=== PATIENT | female | born 1960 | race Caucasian/White ===

== ENCOUNTER 2017-08-15 12:44 | Inpatient (IN) | payer OTHER ==
[~2017-08-15] VITALS: Ht 160 cm; Wt 64.9 kg
--- NOTE | 2017-08-15 13:08 | ED GENERAL ADULT ---
History of Present Illness General Chief Complaint: General Adult Stated Complaint: PER GRANDDAUGHTER SLURRING WORDS,SHAKY Source: patient, family Exam Limitations: confusion Vital Signs & Intake/Output Vital Signs & Intake/Output Vital Signs Date Time Temp Pulse Resp B/P B/P Pulse O2 O2 Flow FiO2 Mean Ox Delivery Rate 08/15 1526 98.1 112 22 129/77 91 Room Air 08/15 1455 96 Room Air 08/15 1307 98.9 100 18 122/74 99 Room Air Allergies Coded Allergies: No Known Allergies (08/15/17) Reconcile Medications Levothyroxine Sodium (Synthroid) 137 MCG TABLET 1 TAB PO DAILY THYROID ( Reported) Metoprolol Succinate 50 MG TAB.ER.24H 1 TAB PO DAILY HEART/BP (Reported) Simvastatin (Simvastatin*) 80 MG TABLET 1 TAB PO DAILY CHOLESTEROL (Reported) Triage Nurses Notes Reviewed? yes Onset: Gradual Duration: week(s):, getting worse, waxing and waning Timing: recent history Injury Environment: home Severity: moderate HPI: 57yo female with hx of hypothyroidism, HTN, alcoholism presents to ED in care of family who state the patient has been "sick" for 6 weeks however today symptoms have worsened. HPI is limited due to patient's confusion, HPI obtained from family. Family state that for the past 6 weeks the patient has been off, coughing intermittently. Patient has had urinary and bowel incontinence for the past 3 weeks. Patient has also had increasing swelling in bilateral lower extremities, family unsure of when this started. Patient recently acting more confused, family is unsure when confusion started however no that today the patient is not at her baseline. 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 Patient denies drinking alcohol today or yesterday, reports lower appetite. Patient denies pain, vomiting, diarrhea. (Nasra Green) Past History Travel History Traveled to [place] past 21 day No Medical History Any Pertinent Medical History? see below for history Cardiovascular: hypertension Endocrine: hypothyroidism Surgical History Surgical History: non-contributory Family History Hx Contributory? No (Nasra Green) Review of Systems Review of Systems Constitutional: Reports: see HPI. Respiratory: Reports: see HPI. GI: Reports: see HPI. Genitourinary: Reports: see HPI. Neurological/Psychological: Reports: see HPI. Comments ROS is limited d/t patient's confusion. (Bonnie MARTELL,Nasra Diggs) Physical Exam Physical Exam General Appearance: well developed/nourished, confused Head: atraumatic, normal appearance Eyes: Bilateral: normal appearance, PERRL, EOMI. Ears, Nose, Throat: hearing grossly normal Neck: normal inspection, supple, full range of motion Respiratory: normal breath sounds, no respiratory distress, lungs clear Cardiovascular: regular rate/rhythm, normal peripheral pulses Peripheral Pulses: 2+ radial (R), 2+ radial (L) Gastrointestinal: normal bowel sounds, soft, non-tender, hepatomegaly, fine deep red/purple maculopapular rash to central abdomen, nontender Back: normal inspection, normal range of motion Extremities: normal range of motion, 2+ pitting edema bilateral lower extremities, nontender Neurologic/Psych: awake, oriented to person and place, neurologic exam limited, patient will not follow commands, confused Skin: intact, see abdominal rash as described Core Measures ACS in differential dx? Yes CVA/TIA Diagnosis: No Sepsis Present: No Sepsis Focused Exam Completed? No (Bonnie MARTELL,Nasra Diggs) Progress Differential Diagnoses I considered the following diagnoses in my evaluation of the patient: [Hepatic encephalopathy, hypoglycemia, hyperglycemia, alcohol intoxication, drug intoxication, alcohol withdrawal, UTI, encephalitis, ICH, malignancy, sepsis] Plan of Care: Orders Procedure Date/time Status Nothing by Mouth 08/16 B Active Add-on Test (ER Only) 08/15 1724 Active Patient Data 08/15 1632 Active ED Holding Orders 08/15 1628 Active Admit to inpatient 08/15 1628 Active Vital Signs 08/15 1628 Active Code Status 08/15 1628 Active Add-on Test (ER Only) 08/15 1627 Active Add-on Test (ER Only) 08/15 1625 Active LACTIC ACID 08/15 1608 Active Waller, Insertion/Removal/Asses 08/15 1540 Active US-LIMITED ABDOMEN 08/15 1451 Active URINE OSMOLALITY 08/15 1431 Complete URINE LYTES, SPOT 08/15 1431 Complete PARTIAL THROMBOPLASTIN TIME 08/15 1415 Complete PROTHROMBIN TIME 08/15 1415 Complete THYROID STIMULATING HORMONE 08/15 1400 Complete SERUM OSMOLALITY 08/15 1400 Complete FREE T4 08/15 1400 Complete ACETONE 08/15 1400 Complete CULTURE,URINE 08/15 1355 Active Patient Safety Monitor 08/15 1336 Active Saline Lock 08/15 1328 Active FingerStick- Glucose 08/15 1328 Active AMMONIA 08/15 1314 Complete BLOOD CULTURE 08/15 1313 Active URINE DRUG SCREEN FOR ER ONLY 08/15 1308 Complete URINALYSIS 08/15 1308 Complete TROPONIN LEVEL 08/15 1308 Complete LACTIC ACID 08/15 1308 Complete ETHANOL 08/15 1308 Complete COMPREHENSIVE METABOLIC PANEL 08/15 1308 Complete CBC WITHOUT DIFFERENTIAL 08/15 1308 Complete EKG 08/15 1248 Active Laboratory Tests 08/15/17 1431: Urinalysis MOD H, Urine Color KRYSTAL, Urine Clarity CLEAR, Urine pH 6.0, Ur Specific Glynn 1.025, Urine Protein 30 H, Urine Ketones >=80, Urine Nitrite NEG, Urine Bilirubin POS@ICTO H, Urine Urobilinogen 4.0 H, Ur Leukocyte Esterase NEG, Ur Microscopic SEDIMENT EXAMINED, Urine RBC 1-3, Urine WBC 1-3 H, Ur Epithelial Cells FEW, Hyaline Casts > 75 H, Granular Casts RARE H, Urine Hemoglobin TRACE-INTACT, Urine Glucose NEG 08/15/17 1431: Urine Opiates Screen < 100, Methadone Screen < 40, Barbiturate Screen < 60, Ur Phencyclidine Scrn < 6.00, Amphetamines Screen < 100, U Benzodiazepines Scrn < 85, Urine Cocaine Screen < 50, Urine Cannabis Screen < 5.00, Urine Osmolality 368, Ur Random Creatinine 73.2, Ur Random Sodium 43, Ur Random Potassium 26.8, Fraction Sodium Excret 0.6 08/15/17 1415: PT 12.6 H, INR 1.15, APTT 33 08/15/17 1400: Ammonia 76 H 08/15/17 1400: Anion Gap 34 H, Estimated GFR 39 L, BUN/Creatinine Ratio 6.4 L, Glucose 113 H, Serum Osmolality 295, Lactic Acid 1.2, Calcium 8.0 L, Total Bilirubin 4.5 H , AST 238 H, ALT 86 H, Alkaline Phosphatase 327 H, Troponin I < 0.01, Total Protein 7.7, Albumin 3.7, Globulin 4.0, Albumin/Globulin Ratio 0.9 L, TSH 1.870 , Free T4 1.04, CBC w Diff MAN DIFF ORDERED, RBC 2.36 L, MCV 121.6 H, MCH 41.3 H, MCHC 34.0, RDW 15.6 H, MPV 9.5, Gran % 91.4 H, Lymphocytes % 2.9 L, Monocytes % 5.7, Eosinophils % 0, Basophils % 0, Absolute Granulocytes 5.1, Segmented Neutrophils 57, Band Neutrophils 30 H, Absolute Lymphocytes 0.2 L, Lymphocytes 5 L, Monocytes 7, Absolute Monocytes 0.3, Absolute Eosinophils 0, Absolute Basophils 0, Metamyelocytes 1, Nucleated RBCs 3 H, Platelet Estimate DECREASED, Anisocytosis 1+, Macrocytic Cells 2+, Serum Alcohol < 10.0, Acetone Level POSITIVE AT 1:16 DIL 08/15/17 1348: TSH Cancelled, Free T4 Cancelled Microbiology 08/15 1431 URINE ROUT: Urine Culture - RECD 08/15 1415 BLOOD: Blood Culture - RECD 08/15 1400 BLOOD: Blood Culture - RECD Patient's ammonia level is elevated at 76. Chemistry shows elevation in liver enzymes and bilirubin. Patient also with elevated anion gap. Likely Hepatic encephalopathy in setting of acute alcoholic hepatitis. Patient medicated with Lactulose and IV fluids. The patient was discussed with Dr. Villela. Spoke with hospitalist, Dr. Acosta, regarding this patient's admission. GI consult pending. Spoke with Dr. Justin regarding this patient. He recommends further workup regarding the patient's altered mental status, patient's not have a history of hepatic encephalopathy may be related to the patient's symptoms. Diagnostic Imaging: Viewed by Me: Radiology Read, CT Scan. Discussed w/RAD: Radiology Read, CT Scan. Radiology Impression: PATIENT: DINORAH OGLESBY PRESENT AGE: 57 PATIENT ACCOUNT NO: [id number] : 62 LOCATION: [facility] ORDERING PHYSICIAN: Nasra MARTELL SERVICE DATE: 08/15/17 EXAM TYPE: CAT - CT HEAD WO IV CONTRAST EXAMINATION: CT HEAD WITHOUT CONTRAST CLINICAL INFORMATION: Acute mental status change. Rule out intracranial hemorrhage or mass. COMPARISON: None TECHNIQUE: Contiguous axial imaging was performed from the skull base to vertex without intravenous administration of contrast. DLP: 549.29 mGy-cm FINDINGS: Evaluation limited by motion artifact. There is no evidence of acute intracranial hemorrhage or territorial infarction. No abnormal mass effect or midline shift is seen. Gill to white matter differentiation is well preserved. No extra-axial fluid collections are identified. The ventricles are normal in size. There is no abnormal attenuation within the brain parenchyma. The osseous structures and soft tissues are normal. Minimal mucosal disease is seen in the posterior right sphenoid sinus. The mastoid air cells and visualized portions of the paranasal sinuses are otherwise well aerated. IMPRESSION: No acute intracranial pathology. Minimal right sphenoid sinus disease. DICTATED BY: Jihan Lawton MD DATE/TIME DICTATED:03/25 SECURITY EXPERT:LANDERS DATE/TIME TRANSCRIBED:08/15/171503 CONFIDENTIAL, DO NOT COPY WITHOUT APPROPRIATE AUTHORIZATION. <Electronically signed in Other Vendor System> SIGNED BY: Jihan Lawton MD 08/15/17 1510 CXR Impression: PATIENT: DINORAH OGLESBY PRESENT AGE: 57 PATIENT ACCOUNT NO: [id number] : 62 LOCATION: [facility] ORDERING PHYSICIAN: Nasra MARTELL SERVICE DATE: 08/15/17 EXAM TYPE: RAD - XRY- PORTABLE CHEST XRAY EXAMINATION: XR PORTABLE CHEST CLINICAL INFORMATION: Acute mental status changes. Cough. Evaluate for pneumonia. COMPARISON: None TECHNIQUE : Portable AP semierect view of the chest was obtained. FINDINGS: The cardiomediastinal silhouette is within normal limits in size. Low lung volumes are seen with mild bibasilar reticular opacities, most consistent with atelectasis. No focal consolidation, effusion or pneumothorax is seen. Old healed fracture deformities of the posterior lateral right fifth, sixth, and seventh ribs is seen. IMPRESSION: Mild bibasilar opacities, most consistent with subsegmental atelectasis. No dense consolidation seen. DICTATED BY: Jihan Lawton MD DATE/TIME DICTATED:08/15/171506 SECURITY EXPERT:LANDERS DATE/ TIME TRANSCRIBED:08/15/171506 CONFIDENTIAL, DO NOT COPY WITHOUT APPROPRIATE AUTHORIZATION. <Electronically signed in Other Vendor System> SIGNED BY: Jihan Lawton MD 08/15/17 151 Initial ED EKG: sinus rhythm @96bpm, RBBB, nonspecific ST changes (Bonnie MARTELL,Nasra Diggs) Departure Departure Disposition: STILL A PATIENT Condition: Stable Clinical Impression Primary Impression: Hepatic encephalopathy Secondary Impressions: Acute alcoholic hepatitis Altered mental status Qualifiers: Altered mental status type: unspecified Qualified Code: R41.82 - Altered mental status, unspecified Departure Forms: Customer Survey General Discharge Information Admission Note Spoke With: Ministerio Acosta MD Documentation of Exam: Documentation of any treatments & extenuating circumstances including Concerns Regarding Discharge (functional status, medication knowledge or non-compliance, living conditions, etc.) that warrant an admission rather than observation: [ Hepatic encephalopathy and acute alcoholic hepatitis requiring IV fluids, lactulose, gastroenterology consult, repeat labs, altered mental status and confusion requiring patient safety monitor, premature discharge would be medically unsafe.] (Nasra Green) Admission Note Spoke With: Ministerio Acosta MD PA/DIRECTOR OF PURCHASING Co-Sign Statement Statement: ED Attending supervision documentation- [X] I saw and evaluated the patient. I have also reviewed all the pertinent lab results and diagnostic results. I agree with the findings and the plan of care as documented in the PA's/DIRECTOR OF PURCHASING's documentation. [X] I have reviewed the ED Record and agree with the PA's/DIRECTOR OF PURCHASING's documentation. [] Additions or exceptions (if any) to the PAs/DIRECTOR OF PURCHASING's note and plan are summarized below: [Patient to be admitted for hepatic encephalopathy and alcoholic hepatitis. Patient only to GI consultation. Patient will need lactulose. IV fluids.] (Manohar INMAN,Yohannes Rodrigez) Critical Care Note Critical Care Note Critical Care Time: 30-74 min (Nasra Green) (Nasra Green)
[2017-08-15 15:05] LABS: ABSOLUTE BASOPHIL COUNT 0 /CUMM (0.0-0.2); ABSOLUTE EOSINOPHIL COUNT 0 /CUMM (0.0-0.7); ABSOLUTE GRANULOCYTE CT 5.1 /CUMM (1.4-6.5); ABSOLUTE LYMPH COUNT 0.2 /CUMM (1.2-3.4); ABSOLUTE MONOCYTE COUNT 0.3 /CUMM (0.10-0.60); BASOPHIL % 0 % (0.0-2.0); EOSINOPHIL % 0 % (0-5); GRANULOCYTE % 91.4 % (42.2-75.2); HEMATOCRIT 28.7 % (37-47); MEAN CORPUSCULAR HGB 41.3 PG (27.0-31.0); MEAN CORPUSCULAR VOLUME 121.6 FL (81.0-99.0); MEAN PLATELET VOLUME 9.5 FL (7.4-10.4); PLATELET COUNT 126 /CUMM (130-400); RBC DISTRIBUTION WIDTH 15.6 % (11.5-14.5); WHITE BLOOD CELL COUNT 5.6 /CUMM (4.8-10.8)
[2017-08-15 15:07] LABS: RED BLOOD CELL CT 2.36 /CUMM (4.20-5.40)
--- NOTE | 2017-08-15 15:10 | CT SCAN REPORT ---
EXAMINATION: CT HEAD WITHOUT CONTRAST CLINICAL INFORMATION: Acute mental status change. Rule out intracranial hemorrhage or mass. COMPARISON: None TECHNIQUE: Contiguous axial imaging was performed from the skull base to vertex without intravenous administration of contrast. DLP: 549.29 mGy-cm FINDINGS: Evaluation limited by motion artifact. There is no evidence of acute intracranial hemorrhage or territorial infarction. No abnormal mass effect or midline shift is seen. Gill to white matter differentiation is well preserved. No extra-axial fluid collections are identified. The ventricles are normal in size. There is no abnormal attenuation within the brain parenchyma. The osseous structures and soft tissues are normal. Minimal mucosal disease is seen in the posterior right sphenoid sinus. The mastoid air cells and visualized portions of the paranasal sinuses are otherwise well aerated. IMPRESSION: No acute intracranial pathology. Minimal right sphenoid sinus disease.
--- NOTE | 2017-08-15 15:12 | RADIOLOGY REPORT ---
EXAMINATION: XR PORTABLE CHEST CLINICAL INFORMATION: Acute mental status changes. Cough. Evaluate for pneumonia. COMPARISON: None TECHNIQUE: Portable AP semierect view of the chest was obtained. FINDINGS: The cardiomediastinal silhouette is within normal limits in size. Low lung volumes are seen with mild bibasilar reticular opacities, most consistent with atelectasis. No focal consolidation, effusion or pneumothorax is seen. Old healed fracture deformities of the posterior lateral right fifth, sixth, and seventh ribs is seen. IMPRESSION: Mild bibasilar opacities, most consistent with subsegmental atelectasis. No dense consolidation seen.
[2017-08-15] MEDS ORDERED: SIMVASTATIN80 M1 PO (15:25)
[2017-08-15] MEDS ORDERED: SYNTHROID137 MCG PO (15:25)
[2017-08-15] MEDS ORDERED: METOPROLOL SUCC50 M2 PO (15:25)
--- NOTE | 2017-08-15 16:36 | History & Physical ---
General Information and HPI Allergies/Medications Allergies: Coded Allergies: No Known Allergies (08/15/17) Home Med list Levothyroxine Sodium (Synthroid) 137 MCG TABLET 1 TAB PO DAILY THYROID ( Reported) Metoprolol Succinate 50 MG TAB.ER.24H 1 TAB PO DAILY HEART/BP (Reported) Simvastatin (Simvastatin*) 80 MG TABLET 1 TAB PO DAILY CHOLESTEROL (Reported) Past History Travel History Traveled to [place] past 21 day No Medical History Neurological: NONE EENT: NONE Cardiovascular: hypertension Respiratory: NONE Gastrointestinal: NONE Hepatic: NONE Renal: NONE Musculoskeletal: NONE Psychiatric: NONE Endocrine: hypothyroidism Blood Disorders: NONE Cancer(s): NONE Isolation History: Standard Surgical History Surgical History: non-contributory Core Measures/Misc (02/22) Cerebrovascular Accident CVA/TIA Diagnosis: No
[2017-08-15 17:38] LABS: PT 12.6 SEC (9.4-12.5); PTT 33 SEC (25-37)
--- NOTE | 2017-08-15 18:20 | ULTRASOUND REPORT ---
EXAMINATION: US ABDOMEN LIMITED CLINICAL INFORMATION: Elevated ammonia level. Hepatomegaly. Assess liver. COMPARISON: None TECHNIQUE: Real-time imaging of the right upper quadrant abdominal viscera. FINDINGS: PANCREAS: The pancreatic body is visualized with the remainder of the pancreas obscured by overlying bowel gas. LIVER: The liver demonstrates normal size and contour. There is diffusely increased echogenicity with coarsening of the echotexture, suspicious for hepatic steatosis. No focal lesion or intrahepatic biliary duct dilatation. GALLBLADDER: There are several small mobile echogenic shadowing foci within the gallbladder, consistent with gallstones. Small amount of layering sludge is also seen within the gallbladder. The gallbladder is physiologically distended without evidence of polyps, wall thickening or pericholecystic fluid. No sonographic Christian's sign is elicited while scanning over the gallbladder. COMMON BILE DUCT: Not seen. RIGHT KIDNEY: Normal. No hydronephrosis. No renal calculi or focal parenchymal lesions. The kidney measures 11.5 cm in maximum dimension. FREE FLUID: None. IMPRESSION: 1. Limited exam. Common bile duct is not visualized. Pancreatic head and tail are not visualized. Visualized portions of the pancreatic body appear unremarkable. 2. Diffuse hepatic steatosis. 3. Cholelithiasis and sludge within the gallbladder. No evidence of acute cholecystitis. Clinical correlation requested.
--- NOTE | 2017-08-15 19:00 | History & Physical ---
See Addendum General Information and HPI MD Statement: I have seen and personally examined DINORAH VILLAGOMEZ and documented this H&P. The patient is a 57 year old F who presented with a patient stated chief complaint of [AMS]. Source of Information: patient, family Exam Limitations: unable to give history, confusion, poor historian History of Present Illness: This is a 57 yo female with known PMH of htn, hypothyroid, significant etoh use who was brought in by her step daughter for somnolence and altered mental status. Pt is AOX0 so hx is obtained from family (step daughter and her son) at bedside. Step daughter says she went in to see pt today and noted her sitting in a chair, somnolent, unable to respond appropriately with "yellow eyes." Per her, she noted pt was unwell for about 6 wks. She was initially coughing and then noted to be sleeping for excessive amount of time, upwards of 10-13 hours per day. Starting about three weeks ago she seemed to have episodes of incontinence of stool and bowel, which was new for her. Additionally, she seemed to be a little confused but was always appropriate if a little slow in response. Prior to today, step daughter had seen pt last weekend and pt was seen to be walking around, capable of her ADL/IADL and even going to [employer] [employer] for cigarette and a drink. Step daughter is not able to say much more regarding progression of her disease other than family had wanted her to see a healthcare professional but she seemed to refuse. Social hx pertinent for daily habit of etoh of atleast several glasses of wine and scotch. Duration unknown. Family is unaware of any previous hx of complicated withdrawl or DTs. She smokes about 1/2 PPD for atleast 15-20 years. No known hx of IVDA or illicit substances. Cannot obtain accurate ROS given patient's mental status but she denies any pain or discomfort. She sees a Dr. Montserrat Pérez and a Dr. Ana Luisa Conde (names on prescription bottles) ------- Attempted to call [facility] 3x but line did not go through, was always busy. Number is [phone] Step daughter's name is Siena Townsend and her numbers are [phone] Allergies/Medications Allergies: Coded Allergies: No Known Allergies (08/15/17) Home Med list Levothyroxine Sodium (Synthroid) 137 MCG TABLET 1 TAB PO DAILY THYROID ( Reported) Metoprolol Succinate 50 MG TAB.ER.24H 1 TAB PO DAILY HEART/BP (Reported) Simvastatin (Simvastatin*) 80 MG TABLET 1 TAB PO DAILY CHOLESTEROL (Reported) Compliance With Home Meds: UNKNOWN Past History Travel History Traveled to [place] past 21 day No Medical History Neurological: NONE EENT: NONE Cardiovascular: hypertension Respiratory: NONE Gastrointestinal: NONE Hepatic: NONE Renal: NONE Musculoskeletal: NONE Psychiatric: NONE Endocrine: hypothyroidism Blood Disorders: NONE Cancer(s): NONE Isolation History: Standard Surgical History Surgical History: non-contributory Review of Systems Review of Systems Constitutional: Reports: no symptoms. Exam & Diagnostic Data Last 24 Hrs of Vital Signs/I&O Vital Signs Date Time Temp Pulse Resp B/P B/P Pulse O2 O2 Flow FiO2 Mean Ox Delivery Rate 08/15 2009 98.6 101 18 112/74 93 Nasal 2.0L Cannula 08/15 1819 97.4 100 18 110/70 95 Nasal 2.0L Cannula 08/15 1526 98.1 112 22 129/77 91 Room Air 08/15 1455 96 Room Air 08/15 1307 98.9 100 18 122/74 99 Room Air Intake & Output 08/15 1600 08/15 0800 08/15 0000 Intake Total 1000 Output Total 250 Balance 750 Intake, IV 1000 Output, Urine 250 Patient 56.699 kg Weight Weight Reported by Patient Measurement Method Physical Exam General Appearance Mild Distress, Initially A0X0 Skin HAS OLD PET[place]IAE ON ABDOMEN AND IN LE. HAS BRUISE IN R. HIP Skin Temp/Moisture Exam: Warm/Dry Sepsis Skin Exam (color): Jaundiced HEENT Atraumatic, PERRLA, SCLERAL ICTERUS PRESENT, MUCOUS MEMBRANES DRY Neck Supple, NO EVIDENCE OF MENINGEAL SIGNS Cardiovascular 2/6 MURMUR AT RUSB Lungs Clear to Auscultation, Normal Air Movement Abdomen Normal Bowel Sounds, Soft, No Tenderness, NO GUARDING, RIGIDITY OR REBOUND., NEGATIVE MURPHYS Neurological PT MOVING HER EXTREMETIES SPONTANEOUSLY. Can respond to basic commands such as open mouth. Extremities 2+ edema bilat LE Last 24 Hrs of Labs/Will: Laboratory Tests 08/15/172054: pH 7.29 *L, pCO2 21 L, pO2 67 L, HCO3 10 L, ABG O2 Sat (Measured) 91.0 L, P- 50 (Temp Corrected) N, Carboxyhemoglobin 0.3 L, O2 Concentration % R/A, Temperature 98.1, Phlebotomy Draw Site LEFT BRACHIAL 08/15/171954: Lactic Acid 0.7 08/15/171954: Anion Gap 26 H, Estimated GFR > 60, Glucose 99, Calcium 7.1 L, Phosphorus 1.3 L, Magnesium 1.0 L, Total Bilirubin 3.5 H, AST 185 H, ALT 77 H, Albumin 2.8 L, CBC w Diff MAN DIFF ORDERED, RBC 2.08 L, MCV 119.9 H, MCH 41.9 H, MCHC 35.0, RDW 14.9 H, MPV 8.0, Gran % 93.3 H, Lymphocytes % 3.0 L, Monocytes % 3.5, Eosinophils % 0, Basophils % 0.2, Absolute Granulocytes 4.0, Segmented Neutrophils 59, Band Neutrophils 33 H, Absolute Lymphocytes 0.1 L, Lymphocytes 7 L, Monocytes 1 L, Absolute Monocytes 0.2, Absolute Eosinophils 0, Absolute Basophils 0, Nucleated RBCs 2 H, Platelet Estimate DECREASED, Anisocytosis 1+, Macrocytic Cells 2+, Retic Count 2.62 H 08/15/17 1431: Urinalysis MOD H, Urine Color KRYSTAL, Urine Clarity CLEAR, Urine pH 6.0, Ur Specific [place] 1.025, Urine Protein 30 H, Urine Ketones >=80, Urine Nitrite NEG, Urine Bilirubin POS@ICTO H, Urine Urobilinogen 4.0 H, Ur Leukocyte Esterase NEG, Ur Microscopic SEDIMENT EXAMINED, Urine RBC 1-3, Urine WBC 1-3 H, Ur Epithelial Cells FEW, Hyaline Casts > 75 H, Granular Casts RARE H, Urine Hemoglobin TRACE-INTACT, Urine Glucose NEG 08/15/17 1431: Urine Opiates Screen < 100, Methadone Screen < 40, Barbiturate Screen < 60, Ur Phencyclidine Scrn < 6.00, Amphetamines Screen < 100, U Benzodiazepines Scrn < 85, Urine Cocaine Screen < 50, Urine Cannabis Screen < 5.00, Urine Osmolality 368, Ur Random Creatinine 73.2, Ur Random Sodium 43, Ur Random Potassium 26.8, Fraction Sodium Excret 0.6 08/15/17 1415: PT 12.6 H, INR 1.15, APTT 33 08/15/17 1400: Ammonia 76 H 08/15/17 1400: Anion Gap 34 H, Estimated GFR 39 L, BUN/Creatinine Ratio 6.4 L, Glucose 113 H, Serum Osmolality 295, Lactic Acid 1.2, Calcium 8.0 L, Phosphorus 2.9, Magnesium 1.0 L, Iron 133, TIBC 160 L, Ferritin Pending, Total Bilirubin 4.5 H, Direct Bilirubin 3.9 H, AST 238 H, ALT 86 H, Alkaline Phosphatase 327 H, Troponin I < 0.01, Total Protein 7.7, Albumin 3.7, Globulin 4.0, Albumin/ Globulin Ratio 0.9 L, Lipase 320 H, Vitamin B12 > 1000 H, Folate 15.2, TSH 1.870, Free T4 1.04, CBC w Diff MAN DIFF ORDERED, RBC 2.36 L, MCV 121.6 H, MCH 41.3 H, MCHC 34.0, RDW 15.6 H, MPV 9.5, Gran % 91.4 H, Lymphocytes % 2.9 L, Monocytes % 5.7, Eosinophils % 0, Basophils % 0, Absolute Granulocytes 5.1, Segmented Neutrophils 57, Band Neutrophils 30 H, Absolute Lymphocytes 0.2 L, Lymphocytes 5 L, Monocytes 7, Absolute Monocytes 0.3, Absolute Eosinophils 0, Absolute Basophils 0, Metamyelocytes 1, Nucleated RBCs 3 H, Platelet Estimate DECREASED, Anisocytosis 1+, Macrocytic Cells 2+, Hepatitis A IgM Ab Pending, Hep Bs Antigen Pending, Hep B Core IgM Ab Conf Pending, Hepatitis C Antibody Pending , HIV 1&2 Ab Western Blot Pending, Serum Alcohol < 10.0, Acetone Level POSITIVE AT 1:16 DIL 08/15/17 1348: TSH Cancelled, Free T4 Cancelled Microbiology 08/16 2219 LOWER RESP: Respiratory Culture - ORD 08/16 2219 LOWER RESP: Gram Stain - ORD 08/15 2205 UPPER RESP: Surveillance Culture - ORD 03/10 2206 GI: Surveillance Culture - ORD 08/15 1842 URINE ROUT: Urine Culture - COLB 08/15 1431 URINE ROUT: Urine Culture - RECD 08/15 1415 BLOOD: Blood Culture - RECD 08/15 1400 BLOOD: Blood Culture - RECD Assessment/Plan Assessment: This is a 57 yo female with known PMH of hypothyroid, htn and known etoh use who comes in with CC of AMS and somnolence. Given her presentation there is concern for various etiologies of encephalopathy including hepatic encephalopathy, metabolic encephalopathy due to metabolic derangements likely secondary to alcoholic vs. starvation ketosis or encephalopathy due to underlying infection. As such, will admit pt to ICU for further monitoring and work up. Pt got 3L NS and 1 dose of lactulose in ED. After several BM she seemed more alert. PLAN: AMS: Given that her labs and physical exam are pertinent for scleral icterus, elevated conjugated bilirubin, transamanitis in context of significant etoh hx there is concern for hepatic encephalopathy. However, she does have significant metabolic derangements including anion gap 34 and bicarb 7 suggesting significant acidosis and a WBC 5.6 with 30 bands so we cannot also rule out metabolic encephalopathy or sepsis as etiology of AMS. Additionally, acute intoxication or withdrawl need to be considered. CT head negative for acute intracranial pathology. Ammonia lvl 76. Given AMS and elevated white count there was consideration of meningitis but as she improved with lactulose, has no meningeal signs, remains afebrile and had other causes higher on the differential will defer LP at this time. * ABG * Q1 neuro check * Utox * Serum osm * thiamine * b12 * banana bag * Paige culture * 1:1 sitter * Need to call family in AM for further corroboration of history (see HPI for numbers) AGMA: ABG shows pH 7.29, bicarb 10, Pco2 21. AG 34. OG 15. Delta gap is not suggestive of alkalosis or NAGMA. Given positive acetone, blood sugar of 113, her presentation is suggestive of alcoholic vs starvation ketoacidosis. * Thiamine hi dose * D5NS at 150cc/hr * Monitor FS Q2 Hypok/Hypo Mag: K 3.1, Mag 1.0 and phos 1.3. * Repeat labs in 4 hrs * Replete. Transamanitis: AST 238, ALT 86, ALK P 327. She has classic AST>>ALT pattern for alcoholic hepatitis. Abd us shows fatty liver and some sludging + stones in gall bladder. Note that US was of poor quality and could not visualize CBD etc. Given elevated ALKP and gallbladder sludging + stones cannot rule out cholecystitis. Note burns sign negative. * Hepatitis panel * HIV * Con't monitor * Consider abdomen CT in AM * Unasyn 1.5mg q8 for empiric treatment * Hold home simvastatin * Check lipase * tylenol level EARL vs CKD: We have no baseline so it is not possible to determine if this is her baseline or not. Waller placed with no indication of urinary retention. BUN /Cr ratio not classically pre-renal but but pt is very dry and obtunded so likely low access to H2O as well. UA does show casts, and elevated protein raising concern for intrinsic renal pathology such as ATN. FeNa and Estephania not suggestive of hepatorenal pathology. * Con't monitor * Urine lytes * Waller in place * Adequate hydration w/ D5NS Hypothyroidism: TFT here wnl. * Con't home reg. Macrocytic Anemia: Hb 9.7 and HCT 28.7. MCV 121.6. * Iron studies * B12 lvl * Folate lvl Hypertension/CAD: Chronic and stable. * Con't home metoprolol Succinate 50 daily with hold parameters. Unsure if she is having rebound tachycardia as she likely didn't take her medications recently given AMS * Hold Simvastatin Alcohol withdrawl: Pt does have significatn hx of Etoh use. UTOX negative for etoh. She is significantly obtunded at this time so hesitate to administer mood altering substances such as ativan. * CIWA protocol without ativan * If evidence of withdrawl consider adding ativan. FC CHEM DVT PPX NPO As Ranked By This Provider Problem List: 1. Hepatic encephalopathy Core Measures/Misc (02/22) Acute Coronary Syndrome ACS Diagnosis: No Congestive Heart Failure Congestive Heart Failure Diagnosis No Cerebrovascular Accident CVA/TIA Diagnosis: No VTE (View Protocol) VTE Risk Factors Acute Medical Illness No Mechanical VTE Prophylaxis d/t N/A MechProphylax Ordered No VTE Pharm Prophylaxis d/t NA PharmProphylax ordered Sepsis (View protocol) Sepsis Present: No
[2017-08-15 20:09] LABS: ABSOLUTE BASOPHIL COUNT 0 /CUMM (0.0-0.2); ABSOLUTE EOSINOPHIL COUNT 0 /CUMM (0.0-0.7); ABSOLUTE LYMPH COUNT 0.1 /CUMM (1.2-3.4); ABSOLUTE MONOCYTE COUNT 0.2 /CUMM (0.10-0.60); BASOPHIL % 0.2 % (0.0-2.0); EOSINOPHIL % 0 % (0-5); GRANULOCYTE % 93.3 % (42.2-75.2); PLATELET COUNT 100 /CUMM (130-400); RBC DISTRIBUTION WIDTH 14.9 % (11.5-14.5); WHITE BLOOD CELL COUNT 4.3 /CUMM (4.8-10.8)
[2017-08-15 20:30] LABS: HEMATOCRIT 24.9 % (37-47); MEAN CORPUSCULAR HGB 41.9 PG (27.0-31.0); MEAN CORPUSCULAR VOLUME 119.9 FL (81.0-99.0); RED BLOOD CELL CT 2.08 /CUMM (4.20-5.40)
[2017-08-15 21:23] VITALS: BP 98/60
[2017-08-16] VITALS (9 sets, daily range): BP systolic 91–122; BP diastolic 56–80
--- NOTE | 2017-08-16 05:43 | RADIOLOGY REPORT ---
EXAMINATION: XR PORTABLE CHEST CLINICAL INFORMATION: Desaturation COMPARISON: 08/15/2017 TECHNIQUE: Portable frontal view of the chest was obtained. FINDINGS: Lung volumes are symmetric. There are increased regions of symmetric heterogeneous airspace opacity in the mid to lower lungs along with mildly increased interstitial prominence. No pneumothorax is seen. No significant pleural effusion. The cardiomediastinal contour is unremarkable. Healed right rib fractures are again noted. IMPRESSION: Increased, symmetric regions of heterogeneous opacity in the mid to lower lungs with interstitial prominence. Appearance may reflect developing edema in the proper clinical setting.
[2017-08-16 06:09] LABS: ABSOLUTE BASOPHIL COUNT 0 /CUMM (0.0-0.2); ABSOLUTE EOSINOPHIL COUNT 0 /CUMM (0.0-0.7); ABSOLUTE GRANULOCYTE CT 5.3 /CUMM (1.4-6.5); ABSOLUTE LYMPH COUNT 0.1 /CUMM (1.2-3.4); ABSOLUTE MONOCYTE COUNT 0.1 /CUMM (0.10-0.60); BASOPHIL % 0.1 % (0.0-2.0); EOSINOPHIL % 0.1 % (0-5); GRANULOCYTE % 95.1 % (42.2-75.2); MEAN PLATELET VOLUME 8.8 FL (7.4-10.4); PLATELET COUNT 96 /CUMM (130-400); WHITE BLOOD CELL COUNT 5.6 /CUMM (4.8-10.8)
--- NOTE | 2017-08-16 06:48 | Admission Certification ---
Admission Certification Certification Statement - As attending physician, I certify that at the time of - admission, based on clinical presentation, severity of - symptoms, need for further diagnostic testing and - therapeutic interventions, and risk of adverse outcomes - without in-hospital treatment, in my clinical assessment, - this patient requires an acute hospital stay for a minimum - of two nights or longer. I have also considered psychsocial - factors such as support system, advanced age, financial - issues, cognitive issues, and failed out-patient treatments, - past re-admission history, safety of patient, and lack of - compliance as applicable. Specific rationale supporting this admission is: Encephalopathy
[2017-08-16 07:15] LABS: HEMATOCRIT 26.4 % (37-47); MEAN CORPUSCULAR HGB CONC 33.2 G/DL (33.0-37.0); MEAN CORPUSCULAR VOLUME 120.5 FL (81.0-99.0)
[2017-08-16 07:19] LABS: RBC DISTRIBUTION WIDTH 15.3 % (11.5-14.5)
[2017-08-16 07:21] LABS: RED BLOOD CELL CT 2.19 /CUMM (4.20-5.40)
--- NOTE | 2017-08-16 11:22 | PN- Resident CRCU ---
Yasir Miranda 08/16/17 1103: Subjective HPI/CRCU Issues: 57 year old woman with history of HTN, Hypothyroidism, excess alcohol use was brought in to the ED by the family for excessive somnolence and worsening confusion of 5-6 weeks duration, worsened during the past week. at bedside, who reports increased alcohol recently and also increased Tylenol use for "headache". This morning she remains confused and drowsy. She is able to follow commands, but fails to answer appropriately. She endorses to no abdominal pain but grimaces on palpation in right upper quadrant. Vitals overnight. Afebrile. Heart rate-tachycardic 98-112. Respiratory rate 20-34. Borderline hypotensive-103/76. Requiring 2-4 L of oxygen. Pertinent labs: Normal white count, with 57 segs and 30 bands on presentation. Anion gap 34 on presentation. Creatinine-1.4. Low magnesium and phosphorus. Low potassium. T bilirubin 4.5. D bilirubin 3.9. Alkaline phosphatase 327. Ammonia 76. Appropriately elevated cortisol level this morning. Normal thyroid function. 24 Hour Events: Afebrile. Improving liver function. Improving bandemia, on empiric Unasyn. Abdominal ultrasound unable to visualize biliary tree-CBD. No sonographic evidence of Christian's, but grimaces to palpation in right upper quadrant. Positive fluid balance-3243/750. Added on salicylate levels to yesterday's labs. Objective Vital Signs & I&O Last 8 Hrs of Vitals and I&O: Intake & Output 08/16 1600 Intake Total Output Total Balance Patient 145 lb Weight Exam General Appearance: alert, moderate distress, oriented to name. able to follow commands. Head: atraumatic, normal appearance Ears, Nose, Throat: mucous membranes dry, dried blood noted on mouth. Neck: normal inspection, supple Respiratory: normal breath sounds, crackles (basilar) Cardiovascular: regular rate/rhythm Gastrointestinal: tenderness to palpation right upper quadrant. no distention, no rigidity .hypoactive bowel sounds. Extremities: normal inspection, normal capillary refill, swelling Current Medications: Current Medications Sig/Marcus Start time Last Medication Dose Route Stop Time Status Admin Ampicillin Sodium/ 1,500 MG Q6 08/16 0645 AC 08/16 Sulbactam Sodium IV 0719 Sodium Chloride 100 ML Ampicillin Sodium/ 1,500 MG ONCE ONE 08/15 2100 DC 08/15 Sulbactam Sodium IV 08/15 2129 2231 Sodium Chloride 100 ML Cyanocobalamin/ 1 BAG ONCE ONE 08/15 204 DC 08/16 Thiamine/Pyridoxine IV 08/16 0444 0057 Sodium Chloride 1,000 ML Dextrose/Sodium 1,000 ML Q6H 08/15 2145 DC 08/16 Chloride IV 0038 Furosemide 20 MG ONCE ONE 08/16 0745 DC 08/16 IV 08/16 0746 0803 Heparin Sodium 5,000 UNIT Q8 08/15 2328 AC 08/16 (Porcine) SC 0536 Insulin Human Regular 0 AT BEDTIME 08/16 2200 AC SC Insulin Human Regular 0 Q4 08/16 1400 UNVr SC Insulin Human Regular 0 TIDAC 08/16 0800 DC 08/16 SC 0803 Lactulose 20 GM ONCE ONE 08/16 0400 DC 08/16 PO 08/16 0401 0619 Lactulose 0 .STK-MED ONE 08/15 1538 DC PO Lactulose 20 GM ONCE ONE 08/15 1515 DC 08/15 PO 08/15 1516 1611 Levothyroxine Sodium 0.137 MG DAILY AC 08/16 0700 AC 08/16 PO 0536 Magnesium Sulfate 1 GM Q2H 08/16 0645 DC 08/16 Dextrose/Water 100 ML IV 08/16 1044 0828 Magnesium Sulfate 1 GM Q2H 08/15 204 DC 08/15 Dextrose/Water 100 ML IV 08/16 0044 2312 Metoprolol Succinate 50 MG DAILY 08/16 1000 AC PO Ondansetron HCl 4 MG Q6P PRN 08/15 1845 AC IV Phosphate 250 MG ONCE ONE 08/16 0645 DC 08/16 PO 08/16 0646 0827 Potassium Chloride 80 MEQ ONCE ONE 08/16 0400 DC 08/16 PO 08/16 0401 0403 Potassium Chloride 40 MEQ ONCE ONE 08/16 0330 DC 08/16 PO 08/16 0331 0345 Potassium Chloride 20 MEQ ONCE ONE 08/16 0015 DC 08/16 PO 08/16 0016 0013 Potassium Chloride 60 MEQ ONCE ONE 08/15 2245 DC PO 08/15 2246 Potassium Chloride 10 MEQ Q1H 08/15 2044 DC IV 08/15 214 Potassium Chloride 60 MEQ ONCE ONE 08/15 2044 DC 08/15 PO 08/15 204 2312 Potassium Phosphate 15 mMol ONE ONE 08/15 2045 DC 08/15 Dextrose/Water 250 ML IV 08/16 0049 2230 Sodium Chloride 1,000 ML BOLUS ONE 08/15 1500 DC 08/15 IV 08/15 1559 1940 Sodium Chloride 1,000 ML BOLUS ONE 08/15 1500 DC 08/15 IV 08/15 1559 1645 Sodium Chloride 1,000 ML BOLUS ONE 08/15 1500 DC / IV 08/15 1559 1611 Thiamine HCl 500 MG Q6 08/15 2359 CAN IV 08/16 1201 Thiamine HCl 500 MG Q6H 08/15 2300 AC 08/16 Sodium Chloride 250 ML IV 08/16 1605 1036 Thiamine HCl 200 MG DAILY 08/15 204 AC 08/16 PO 08/17 1001 0827 CXR Findings: IMPRESSION: Increased, symmetric regions of heterogeneous opacity in the mid to lower lungs with interstitial prominence. Appearance may reflect developing edema in the proper clinical setting. US Findings: IMPRESSION: 1. Limited exam. Common bile duct is not visualized. Pancreatic head and tail are not visualized. Visualized portions of the pancreatic body appear unremarkable. 2. Diffuse hepatic steatosis. 3. Cholelithiasis and sludge within the gallbladder. No evidence of acute cholecystitis. Clinical correlation requested. Impression/Plan Impression/Problem List Impression: 57-year-old woman with excess alcohol use presented to [facility] ED with confusion and somnolence, jaundiced appearance on presentation, ABGs revealing of acidosis-likely metabolic (normal lactate). The normal lactate is reassuring and essentially makes another competing process like sepsis, tissue hypoperfusion, or thiamine deficiency unlikely. Low hepatic lactate production, despite significant alcohol use and sufficient peripheral tissue oxidation of whatever lactate is produced justifies normal lactate. Given the high anion gap metabolic acidosis, ketonemia, low levels of potassium, magnesium and phosphorus (especially in the setting of normal glucose on presentation), a diagnosis of alcoholic ketoacidosis was entertained and the patient treated accordingly. Osmolar gap at admission : 12. Additionally, given her bilirubinemia and nonvisualized CBD on ultrasound, jaundice, right upper quadrant tenderness on exam today, high alk phos, bandemia , confusion and hypotension- concern for ascending cholangitis?. To be noted, she is empirically on Unasyn at a dose 1.5 g every 8 hours. GGT pending. Lastly, given her hyperpnea, altered mental status, altered creatinine, normal lactate, liver injury and a high anion gap one does wonder if this is secondary to salicylic acid accumulation in addition to her alcohol/starvation ketosis. No obtainable history. At this point, we will continue ICU care. She is high risk for impending DTs. CIWA. Ativan as needed. On high-dose thiamine. Salicylate level checked, was normal. Given normal INR, liver failure unlikely. Hepatitis serologies negative. Continue treatment with lactulose for presumed encephalopathy (toxic metabolic versus hepatic). Continue empiric Unasyn. Will request GI evaluation. Per the family, worsening mentation has been an ongoing issue for last 4 weeks, worsening somnolence is what made them bring her in yesterday. She may need a lumbar puncture, if no symptom improvement. Kidney function normal. History of hypothyroidism, hepatitis unlikely autoimmune but a consideration. Macrocytosis noted, alcohol related. Normal B12 and folate. Worsening second ABG. Changed to high flow oxygen. Retaining CO2 now. Repeat ABG as well as chemistries in 4 hours. Aggressive repletion of electrolytes, especially given chronic alcohol abuse disorder. Usually overlooked but very important is repletion of phosphate. Hypophosphatemia in this case will contribute to worsening of metabolic acidosis in this case. Intracellular deficiency will impair ATP generation from ADP. Decreased ATP will stimulate PFK activity, thereby enhancing glycolysis - increased acidosis. Tachycardia - Persistent. Waithdrawal related or reflex to hypotension/ hemodynamic instability? Refraining from further fluid resuscitation owing to CXR findings of developing pulmonary edema. Infection/ sepsis unlikely. May proceed with a trial of 250 NS bolus for response. Adventist of volume will decrease sympathetic nerve input too. Low threshhold for intubation. If this indeed is due to etoh withdrawal, careful and judicious use of BZD, given altered mentation, worsening confusion. Normal TSH noted - Cont home levothyroxine. Problem List: 1. Altered mental status 2. Acute alcoholic hepatitis Pain Ratin (Stated) Tomorrow's Labs & Rationales: Bandemia Plan DVT/Prophylaxis: pharmacological Adrienne INMAN,[facility] 08/16/17 1309: Attending MD Review Statement Attending Sign Off Attending Cosign Statement: I have: examined this patient, reviewed al EMR data, personally reviewd images, discussd w/resident/PA/[employer], discussed mgmt plan w/phong, discussed mgmt plan w/CM, discussed mgmt plan w/pt, agreed w/resident/PA/[employer], amended to note. Other Findings: Seen and examined independently Agree with above assessment and physical exam SIGNIFICANT DATA Potassium continues to be low at 3.1 Anion gap is now 15 down from 34 Lipase 320 Bilirubin has improved from 4.5-3.1 and the mainly direct bilirubinemia alkaline phosphatase continues to trend down. GGT is elevated at 1377 and a phosphorous is low magnesium is low as well B12 is adequate her hepatitis panel for viruses negative last TSH normal cortisol level was elevated Tylenol level was low alcohol level was low salicylic acid level was 3.5 which was low her ferritin was elevated at 80 HIV negative spot potassium and sodium of the urine noted Urine osmolality and serum osmolality reviewed Tox screen negative White count now 5.6 hemoglobin low at 8.9 platelets are low at 96,000 patient has 95% granulocytes and initially she had significant bandemia, which is slowly improving Chest x-ray showed developing pulmonary edema Ultrasound showed common bile duct was not visualized pancreatic head and tail are not visualized diffuse hepatic steatosis cholelithiasis and sludge within the gallbladder no evidence of cholecystitis IMPRESSION This is a 57-year-old lady with history of hypertension hypothyroidism significant alcohol abuse with worsening alcoholism in the recent past came into the hospital with confusion and somnolence tachycardia and significant jaundice with severe metabolic acidosis, normal lactate, no significant osmolar gap with clinical signs and symptoms suggestive of severe alcoholic ketoacidosis. She also has significant fatty liver with evidence of significant alcoholic hepatitis with so far preserved synthetic function of her liver. No clinical evidence suggestive of cholangitis so far area chief seems to be improving with fluid resuscitation. She also has severe electrolyte abnormality which is also being corrected. Overall she has improved and her mental status seems to be improved as well and no clinical evidence suggestive of hepatic encephalopathy at this present time. She appears to have mild pancreatitis as well. After the aggressive fluid resuscitation she seems to be in fluid overload which is slowly improving on high flow oxygen therapy. RECOMMENDATION/plan Reduce IV fluids to 50 mL maintenance with D5 By mouth thiamine Aggressive replacement of potassium by mouth and intravenously Neutra-Phos replacement by mouth Magnesium intravenously Panculture and hold antibiotics for now Watch for significant alcohol withdrawal syndrome and use low-dose by mouth benzo if she were to start having agitation and delirium Low-dose beta neri Insulin for sugars more than 150 with sliding scale Discontinue antibiotics for now Check her and lipase tomorrow Heparin subcutaneous Discontinue current IV fluid and give her D5 with Ringer's lactate at 50 mL an hour If she does have evidence of pulmonary edema we'll give her 1 more dose of Lasix after potassium is replaced GI to see Repeat her INR tomorrow Continue to follow for blood work Patient is critically ill keep her in ICU total time spent 40 minutes
--- NOTE | 2017-08-16 12:42 | ECHOCARDIOGRAM REPORT ---
DINORAH OGLESBY Age: 57 : 1960 Gender: F Exam Date: 08/16/2017 08:18 Exam Location: [facility] Ht (in): 63 Wt (lb): 145 BSA: 1.72 BP: 104 / 70 Ordering Physician: Kaleigh Chand MD Referring Physician: Kaleigh Chand MD Technologist: Esperanza King MITALI Room Number: 112 Indications: HEART FAILURE Rhythm: Sinus Technical Quality: fair FINDINGS Left Ventricle Normal global left ventricular size, wall thickness, systolic function with no obvious regional wall motion abnormalities. Normal left ventricular ejection fraction estimated at 65-70%. Right Ventricle Normal right ventricular size and function. Right Atrium Normal right atrial size. Left Atrium Normal left atrial size. Mitral Valve Mild mitral annular calcification. Trace to mild mitral regurgitation. Aortic Valve Aortic valve is normal in structure and function. Tricuspid Valve Tricuspid valve is normal in structure and function. Trace to mild tricuspid regurgitation. Right ventricular systolic pressure estimated to be within the normal range at 24 mmHg. Pulmonic Valve Pulmonic valve not well visualized, grossly normal. Pericardium No pericardial effusion. Great Vessels Normal size aortic root. CONCLUSIONS Normal left and right ventricular systolic function. No significant valvular abnormalities. No significant Pulmonary hypertension. Bryan Gongora M.D. (Electronically Signed) Final Date: 16 August 2017 12:41 MEASUREMENTS (Male / Female) Normal Values 2D ECHO LV Diastolic Diameter PLAX 4.0 cm 4.2 - 5.9 / 3.9 - 5.3 cm LV Systolic Diameter PLAX 2.0 cm 2.1 - 4.0 cm LV Fractional Shortening PLAX 50.0 % 25 - 46 % LV Ejection Fraction 2D Teich 81.8 % IVS Diastolic Thickness 1.1 cm LVPW Diastolic Thickness 1.1 cm LV Relative Wall Thickness 0.6 RV Internal Dim ED PLAX 2.5 cm 1.9 - 3.8 cm LVOT Diameter 1.9 cm Aortic Root Diameter 3.0 cm LA Systolic Diameter LX 3.2 cm 3.0 - 4.0 / 2.7 - 3.8 cm LA Volume 36.0 cm 18 - 58 / 22 - 52 cm Ascending Aorta Diameter 3.7 cm DOPPLER AV Peak Velocity 211.0 cm/s AV Peak Gradient 17.8 mmHg AV Mean Velocity 121.0 cm/s AV Mean Gradient 8.0 mmHg AV Velocity Time Integral 34.5 cm LVOT Peak Velocity 161.0 cm/s LVOT Peak Gradient 10.4 mmHg LVOT Mean Velocity 100.0 cm/s LVOT Mean Gradient 5.0 mmHg LVOT Velocity Time Integral 27.5 cm LVOT Stroke Volume 78.0 cm AV Area Cont Eq vti 2.3 cm AV Area Cont Eq pk 2.2 cm MV Peak Velocity 117.0 cm/s MV Peak Gradient 5.5 mmHg MV Mean Velocity 81.2 cm/s MV Mean Gradient 3.0 mmHg Mitral E Point Velocity 85.9 cm/s Mitral A Point Velocity 116.0 cm/s Mitral E to A Ratio 0.7 MV PHT Velocity 109.0 cm/s MV Deceleration Loup 548.0 cm/s MV Pressure Half Time 59.7 ms MV Area PHT 3.7 cm MV Deceleration Time 333.0 ms TR Peak Velocity 220.0 cm/s TR Peak Gradient 19.4 mmHg Right Atrial Pressure 5.0 mmHg Pulmonary Artery Systolic Pressu 24.4 mmHg Right Ventricular Systolic Press 24.4 mmHg PV Peak Velocity 165.0 cm/s PV Peak Gradient 10.9 mmHg PV Mean Velocity 106.0 cm/s PV Mean Gradient 5.0 mmHg PV Velocity Time Integral 34.7 cm LV E' Lateral Velocity 11.8 cm/s Mitral E to LV E' Lateral Ratio 7.3 LV E' Septal Velocity 6.9 cm/s Mitral E to LV E' Septal Ratio 12.4
--- NOTE | 2017-08-16 15:14 | Cons- Gastroenterology ---
General Information and HPI Consulting Request Date of Consult: 08/16/17 Requested By: Micheline Mcintyre MD Reason for Consult: Hyperbilirubinemia Source of Information: old records Exam Limitations: clinical condition History of Present Illness: The patient notes that she is at [facility], but cannot answer other questions reliably. She denies abdominal pain, nausea, itching. According to records, the patient has had a physical and mental decline over the past several weeks, sedentary at home, with weakness, decreased oral intake, and fecal and urinary incontinence. She drinks a large amount of alcohol. In the hospital, following lactulose, the patient has had diarrhea, without evident blood. Allergies/Medications Allergies: Coded Allergies: No Known Allergies (08/15/17) Home Med List: Levothyroxine Sodium (Synthroid) 137 MCG TABLET 1 TAB PO DAILY THYROID ( Reported) Metoprolol Succinate 50 MG TAB.ER.24H 1 TAB PO DAILY HEART/BP (Reported) Simvastatin (Simvastatin*) 80 MG TABLET 1 TAB PO DAILY CHOLESTEROL (Reported) Current Medications: Current Medications Sig/Marcus Start time Last Medication Dose Route Stop Time Status Admin Ampicillin Sodium/ 1,500 MG Q6 08/16 0645 DC 08/16 Sulbactam Sodium IV 1219 Sodium Chloride 100 ML Ampicillin Sodium/ 1,500 MG ONCE ONE 08/15 2100 DC 08/15 Sulbactam Sodium IV 08/15 2129 2231 Sodium Chloride 100 ML Cyanocobalamin/ 1 BAG ONCE ONE 08/15 2045 DC 08/16 Thiamine/Pyridoxine IV 08/16 0444 0057 Sodium Chloride 1,000 ML Dextrose/Lactated 1,000 ML Q20H 08/16 1400 AC 08/16 Ringer's IV 1424 Dextrose/Sodium 1,000 ML Q6H 08/15 2145 DC 08/16 Chloride IV 0038 Furosemide 20 MG ONCE ONE 08/16 0745 DC 08/16 IV 08/16 0746 0803 Heparin Sodium 5,000 UNIT Q8 08/15 2328 AC 08/16 (Porcine) SC 1424 Insulin Human Regular 0 AT BEDTIME 08/16 2200 DC SC Insulin Human Regular 0 Q4 08/16 1400 AC 08/16 SC 1425 Insulin Human Regular 0 TIDAC 08/16 0800 DC 08/16 SC 0803 Lactulose 20 GM ONCE ONE 08/16 0400 DC 08/16 PO 08/16 0401 0619 Lactulose 0 .STK-MED ONE 08/15 1538 DC PO Lactulose 20 GM ONCE ONE 08/15 1515 DC 08/15 PO 08/15 1516 1611 Levothyroxine Sodium 0.137 MG DAILY AC 08/16 0700 AC 08/16 PO 0536 Lorazepam 0 Q1P PRN 08/16 1400 AC 08/16 IV 1403 Magnesium Sulfate 1 GM Q2H 08/16 0645 DC 08/16 Dextrose/Water 100 ML IV 08/16 1044 0828 Magnesium Sulfate 1 GM Q2H 08/15 2045 DC 08/15 Dextrose/Water 100 ML IV 08/16 0044 2312 Metoprolol Succinate 50 MG DAILY 08/16 1000 AC PO Ondansetron HCl 4 MG Q6P PRN 08/15 1845 AC IV Phosphate 250 MG ONE TIME ONE 08/16 1415 DC PO 08/16 1416 Phosphate 250 MG ONCE ONE 08/16 0645 DC 08/16 PO 08/16 0646 0827 Potassium Chloride 80 MEQ ONCE ONE 08/16 0400 DC 08/16 PO 08/16 0401 0403 Potassium Chloride 40 MEQ ONCE ONE 08/16 0330 DC 08/16 PO 08/16 0331 0345 Potassium Chloride 20 MEQ ONCE ONE 08/16 0015 DC 08/16 PO 08/16 0016 0013 Potassium Chloride 60 MEQ ONCE ONE 08/15 2245 DC PO 08/15 2246 Potassium Chloride 10 MEQ Q1H 08/15 204 DC IV 08/15 2146 Potassium Chloride 60 MEQ ONCE ONE 08/15 2045 DC 08/15 PO 08/15 2046 2312 Potassium Phosphate 15 mMol ONE ONE 08/15 2045 DC 08/15 Dextrose/Water 250 ML IV 08/16 0049 2230 Sodium Chloride 1,000 ML BOLUS ONE 08/15 1500 DC 08/15 IV 08/15 1559 1940 Sodium Chloride 1,000 ML BOLUS ONE 08/15 1500 DC 08/15 IV 08/15 1559 1645 Sodium Chloride 1,000 ML BOLUS ONE 08/15 1500 DC 08/15 IV 08/15 1559 1611 Thiamine HCl 500 MG Q6 08/15 2359 CAN IV 08/16 1201 Thiamine HCl 500 MG Q6H 08/15 2300 DC 08/16 Sodium Chloride 250 ML IV 08/16 1605 1036 Thiamine HCl 200 MG DAILY 08/15 2041 AC 08/16 PO 08/17 1001 0827 Past History Travel History Traveled to [place] past 21 day No Medical History Blood Transfusion Hx: No Neurological: NONE EENT: NONE Cardiovascular: hypertension Respiratory: NONE Gastrointestinal: NONE Hepatic: NONE Renal: NONE Musculoskeletal: NONE Psychiatric: NONE Endocrine: hypothyroidism Blood Disorders: NONE Cancer(s): NONE Surgical History Surgical History: non-contributory Psychosocial History Where Do You Live? Home Smoking Status: Current Everyday Smoker Review of Systems Review of Systems: Unobtainable Exam & Diagnostic Data Vital Signs and I&O Vital Signs Date Time Temp Pulse Resp B/P B/P Pulse O2 O2 Flow FiO2 Mean Ox Delivery Rate 08/16 1200 98.3 112 24 122/80 08/16 1200 92 Nasal 60% Cannula 08/16 0829 102 100/74 08/16 0800 98.0 102 27 120/80 08/16 0800 93 Nasal 70% Cannula 08/16 0700 98.0 102 27 120/80 93 Nasal 5.0L Cannula 08/16 0400 98.4 98 27 104/70 08/16 0400 93 Nasal 4.0L Cannula 08/16 0000 98.3 90 25 110/68 08/16 0000 96 Nasal 2.0L Cannula 08/16 0000 98.3 90 26 110/68 92 Nasal 2.0L Cannula 08/153 97 Nasal 2.0L Cannula 08/15 2122 98.1 90 20 98/60 92 Nasal 2.0L Cannula 08/15 2009 98.6 101 18 112/74 93 Nasal 2.0L Cannula 08/15 1819 97.4 100 18 110/70 95 Nasal 2.0L Cannula 08/15 1526 98.1 112 22 129/77 91 Room Air Intake & Output 08/16 1600 08/16 0400 08/15 1600 08/15 0400 08/14 1600 08/14 0400 Intake Total 2093 3270 1000 Output Total 650 940 250 Balance 1443 2330 750 Intake, IV 1733 3150 1000 Intake, Oral 360 120 Number 4 5 Bowel Movements Output, Urine 650 940 250 Patient 145 lb 146 lb 125 lb Weight Weight Bed scale Reported by Patient Measurement Method Physical Exam: Lethargic, eyes closed, does not answer questions appropriately. Sclera anicteric. Neck supple. Heart regular rhythm. Lungs clear. Abdomen obese, without tenderness, organomegaly. No edema. No asterixis. Results Pertinent Lab Results: Laboratory Tests 08/16 08/16 08/16 08/16 1200 0805 0749 0736 Blood Gas pH (7.35 - 7.45 PH) 7.22 *L pCO2 (35 - 45 TORR) 47 H pO2 (80 - 100 TORR) 75 L HCO3 (21 - 28 MEQ/L) 19 L ABG O2 Sat (Measured) (>96.0 %) 92.0 L P-50 (Temp Corrected) YES Carboxyhemoglobin (1.5 - 5.0 %) 0.3 L O2 Concentration % 5L Temperature (97.0 - 100.0 FARH) 98.4 O2 Delivery Method NC Chemistry Sodium (137 - 145 mmol/L) 140 Potassium (3.5 - 5.1 mmol/L) 4.0 Chloride (98 - 107 mmol/L) 110 H Carbon Dioxide (22 - 30 mmol/L) 23 Anion Gap (5 - 16) 7 BUN (7 - 17 mg/dL) 9 Creatinine (0.5 - 1.0 mg/dL) 0.4 L Estimated GFR (>60 ml/min) > 60 Glucose (65 - 99 mg/dL) 162 H Calcium (8.4 - 10.2 mg/dL) 7.3 L Phosphorus (2.5 - 4.5 mg/dL) 1.0 L Magnesium (1.6 - 2.3 mg/dL) 1.9 Total Bilirubin (0.2 - 1.3 mg/dL) 3.2 H AST (14 - 36 U/L) 165 H ALT (9 - 52 U/L) 76 H Albumin (3.5 - 5.0 g/dL) 2.6 L Lipase (23 - 300 U/L) 190 Cortisol AM Sample (4.46 - 22.7 ug/dL) 79.6 H Miscellaneous Phlebotomy Draw Site RIGHT RADIAL Urines Urine Osmolality (300 - 1000 MOSM/KG) 407 08/16 08/16 08/16 0652 0650 0649 Chemistry Serum Osmolality Cancelled Creatine Kinase Cancelled Cortisol AM Sample Cancelled 08/16 08/16 08/15 0581 6965 5912 Chemistry Sodium (137 - 145 mmol/L) 137 137 Potassium (3.5 - 5.1 mmol/L) 3.1 L 2.9 *L Chloride (98 - 107 mmol/L) 103 102 Carbon Dioxide (22 - 30 mmol/L) 19 L 14 L Anion Gap (5 - 16) 15 21 H BUN (7 - 17 mg/dL) 8 8 Creatinine (0.5 - 1.0 mg/dL) 0.5 0.6 Estimated GFR (>60 ml/min) > 60 > 60 Glucose (65 - 99 mg/dL) 195 H 158 H Serum Osmolality (285 - 295 MOSM/KG) 304 H Calcium (8.4 - 10.2 mg/dL) 7.1 L 7.5 L Phosphorus (2.5 - 4.5 mg/dL) 1.2 L 1.3 L Magnesium (1.6 - 2.3 mg/dL) 1.6 2.0 Total Bilirubin (0.2 - 1.3 mg/dL) 3.1 H 3.1 H GGT (12 - 43 U/L) 1377 H AST (14 - 36 U/L) 175 H 173 H ALT (9 - 52 U/L) 78 H 75 H Alkaline Phosphatase (<127 U/L) 260 H Creatine Kinase (30 - 135 U/L) 116 Troponin I (< 0.11 ng/ml) < 0.01 < 0.01 Cancelled Albumin (3.5 - 5.0 g/dL) 2.7 L 2.6 L Vitamin B12 (239 - 931 pg/mL) > 1000 H Hematology CBC w Diff MAN DIFF ORDERED WBC (4.8 - 10.8 /CUMM) 5.6 RBC (4.20 - 5.40 /CUMM) 2.19 L Hgb (12.0 - 16.0 G/DL) 8.9 L Hct (37 - 47 %) 26.4 L MCV (81.0 - 99.0 FL) 120.5 H MCH (27.0 - 31.0 PG) 40.0 H MCHC (33.0 - 37.0 G/DL) 33.2 RDW (11.5 - 14.5 %) 15.3 H Plt Count (130 - 400 /CUMM) 96 L MPV (7.4 - 10.4 FL) 8.8 Gran % (42.2 - 75.2 %) 95.1 H Lymphocytes % (20.5 - 51.1 %) 2.4 L Monocytes % (1.7 - 9.3 %) 2.3 Eosinophils % (0 - 5 %) 0.1 Basophils % (0.0 - 2.0 %) 0.1 Absolute Granulocytes (1.4 - 6.5 /CUMM) 5.3 Segmented Neutrophils (42.2 - 75.2 %) 75 Band Neutrophils (0.0 - 5.0 %) 23 H Absolute Lymphocytes (1.2 - 3.4 /CUMM) 0.1 L Lymphocytes (20.5 - 51.1 %) 1 L Monocytes (1.7 - 9.3 %) 1 L Absolute Monocytes (0.10 - 0.60 /CUMM) 0.1 Absolute Eosinophils (0.0 - 0.7 /CUMM) 0 Absolute Basophils (0.0 - 0.2 /CUMM) 0 Platelet Estimate (ADEQUATE) DECREASED Poikilocytosis 1+ Anisocytosis 2+ Macrocytic Cells 2+ 08/15 Blood Gas pH (7.35 - 7.45 PH) 7.29 *L pCO2 (35 - 45 TORR) 21 L pO2 (80 - 100 TORR) 67 L HCO3 (21 - 28 MEQ/L) 10 L ABG O2 Sat (Measured) (>96.0 %) 91.0 L P-50 (Temp Corrected) N Carboxyhemoglobin (1.5 - 5.0 %) 0.3 L O2 Concentration % R/A Temperature (97.0 - 100.0 FARH) 98.1 Chemistry Lactic Acid (0.7 - 2.1 mmol/L) 0.7 Miscellaneous Phlebotomy Draw Site LEFT BRACHIAL 08/15 1431 Chemistry Sodium (137 - 145 mmol/L) 137 Potassium (3.5 - 5.1 mmol/L) 2.8 *L Chloride (98 - 107 mmol/L) 98 Carbon Dioxide (22 - 30 mmol/L) 13 L Anion Gap (5 - 16) 26 H BUN (7 - 17 mg/dL) 9 Creatinine (0.5 - 1.0 mg/dL) 0.9 Estimated GFR (>60 ml/min) > 60 Glucose (65 - 99 mg/dL) 99 Calcium (8.4 - 10.2 mg/dL) 7.1 L Phosphorus (2.5 - 4.5 mg/dL) 1.3 L Magnesium (1.6 - 2.3 mg/dL) 1.0 L Total Bilirubin (0.2 - 1.3 mg/dL) 3.5 H AST (14 - 36 U/L) 185 H ALT (9 - 52 U/L) 77 H Troponin I (< 0.11 ng/ml) < 0.01 Albumin (3.5 - 5.0 g/dL) 2.8 L Hematology CBC w Diff MAN DIFF ORDERED WBC (4.8 - 10.8 /CUMM) 4.3 L RBC (4.20 - 5.40 /CUMM) 2.08 L Hgb (12.0 - 16.0 G/DL) 8.8 L Hct (37 - 47 %) 24.9 L MCV (81.0 - 99.0 FL) 119.9 H MCH (27.0 - 31.0 PG) 41.9 H MCHC (33.0 - 37.0 G/DL) 35.0 RDW (11.5 - 14.5 %) 14.9 H Plt Count (130 - 400 /CUMM) 100 L MPV (7.4 - 10.4 FL) 8.0 Gran % (42.2 - 75.2 %) 93.3 H Lymphocytes % (20.5 - 51.1 %) 3.0 L Monocytes % (1.7 - 9.3 %) 3.5 Eosinophils % (0 - 5 %) 0 Basophils % (0.0 - 2.0 %) 0.2 Absolute Granulocytes (1.4 - 6.5 /CUMM) 4.0 Segmented Neutrophils (42.2 - 75.2 %) 59 Band Neutrophils (0.0 - 5.0 %) 33 H Absolute Lymphocytes (1.2 - 3.4 /CUMM) 0.1 L Lymphocytes (20.5 - 51.1 %) 7 L Monocytes (1.7 - 9.3 %) 1 L Absolute Monocytes (0.10 - 0.60 /CUMM) 0.2 Absolute Eosinophils (0.0 - 0.7 /CUMM) 0 Absolute Basophils (0.0 - 0.2 /CUMM) 0 Nucleated RBCs (0.0 - 0.0 /100WBC) 2 H Platelet Estimate (ADEQUATE) DECREASED Anisocytosis 1+ Macrocytic Cells 2+ Retic Count (0.5 - 2.0 %) 2.62 H Toxicology Salicylates (0 - 20.0 mg/dL) 3.5 Urines Urinalysis MOD H Urine Color (YEL,AMB,STR) KRYSTAL Urine Clarity (CLEAR) CLEAR Urine pH (5.0 - 8.0) 6.0 Ur Specific Triplett (1.001 - 1.035) 1.025 Urine Protein (NEG,<30 MG/DL) 30 H Urine Ketones (NEG) >=80 Urine Nitrite (NEG) NEG Urine Bilirubin (NEG) POS@ICTO H Urine Urobilinogen (0.1 - 1.0 EU/dl) 4.0 H Ur Leukocyte Esterase (NEG) NEG Ur Microscopic SEDIMENT EXAMINED Urine RBC (0 - 5 /HPF) 1-3 Urine WBC (0 - 2 /HPF) 1-3 H Ur Epithelial Cells (NONE,FEW) FEW Hyaline Casts (0/LPF) > 75 H Granular Casts (NONE /LPF) RARE H Urine Hemoglobin (NEG) TRACE-INTACT Urine Glucose (N MG/DL) NEG 08/15 08/15 08/15 1431 1415 1400 Chemistry Ammonia (9 - 30 umol/L) 76 H Coagulation PT (9.4 - 12.5 SEC) 12.6 H INR (0.90 - 1.19) 1.15 APTT (25 - 37 SEC) 33 Toxicology Urine Opiates Screen (>2000 NG/ML) < 100 Methadone Screen (>300 NG/ML) < 40 Barbiturate Screen (>200 NG/ML) < 60 Ur Phencyclidine Scrn (>25 NG/ML) < 6.00 Amphetamines Screen (>1000 NG/ML) < 100 U Benzodiazepines Scrn (>200 NG/ML) < 85 Urine Cocaine Screen (>300 NG/ML) < 50 Urine Cannabis Screen (>50 NG/ML) < 5.00 Urines Urine Osmolality (300 - 1000 MOSM/KG) 368 Ur Random Creatinine (mg/dL) 73.2 Ur Random Sodium (30 - 90 mmol/L) 43 Ur Random Potassium (mmol/L) 26.8 Fraction Sodium Excret (<1% %) 0.6 08/15 08/15 1400 1348 Chemistry Sodium (137 - 145 mmol/L) 135 L Potassium (3.5 - 5.1 mmol/L) 3.1 L Chloride (98 - 107 mmol/L) 94 L Carbon Dioxide (22 - 30 mmol/L) 7 *L Anion Gap (5 - 16) 34 H BUN (7 - 17 mg/dL) 9 Creatinine (0.5 - 1.0 mg/dL) 1.4 H Estimated GFR (>60 ml/min) 39 L BUN/Creatinine Ratio (7 - 25 %) 6.4 L Glucose (65 - 99 mg/dL) 113 H Serum Osmolality (285 - 295 MOSM/KG) 295 Lactic Acid (0.7 - 2.1 mmol/L) 1.2 Calcium (8.4 - 10.2 mg/dL) 8.0 L Phosphorus (2.5 - 4.5 mg/dL) 2.9 Magnesium (1.6 - 2.3 mg/dL) 1.0 L Iron (37 - 170 ug/dL) 133 TIBC (265 - 497 ug/dL) 160 L Ferritin (11.1 - 264 ng/mL) 880.0 H Total Bilirubin (0.2 - 1.3 mg/dL) 4.5 H Direct Bilirubin (< 0.4 mg/dL) 3.9 H AST (14 - 36 U/L) 238 H ALT (9 - 52 U/L) 86 H Alkaline Phosphatase (<127 U/L) 327 H Troponin I (< 0.11 ng/ml) < 0.01 Total Protein (6.3 - 8.2 g/dL) 7.7 Albumin (3.5 - 5.0 g/dL) 3.7 Globulin (1.9 - 4.2 gm/dL) 4.0 Albumin/Globulin Ratio (1.1 - 2.2 %) 0.9 L Lipase (23 - 300 U/L) 320 H Vitamin B12 (239 - 931 pg/mL) > 1000 H Folate (2.76 - 20.0 ng/mL) 15.2 TSH (0.270 - 4.200 uIU/mL) 1.870 Cancelled Free T4 (0.64 - 1.79 ng/dL) 1.04 Cancelled Hematology CBC w Diff MAN DIFF ORDERED WBC (4.8 - 10.8 /CUMM) 5.6 RBC (4.20 - 5.40 /CUMM) 2.36 L Hgb (12.0 - 16.0 G/DL) 9.7 L Hct (37 - 47 %) 28.7 L MCV (81.0 - 99.0 FL) 121.6 H MCH (27.0 - 31.0 PG) 41.3 H MCHC (33.0 - 37.0 G/DL) 34.0 RDW (11.5 - 14.5 %) 15.6 H Plt Count (130 - 400 /CUMM) 126 L MPV (7.4 - 10.4 FL) 9.5 Gran % (42.2 - 75.2 %) 91.4 H Lymphocytes % (20.5 - 51.1 %) 2.9 L Monocytes % (1.7 - 9.3 %) 5.7 Eosinophils % (0 - 5 %) 0 Basophils % (0.0 - 2.0 %) 0 Absolute Granulocytes (1.4 - 6.5 /CUMM) 5.1 Segmented Neutrophils (42.2 - 75.2 %) 57 Band Neutrophils (0.0 - 5.0 %) 30 H Absolute Lymphocytes (1.2 - 3.4 /CUMM) 0.2 L Lymphocytes (20.5 - 51.1 %) 5 L Monocytes (1.7 - 9.3 %) 7 Absolute Monocytes (0.10 - 0.60 /CUMM) 0.3 Absolute Eosinophils (0.0 - 0.7 /CUMM) 0 Absolute Basophils (0.0 - 0.2 /CUMM) 0 Metamyelocytes (0.0 - 1.0 %) 1 Nucleated RBCs (0.0 - 0.0 /100WBC) 3 H Platelet Estimate (ADEQUATE) DECREASED Anisocytosis 1+ Macrocytic Cells 2+ Serology Hepatitis A IgM Ab (NONREACTIVE) NONREACTIVE Hep Bs Antigen (NONREACTIVE) NONREACTIVE Hep B Core IgM Ab Conf (NONREACTIVE) NONREACTIVE Hepatitis C Antibody (NONREACTIVE) NONREACTIVE HIV 1&2 Ab Western Blot (NONREACTIVE) NONREACTIVE Toxicology Acetaminophen (10.0 - 30.0 ug/mL) < 10.0 L Serum Alcohol (<10 MG/DL) < 10.0 Acetone Level (NEGATIVE) POSITIVE AT 1:16 DIL Imaging/Other Studies: Ultrasound: IMPRESSION: 1. Limited exam. Common bile duct is not visualized. Pancreatic head and tail are not visualized. Visualized portions of the pancreatic body appear unremarkable. 2. Diffuse hepatic steatosis. 3. Cholelithiasis and sludge within the gallbladder. No evidence of acute cholecystitis. Assessment/Plan Assessment/Recommendations: Alcoholic patient presents with hyperbilirubinemia and elevated liver associated enzymes, as well as thrombocytopenia, but no ascites or coagulopathy. This is likely alcoholic hepatitis, but without liver failure/synthetic dysfunction. There may have been other hepatic insults such as medication (reported use of acetaminophen). The cognitive impairment may be due to hepatic encephalopathy, but there is no evident asterixis and, once again, no evidence of liver failure or other manifestations of decompensated cirrhosis. The hyperammonemia does not diagnose HE. Differential diagnosis includes toxic/metabolic, alcohol induced delirium/dementia, etc. Severe metabolic acidemia is being corrected. Despite gallstones, there is no reason to suspect cholangitis without fever/leukocytosis /abdominal pain. Recommendations * Agree with trial of lactulose * If without improvement in mental status, consider neurology consult * Follow LFTs, INR, ammonia * Parenteral (not oral) thiamine * No corticosteroids at this time * At some point would consider social services manager input; the patient apparently had a slow decline over 1 month without significant family intervention. Consult Acknowledgment - Thank you for your consult request.
--- NOTE | 2017-08-16 20:41 | RADIOLOGY REPORT ---
EXAMINATION: XR PORTABLE CHEST CLINICAL INFORMATION: Desaturation, fluid overload COMPARISON: 08/16/2017 chest x-ray at 5:08 AM TECHNIQUE: Portable frontal view of the chest was obtained. FINDINGS: Stable cardiomediastinal silhouette with mild enlargement of the cardiac size. Moderate right-sided pleural effusion with adjacent pulmonary opacity cause obscuration of the right diaphragmatic and right cardiac borders. Pulmonary opacity and associated small left-sided pleural effusion are fairly similar to the comparison exam. Mild pulmonary venous congestion noted. Multiple healed right-sided rib fractures noted. No pneumothorax. IMPRESSION: Interval worsening of the right lower lobe pulmonary opacity and right-sided pleural effusion. The left-sided small effusion and pulmonary opacity are unchanged.
[2017-08-17] VITALS (15 sets, daily range): BP systolic 86–112; BP diastolic 50–79
[2017-08-17 04:43] LABS: ABSOLUTE BASOPHIL COUNT 0.1 /CUMM (0.0-0.2); ABSOLUTE EOSINOPHIL COUNT 0 /CUMM (0.0-0.7); ABSOLUTE GRANULOCYTE CT 8.1 /CUMM (1.4-6.5); ABSOLUTE LYMPH COUNT 0.4 /CUMM (1.2-3.4); ABSOLUTE MONOCYTE COUNT 0.1 /CUMM (0.10-0.60); BASOPHIL % 0.7 % (0.0-2.0); EOSINOPHIL % 0.1 % (0-5); GRANULOCYTE % 93.9 % (42.2-75.2); MEAN PLATELET VOLUME 10.1 FL (7.4-10.4); PLATELET COUNT 101 /CUMM (130-400); RBC DISTRIBUTION WIDTH 15.8 % (11.5-14.5)
[2017-08-17 04:46] LABS: WHITE BLOOD CELL COUNT 8.6 /CUMM (4.8-10.8)
[2017-08-17 04:49] LABS: PT 11.3 SEC (9.4-12.5)
[2017-08-17 05:44] LABS: HEMATOCRIT 28.7 % (37-47); MEAN CORPUSCULAR HGB 40.9 PG (27.0-31.0); MEAN CORPUSCULAR HGB CONC 34.2 G/DL (33.0-37.0); MEAN CORPUSCULAR VOLUME 119.7 FL (81.0-99.0)
--- NOTE | 2017-08-17 07:42 | PN- Resident CRCU ---
Subjective HPI/CRCU Issues: Intubated Encephalopathy 24 Hour Events: Saw pt at bedside this AM. Her SaO2 was down to low 50s. It seemed that her highflow oxygen tubing was kinked but even after manuvering and placing a face mask her sats only increased to low 60s. Accessory muscle utilization noted. She was then ventilated with bag mask and when her sats failed to improve decision was made to intubate. BP went down to 68 systolic during intubation and 100mcg of neosynephrine was pushed afterwards. BP returned to normal. Otherwise she tolerated procedure well. Overnight she had Tmax of 101.6 sustained for over an hour. No tylenol or NSAIDs given concern for hepatic and renal function. Tmax 101.6, HR 97-137, RR 19-27, BP (95/59)- (137/82), HFNC w/ FiO2 55-70% satting 95-55% in AM. Pertinent labs: WBC 8.6,with 8 bands; Hb 9.7, HCT 28.7, MCV 119.7, PLT 101 Na 147, K 3.5, Cl 112, HCO2 28, BUN 8, Cr .5, Phos 1.6, Tbili 3.8, AST 168, ALT 88 TOTAL IN: 83099, TOTAL OUT: 54420 PREVIOUS DAY IN: 3243 OUT:750 Note that she had >9 BM of over 5L previous day ABG pending Objective Vital Signs & I&O Last 8 Hrs of Vitals and I&O: Intake & Output 08/17 1600 Intake Total Output Total Balance Patient 66.1 kg Weight Exam General Appearance: intubated, mild distress Head: atraumatic Neck: normal inspection, supple Respiratory: decreased breath sounds, accessory muscle use, crackles Cardiovascular: tachycardia Gastrointestinal: PT SEEMS MORE TENDER TO ABDOMINAL, PARTICULARLY RUQ, PALPATION TODAY. SHE HAD SOME GUARDING TO DEEP PALPATION OF RUQ. Extremities: 2+ EDEMA TO BILAT LE Current Medications: Current Medications Sig/Marcus Start time Last Medication Dose Route Stop Time Status Admin Acetaminophen 650 MG ONCE ONE 08/17 0030 CAN PO 08/17 0031 Albuterol Sulfate 3 ML Q4P PRN 08/17 1430 AC INH Ampicillin Sodium/ 1,500 MG Q6 08/17 0030 DC 08/17 Sulbactam Sodium IV 1103 Sodium Chloride 100 ML Ceftazidime 1,000 MG IQ8 08/17 1600 AC IV Dextrose/Lactated 1,000 ML Q20H 08/16 1400 AC 08/17 Ringer's IV 1408 Heparin Sodium 5,000 UNIT Q8 08/15 2328 AC 08/17 (Porcine) SC 1409 Insulin Human Regular 1 UNITS .STK-MED ONE 08/17 0602 DC IV 08/17 0603 Insulin Human Regular 1 UNITS .STK-MED ONE 08/17 0158 DC IV 08/17 0159 Insulin Human Regular 0 AT BEDTIME 08/16 2200 DC SC Insulin Human Regular 0 Q4 08/16 1400 AC 08/17 SC 0201 Levothyroxine Sodium 68 MCG DAILY 08/17 1000 AC 08/17 IV 1103 Levothyroxine Sodium 0.137 MG DAILY AC 08/16 0700 DC 08/16 PO 0536 Lorazepam 2 MG Q2 08/17 1000 DC 08/17 IV 0815 Lorazepam 2 MG Q2 08/17 1000 AC 08/17 IV 08/17 1601 1409 Lorazepam 2 MG Q2 PRN 08/17 0845 CAN IV Lorazepam 0 Q1P PRN 08/16 1400 AC 08/16 IV 1403 Magnesium Sulfate 1 GM ONCE ONE 08/16 1745 DC 08/16 Dextrose/Water 100 ML IV 08/16 2144 1743 Metoprolol Succinate 50 MG DAILY 08/16 1000 AC PO Ondansetron HCl 4 MG Q6P PRN 08/15 1845 AC IV Pantoprazole Sodium 40 MG DAILY 08/17 1400 AC 08/17 IV 1408 Phosphate 250 MG PC AND AT BEDTIME 08/17 0900 AC 08/17 PO 08/17 2101 1408 Potassium Chloride 40 MEQ ONCE ONE 08/17 0900 DC 08/17 PO 08/17 0901 1103 Potassium Phosphate 15 mMol ONE ONE 08/16 1745 DC 08/16 Dextrose/Water 250 ML IV 08/16 214 1953 Sodium Chloride 250 ML BOLUS ONE 08/16 1900 DC 08/16 IV 08/16 195 1855 Thiamine HCl 250 MG ONE ONE 08/16 1900 DC 08/16 Sodium Chloride 100 ML IV 08/16 1958 195 Thiamine HCl 250 MG ONCE ONE 08/16 1645 CAN Sodium Chloride 50 ML IV 08/16 1900 Thiamine HCl 200 MG DAILY 08/15 2041 DC 08/16 PO 08/17 1001 0827 Impression/Plan Impression/Problem List Impression: This is a 57 yo female with known PMH of hypothyroid, htn and known etoh use who comes in with CC of AMS and somnolence. Given her presentation there is concern for various etiologies of encephalopathy including hepatic encephalopathy, metabolic encephalopathy secondary to alcoholic vs. starvation ketosiS encephalopathy due to underlying infection, or even Wernicke's encephalopathy. She was admitted to ICU for further monitoring and work up. Unfortunately, her mental status never improved. She remained significantly obtunded and started desaturiating. On 08/17/2017 AM she had sats in the 60s and was intubated. BCX are now positive for GNR. PLAN: Respiratory Acute Hypoxic respiratory failure: Pt intubated on 08/17/2017 with sats in low 60s. CT chest shows considerable effusion and possible consolidation. * Continue mechanical ventilation ID: Sepsis secondary to unknown source: Pt has BCX X2 for GNR. Sputum shows gramstain +GNR. However, she has tender RUQ cannot rule out cholecystitis/ cholangitis given jaundice/fever/ hypotension/AMS/abdominal pain. She got one dose of lactulose and has had about 5L diarrhea. * Appreciate ID recs * BCX Aug 10 negative * BCX Aug 11 + GNR X2 * Follow up stool studies * Follow legionella antigen * Follow Strep antigen * Follow influenza swab * She was started on Unasyn 1.5 q8 initially on admission and has got 3 doses total * Switched to Ceftriaxone on 08/17/2017 Cardiovascular: Hypotension: She has MAP 60 started on peripheral levo. likely secondary to sepsis. Placing a picc line on 08/17/2017. * Levophed for MAP >65 * Lactid acid Hx of Hypertension/CAD: Currently hypotensive. * Holding home metoprolol Succinate 50 for hypotension. Restart as necessary * Hold Simvastatin Heme/Onc: Macrocytic Anemia: Hb 9.7 and HCT 28.7. MCV 121.6. * Iron studies * B12 lvl * Folate lvl Metabolic Hypothyroid: Nml TFT this admission * Con't home synthroid Alimentary: Transamanitis: AST 238, ALT 86, ALK P 327 on admission.Today at 168 and 88 respectively. She has classic AST>>ALT pattern for alcoholic hepatitis. ALKP was 323 today. Abd us shows fatty liver and some sludging + stones in gall bladder. Given elevated ALKP and gallbladder sludging + stones cannot rule out cholecystitis. Hepatitis panel neg. HIV negative. Tylenol lvl negative. * Pt started on ceftriaxone so bili might worsen due to med sfx. Con't monitor. * Hold home simvastatin NPO: There is questions if she has cholangitis so keeping NPO for possible cholecystostomy. However, if suspicion decreases will place nutrition consult for starting TF. * Nutrition recs appreciated * OGT in place GI PPX * IV PPI Neuro: AMS: She came in with scleral icterus, elevated conjugated bilirubin, and transamanitis w/significant etoh hx there is concern for hepatic or Wernicke's encephalopathy. Though her metabolic derangements have been largely corrected her altered mental status and obtundation never resolved. Acute intoxication was considered but tylenol and salicylate negative. OG not significant. CT head x2 one with and one with out contrast negative for acute intracranial pathology. Ammonia lvl 76 on admission but not diagnositic of HE. Given AMS and elevated white count there was consideration of meningitis but as she improved with lactulose, had no meningeal signs,and was afebrile a LP was deferred. At this time given +BCX x2 GNR will need to treat for sepsis and monitor if her mental status improves. ABG this AM, after intubation looks normal. * ABG * Q1 neuro check * Continue high dose thiamine * Continue b12 * Follow up Paige culture Alcohol withdrawl: Pt does have significatn hx of Etoh use. UTOX negative for etoh. Using push of ativan for sedation while intubated. * [facility] protocol Nephro: AGMA: Resolved. Hypok/Hypo Mag: K 3.1, Mag 1.0 and phos 1.3. * Repeat labs in 4 hrs * Replete. EARL vs CKD: We have no baseline so it is not possible to determine if this is her baseline or not. Waller placed with no indication of urinary retention. BUN /Cr ratio not classically pre-renal but but pt is very dry and obtunded so likely low access to H2O as well. UA does show casts, and elevated protein raising concern for intrinsic renal pathology such as ATN. FeNa and Estephania not suggestive of hepatorenal pathology. * Con't monitor * Urine lytes * Waller in place * Adequate hydration w/ D5NS FC CHEM DVT PPX NPO Problem List: 1. Hepatic encephalopathy 2. Acute alcoholic hepatitis 3. Altered mental status Pain Ratin Tomorrow's Labs & Rationales: icu cbc Plan DVT/Prophylaxis: pharmacological
--- NOTE | 2017-08-17 08:45 | RADIOLOGY REPORT ---
EXAMINATION: XR PORTABLE CHEST CLINICAL INFORMATION: Endotracheal tube placement COMPARISON: 08/16/2017 TECHNIQUE: Portable frontal view of the chest was obtained. FINDINGS: The endotracheal tube terminates approximately 3 cm above the adonay. The enteric tube extends into the stomach. Cardiac leads overlie the chest. The lungs are fairly well expanded. There is a right perihilar airspace opacity. Small left pleural effusion with airspace opacity. No pneumothorax. The cardiomediastinal silhouette is unchanged. Multiple chronic healed right lateral rib fractures noted. IMPRESSION: Endotracheal tube terminating 3 cm above the adonay. Right perihilar airspace opacity is nonspecific. This may represent pneumonia. Follow-up to resolution. Small left pleural effusion remains with associated airspace opacity.
--- NOTE | 2017-08-17 09:53 | PN- CRCU ---
Subjective HPI/Critical Care Issues: Events and data reviewed Patient unfortunately continued to be lethargic and agitated overnight. This morning as she was hypoxemic and was having some evidence of apnea and the to protect her airway and hypoxemic respiratory insufficiency she was intubated prophylactically. Thick secretions were noted. She continues to have profuse diarrhea. Patient had received one dose of lactulose upon admission. Overnight she did spike a temperature for the first time 2101.5 and panculture was done. Patient had had Unasyn before and it had been held prior to that. This morning she is afebrile. Intubated was sedated patient was agitated at times and tachycardic. No other history could be obtained. She was on assist control 450, initial peak pressure was 25 however subsequently went up to 40-45 as she was biting on the 2. Thin scanty secretions were suctioned by me. She was not responding to verbal stimuli and was agitated. Was moving all 4 limbs. She was tachycardic with adequate blood pressure and she has been making about 20-30 mL of urine, with profuse more than 5 L of diarrhea noted since yesterday. SIGNIFICANT DATA Chest x-ray reviewed which showed ET tube in position, right-sided perihilar airspace opacity with left lower lobe atelectasis versus pneumonia with small pleural effusion. Previous CT of the head and ultrasound noted as noted in the chart. CT head did show mild sinusitis, diffuse hepatic steatosis, cholelithiasis with sludge with no evidence of cholecystitis by ultrasound. Other significant data as noted Potassium up to 3.5, sodium 147 and a chloride was high. Patient had received significant amount of normal saline prior to this. Lactic acid was normal anion gap is now 7 which has closed. Her bilirubin continues to be elevated at 3.8 most of it is direct bilirubinemia alkaline phosphatase is pending AST ALT are elevated ammonia level now down to 12. Other blood work reviewed in the computer tox screen was unremarkable White count now 8.6 with 93% granulocytes. Bandemia has reduced from 30% to 8%, her MCV continues to be significantly elevated at 119 which has come down. Her B12 and folic acid level has been unremarkable. Her INR is preserved to 1.04 this morning and her albumin which was low yesterday continues to be 2.9. Patient however had significant hemodilution. Objective Current Medications: Current Medications Sig/Marcus Start time Last Medication Dose Route Stop Time Status Admin Acetaminophen 650 MG ONCE ONE 08/17 0030 CAN PO 08/17 0031 Ampicillin Sodium/ 1,500 MG Q6 08/17 0030 AC 08/17 Sulbactam Sodium IV 0605 Sodium Chloride 100 ML Ampicillin Sodium/ 1,500 MG Q6 08/16 0645 DC 08/16 Sulbactam Sodium IV 1219 Sodium Chloride 100 ML Dextrose/Lactated 1,000 ML Q20H 08/16 1400 AC 08/16 Ringer's IV 1424 Heparin Sodium 5,000 UNIT Q8 08/15 2328 AC 08/17 (Porcine) SC 0604 Insulin Human Regular 0 AT BEDTIME 08/16 2200 DC SC Insulin Human Regular 0 Q4 08/16 1400 AC 08/17 SC 0201 Insulin Human Regular 0 TIDAC 08/16 0800 DC 08/16 SC 0803 Levothyroxine Sodium 68 MCG DAILY 08/17 1000 AC IV Levothyroxine Sodium 0.137 MG DAILY AC 08/16 0700 DC 08/16 PO 0536 Lorazepam 2 MG Q2 08/17 1000 DC 08/17 IV 0815 Lorazepam 2 MG Q2 08/17 1000 AC 08/17 IV 08/17 1601 0918 Lorazepam 2 MG Q2 PRN 08/17 0845 CAN IV Lorazepam 0 Q1P PRN 08/16 1400 AC 08/16 IV 1403 Magnesium Sulfate 1 GM ONCE ONE 08/16 1745 DC 08/16 Dextrose/Water 100 ML IV 08/16 2144 1743 Magnesium Sulfate 1 GM Q2H 08/16 0645 DC 08/16 Dextrose/Water 100 ML IV 08/16 1044 0828 Metoprolol Succinate 50 MG DAILY 08/16 1000 AC PO Ondansetron HCl 4 MG Q6P PRN 08/15 1845 AC IV Phosphate 250 MG PC AND AT BEDTIME 08/17 0900 AC PO 08/17 2101 Phosphate 250 MG ONE TIME ONE 08/16 1415 DC PO 08/16 1416 Potassium Chloride 40 MEQ ONCE ONE 08/17 0900 DC PO 08/17 0901 Potassium Phosphate 15 mMol ONE ONE 08/16 1745 DC 08/16 Dextrose/Water 250 ML IV 08/16 2149 1953 Sodium Chloride 250 ML BOLUS ONE 08/16 1900 DC 08/16 IV 08/16 1959 1855 Thiamine HCl 250 MG ONE ONE 08/16 1900 DC 08/16 Sodium Chloride 100 ML IV 08/16 Thiamine HCl 250 MG ONCE ONE 08/16 1645 CAN Sodium Chloride 50 ML IV 08/16 1900 Thiamine HCl 500 MG Q6H 08/15 2300 DC 08/16 Sodium Chloride 250 ML IV 08/16 1605 1036 Thiamine HCl 200 MG DAILY 08/15 2040 DC 08/16 PO 08/17 1001 0827 Vital Signs & I&O Last 24 Hrs of Vitals and I&O: Vital Signs Date Time Temp Pulse Resp B/P B/P Pulse O2 O2 Flow FiO2 Mean Ox Delivery Rate 08/17 0905 100 08/17 0600 99.6 116 22 103/75 08/17 0547 94 Nasal 55% Cannula 08/17 0400 100.2 112 24 97/75 08/17 0400 92 Nasal 55% Cannula 08/17 0200 99.6 124 24 96/71 08/17 0038 94 Nasal 55% Cannula 08/17 0006 101.6 137 24 98/62 08/17 0006 94 Nasal 55% Cannula 08/16 2200 101.4 130 24 91/62 08/16 2200 101.4 130 24 /62 97 Nasal 55% Cannula 08/16 2154 97 Nasal 60% Cannula 08/17 1999 97.9 128 20 92/59 08/17 1999 94 Nasal 60% Cannula 08/16 1939 93 Nasal 65% Cannula 08/16 1620 94 Nasal 60% Cannula 08/16 1600 98.9 122 32 102/56 08/16 1600 94 Nasal 60% Cannula 08/16 1600 98.9 122 32 102/56 94 Nasal 60% Cannula 08/16 1400 98.4 118 26 101/70 08/16 1200 98.3 112 24 122/80 08/16 1200 92 Nasal 60% Cannula Intake & Output 08/17 1600 08/17 0800 08/17 0000 Intake Total 600 800 Output Total 6093 260 Balance -5493 540 Intake, IV 600 800 Number 2 5 Bowel Movements Output, 5713 Gastric Drainage Output, Urine 380 260 Laboratory Tests 08/17 08/16 0430 1640 Blood Gas pH (7.35 - 7.45 PH) 7.36 pCO2 (35 - 45 TORR) 41 pO2 (80 - 100 TORR) 77 L HCO3 (21 - 28 MEQ/L) 23 ABG O2 Sat (Measured) (>96.0 %) 94.0 L P-50 (Temp Corrected) N Carboxyhemoglobin (1.5 - 5.0 %) 0.3 L O2 Concentration % 60% Temperature (97.0 - 100.0 FARH) 98.9 O2 Delivery Method HFNC AT 45LPM Chemistry Sodium (137 - 145 mmol/L) 147 H Potassium (3.5 - 5.1 mmol/L) 3.5 Chloride (98 - 107 mmol/L) 112 H Carbon Dioxide (22 - 30 mmol/L) 28 Anion Gap (5 - 16) 7 BUN (7 - 17 mg/dL) 8 Creatinine (0.5 - 1.0 mg/dL) 0.5 Estimated GFR (>60 ml/min) > 60 Glucose (65 - 99 mg/dL) 123 H Calcium (8.4 - 10.2 mg/dL) 8.1 L Phosphorus (2.5 - 4.5 mg/dL) 1.6 L Magnesium (1.6 - 2.3 mg/dL) 2.2 Total Bilirubin (0.2 - 1.3 mg/dL) 3.8 H GGT (12 - 43 U/L) Pending AST (14 - 36 U/L) 168 H ALT (9 - 52 U/L) 88 H Alkaline Phosphatase (<127 U/L) Pending Ammonia (9 - 30 umol/L) 12 Albumin (3.5 - 5.0 g/dL) 2.9 L Lipase (23 - 300 U/L) 232 Coagulation PT (9.4 - 12.5 SEC) 11.3 INR (0.90 - 1.19) 1.04 Hematology CBC w Diff MAN DIFF ORDERED WBC (4.8 - 10.8 /CUMM) 8.6 RBC (4.20 - 5.40 /CUMM) 2.40 L Hgb (12.0 - 16.0 G/DL) 9.7 L Hct (37 - 47 %) 28.7 L MCV (81.0 - 99.0 FL) 119.7 H MCH (27.0 - 31.0 PG) 40.9 H MCHC (33.0 - 37.0 G/DL) 34.2 RDW (11.5 - 14.5 %) 15.8 H Plt Count (130 - 400 /CUMM) 101 L MPV (7.4 - 10.4 FL) 10.1 Gran % (42.2 - 75.2 %) 93.9 H Lymphocytes % (20.5 - 51.1 %) 4.1 L Monocytes % (1.7 - 9.3 %) 1.2 L Eosinophils % (0 - 5 %) 0.1 Basophils % (0.0 - 2.0 %) 0.7 Absolute Granulocytes (1.4 - 6.5 /CUMM) 8.1 H Segmented Neutrophils (42.2 - 75.2 %) 89 H Band Neutrophils (0.0 - 5.0 %) 8 H Absolute Lymphocytes (1.2 - 3.4 /CUMM) 0.4 L Lymphocytes (20.5 - 51.1 %) 1 L Monocytes (1.7 - 9.3 %) 2 Absolute Monocytes (0.10 - 0.60 /CUMM) 0.1 Absolute Eosinophils (0.0 - 0.7 /CUMM) 0 Absolute Basophils (0.0 - 0.2 /CUMM) 0.1 Nucleated RBCs (0.0 - 0.0 /100WBC) 1 H Platelet Estimate (ADEQUATE) ADEQUATE Polychromasia 1+ Poikilocytosis 2+ Basophilic Stippling 1+ Anisocytosis 2+ Macrocytic Cells 2+ Ovalocytes 1+ Stomatocytes 1+ Miscellaneous Phlebotomy Draw Site RIGHT BRACHIAL Other Body Source Fld Total RBCs Counted (%) 100 08/16 08/16 08/16 08/16 1200 0805 0702 0736 Blood Gas pH (7.35 - 7.45 PH) 7.22 *L pCO2 (35 - 45 TORR) 47 H pO2 (80 - 100 TORR) 75 L HCO3 (21 - 28 MEQ/L) 19 L ABG O2 Sat (Measured) (>96.0 %) 92.0 L P-50 (Temp Corrected) YES Carboxyhemoglobin (1.5 - 5.0 %) 0.3 L O2 Concentration % 5L Temperature (97.0 - 100.0 FARH) 98.4 O2 Delivery Method NC Chemistry Sodium (137 - 145 mmol/L) 140 Potassium (3.5 - 5.1 mmol/L) 4.0 Chloride (98 - 107 mmol/L) 110 H Carbon Dioxide (22 - 30 mmol/L) 23 Anion Gap (5 - 16) 7 BUN (7 - 17 mg/dL) 9 Creatinine (0.5 - 1.0 mg/dL) 0.4 L Estimated GFR (>60 ml/min) > 60 Glucose (65 - 99 mg/dL) 162 H Calcium (8.4 - 10.2 mg/dL) 7.3 L Phosphorus (2.5 - 4.5 mg/dL) 1.0 L Magnesium (1.6 - 2.3 mg/dL) 1.9 Total Bilirubin (0.2 - 1.3 mg/dL) 3.2 H AST (14 - 36 U/L) 165 H ALT (9 - 52 U/L) 76 H Albumin (3.5 - 5.0 g/dL) 2.6 L Lipase (23 - 300 U/L) 190 Cortisol AM Sample (4.46 - 22.7 ug/dL) 79.6 H Miscellaneous Phlebotomy Draw Site RIGHT RADIAL Urines Urine Osmolality (300 - 1000 MOSM/KG) 407 08/16 08/16 08/16 0652 0650 0649 Chemistry Serum Osmolality Cancelled Creatine Kinase Cancelled Cortisol AM Sample Cancelled 08/16 08/16 08/15 0530 0055 2255 Chemistry Sodium (137 - 145 mmol/L) 137 137 Potassium (3.5 - 5.1 mmol/L) 3.1 L 2.9 *L Chloride (98 - 107 mmol/L) 103 102 Carbon Dioxide (22 - 30 mmol/L) 19 L 14 L Anion Gap (5 - 16) 15 21 H BUN (7 - 17 mg/dL) 8 8 Creatinine (0.5 - 1.0 mg/dL) 0.5 0.6 Estimated GFR (>60 ml/min) > 60 > 60 Glucose (65 - 99 mg/dL) 195 H 158 H Serum Osmolality (285 - 295 MOSM/KG) 304 H Calcium (8.4 - 10.2 mg/dL) 7.1 L 7.5 L Phosphorus (2.5 - 4.5 mg/dL) 1.2 L 1.3 L Magnesium (1.6 - 2.3 mg/dL) 1.6 2.0 Total Bilirubin (0.2 - 1.3 mg/dL) 3.1 H 3.1 H GGT (12 - 43 U/L) 1377 H AST (14 - 36 U/L) 175 H 173 H ALT (9 - 52 U/L) 78 H 75 H Alkaline Phosphatase (<127 U/L) 260 H Creatine Kinase (30 - 135 U/L) 116 Troponin I (< 0.11 ng/ml) < 0.01 < 0.01 Cancelled Albumin (3.5 - 5.0 g/dL) 2.7 L 2.6 L Vitamin B12 (239 - 931 pg/mL) > 1000 H Hematology CBC w Diff MAN DIFF ORDERED WBC (4.8 - 10.8 /CUMM) 5.6 RBC (4.20 - 5.40 /CUMM) 2.19 L Hgb (12.0 - 16.0 G/DL) 8.9 L Hct (37 - 47 %) 26.4 L MCV (81.0 - 99.0 FL) 120.5 H MCH (27.0 - 31.0 PG) 40.0 H MCHC (33.0 - 37.0 G/DL) 33.2 RDW (11.5 - 14.5 %) 15.3 H Plt Count (130 - 400 /CUMM) 96 L MPV (7.4 - 10.4 FL) 8.8 Gran % (42.2 - 75.2 %) 95.1 H Lymphocytes % (20.5 - 51.1 %) 2.4 L Monocytes % (1.7 - 9.3 %) 2.3 Eosinophils % (0 - 5 %) 0.1 Basophils % (0.0 - 2.0 %) 0.1 Absolute Granulocytes (1.4 - 6.5 /CUMM) 5.3 Segmented Neutrophils (42.2 - 75.2 %) 75 Band Neutrophils (0.0 - 5.0 %) 23 H Absolute Lymphocytes (1.2 - 3.4 /CUMM) 0.1 L Lymphocytes (20.5 - 51.1 %) 1 L Monocytes (1.7 - 9.3 %) 1 L Absolute Monocytes (0.10 - 0.60 /CUMM) 0.1 Absolute Eosinophils (0.0 - 0.7 /CUMM) 0 Absolute Basophils (0.0 - 0.2 /CUMM) 0 Platelet Estimate (ADEQUATE) DECREASED Poikilocytosis 1+ Anisocytosis 2+ Macrocytic Cells 2+ 03/10 08/15 Blood Gas pH (7.35 - 7.45 PH) 7.29 *L pCO2 (35 - 45 TORR) 21 L pO2 (80 - 100 TORR) 67 L HCO3 (21 - 28 MEQ/L) 10 L ABG O2 Sat (Measured) (>96.0 %) 91.0 L P-50 (Temp Corrected) N Carboxyhemoglobin (1.5 - 5.0 %) 0.3 L O2 Concentration % R/A Temperature (97.0 - 100.0 FARH) 98.1 Chemistry Lactic Acid (0.7 - 2.1 mmol/L) 0.7 Miscellaneous Phlebotomy Draw Site LEFT BRACHIAL 08/15 1431 Chemistry Sodium (137 - 145 mmol/L) 137 Potassium (3.5 - 5.1 mmol/L) 2.8 *L Chloride (98 - 107 mmol/L) 98 Carbon Dioxide (22 - 30 mmol/L) 13 L Anion Gap (5 - 16) 26 H BUN (7 - 17 mg/dL) 9 Creatinine (0.5 - 1.0 mg/dL) 0.9 Estimated GFR (>60 ml/min) > 60 Glucose (65 - 99 mg/dL) 99 Calcium (8.4 - 10.2 mg/dL) 7.1 L Phosphorus (2.5 - 4.5 mg/dL) 1.3 L Magnesium (1.6 - 2.3 mg/dL) 1.0 L Total Bilirubin (0.2 - 1.3 mg/dL) 3.5 H AST (14 - 36 U/L) 185 H ALT (9 - 52 U/L) 77 H Troponin I (< 0.11 ng/ml) < 0.01 Albumin (3.5 - 5.0 g/dL) 2.8 L Hematology CBC w Diff MAN DIFF ORDERED WBC (4.8 - 10.8 /CUMM) 4.3 L RBC (4.20 - 5.40 /CUMM) 2.08 L Hgb (12.0 - 16.0 G/DL) 8.8 L Hct (37 - 47 %) 24.9 L MCV (81.0 - 99.0 FL) 119.9 H MCH (27.0 - 31.0 PG) 41.9 H MCHC (33.0 - 37.0 G/DL) 35.0 RDW (11.5 - 14.5 %) 14.9 H Plt Count (130 - 400 /CUMM) 100 L MPV (7.4 - 10.4 FL) 8.0 Gran % (42.2 - 75.2 %) 93.3 H Lymphocytes % (20.5 - 51.1 %) 3.0 L Monocytes % (1.7 - 9.3 %) 3.5 Eosinophils % (0 - 5 %) 0 Basophils % (0.0 - 2.0 %) 0.2 Absolute Granulocytes (1.4 - 6.5 /CUMM) 4.0 Segmented Neutrophils (42.2 - 75.2 %) 59 Band Neutrophils (0.0 - 5.0 %) 33 H Absolute Lymphocytes (1.2 - 3.4 /CUMM) 0.1 L Lymphocytes (20.5 - 51.1 %) 7 L Monocytes (1.7 - 9.3 %) 1 L Absolute Monocytes (0.10 - 0.60 /CUMM) 0.2 Absolute Eosinophils (0.0 - 0.7 /CUMM) 0 Absolute Basophils (0.0 - 0.2 /CUMM) 0 Nucleated RBCs (0.0 - 0.0 /100WBC) 2 H Platelet Estimate (ADEQUATE) DECREASED Anisocytosis 1+ Macrocytic Cells 2+ Retic Count (0.5 - 2.0 %) 2.62 H Toxicology Salicylates (0 - 20.0 mg/dL) 3.5 Urines Urinalysis MOD H Urine Color (YEL,AMB,STR) KRYSTAL Urine Clarity (CLEAR) CLEAR Urine pH (5.0 - 8.0) 6.0 Ur Specific Protection (1.001 - 1.035) 1.025 Urine Protein (NEG,<30 MG/DL) 30 H Urine Ketones (NEG) >=80 Urine Nitrite (NEG) NEG Urine Bilirubin (NEG) POS@ICTO H Urine Urobilinogen (0.1 - 1.0 EU/dl) 4.0 H Ur Leukocyte Esterase (NEG) NEG Ur Microscopic SEDIMENT EXAMINED Urine RBC (0 - 5 /HPF) 1-3 Urine WBC (0 - 2 /HPF) 1-3 H Ur Epithelial Cells (NONE,FEW) FEW Hyaline Casts (0/LPF) > 75 H Granular Casts (NONE /LPF) RARE H Urine Hemoglobin (NEG) TRACE-INTACT Urine Glucose (N MG/DL) NEG 08/15 08/15 08/15 1431 1415 1400 Chemistry Ammonia (9 - 30 umol/L) 76 H Coagulation PT (9.4 - 12.5 SEC) 12.6 H INR (0.90 - 1.19) 1.15 APTT (25 - 37 SEC) 33 Toxicology Urine Opiates Screen (>2000 NG/ML) < 100 Methadone Screen (>300 NG/ML) < 40 Barbiturate Screen (>200 NG/ML) < 60 Ur Phencyclidine Scrn (>25 NG/ML) < 6.00 Amphetamines Screen (>1000 NG/ML) < 100 U Benzodiazepines Scrn (>200 NG/ML) < 85 Urine Cocaine Screen (>300 NG/ML) < 50 Urine Cannabis Screen (>50 NG/ML) < 5.00 Urines Urine Osmolality (300 - 1000 MOSM/KG) 368 Ur Random Creatinine (mg/dL) 73.2 Ur Random Sodium (30 - 90 mmol/L) 43 Ur Random Potassium (mmol/L) 26.8 Fraction Sodium Excret (<1% %) 0.6 08/15 08/15 1400 1348 Chemistry Sodium (137 - 145 mmol/L) 135 L Potassium (3.5 - 5.1 mmol/L) 3.1 L Chloride (98 - 107 mmol/L) 94 L Carbon Dioxide (22 - 30 mmol/L) 7 *L Anion Gap (5 - 16) 34 H BUN (7 - 17 mg/dL) 9 Creatinine (0.5 - 1.0 mg/dL) 1.4 H Estimated GFR (>60 ml/min) 39 L BUN/Creatinine Ratio (7 - 25 %) 6.4 L Glucose (65 - 99 mg/dL) 113 H Serum Osmolality (285 - 295 MOSM/KG) 295 Lactic Acid (0.7 - 2.1 mmol/L) 1.2 Calcium (8.4 - 10.2 mg/dL) 8.0 L Phosphorus (2.5 - 4.5 mg/dL) 2.9 Magnesium (1.6 - 2.3 mg/dL) 1.0 L Iron (37 - 170 ug/dL) 133 TIBC (265 - 497 ug/dL) 160 L Ferritin (11.1 - 264 ng/mL) 880.0 H Total Bilirubin (0.2 - 1.3 mg/dL) 4.5 H Direct Bilirubin (< 0.4 mg/dL) 3.9 H AST (14 - 36 U/L) 238 H ALT (9 - 52 U/L) 86 H Alkaline Phosphatase (<127 U/L) 327 H Troponin I (< 0.11 ng/ml) < 0.01 Total Protein (6.3 - 8.2 g/dL) 7.7 Albumin (3.5 - 5.0 g/dL) 3.7 Globulin (1.9 - 4.2 gm/dL) 4.0 Albumin/Globulin Ratio (1.1 - 2.2 %) 0.9 L Lipase (23 - 300 U/L) 320 H Vitamin B12 (239 - 931 pg/mL) > 1000 H Folate (2.76 - 20.0 ng/mL) 15.2 TSH (0.270 - 4.200 uIU/mL) 1.870 Cancelled Free T4 (0.64 - 1.79 ng/dL) 1.04 Cancelled Hematology CBC w Diff MAN DIFF ORDERED WBC (4.8 - 10.8 /CUMM) 5.6 RBC (4.20 - 5.40 /CUMM) 2.36 L Hgb (12.0 - 16.0 G/DL) 9.7 L Hct (37 - 47 %) 28.7 L MCV (81.0 - 99.0 FL) 121.6 H MCH (27.0 - 31.0 PG) 41.3 H MCHC (33.0 - 37.0 G/DL) 34.0 RDW (11.5 - 14.5 %) 15.6 H Plt Count (130 - 400 /CUMM) 126 L MPV (7.4 - 10.4 FL) 9.5 Gran % (42.2 - 75.2 %) 91.4 H Lymphocytes % (20.5 - 51.1 %) 2.9 L Monocytes % (1.7 - 9.3 %) 5.7 Eosinophils % (0 - 5 %) 0 Basophils % (0.0 - 2.0 %) 0 Absolute Granulocytes (1.4 - 6.5 /CUMM) 5.1 Segmented Neutrophils (42.2 - 75.2 %) 57 Band Neutrophils (0.0 - 5.0 %) 30 H Absolute Lymphocytes (1.2 - 3.4 /CUMM) 0.2 L Lymphocytes (20.5 - 51.1 %) 5 L Monocytes (1.7 - 9.3 %) 7 Absolute Monocytes (0.10 - 0.60 /CUMM) 0.3 Absolute Eosinophils (0.0 - 0.7 /CUMM) 0 Absolute Basophils (0.0 - 0.2 /CUMM) 0 Metamyelocytes (0.0 - 1.0 %) 1 Nucleated RBCs (0.0 - 0.0 /100WBC) 3 H Platelet Estimate (ADEQUATE) DECREASED Anisocytosis 1+ Macrocytic Cells 2+ Serology Hepatitis A IgM Ab (NONREACTIVE) NONREACTIVE Hep Bs Antigen (NONREACTIVE) NONREACTIVE Hep B Core IgM Ab Conf (NONREACTIVE) NONREACTIVE Hepatitis C Antibody (NONREACTIVE) NONREACTIVE HIV 1&2 Ab Western Blot (NONREACTIVE) NONREACTIVE Toxicology Acetaminophen (10.0 - 30.0 ug/mL) < 10.0 L Serum Alcohol (<10 MG/DL) < 10.0 Acetone Level (NEGATIVE) POSITIVE AT 1:16 DIL Microbiology Date/Time Procedure - Status Source Growth 08/17 0925 Cryptosporidium Antigen - ORD STOOL 08/17 0925 Giardia Antigen (PRICILLA) - ORD STOOL 08/17 0924 Clostridium difficile Toxin A & B - ORD STOOL 08/17 0909 Legionella Antigen - ORD URINE ROUT 08/17 0909 Streptococcus pneumoniae Antigen (M - ORD URINE ROUT 08/17 0840 Respiratory Culture - RECD LOWER RESP 08/17 0840 Gram Stain - RECD LOWER RESP 08/16 2230 Blood Culture - RECD BLOOD 08/16 2230 Blood Culture - RECD BLOOD 08/16 0310 Urine Culture - RES URINE ROUT 08/15 2220 Respiratory Culture - CAN LOWER RESP Cancelled: NO SAMPLE COLLECTED 08/15 2220 Gram Stain - CAN LOWER RESP Cancelled: NO SAMPLE COLLECTED 08/158 Surveillance Culture - COMP UPPER RESP 08/15 2208 Surveillance Culture - COMP GI 08/15 1431 Urine Culture - RES URINE ROUT 08/15 1415 Blood Culture - RES BLOOD 08/15 1400 Blood Culture - RES BLOOD Impression/Plan Impression/Plan Impression/Plan: General Appearance: Intubated did receive ativan, and obtunded Head: atraumatic, normal appearance Ears, Nose, Throat: mucous membranes dry, dried blood noted on mouth. Neck: normal inspection, supple Respiratory: normal breath sounds, crackles (basilar) Cardiovascular: regular rate/rhythm Gastrointestinal: tenderness to palpation right upper quadrant. no distention, no rigidity .hypoactive bowel sounds. Extremities: normal inspection, normal capillary refill, swelling IMPRESSION This is a 57-year-old lady with history of hypertension hypothyroidism significant alcohol abuse with worsening alcoholism in the recent past came into the hospital with confusion and somnolence tachycardia and significant jaundice with severe metabolic acidosis, normal lactate, no significant osmolar gap with clinical signs and symptoms suggestive of severe alcoholic ketoacidosis. She also has significant fatty liver with evidence of significant alcoholic hepatitis with so far preserved synthetic function of her liver. No clinical evidence suggestive of cholangitis she did get adequate resusitation and her acidosis and leukocytosis with bandemia was resolving Issues Progressive worsening mental status still with evidence of sig liver disease with relatively preserved synthetic function of the liver, diff dx is broad, including hepatic encephalopathy (less likely), toxic metabolic encephalopathy ( tox screen negative, admitted to alcohol use in the past, normal head CT in the beginning, no evidence suggestive of bacterial meningitis upon admission with no neck stiffness, high fever etc.) Respiratory failure which seems to be both hypoxemic and hypercarbic related to her mental status, pulmonary edema post fluid resuscitation, rule out aspiration pneumonia as she has a left lower lobe infiltrate Severe resolved metabolic acidosis (anion gap acidosis), with severe ketosis in a nondiabetic patient related to severe alcoholic ketoacidosis which seems to have resolved with fluid resuscitation. Patient did receive thiamine prior to any glucose treatment. Initially there was no clinical evidence suggestive of bacterial sepsis. New onset high fever since admission, now with with physical exam suggestive of right upper quadrant tenderness and patient also seemed to have a left lower lobe infiltrate. A calculus cholecystitis an active pneumonitis need to be ruled out. Patient did have mild sinusitis noted in the CT of the head. Severe electrolyte abnormality upon admission which seems to have been corrected. Patient now has mild hypernatremia related to an normal saline use before. Mild pancreatitis, severe diarrhea (patient did receive lactulose one dose upon admission). RECOMMENDATION/PLAN * Continue mechanical ventilator, reduce FiO2, had a bite block. * Sputum culture, stool culture and other studies from the stool * Check CT of the abdomen and pelvis with IV contrast, repeat CT head and couldn 't do a CT of the chest as well as same time * Flu swab * Use as needed lorazepam for sedation as she may be also withdrawing * Continued D5 Ringer's lactate * If there is significant evidence of cholecystitis she might need to be drained * GI consult appreciated from yesterday we will follow today please see the recommendation * ID consult * Picc line as she is probably would need long duration of supportive care, Multilumen (do not use one port in anticipation of TPN) * Continue low-dose metoprolol if she can tolerate with her blood pressure * Avoid fentanyl for today * Sputum culture * If the gallbladder appears stable and there is no evidence suggestive of cholecystitis patient could be started on 20 mL subcutaneous feeding with only elemental tube feeding * Continue other medications * Proton pump inhibitor * Replace potassium and phosphorus and magnesium * Check her alkaline phosphatase * Check her fingerstick glucose [id number] and use insulin only if her glucose is now more than 150 Patient is critically ill total time spent 45 minutes
--- NOTE | 2017-08-17 10:40 | CT SCAN REPORT ---
EXAMINATION: CT HEAD WITHOUT AND WITH CONTRAST CLINICAL INFORMATION: Change in mental status. COMPARISON: None TECHNIQUE: Contiguous axial imaging was performed from the skull base to vertex before and after the administration of 95 mL of Optiray 320 intravenous contrast. DLP: 1850 mGy-cm FINDINGS: There is no evidence of acute intracranial hemorrhage or territorial infarction. No abnormal mass effect or midline shift is seen. Gill to white matter differentiation is well preserved. No extra-axial fluid collections are identified. There is no abnormal enhancement. The ventricles are normal in size. Mild periventricular and deep white matter hypoattenuation is most consistent with small vessel ischemic change. The osseous structures and soft tissues are normal. The mastoid air cells are well aerated. Moderate opacification of the right sphenoid sinus and left ethmoid air cells. IMPRESSION: No acute intracranial pathology. No abnormal enhancement.
--- NOTE | 2017-08-17 10:49 | CT SCAN REPORT ---
EXAMINATION: CT CHEST WITH IV CONTRAST CT ABDOMEN AND PELVIS WITH IV CONTRAST CLINICAL INFORMATION: 57-year-old female with acute desaturation requiring intubation. Possible pneumonia. Guarding of the abdomen. Evaluate for cholangitis or cholecystitis. COMPARISON: Abdomen ultrasound of 08/15/2017. TECHNIQUE: Multidetector CT imaging examination of the chest, abdomen and pelvis was performed with intravenous administration of 95 mL Optiray 320. Axial images are displayed at 0.625 mm and 5 mm slice thickness. Coronal and sagittal reformatted images were generated at the technologist's workstation and submitted for review. DLP: 688 mGy-cm FINDINGS: CHEST - TUBES/LINES: Endotracheal tube is 3 cm above the adonay. Enteric tube extends to the level of the gastric body. No pneumothorax or pneumomediastinum. LUNGS and PLEURA: Mild centrilobular and paraseptal emphysema. Patchy groundglass and reticular opacities in both upper lobes. Subtle patchy groundglass opacity within right middle lobe. Small pleural effusions with opacification from compressive atelectasis and/or consolidation within lower lobes. No pneumothorax. MEDIASTINUM: Moderate three-vessel coronary artery atherosclerotic calcification. Cardiac chambers, pulmonary arteries and atherosclerotic aorta are normal in caliber. No aortic aneurysm or dissection. The esophagus has normal wall thickness. Thyroid gland is atrophied. Small, 0.7 cm noncalcified nodule within the right thyroid lobe. LYMPHATICS: No pathologic sized axillary, hilar or mediastinal lymph nodes. CHEST WALL/BONES: Several old, healed bilateral rib fractures. 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 ABDOMEN AND PELVIS - HEPATOBILIARY: Hepatomegaly. Liver parenchyma is diffusely hypodense from steatosis (or steatohepatitis). No evidence of hepatic mass or intrahepatic bile duct dilatation. Gallbladder is moderately distended and has normal wall thickness. Small calcified gallstones are seen. No evidence of choledocholithiasis. PANCREAS: The pancreas is normal in size and enhances normally. No pancreatic ductal dilatation. The fluid within the lesser sac is likely secondary to the anasarca. SPLEEN: Unremarkable. ADRENAL GLANDS: Unremarkable. KIDNEYS, URETERS, BLADDER: Kidneys are normal in size and enhance symmetrically. 0.6 cm calyceal stone of the upper pole of the left kidney. No evidence of ureterolithiasis or hydroureteronephrosis. Urinary bladder is decompressed by a Waller catheter. GI TRACT AND PERITONEUM: The tip of the enteric tube is within the gastric body. Bowel loops are normal in size. There is diffuse wall edema of small bowel and colon. Although bowel wall edema could be secondary to anasarca, unable to exclude enteritis or colitis. Small amount of ascitic fluid is present within the abdomen. No focal rim-enhancing fluid collection or pneumoperitoneum. ABDOMINAL WALL: There is mild edema within subcutaneous tissues of the flanks and thighs. VASCULAR: Atherosclerotic calcification of the abdominal aorta without aneurysm. LYMPH NODES: No pathologic sized lymph nodes within the abdomen or pelvis. PELVIC VISCERA: Status post hysterectomy. OSSEOUS STRUCTURES: No suspicious osseous lesions. IMPRESSION: 1. Endotracheal tube and enteric tube are in satisfactory position. 2. Mild pulmonary emphysema. 3. Patchy groundglass and reticular opacities in both lungs are nonspecific, but likely represent pneumonia. Also, there is consolidation and/or pneumonia of lower lobes with small bilateral pleural effusions. 4. Hepatomegaly and diffuse hepatic steatosis (or steatohepatitis). 5. Anasarca. Small amount of ascitic fluid is present within the abdomen and pelvis. The wall thickening of small and large bowel could be secondary to anasarca; however, unable to exclude enteritis or colitis. 6. Cholelithiasis without overt evidence of acute cholecystitis. 7. Nonobstructing 0.6 cm calculus within the upper pole of the left kidney.
--- NOTE | 2017-08-17 15:24 | Cons- Infect Disease ---
General Information and HPI Consulting Request Date of Consult: 08/17/17 Requested By: Micheline Mcintyre MD Reason for Consult: Fever/rule out cholangitis Exam Limitations: clinical condition History of Present Illness: This is a 57-year-old woman with a history of significant alcohol abuse, hypertension and hypothyroidism, who has apparently been unwell for the past 6 weeks, with increased lethargy, confusion and episodes of fecal incontinence, admitted on August 15 with a 3 to 4 day history of increasing somnolence, decreasing responsiveness and scleral icterus. On admission she was afebrile. Laboratory data revealed a white blood cell count of 6000, with 57 segs and 30 bands, H&H 10 and 29, with an MCV of 122, platelets 126,000, BUN creatinine 9 and 1.4, potassium 3.1, lactic acid 1.2, lipase 320, bilirubin 4.5, alkaline phosphatase 327, AST/ALT 238 and 86, ammonia 76, alcohol level less than 10, coags normal, ABG 7.29/21/67 on room air. Urinalysis 1-3 RBCs/1-3 WBCs. Chest x-ray revealed mild bibasilar opacities. CT of the head was negative for any acute process. Right upper quadrant ultrasound revealed cholelithiasis and sludge within the gallbladder, with no evidence of acute cholecystitis, and diffuse hepatic steatosis. She was given 3 L of fluid in the emergency room, begun on Unasyn and admitted to the ICU. She initially remained afebrile but she spiked to 101.6 late on August 16. This morning blood cultures 2 were reported positive for gram-negative rods. Her respiratory status deteriorated this morning and she has been intubated and sedated; therefore she is unable to provide any history. Allergies/Medications Allergies: Coded Allergies: No Known Allergies (08/15/17) Home Med List: Levothyroxine Sodium (Synthroid) 137 MCG TABLET 1 TAB PO DAILY THYROID ( Reported) Metoprolol Succinate 50 MG TAB.ER.24H 1 TAB PO DAILY HEART/BP (Reported) Simvastatin (Simvastatin*) 80 MG TABLET 1 TAB PO DAILY CHOLESTEROL (Reported) Past History Travel History Traveled to [place] past 21 day No Medical History Blood Transfusion Hx: No Neurological: NONE EENT: NONE Cardiovascular: hypertension Respiratory: NONE Gastrointestinal: NONE Hepatic: NONE Renal: NONE Musculoskeletal: NONE Psychiatric: NONE Endocrine: hypothyroidism Blood Disorders: NONE Cancer(s): NONE History of MRSA: No History of VRE: No History of CDIFF: No Isolation History: Standard Surgical History Surgical History: non-contributory Psychosocial History Where Do You Live? Home Smoking Status: Current Everyday Smoker ETOH Use: heavy use Review of Systems Comments Unobtainable Exam & Diagnostic Data Last 24 Hrs of Vital Signs/I&O Vital Signs Date Time Temp Pulse Resp B/P B/P Pulse O2 O2 Flow FiO2 Mean Ox Delivery Rate 08/17 1430 50 08/17 1418 Ventilator 100% 08/17 1200 99.7 118 20 102/68 08/17 1115 70 08/17 1104 122 91/62 08/17 1100 99.0 118 20 90/60 08/17 0915 99.0 132 32 101/79 08/17 0905 100 08/17 0815 98.8 118 22 91/63 08/17 0800 98.9 112 19 100/70 08/17 0800 98.8 112 19 100/70 100 Ventilator 100% 08/17 0600 99.6 116 22 103/75 08/17 0547 94 Nasal 55% Cannula 08/17 0400 100.2 112 24 97/75 08/17 0400 92 Nasal 55% Cannula 08/17 0200 99.6 124 24 96/71 08/17 0038 94 Nasal 55% Cannula 08/17 0006 101.6 137 24 98/62 08/17 0006 94 Nasal 55% Cannula 08/16 2200 101.4 130 24 91/62 08/16 2200 101.4 130 24 /62 97 Nasal 55% Cannula 08/16 2154 97 Nasal 60% Cannula 08/17 1999 97.9 128 20 92/59 08/16 2000 94 Nasal 60% Cannula 08/16 1939 93 Nasal 65% Cannula 08/16 1620 94 Nasal 60% Cannula 08/16 1600 98.9 122 32 102/56 08/16 1600 94 Nasal 60% Cannula 08/16 1600 98.9 122 32 102/56 94 Nasal 60% Cannula Intake & Output 08/17 1600 08/17 0800 08/17 0000 Intake Total 600 800 Output Total 6093 260 Balance -5493 540 Intake, IV 600 800 Number 2 5 Bowel Movements Output, 5713 Gastric Drainage Output, Urine 380 260 Patient 146 lb Weight Physical Exam Other Physical Findings: MAXIMUM TEMPERATURE 101.6. She is sedated and unresponsive on the ventilator. Skin jaundiced. HEENT scleral icterus. Neck is supple with no adenopathy. Lungs are clear. Heart regular rhythm with no murmur. Abdomen is distended, nontender with positive bowel sounds. Back no CVA tenderness. Extremities no cyanosis, clubbing or edema. Neuro is without focality. Waller catheter is in place. Last 24 Hours of Lab Results: Laboratory Tests 08/17 08/17 08/17 1130 0940 0430 Blood Gas pH (7.35 - 7.45 PH) 7.35 pCO2 (35 - 45 TORR) 47 H pO2 (80 - 100 TORR) 99 HCO3 (21 - 28 MEQ/L) 25 ABG O2 Sat (Measured) (>96.0 %) 96.0 P-50 (Temp Corrected) N Carboxyhemoglobin (1.5 - 5.0 %) 0.3 L O2 Concentration % 100% Temperature (97.0 - 100.0 FARH) 98.8 Respiration Rate (BPM) 20 O2 Delivery Method VENT Vent Mode VC-AC Expiratory Pressure (CMH2O/P) 5 Tidal Volume (CC) 450 Chemistry Sodium (137 - 145 mmol/L) 147 H Potassium (3.5 - 5.1 mmol/L) 3.5 Chloride (98 - 107 mmol/L) 112 H Carbon Dioxide (22 - 30 mmol/L) 28 Anion Gap (5 - 16) 7 BUN (7 - 17 mg/dL) 8 Creatinine (0.5 - 1.0 mg/dL) 0.5 Estimated GFR (>60 ml/min) > 60 Glucose (65 - 99 mg/dL) 123 H Calcium (8.4 - 10.2 mg/dL) 8.1 L Phosphorus (2.5 - 4.5 mg/dL) 1.6 L Magnesium (1.6 - 2.3 mg/dL) 2.2 Total Bilirubin (0.2 - 1.3 mg/dL) 3.8 H GGT (12 - 43 U/L) 2089 H AST (14 - 36 U/L) 168 H ALT (9 - 52 U/L) 88 H Alkaline Phosphatase (<127 U/L) 323 H Ammonia (9 - 30 umol/L) 12 Albumin (3.5 - 5.0 g/dL) 2.9 L Amylase (30 - 110 U/L) < 30 L Lipase (23 - 300 U/L) 232 Coagulation PT (9.4 - 12.5 SEC) 11.3 INR (0.90 - 1.19) 1.04 Hematology CBC w Diff MAN DIFF ORDERED WBC (4.8 - 10.8 /CUMM) 8.6 RBC (4.20 - 5.40 /CUMM) 2.40 L Hgb (12.0 - 16.0 G/DL) 9.7 L Hct (37 - 47 %) 28.7 L MCV (81.0 - 99.0 FL) 119.7 H MCH (27.0 - 31.0 PG) 40.9 H MCHC (33.0 - 37.0 G/DL) 34.2 RDW (11.5 - 14.5 %) 15.8 H Plt Count (130 - 400 /CUMM) 101 L MPV (7.4 - 10.4 FL) 10.1 Gran % (42.2 - 75.2 %) 93.9 H Lymphocytes % (20.5 - 51.1 %) 4.1 L Monocytes % (1.7 - 9.3 %) 1.2 L Eosinophils % (0 - 5 %) 0.1 Basophils % (0.0 - 2.0 %) 0.7 Absolute Granulocytes (1.4 - 6.5 /CUMM) 8.1 H Segmented Neutrophils (42.2 - 75.2 %) 89 H Band Neutrophils (0.0 - 5.0 %) 8 H Absolute Lymphocytes (1.2 - 3.4 /CUMM) 0.4 L Lymphocytes (20.5 - 51.1 %) 1 L Monocytes (1.7 - 9.3 %) 2 Absolute Monocytes (0.10 - 0.60 /CUMM) 0.1 Absolute Eosinophils (0.0 - 0.7 /CUMM) 0 Absolute Basophils (0.0 - 0.2 /CUMM) 0.1 Nucleated RBCs (0.0 - 0.0 /100WBC) 1 H Platelet Estimate (ADEQUATE) ADEQUATE Polychromasia 1+ Poikilocytosis 2+ Basophilic Stippling 1+ Anisocytosis 2+ Macrocytic Cells 2+ Ovalocytes 1+ Stomatocytes 1+ Miscellaneous Phlebotomy Draw Site RIGHT RADIAL Other Body Source Fld Total RBCs Counted (%) 100 Urines Ur Random Creatinine (mg/dL) 29.1 Ur Random Sodium (30 - 90 mmol/L) 43 Ur Random Potassium (mmol/L) 27.8 Fraction Sodium Excret (<1% %) 0.5 08/16 1640 Blood Gas pH (7.35 - 7.45 PH) 7.36 pCO2 (35 - 45 TORR) 41 pO2 (80 - 100 TORR) 77 L HCO3 (21 - 28 MEQ/L) 23 ABG O2 Sat (Measured) (>96.0 %) 94.0 L P-50 (Temp Corrected) N Carboxyhemoglobin (1.5 - 5.0 %) 0.3 L O2 Concentration % 60% Temperature (97.0 - 100.0 FARH) 98.9 O2 Delivery Method HFNC AT 45LPM Miscellaneous Phlebotomy Draw Site RIGHT BRACHIAL Last 24 Hours of Will Results: Blood cultures 2 August 15 negative Blood cultures August 16 positive for gram-negative rods Urine culture August 15 negative Urine culture August 16 negative Sputum culture August 17 pending, with gram stain revealing moderate white blood cells and many gram-negative rods Urine strep pneumo antigen and Legionella antigen August 17 negative Diagnostic Data Recent Imaging Findings: CT of the head August 17 no acute process Chest x-ray August 17 reveals a right perihilar airspace opacity CT of the chest, abdomen and pelvis August 17 reveals patchy ground glass and reticular opacities in both upper lobes, with subtle patchy ground glass opacity within the right middle lobe and with small bilateral pleural effusions with compressive atelectasis; several old, healed bilateral rib fractures; hepatomegaly with diffusely hypodense liver parenchyma secondary to steatosis; mildly distended gallbladder with normal wall thickening, small calcified stones , with no evidence of biliary dilatation or choledocholithiasis; a small amount of ascitic fluid is present; a nonobstructing 0.6 cm calculus within the upper pole of the left kidney Right upper quadrant ultrasound August 15 reveals diffuse hepatic steatosis; cholelithiasis and sludge within the gallbladder with no evidence of acute cholecystitis Assessment/Plan Assessment/Plan Impression: This is a 57-year-old woman with a history of significant alcohol abuse, hypertension and hypothyroidism, with increased lethargy, confusion and episodes of fecal incontinence over the past 6 weeks, admitted on August 15 with a 3 to 4 day history of increasing somnolence, decreasing responsiveness and scleral icterus, found to be afebrile with bandemia, thrombocytopenia, renal insufficiency and elevated liver enzymes, now with worsening respiratory status, requiring intubation, with CT of the chest revealing bilateral patchy ground glass reticular opacities, and with blood cultures 2 positive for gram-negative rods. Her clinical presentation is now suggestive of sepsis, with borderline hypotension and tachycardia. She has several possible sources, including the lungs, with new densities noted on chest x-ray and with gram-negative rods on the gram stain of the sputum, and the abdomen, for example biliary, with gallstones and sludge within the gallbladder, though she has no evidence for acute cholecystitis, or pancreatic, though there is no necrosis reported. Spontaneous bacterial peritonitis seems less likely with no history or stigmata of cirrhosis. Meningitis is possible but seems less likely. Suggestion: 1. Follow-up final sputum and blood cultures 2. Discontinue Unasyn 3. Begin Ceftriaxone 1 g IV every 24 hours pending above Consult Acknowledgment - Thank you for your consult request.
--- NOTE | 2017-08-17 16:19 | RADIOLOGY REPORT ---
EXAMINATION: XR PORTABLE CHEST CLINICAL INFORMATION: Peripherally inserted line placed. COMPARISON: CXR from 08/17/2017 at 8:05 AM. TECHNIQUE: Portable frontal view of the chest was obtained. FINDINGS: Endotracheal tube is located 3.5 cm above the adonay. The tip of the right arm peripherally inserted catheter is located at the level of junction of the superior vena cava and right atrium. The enteric tube extends below the diaphragm and into the stomach. No pneumothorax or pneumomediastinum. There are persistent hazy pulmonary opacities as well as bibasilar consolidation. The small pleural effusions are suboptimally visualized on this single view. Old rib fractures are noted. IMPRESSION: 1. The right arm peripherally inserted catheter is in satisfactory position. 2. Findings suggestive of multilobar pneumonia. Pulmonary opacities remain similar in appearance compared the prior chest radiograph from 08/17/2017 at 8:05 AM.
[2017-08-17 17:40] LABS: ABSOLUTE BASOPHIL COUNT 0 /CUMM (0.0-0.2); ABSOLUTE EOSINOPHIL COUNT 0 /CUMM (0.0-0.7); ABSOLUTE GRANULOCYTE CT 7.4 /CUMM (1.4-6.5); ABSOLUTE LYMPH COUNT 0.3 /CUMM (1.2-3.4); ABSOLUTE MONOCYTE COUNT 0.1 /CUMM (0.10-0.60); BASOPHIL % 0.2 % (0.0-2.0); EOSINOPHIL % 0.3 % (0-5); MEAN CORPUSCULAR HGB 41.3 PG (27.0-31.0); MEAN CORPUSCULAR HGB CONC 34.3 G/DL (33.0-37.0); MEAN CORPUSCULAR VOLUME 120.4 FL (81.0-99.0); MEAN PLATELET VOLUME 10.3 FL (7.4-10.4); RBC DISTRIBUTION WIDTH 16.6 % (11.5-14.5); RED BLOOD CELL CT 1.87 /CUMM (4.20-5.40); WHITE BLOOD CELL COUNT 7.8 /CUMM (4.8-10.8)
[2017-08-17 17:42] LABS: GRANULOCYTE % 94.2 % (42.2-75.2); HEMATOCRIT 22.5 % (37-47); PLATELET COUNT 78 /CUMM (130-400)
--- NOTE | 2017-08-17 18:22 | ULTRASOUND REPORT ---
EXAMINATION: US TRIPLEX OF LOWER EXTREMITIES, BILATERAL CLINICAL INFORMATION: Desaturation. COMPARISON: None TECHNIQUE: Color-flow triplex imaging with spectral analysis and compression Doppler were performed on the lower extremities. FINDINGS: Respiratory variation, normal compression and augmented flow are noted throughout the lower extremities. The visualized common femoral vein, superficial femoral vein, popliteal vein and midcalf peroneal and posterior tibial venous segments show no evidence of deep venous thrombosis. There is no Mac's cyst. IMPRESSION: No evidence of deep venous thrombosis involving the lower extremities.
--- NOTE | 2017-08-17 19:18 | PN- Gastroenterology ---
Assessment/Plan GI Assessment/Recommendations: Assessment/Recommendations: Probable alcoholic hepatitis complicated by sepsis, of unclear source, possibly pulmonary. There are gallstones on imaging, but no ductal dilatation, and cholangitis seems unlikely. Appreciate infectious disease consultation recommendations. Her bilirubinemia is stable, and INR remains normal. There is scant ascites on CT scan. Ammonia has normalized, making it unlikely that there is persistent hepatic encephalopathy. At this time, given sedation, it is not possible to assess cognitive status. Recommendations * Hold lactulose given diarrhea * Stool for C. difficile toxin * Consider neurology consult * Follow LFTs, INR, ammonia * Parenteral (not oral) thiamine * Certainly, no corticosteroids at this time * Consider repeat ultrasound to assess for interval biliary ductal dilatation Subjective Subjective: The patient is intubated and sedated. She is on pressors. She apparently has profuse diarrhea. Abdominal pain was reported earlier. Review of Systems: Unobtainable Objective Vital Signs and I&Os Vital Signs Date Time Temp Pulse Resp B/P B/P Pulse O2 O2 Flow FiO2 Mean Ox Delivery Rate 08/17 1630 50 / 1600 100.1 120 25 99/66 / 1600 95 Ventilator 50% / 1544 101.1 112 20 98/50 96 Ventilator 50% / 1508 117 80/50 /12 1430 50 / 1418 Ventilator 100% / 1400 101.1 118 23 86/57 /12 1200 99.7 118 20 102/68 / 1200 98 Ventilator 70% / 1115 70 /12 1104 122 91/62 /12 1100 99.0 118 20 90/60 /12 0915 99.0 132 32 101/79 /12 0905 100 03/12 0815 98.8 118 22 91/63 /12 0800 98.9 112 19 100/70 03/12 0800 98.8 112 19 100/70 100 Ventilator 100% / 0800 99 Ventilator 100% / 0600 99.6 116 22 103/75 03/12 0547 94 Nasal 55% Cannula / 0400 100.2 112 24 97/75 / 0400 92 Nasal 55% Cannula / 0200 99.6 124 24 96/71 / 0038 94 Nasal 55% Cannula / 0006 101.6 137 24 98/62 03/12 0006 94 Nasal 55% Cannula 08/16 2199 101.4 130 24 91/62 08/16 2199 101.4 130 24 97 Nasal 55% Cannula 08/16 2153 97 Nasal 60% Cannula 08/17 1999 97.9 128 20 92/59 08/16 Nasal 60% Cannula 08/16 1938 93 Nasal 65% Cannula Intake & Output 08/17 04008/16 040 Intake Total 178 179 1575 3270 1000 Output Total 6093 260 1750 940 250 Balance -5493 540 1413 2330 750 Intake, IV 026 927 6152 3150 1000 Intake, Oral 480 120 Number 2 5 11 5 Bowel Movements Output, 5713 Gastric Drainage Output, Urine 469 860 6010 940 250 Patient 146 lb 145 lb 146 lb 125 lb Weight Weight Bed scale Reported by Patient Measurement Method Physical Exam: Intubated, sedated. Sclera are icteric. No edema. Cannot assess for asterixis. Cannot assess for abdominal tenderness, although the abdomen is soft , with bowel sounds present. Results Pertinent Lab Results: Laboratory Tests 08/17 08/17 08/17 1555 1130 0940 Blood Gas pH (7.35 - 7.45 PH) 7.35 pCO2 (35 - 45 TORR) 47 H pO2 (80 - 100 TORR) 99 HCO3 (21 - 28 MEQ/L) 25 ABG O2 Sat (Measured) (>96.0 %) 96.0 P-50 (Temp Corrected) N Carboxyhemoglobin (1.5 - 5.0 %) 0.3 L O2 Concentration % 100% Temperature (97.0 - 100.0 FARH) 98.8 Respiration Rate (BPM) 20 O2 Delivery Method VENT Vent Mode VC-AC Expiratory Pressure (CMH2O/P) 5 Tidal Volume (CC) 450 Chemistry Sodium (137 - 145 mmol/L) 147 H Potassium (3.5 - 5.1 mmol/L) 3.6 Chloride (98 - 107 mmol/L) 114 H Carbon Dioxide (22 - 30 mmol/L) 29 Anion Gap (5 - 16) 3 L BUN (7 - 17 mg/dL) 5 L Creatinine (0.5 - 1.0 mg/dL) 0.4 L Estimated GFR (>60 ml/min) > 60 Glucose (65 - 99 mg/dL) 110 H Lactic Acid (0.7 - 2.1 mmol/L) 1.0 Calcium (8.4 - 10.2 mg/dL) 7.6 L Phosphorus (2.5 - 4.5 mg/dL) 1.1 L Magnesium (1.6 - 2.3 mg/dL) 1.9 Total Bilirubin (0.2 - 1.3 mg/dL) 3.5 H AST (14 - 36 U/L) 152 H ALT (9 - 52 U/L) 81 H Ammonia (9 - 30 umol/L) 52 H Albumin (3.5 - 5.0 g/dL) 2.2 L Hematology CBC w Diff NO MAN DIFF REQ WBC (4.8 - 10.8 /CUMM) 7.8 RBC (4.20 - 5.40 /CUMM) 1.87 L Hgb (12.0 - 16.0 G/DL) 7.7 L Hct (37 - 47 %) 22.5 L MCV (81.0 - 99.0 FL) 120.4 H MCH (27.0 - 31.0 PG) 41.3 H MCHC (33.0 - 37.0 G/DL) 34.3 RDW (11.5 - 14.5 %) 16.6 H Plt Count (130 - 400 /CUMM) 78 L MPV (7.4 - 10.4 FL) 10.3 Gran % (42.2 - 75.2 %) 94.2 H Lymphocytes % (20.5 - 51.1 %) 3.8 L Monocytes % (1.7 - 9.3 %) 1.5 L Eosinophils % (0 - 5 %) 0.3 Basophils % (0.0 - 2.0 %) 0.2 Absolute Granulocytes (1.4 - 6.5 /CUMM) 7.4 H Absolute Lymphocytes (1.2 - 3.4 /CUMM) 0.3 L Absolute Monocytes (0.10 - 0.60 /CUMM) 0.1 Absolute Eosinophils (0.0 - 0.7 /CUMM) 0 Absolute Basophils (0.0 - 0.2 /CUMM) 0 Miscellaneous Phlebotomy Draw Site RIGHT RADIAL Urines Ur Random Creatinine (mg/dL) 29.1 Ur Random Sodium (30 - 90 mmol/L) 43 Ur Random Potassium (mmol/L) 27.8 Fraction Sodium Excret (<1% %) 0.5 08/17 08/16 0430 1640 Blood Gas pH (7.35 - 7.45 PH) 7.36 pCO2 (35 - 45 TORR) 41 pO2 (80 - 100 TORR) 77 L HCO3 (21 - 28 MEQ/L) 23 ABG O2 Sat (Measured) (>96.0 %) 94.0 L P-50 (Temp Corrected) N Carboxyhemoglobin (1.5 - 5.0 %) 0.3 L O2 Concentration % 60% Temperature (97.0 - 100.0 FARH) 98.9 O2 Delivery Method HFNC AT 45LPM Chemistry Sodium (137 - 145 mmol/L) 147 H Potassium (3.5 - 5.1 mmol/L) 3.5 Chloride (98 - 107 mmol/L) 112 H Carbon Dioxide (22 - 30 mmol/L) 28 Anion Gap (5 - 16) 7 BUN (7 - 17 mg/dL) 8 Creatinine (0.5 - 1.0 mg/dL) 0.5 Estimated GFR (>60 ml/min) > 60 Glucose (65 - 99 mg/dL) 123 H Calcium (8.4 - 10.2 mg/dL) 8.1 L Phosphorus (2.5 - 4.5 mg/dL) 1.6 L Magnesium (1.6 - 2.3 mg/dL) 2.2 Total Bilirubin (0.2 - 1.3 mg/dL) 3.8 H GGT (12 - 43 U/L) 2089 H AST (14 - 36 U/L) 168 H ALT (9 - 52 U/L) 88 H Alkaline Phosphatase (<127 U/L) 323 H Ammonia (9 - 30 umol/L) 12 Albumin (3.5 - 5.0 g/dL) 2.9 L Amylase (30 - 110 U/L) < 30 L Lipase (23 - 300 U/L) 232 Coagulation PT (9.4 - 12.5 SEC) 11.3 INR (0.90 - 1.19) 1.04 Hematology CBC w Diff MAN DIFF ORDERED WBC (4.8 - 10.8 /CUMM) 8.6 RBC (4.20 - 5.40 /CUMM) 2.40 L Hgb (12.0 - 16.0 G/DL) 9.7 L Hct (37 - 47 %) 28.7 L MCV (81.0 - 99.0 FL) 119.7 H MCH (27.0 - 31.0 PG) 40.9 H MCHC (33.0 - 37.0 G/DL) 34.2 RDW (11.5 - 14.5 %) 15.8 H Plt Count (130 - 400 /CUMM) 101 L MPV (7.4 - 10.4 FL) 10.1 Gran % (42.2 - 75.2 %) 93.9 H Lymphocytes % (20.5 - 51.1 %) 4.1 L Monocytes % (1.7 - 9.3 %) 1.2 L Eosinophils % (0 - 5 %) 0.1 Basophils % (0.0 - 2.0 %) 0.7 Absolute Granulocytes (1.4 - 6.5 /CUMM) 8.1 H Segmented Neutrophils (42.2 - 75.2 %) 89 H Band Neutrophils (0.0 - 5.0 %) 8 H Absolute Lymphocytes (1.2 - 3.4 /CUMM) 0.4 L Lymphocytes (20.5 - 51.1 %) 1 L Monocytes (1.7 - 9.3 %) 2 Absolute Monocytes (0.10 - 0.60 /CUMM) 0.1 Absolute Eosinophils (0.0 - 0.7 /CUMM) 0 Absolute Basophils (0.0 - 0.2 /CUMM) 0.1 Nucleated RBCs (0.0 - 0.0 /100WBC) 1 H Platelet Estimate (ADEQUATE) ADEQUATE Polychromasia 1+ Poikilocytosis 2+ Basophilic Stippling 1+ Anisocytosis 2+ Macrocytic Cells 2+ Ovalocytes 1+ Stomatocytes 1+ Miscellaneous Phlebotomy Draw Site RIGHT BRACHIAL Other Body Source Fld Total RBCs Counted (%) 100 08/16 08/16 08/16 08/16 1200 0805 0174 7163 Blood Gas pH (7.35 - 7.45 PH) 7.22 *L pCO2 (35 - 45 TORR) 47 H pO2 (80 - 100 TORR) 75 L HCO3 (21 - 28 MEQ/L) 19 L ABG O2 Sat (Measured) (>96.0 %) 92.0 L P-50 (Temp Corrected) YES Carboxyhemoglobin (1.5 - 5.0 %) 0.3 L O2 Concentration % 5L Temperature (97.0 - 100.0 FARH) 98.4 O2 Delivery Method NC Chemistry Sodium (137 - 145 mmol/L) 140 Potassium (3.5 - 5.1 mmol/L) 4.0 Chloride (98 - 107 mmol/L) 110 H Carbon Dioxide (22 - 30 mmol/L) 23 Anion Gap (5 - 16) 7 BUN (7 - 17 mg/dL) 9 Creatinine (0.5 - 1.0 mg/dL) 0.4 L Estimated GFR (>60 ml/min) > 60 Glucose (65 - 99 mg/dL) 162 H Calcium (8.4 - 10.2 mg/dL) 7.3 L Phosphorus (2.5 - 4.5 mg/dL) 1.0 L Magnesium (1.6 - 2.3 mg/dL) 1.9 Total Bilirubin (0.2 - 1.3 mg/dL) 3.2 H AST (14 - 36 U/L) 165 H ALT (9 - 52 U/L) 76 H Albumin (3.5 - 5.0 g/dL) 2.6 L Lipase (23 - 300 U/L) 190 Cortisol AM Sample (4.46 - 22.7 ug/dL) 79.6 H Miscellaneous Phlebotomy Draw Site RIGHT RADIAL Urines Urine Osmolality (300 - 1000 MOSM/KG) 407 08/16 08/16 08/16 0652 0650 0649 Chemistry Serum Osmolality Cancelled Creatine Kinase Cancelled Cortisol AM Sample Cancelled 08/16 08/16 08/15 0530 0055 2255 Chemistry Sodium (137 - 145 mmol/L) 137 137 Potassium (3.5 - 5.1 mmol/L) 3.1 L 2.9 *L Chloride (98 - 107 mmol/L) 103 102 Carbon Dioxide (22 - 30 mmol/L) 19 L 14 L Anion Gap (5 - 16) 15 21 H BUN (7 - 17 mg/dL) 8 8 Creatinine (0.5 - 1.0 mg/dL) 0.5 0.6 Estimated GFR (>60 ml/min) > 60 > 60 Glucose (65 - 99 mg/dL) 195 H 158 H Serum Osmolality (285 - 295 MOSM/KG) 304 H Calcium (8.4 - 10.2 mg/dL) 7.1 L 7.5 L Phosphorus (2.5 - 4.5 mg/dL) 1.2 L 1.3 L Magnesium (1.6 - 2.3 mg/dL) 1.6 2.0 Total Bilirubin (0.2 - 1.3 mg/dL) 3.1 H 3.1 H GGT (12 - 43 U/L) 1377 H AST (14 - 36 U/L) 175 H 173 H ALT (9 - 52 U/L) 78 H 75 H Alkaline Phosphatase (<127 U/L) 260 H Creatine Kinase (30 - 135 U/L) 116 Troponin I (< 0.11 ng/ml) < 0.01 < 0.01 Cancelled Albumin (3.5 - 5.0 g/dL) 2.7 L 2.6 L Vitamin B12 (239 - 931 pg/mL) > 1000 H Hematology CBC w Diff MAN DIFF ORDERED WBC (4.8 - 10.8 /CUMM) 5.6 RBC (4.20 - 5.40 /CUMM) 2.19 L Hgb (12.0 - 16.0 G/DL) 8.9 L Hct (37 - 47 %) 26.4 L MCV (81.0 - 99.0 FL) 120.5 H MCH (27.0 - 31.0 PG) 40.0 H MCHC (33.0 - 37.0 G/DL) 33.2 RDW (11.5 - 14.5 %) 15.3 H Plt Count (130 - 400 /CUMM) 96 L MPV (7.4 - 10.4 FL) 8.8 Gran % (42.2 - 75.2 %) 95.1 H Lymphocytes % (20.5 - 51.1 %) 2.4 L Monocytes % (1.7 - 9.3 %) 2.3 Eosinophils % (0 - 5 %) 0.1 Basophils % (0.0 - 2.0 %) 0.1 Absolute Granulocytes (1.4 - 6.5 /CUMM) 5.3 Segmented Neutrophils (42.2 - 75.2 %) 75 Band Neutrophils (0.0 - 5.0 %) 23 H Absolute Lymphocytes (1.2 - 3.4 /CUMM) 0.1 L Lymphocytes (20.5 - 51.1 %) 1 L Monocytes (1.7 - 9.3 %) 1 L Absolute Monocytes (0.10 - 0.60 /CUMM) 0.1 Absolute Eosinophils (0.0 - 0.7 /CUMM) 0 Absolute Basophils (0.0 - 0.2 /CUMM) 0 Platelet Estimate (ADEQUATE) DECREASED Poikilocytosis 1+ Anisocytosis 2+ Macrocytic Cells 2+ 08/15 Blood Gas pH (7.35 - 7.45 PH) 7.29 *L pCO2 (35 - 45 TORR) 21 L pO2 (80 - 100 TORR) 67 L HCO3 (21 - 28 MEQ/L) 10 L ABG O2 Sat (Measured) (>96.0 %) 91.0 L P-50 (Temp Corrected) N Carboxyhemoglobin (1.5 - 5.0 %) 0.3 L O2 Concentration % R/A Temperature (97.0 - 100.0 FARH) 98.1 Chemistry Lactic Acid (0.7 - 2.1 mmol/L) 0.7 Miscellaneous Phlebotomy Draw Site LEFT BRACHIAL 08/15 1431 Chemistry Sodium (137 - 145 mmol/L) 137 Potassium (3.5 - 5.1 mmol/L) 2.8 *L Chloride (98 - 107 mmol/L) 98 Carbon Dioxide (22 - 30 mmol/L) 13 L Anion Gap (5 - 16) 26 H BUN (7 - 17 mg/dL) 9 Creatinine (0.5 - 1.0 mg/dL) 0.9 Estimated GFR (>60 ml/min) > 60 Glucose (65 - 99 mg/dL) 99 Calcium (8.4 - 10.2 mg/dL) 7.1 L Phosphorus (2.5 - 4.5 mg/dL) 1.3 L Magnesium (1.6 - 2.3 mg/dL) 1.0 L Total Bilirubin (0.2 - 1.3 mg/dL) 3.5 H AST (14 - 36 U/L) 185 H ALT (9 - 52 U/L) 77 H Troponin I (< 0.11 ng/ml) < 0.01 Albumin (3.5 - 5.0 g/dL) 2.8 L Hematology CBC w Diff MAN DIFF ORDERED WBC (4.8 - 10.8 /CUMM) 4.3 L RBC (4.20 - 5.40 /CUMM) 2.08 L Hgb (12.0 - 16.0 G/DL) 8.8 L Hct (37 - 47 %) 24.9 L MCV (81.0 - 99.0 FL) 119.9 H MCH (27.0 - 31.0 PG) 41.9 H MCHC (33.0 - 37.0 G/DL) 35.0 RDW (11.5 - 14.5 %) 14.9 H Plt Count (130 - 400 /CUMM) 100 L MPV (7.4 - 10.4 FL) 8.0 Gran % (42.2 - 75.2 %) 93.3 H Lymphocytes % (20.5 - 51.1 %) 3.0 L Monocytes % (1.7 - 9.3 %) 3.5 Eosinophils % (0 - 5 %) 0 Basophils % (0.0 - 2.0 %) 0.2 Absolute Granulocytes (1.4 - 6.5 /CUMM) 4.0 Segmented Neutrophils (42.2 - 75.2 %) 59 Band Neutrophils (0.0 - 5.0 %) 33 H Absolute Lymphocytes (1.2 - 3.4 /CUMM) 0.1 L Lymphocytes (20.5 - 51.1 %) 7 L Monocytes (1.7 - 9.3 %) 1 L Absolute Monocytes (0.10 - 0.60 /CUMM) 0.2 Absolute Eosinophils (0.0 - 0.7 /CUMM) 0 Absolute Basophils (0.0 - 0.2 /CUMM) 0 Nucleated RBCs (0.0 - 0.0 /100WBC) 2 H Platelet Estimate (ADEQUATE) DECREASED Anisocytosis 1+ Macrocytic Cells 2+ Retic Count (0.5 - 2.0 %) 2.62 H Toxicology Salicylates (0 - 20.0 mg/dL) 3.5 Urines Urinalysis MOD H Urine Color (YEL,AMB,STR) KRYSTAL Urine Clarity (CLEAR) CLEAR Urine pH (5.0 - 8.0) 6.0 Ur Specific [place] (1.001 - 1.035) 1.025 Urine Protein (NEG,<30 MG/DL) 30 H Urine Ketones (NEG) >=80 Urine Nitrite (NEG) NEG Urine Bilirubin (NEG) POS@ICTO H Urine Urobilinogen (0.1 - 1.0 EU/dl) 4.0 H Ur Leukocyte Esterase (NEG) NEG Ur Microscopic SEDIMENT EXAMINED Urine RBC (0 - 5 /HPF) 1-3 Urine WBC (0 - 2 /HPF) 1-3 H Ur Epithelial Cells (NONE,FEW) FEW Hyaline Casts (0/LPF) > 75 H Granular Casts (NONE /LPF) RARE H Urine Hemoglobin (NEG) TRACE-INTACT Urine Glucose (N MG/DL) NEG 08/15 08/15 08/15 1431 1415 1400 Chemistry Ammonia (9 - 30 umol/L) 76 H Coagulation PT (9.4 - 12.5 SEC) 12.6 H INR (0.90 - 1.19) 1.15 APTT (25 - 37 SEC) 33 Toxicology Urine Opiates Screen (>2000 NG/ML) < 100 Methadone Screen (>300 NG/ML) < 40 Barbiturate Screen (>200 NG/ML) < 60 Ur Phencyclidine Scrn (>25 NG/ML) < 6.00 Amphetamines Screen (>1000 NG/ML) < 100 U Benzodiazepines Scrn (>200 NG/ML) < 85 Urine Cocaine Screen (>300 NG/ML) < 50 Urine Cannabis Screen (>50 NG/ML) < 5.00 Urines Urine Osmolality (300 - 1000 MOSM/KG) 368 Ur Random Creatinine (mg/dL) 73.2 Ur Random Sodium (30 - 90 mmol/L) 43 Ur Random Potassium (mmol/L) 26.8 Fraction Sodium Excret (<1% %) 0.6 08/15 08/15 1400 1348 Chemistry Sodium (137 - 145 mmol/L) 135 L Potassium (3.5 - 5.1 mmol/L) 3.1 L Chloride (98 - 107 mmol/L) 94 L Carbon Dioxide (22 - 30 mmol/L) 7 *L Anion Gap (5 - 16) 34 H BUN (7 - 17 mg/dL) 9 Creatinine (0.5 - 1.0 mg/dL) 1.4 H Estimated GFR (>60 ml/min) 39 L BUN/Creatinine Ratio (7 - 25 %) 6.4 L Glucose (65 - 99 mg/dL) 113 H Serum Osmolality (285 - 295 MOSM/KG) 295 Lactic Acid (0.7 - 2.1 mmol/L) 1.2 Calcium (8.4 - 10.2 mg/dL) 8.0 L Phosphorus (2.5 - 4.5 mg/dL) 2.9 Magnesium (1.6 - 2.3 mg/dL) 1.0 L Iron (37 - 170 ug/dL) 133 TIBC (265 - 497 ug/dL) 160 L Ferritin (11.1 - 264 ng/mL) 880.0 H Total Bilirubin (0.2 - 1.3 mg/dL) 4.5 H Direct Bilirubin (< 0.4 mg/dL) 3.9 H AST (14 - 36 U/L) 238 H ALT (9 - 52 U/L) 86 H Alkaline Phosphatase (<127 U/L) 327 H Troponin I (< 0.11 ng/ml) < 0.01 Total Protein (6.3 - 8.2 g/dL) 7.7 Albumin (3.5 - 5.0 g/dL) 3.7 Globulin (1.9 - 4.2 gm/dL) 4.0 Albumin/Globulin Ratio (1.1 - 2.2 %) 0.9 L Lipase (23 - 300 U/L) 320 H Vitamin B12 (239 - 931 pg/mL) > 1000 H Folate (2.76 - 20.0 ng/mL) 15.2 TSH (0.270 - 4.200 uIU/mL) 1.870 Cancelled Free T4 (0.64 - 1.79 ng/dL) 1.04 Cancelled Hematology CBC w Diff MAN DIFF ORDERED WBC (4.8 - 10.8 /CUMM) 5.6 RBC (4.20 - 5.40 /CUMM) 2.36 L Hgb (12.0 - 16.0 G/DL) 9.7 L Hct (37 - 47 %) 28.7 L MCV (81.0 - 99.0 FL) 121.6 H MCH (27.0 - 31.0 PG) 41.3 H MCHC (33.0 - 37.0 G/DL) 34.0 RDW (11.5 - 14.5 %) 15.6 H Plt Count (130 - 400 /CUMM) 126 L MPV (7.4 - 10.4 FL) 9.5 Gran % (42.2 - 75.2 %) 91.4 H Lymphocytes % (20.5 - 51.1 %) 2.9 L Monocytes % (1.7 - 9.3 %) 5.7 Eosinophils % (0 - 5 %) 0 Basophils % (0.0 - 2.0 %) 0 Absolute Granulocytes (1.4 - 6.5 /CUMM) 5.1 Segmented Neutrophils (42.2 - 75.2 %) 57 Band Neutrophils (0.0 - 5.0 %) 30 H Absolute Lymphocytes (1.2 - 3.4 /CUMM) 0.2 L Lymphocytes (20.5 - 51.1 %) 5 L Monocytes (1.7 - 9.3 %) 7 Absolute Monocytes (0.10 - 0.60 /CUMM) 0.3 Absolute Eosinophils (0.0 - 0.7 /CUMM) 0 Absolute Basophils (0.0 - 0.2 /CUMM) 0 Metamyelocytes (0.0 - 1.0 %) 1 Nucleated RBCs (0.0 - 0.0 /100WBC) 3 H Platelet Estimate (ADEQUATE) DECREASED Anisocytosis 1+ Macrocytic Cells 2+ Serology Hepatitis A IgM Ab (NONREACTIVE) NONREACTIVE Hep Bs Antigen (NONREACTIVE) NONREACTIVE Hep B Core IgM Ab Conf (NONREACTIVE) NONREACTIVE Hepatitis C Antibody (NONREACTIVE) NONREACTIVE HIV 1&2 Ab Western Blot (NONREACTIVE) NONREACTIVE Toxicology Acetaminophen (10.0 - 30.0 ug/mL) < 10.0 L Serum Alcohol (<10 MG/DL) < 10.0 Acetone Level (NEGATIVE) POSITIVE AT 1:16 DIL Imaging/Other Studies: CT scan of the abdomen and pelvis, with IV contrast IMPRESSION: 1. Endotracheal tube and enteric tube are in satisfactory position. 2. Mild pulmonary emphysema. 3. Patchy groundglass and reticular opacities in both lungs are nonspecific, but likely represent pneumonia. Also, there is consolidation and/or pneumonia of lower lobes with small bilateral pleural effusions. 4. Hepatomegaly and diffuse hepatic steatosis (or steatohepatitis). 5. Anasarca. Small amount of ascitic fluid is present within the abdomen and pelvis. The wall thickening of small and large bowel could be secondary to anasarca; however, unable to exclude enteritis or colitis. 6. Cholelithiasis without overt evidence of acute cholecystitis or choledocholithiasis. No ductal dilatation. 7. Nonobstructing 0.6 cm calculus within the upper pole of the left kidney. CT scan of the head Unremarkable
[2017-08-18] VITALS (8 sets, daily range): BP systolic 98–111; BP diastolic 60–78
[2017-08-18 02:59] LABS: ABSOLUTE BASOPHIL COUNT 0.2 /CUMM (0.0-0.2); ABSOLUTE EOSINOPHIL COUNT 0 /CUMM (0.0-0.7); ABSOLUTE GRANULOCYTE CT 7.2 /CUMM (1.4-6.5); ABSOLUTE LYMPH COUNT 0.6 /CUMM (1.2-3.4); ABSOLUTE MONOCYTE COUNT 0.1 /CUMM (0.10-0.60); BASOPHIL % 2.1 % (0.0-2.0); EOSINOPHIL % 0.1 % (0-5); GRANULOCYTE % 89.5 % (42.2-75.2); HEMATOCRIT 21.5 % (37-47); MEAN CORPUSCULAR HGB 43.1 PG (27.0-31.0); MEAN CORPUSCULAR VOLUME 120.9 FL (81.0-99.0); MEAN PLATELET VOLUME 9.9 FL (7.4-10.4); PLATELET COUNT 71 /CUMM (130-400); RBC DISTRIBUTION WIDTH 16.6 % (11.5-14.5); RED BLOOD CELL CT 1.78 /CUMM (4.20-5.40); WHITE BLOOD CELL COUNT 8.1 /CUMM (4.8-10.8)
[2017-08-18 03:18] LABS: MEAN CORPUSCULAR HGB CONC 35.7 G/DL (33.0-37.0)
[2017-08-18 05:56] LABS: PT 13.1 SEC (9.4-12.5); PTT 42 SEC (25-37)
[2017-08-18 06:42] LABS: ABSOLUTE BASOPHIL COUNT 0.1 /CUMM (0.0-0.2); ABSOLUTE EOSINOPHIL COUNT 0 /CUMM (0.0-0.7); ABSOLUTE LYMPH COUNT 0.6 /CUMM (1.2-3.4)
[2017-08-18 06:52] LABS: ABSOLUTE GRANULOCYTE CT 8.6 /CUMM (1.4-6.5); ABSOLUTE MONOCYTE COUNT 0.1 /CUMM (0.10-0.60); BASOPHIL % 0.6 % (0.0-2.0); EOSINOPHIL % 0.3 % (0-5); GRANULOCYTE % 91.6 % (42.2-75.2); MEAN CORPUSCULAR HGB 41.3 PG (27.0-31.0); MEAN CORPUSCULAR VOLUME 120.5 FL (81.0-99.0); PLATELET COUNT 70 /CUMM (130-400); RBC DISTRIBUTION WIDTH 16.9 % (11.5-14.5); WHITE BLOOD CELL COUNT 9.4 /CUMM (4.8-10.8)
[2017-08-18 07:02] LABS: MEAN CORPUSCULAR HGB CONC 34.3 G/DL (33.0-37.0)
--- NOTE | 2017-08-18 07:49 | PN- Resident CRCU ---
Subjective HPI/CRCU Issues: Vitals: Tmax 101.1, HR 97-132, rr 19-32, BP manual 82/48-110/70, Intubated: AC20, Vt 450, FI02 240, peep 5, o2 SAT 93-98% Total In 7650, Total out 1950. In last 8 hrs she has put out 700cc output with 2 BM, 100cc output from OGT and 600cc of urine. Running IV ativan at 2mcg/min, 6mcg/min of levophed and D5LR at 50cc/hr. With guaiac-negative stool. White count 9.4 with 9 bands, hemoglobin 6.2, hematocrit 18.0, MCV 120.5. Platelets 70 (TREND: 71, 78, 101) Microbiology: Sputum positive for E. coli. Sensitivity pending Blood culture 2 from August 16 positive for E. coli. Sensitivities pending Blood and urine culture from August 15 showS no growth to date Negative influenza Negative Cryptosporidium Negative Giardia C. difficile pending receipt 24 Hour Events: Yesterday afternoon pt was started on Levophed for hypotension. Overnight she had no acute events. She remained afebrile after start of ceftriaxone. H/H dropped from 7.7 yesterday evening to 6.2 this AM. No overt bleeding noted. Objective Vital Signs & I&O Last 8 Hrs of Vitals and I&O: Intake & Output 08/26 1600 Intake Total 620 Output Total 250 Balance 370 Intake, IV 500 Intake, Oral 120 Number 2 Bowel Movements Output, Urine 250 Exam General Appearance: no apparent distress Current Medications: Current Medications Sig/Marcus Start time Last Medication Dose Route Stop Time Status Admin Albuterol Sulfate 3 ML BID PRN 08/26 1349 AC INH Albuterol Sulfate 3 ML BID 08/20 2200 DC 08/26 INH 1028 Chlorhexidine 10 ML TID 08/25 1000 AC 08/26 Gluconate PO 1106 Dextrose/Sodium 1,000 ML Q13H 08/24 1530 AC 08/26 Chloride IV 0610 Fentanyl Citrate 12 MCG ONCE ONE 08/27 1015 AC TOP 03/22 1016 Furosemide 20 MG ONCE ONE 08/26 0915 DC 08/26 IV 08/26 0916 1103 Heparin Sodium 5,000 UNIT Q8 08/22 1400 AC 08/26 (Porcine) SC 1326 Levothyroxine Sodium 68 MCG DAILY 08/17 1000 AC 08/26 IV 1104 Magnesium Sulfate 1 GM Q2H 08/26 0815 DC 08/26 Dextrose/Water 100 ML IV 08/26 1214 1222 Moxifloxacin HCl 400 MG Q24H 08/19 1200 AC 08/26 N/A 1 UNIT IV 1327 Ondansetron HCl 4 MG Q6P PRN 08/15 1845 AC IV Pantoprazole Sodium 40 MG DAILY 08/17 1400 AC 08/26 IV 1059 Potassium Chloride 20 MEQ ONCE ONE 08/26 0800 DC 08/26 PO 08/26 0801 0850 Vancomycin HCl 125 MG Q6H 08/21 1400 AC 08/26 PO 1326 Vitamin A/Vitamin D 1 ANGEL BID 08/22 1005 AC 08/26 TOP 0850 Zinc Oxide 1 ANGEL BID PRN 08/21 0615 AC 08/24 TOP 1127 Impression/Plan Impression/Problem List Impression: This is a 57 yo female with known PMH of hypothyroid, htn and known etoh use who comes in with CC of AMS and somnolence. Given her presentation there is concern for various etiologies of encephalopathy including hepatic encephalopathy, metabolic encephalopathy secondary to alcoholic vs. starvation ketosiS encephalopathy due to underlying infection, or even Wernicke's encephalopathy. She was admitted to ICU for further monitoring and work up. Unfortunately, her mental status never improved. She remained significantly obtunded and started desaturiating. On 08/17/2017 AM she had sats in the 60s and was intubated. BCX are now positive for GNR. PLAN: Respiratory Acute Hypoxic respiratory failure: Pt intubated on 08/17/2017 with sats in low 60s. CT chest shows considerable effusion and possible consolidation. She is currently mechanically ventilated with AC 20/450/40/5 * Continue mechanical ventilation * XRY in AM tomorrow ID: Sepsis secondary to unknown source: Pt has BCX X2 for GNR. Sputum shows gramstain +GNR. However, she has tender RUQ cannot rule out cholecystitis/ cholangitis given jaundice/fever/ hypotension/AMS/abdominal pain. She got one dose of lactulose and has had about 5L diarrhea. Now has decreased. She was started on Unasyn 1.5 q8 initially on admission and has got 3 doses total. * Appreciate ID recs * BCX Aug 10 negative * BCX Aug 11 + ecoli X2 * Follow up stool studies * Switched to Ceftriaxone on 08/17/2017 Cardiovascular: Hypotension: She has MAP 60 started on peripheral levo. likely secondary to sepsis. Placed a picc line on 08/17/2017. * Levophed for MAP >65 * Lactid acid Hx of Hypertension/CAD: Currently hypotensive. * Holding home metoprolol Succinate 50 for hypotension. Restart as necessary * Hold Simvastatin Heme/Onc: Macrocytic Anemia: Hb 9.7 and HCT 28.7. MCV 121.6. * Iron studies * B12 lvl * Folate lvl Metabolic Hypothyroid: Nml TFT this admission * Con't home synthroid Alimentary: Alcoholic hepatitis: AST 238, ALT 86, ALK P 327 on admission. LFT improving. She has classic AST>>ALT pattern for alcoholic hepatitis. . Abd us shows fatty liver and some sludging + stones in gall bladder. Hepatitis panel neg. HIV negative. Tylenol lvl negative. * Pt started on ceftriaxone so bili might worsen due to med sfx. Con't monitor. * Hold home simvastatin NPO: started on trophic feed of Jevity 1.2 at 10cc/hr. Will need to increase feeds as pt tolerates * Nutrition recs appreciated * OGT in place * Con't elemental feed GI PPX * IV PPI Neuro: AMS: She came in with scleral icterus, elevated conjugated bilirubin, and transamanitis w/significant etoh hx there is concern for hepatic or Wernicke's encephalopathy. Though her metabolic derangements have been largely corrected her altered mental status and obtundation never resolved. Acute intoxication was considered but tylenol and salicylate negative. Osm.Gap not significant. CT head x2 one with and one with out contrast negative for acute intracranial pathology. Ammonia lvl 76 on admission but not diagnositic of HE. Given AMS and elevated white count there was consideration of meningitis but as she improved with lactulose, had no meningeal signs,and was afebrile a LP was deferred. At this time given +BCX x2 GNR will need to treat for sepsis and monitor if her mental status improves. * Q1 neuro check * Continue high dose thiamine * Continue b12 * Follow up Paige culture Alcohol withdrawl: Pt does have significatn hx of Etoh use. UTOX negative for etoh. Using push of ativan for sedation while intubated. * [facility] protocol * Iinitally got ativan drip for sedation on vent. Have now D/C drip and keeping pt on ativan PRN push and Fentanyl prn push for agitation. Nephro: AGMA: Resolved. Hypok/Hypo Mag: K 3.1, Mag 1.0 and phos 1.3. * Repeat labs in 4 hrs * Replete. EARL vs CKD: We have no baseline so it is not possible to determine if this is her baseline or not. Waller placed with no indication of urinary retention. BUN /Cr ratio not classically pre-renal but but pt is very dry and obtunded so likely low access to H2O as well. UA does show casts, and elevated protein raising concern for intrinsic renal pathology such as ATN. FeNa and Estephania not suggestive of hepatorenal pathology. * Con't monitor * Urine lytes * Waller in place * Adequate hydration w/ D5NS FC CHEM DVT PPX NPO Problem List: 1. Altered mental status 2. Acute alcoholic hepatitis 3. Hepatic encephalopathy Pain Ratin Tomorrow's Labs & Rationales: icu cbc Plan DVT/Prophylaxis: pharmacological
--- NOTE | 2017-08-18 09:59 | PN- Infect Dx ---
Subjective Subjective: MAXIMUM TEMPERATURE 101.1. She is requiring Levophed for hypotension. Objective Last 24 Hrs of Vital Signs/I&O Vital Signs Date Time Temp Pulse Resp B/P B/P Pulse O2 O2 Flow FiO2 Mean Ox Delivery Rate 08/18 0808 40 08/18 0600 82 18 99/68 08/18 0553 40 08/18 0400 98.0 112 24 110/70 08/18 0400 98 Ventilator 40% 08/18 0325 40 08/18 0200 110 22 104/73 08/18 0100 40 08/18 0030 103 20 102/65 08/18 0000 99.7 94 20 110/70 08/18 0000 93 Ventilator 40% 08/17 2300 99.7 94 20 110/70 93 Ventilator 40% 08/17 2245 40 08/17 2200 104 21 112/68 08/17 2000 98.5 97 24 102/64 08/17 2000 95 Ventilator 40% 08/17 1915 50 / 1630 50 / 1600 100.1 120 25 99/66 08/17 1600 95 Ventilator 50% 08/17 1544 101.1 112 20 98/50 96 Ventilator 50% 08/17 1508 117 80/50 / 1430 50 /12 1418 Ventilator 100% 08/17 1400 101.1 118 23 86/57 08/17 1200 99.7 118 20 102/68 08/17 1200 98 Ventilator 70% 08/17 1115 70 08/17 1104 122 91/62 08/17 1100 99.0 118 20 90/60 Intake & Output 08/18 1600 08/18 0800 08/18 0000 Intake Total 677 593 Output Total 700 500 Balance -23 93 Intake, IV 677 593 Number 2 4 Bowel Movements Output, 100 Gastric Drainage Output, Urine 600 500 Physical Exam Other Physical Findings: She is unresponsive, sedated, on the ventilator Lungs scattered rhonchi bilaterally Heart regular rhythm with no murmur Abdomen is soft, with no obvious tenderness, positive bowel sounds Extremities PICC in place in the right upper extremity Waller catheter is in place Results Last 24 Hours of Lab Results: Laboratory Tests 08/18 08/18 0505 0452 Blood Gas pH (7.35 - 7.45 PH) 7.51 H pCO2 (35 - 45 TORR) 36 pO2 (80 - 100 TORR) 60 L HCO3 (21 - 28 MEQ/L) 28 ABG O2 Sat (Measured) (>96.0 %) 92.0 L P-50 (Temp Corrected) Y Carboxyhemoglobin (1.5 - 5.0 %) 0.3 L O2 Concentration % 40% Temperature (97.0 - 100.0 FARH) 98.0 Respiration Rate (BPM) 20 O2 Delivery Method ESPRIT Vent Mode AC Expiratory Pressure (CMH2O/P) 5 Tidal Volume (CC) 450 Chemistry Sodium (137 - 145 mmol/L) 149 H Potassium (3.5 - 5.1 mmol/L) 2.7 *L Chloride (98 - 107 mmol/L) 113 H Carbon Dioxide (22 - 30 mmol/L) 30 Anion Gap (5 - 16) 6 BUN (7 - 17 mg/dL) 3 L Creatinine (0.5 - 1.0 mg/dL) 0.3 L Estimated GFR (>60 ml/min) > 60 Glucose (65 - 99 mg/dL) 106 H Calcium (8.4 - 10.2 mg/dL) 7.4 L Phosphorus (2.5 - 4.5 mg/dL) 1.4 L Magnesium (1.6 - 2.3 mg/dL) 1.6 Total Bilirubin (0.2 - 1.3 mg/dL) 2.7 H AST (14 - 36 U/L) 134 H ALT (9 - 52 U/L) 67 H Albumin (3.5 - 5.0 g/dL) 2.1 L Coagulation PT (9.4 - 12.5 SEC) 13.1 H INR (0.90 - 1.19) 1.20 H APTT (25 - 37 SEC) 42 H Hematology CBC w Diff MAN DIFF ORDERED WBC (4.8 - 10.8 /CUMM) 9.4 RBC (4.20 - 5.40 /CUMM) 1.50 L Hgb (12.0 - 16.0 G/DL) 6.2 *L Hct (37 - 47 %) 18.0 *L MCV (81.0 - 99.0 FL) 120.5 H MCH (27.0 - 31.0 PG) 41.3 H MCHC (33.0 - 37.0 G/DL) 34.3 RDW (11.5 - 14.5 %) 16.9 H Plt Count (130 - 400 /CUMM) 70 L MPV (7.4 - 10.4 FL) 11.0 H Gran % (42.2 - 75.2 %) 91.6 H Lymphocytes % (20.5 - 51.1 %) 6.5 L Monocytes % (1.7 - 9.3 %) 1.0 L Eosinophils % (0 - 5 %) 0.3 Basophils % (0.0 - 2.0 %) 0.6 Absolute Granulocytes (1.4 - 6.5 /CUMM) 8.6 H Segmented Neutrophils (42.2 - 75.2 %) 83 H Band Neutrophils (0.0 - 5.0 %) 9 H Absolute Lymphocytes (1.2 - 3.4 /CUMM) 0.6 L Lymphocytes (20.5 - 51.1 %) 7 L Monocytes (1.7 - 9.3 %) 1 L Absolute Monocytes (0.10 - 0.60 /CUMM) 0.1 Absolute Eosinophils (0.0 - 0.7 /CUMM) 0 Absolute Basophils (0.0 - 0.2 /CUMM) 0.1 Nucleated RBCs (0.0 - 0.0 /100WBC) 1 H Platelet Estimate (ADEQUATE) DECREASED Macrocytic Cells 2+ Target Cells 1+ Stomatocytes 1+ Miscellaneous Phlebotomy Draw Site LEFT RADIAL 08/18 08/17 0037 1555 Chemistry Sodium (137 - 145 mmol/L) 147 H Potassium (3.5 - 5.1 mmol/L) 3.6 Chloride (98 - 107 mmol/L) 114 H Carbon Dioxide (22 - 30 mmol/L) 29 Anion Gap (5 - 16) 3 L BUN (7 - 17 mg/dL) 5 L Creatinine (0.5 - 1.0 mg/dL) 0.4 L Estimated GFR (>60 ml/min) > 60 Glucose (65 - 99 mg/dL) 110 H Lactic Acid (0.7 - 2.1 mmol/L) 1.0 Calcium (8.4 - 10.2 mg/dL) 7.6 L Phosphorus (2.5 - 4.5 mg/dL) 1.1 L Magnesium (1.6 - 2.3 mg/dL) 1.9 Total Bilirubin (0.2 - 1.3 mg/dL) 3.5 H AST (14 - 36 U/L) 152 H ALT (9 - 52 U/L) 81 H Ammonia (9 - 30 umol/L) 52 H Albumin (3.5 - 5.0 g/dL) 2.2 L Hematology CBC w Diff MAN DIFF ORDERED NO MAN DIFF REQ WBC (4.8 - 10.8 /CUMM) 8.1 7.8 RBC (4.20 - 5.40 /CUMM) 1.78 L 1.87 L Hgb (12.0 - 16.0 G/DL) 7.7 L 7.7 L Hct (37 - 47 %) 21.5 L 22.5 L MCV (81.0 - 99.0 FL) 120.9 H 120.4 H MCH (27.0 - 31.0 PG) 43.1 H 41.3 H MCHC (33.0 - 37.0 G/DL) 35.7 34.3 RDW (11.5 - 14.5 %) 16.6 H 16.6 H Plt Count (130 - 400 /CUMM) 71 L 78 L MPV (7.4 - 10.4 FL) 9.9 10.3 Gran % (42.2 - 75.2 %) 89.5 H 94.2 H Lymphocytes % (20.5 - 51.1 %) 7.0 L 3.8 L Monocytes % (1.7 - 9.3 %) 1.3 L 1.5 L Eosinophils % (0 - 5 %) 0.1 0.3 Basophils % (0.0 - 2.0 %) 2.1 H 0.2 Absolute Granulocytes (1.4 - 6.5 /CUMM) 7.2 H 7.4 H Segmented Neutrophils (42.2 - 75.2 %) 71 Band Neutrophils (0.0 - 5.0 %) 15 H Absolute Lymphocytes (1.2 - 3.4 /CUMM) 0.6 L 0.3 L Lymphocytes (20.5 - 51.1 %) 9 L Monocytes (1.7 - 9.3 %) 5 Absolute Monocytes (0.10 - 0.60 /CUMM) 0.1 0.1 Absolute Eosinophils (0.0 - 0.7 /CUMM) 0 0 Absolute Basophils (0.0 - 0.2 /CUMM) 0.2 0 Platelet Estimate (ADEQUATE) DECREASED Macrocytic Cells 2+ Target Cells 1+ Stomatocytes FEW 08/17 1130 Urines Ur Random Creatinine (mg/dL) 29.1 Ur Random Sodium (30 - 90 mmol/L) 43 Ur Random Potassium (mmol/L) 27.8 Fraction Sodium Excret (<1% %) 0.5 Last 24 Hours of Will Results: Blood cultures 2 August 16 positive for Escherichia coli, sensitivities pending Sputum culture August 17 positive for Escherichia coli, sensitivities pending Urine culture August 16 negative Stool O&P August 17 negative Rapid flu swab August 17 negative Assessment/Plan ID Impression: Critically ill, now on pressors, requiring increasing oxygen on the ventilator, and with a marked decrease in her H&H, likely secondary to a GI bleed, with multiple loose, guaiac positive stools reported. She is now on Ceftriaxone Day 3 of treatment for Escherichia coli sepsis, most likely secondary to pneumonia, with bilateral patchy opacities on the recent x-ray and CT of the chest. Suggestion: 1. GI follow-up regarding her anemia and guaiac positive stools 2. Follow-up final sputum and blood cultures 3. Continue Ceftriaxone pending above
--- NOTE | 2017-08-18 10:18 | RADIOLOGY REPORT ---
EXAMINATION: XR PORTABLE CHEST CLINICAL INFORMATION: Intubated. Tube placement. COMPARISON: CXR from 08/17/2017 TECHNIQUE: Portable frontal view of the chest was obtained. FINDINGS: Endotracheal tube is in satisfactory position at 3.8 cm above the adonay. The tip of the right arm peripherally inserted catheter is at the cavoatrial junction. The enteric tube extends below the diaphragm and into the stomach. No pneumothorax or pneumomediastinum. Again noted are bilateral patchy and hazy pulmonary opacities. Although there is likely a persistent small right pleural effusion, it is not radiographically detected. There is a persistent small left pleural effusion. There are are a several old right rib fractures. IMPRESSION: 1. Tubes and lines remain in satisfactory position. Endotracheal tube is located 3.8 cm above the adonay. 2. Pulmonary disease remains similar in appearance compared to 08/17/2017.
--- NOTE | 2017-08-18 11:07 | PN- CRCU ---
Subjective HPI/Critical Care Issues: Overall sig deterioration noted with ongoing shock, hypoxia and delirium now requiring sig doses of ativan Still obtunded and agitated with delirium Diarrhea persists Still has sig secretions in the lung PAP is 28 and plateau is about 20 SIGNIFICANT DATA Creatinine is 0.3 BUN is 3 potassium is significantly low at 2.7 uneasy and was low at 1.6 phosphorus is low Bilirubin has come down to 2.7 AST ALT trending down alkaline phosphatase continues to be elevated GGT is elevated hemoglobin has dropped significantly to 6.2 which may need to be repeated again Platelets have dropped to 70 INR is 1.2 today. ABG reviewed patient continues to be hypoxemic Influenza swab negative stool exam so far unremarkable C. difficile pending blood cultures are growing Escherichia coli, sensitivities are pending Chest x-ray done shows stable pulmonary function Objective Current Medications: Current Medications Sig/Marcus Start time Last Medication Dose Route Stop Time Status Admin Albuterol Sulfate 3 ML Q4P PRN 08/17 1430 AC 08/18 INH 0817 Ampicillin Sodium/ 1,500 MG Q6 08/17 0030 DC 08/17 Sulbactam Sodium IV 1103 Sodium Chloride 100 ML Ceftazidime 1,000 MG IQ8 08/17 1600 CAN IV Ceftriaxone Sodium 1,000 MG DAILY 08/17 1600 AC 08/18 IV 0834 Dextrose/Lactated 1,000 ML Q20H 08/16 1400 AC 08/18 Ringer's IV 0835 Heparin Sodium 5,000 UNIT Q8 08/15 2328 AC 08/18 (Porcine) SC 0641 Insulin Aspart 1 UNITS .STK-MED ONE 08/17 2245 DC SC 08/17 2246 Insulin Human Regular 1 UNITS .STK-MED ONE 08/17 2248 DC IV 08/17 2249 Insulin Human Regular 0 Q4 08/16 1400 AC 08/17 SC 2249 Levothyroxine Sodium 68 MCG DAILY 08/17 1000 AC 08/18 IV 0833 Lorazepam 50 MG ONCE ONE 08/17 1930 DC 08/17 Sodium Chloride 500 ML IV 08/17 1932014 Lorazepam 50 MG ONCE ONE 08/17 1900 DC Dextrose/Water 500 ML IV 08/17 1901 Lorazepam 2 MG ONE ONE 08/17 1530 DC / IV 08/17 1531 1524 Lorazepam 2 MG ONE ONE 08/17 1500 DC 08/17 IV 08/17 1501 1508 Lorazepam 2 MG Q2 08/17 1000 DC 08/17 IV 08/17 1601 1659 Lorazepam 0 Q1P PRN 08/16 1400 DC 08/16 IV 1403 Metoprolol Succinate 50 MG DAILY 08/16 1000 DC PO Norepinephrine 4 MG Q13H 08/17 2330 AC 08/18 Dextrose/Water 250 ML IV 0030 Norepinephrine 4 MG Q24H 08/17 1500 DC 08/17 Dextrose/Water 250 ML IV 08/17 2329 1508 Norepinephrine 4 MG .STK-MED ONE 08/17 1455 DC IV 08/17 1456 Ondansetron HCl 4 MG Q6P PRN 08/15 1845 AC IV Pantoprazole Sodium 40 MG DAILY 08/17 1400 AC 08/18 IV 0834 Phosphate 250 MG ONCE ONE 08/18 1999 DC 08/17 PO 08/17 2000 2019 Phosphate 250 MG PC AND AT BEDTIME 08/17 0900 DC 08/17 PO 08/17 2101 2252 Potassium Chloride 10 MEQ Q1H 08/18 0900 CAN IV 08/18 1001 Potassium Chloride 60 MEQ 0900 08/18 0900 DC PO 08/18 0901 Potassium Chloride 20 MEQ Q1H 08/18 0600 DC 08/18 IV 08/18 0701 0833 Potassium Phosphate 15 mMol ONE ONE 08/18 0700 AC 08/18 Sodium Chloride 250 ML IV 08/18 1104 0835 Vital Signs & I&O Last 24 Hrs of Vitals and I&O: Vital Signs Date Time Temp Pulse Resp B/P B/P Pulse O2 O2 Flow FiO2 Mean Ox Delivery Rate 08/18 0808 40 08/18 0600 82 18 99/68 08/18 0553 40 08/18 0400 98.0 112 24 110/70 08/18 0400 98 Ventilator 40% 08/18 0325 40 08/18 0200 110 22 104/73 08/18 0100 40 08/18 0030 103 20 102/65 08/18 0000 99.7 94 20 110/70 08/18 0000 93 Ventilator 40% 08/17 2300 99.7 94 20 110/70 93 Ventilator 40% 08/17 2245 40 08/17 2200 104 21 112/68 08/17 2000 98.5 97 24 102/64 08/18 1999 95 Ventilator 40% 08/17 1915 50 08/17 1630 50 08/17 1600 100.1 120 25 99/66 08/17 1600 95 Ventilator 50% 08/17 1544 101.1 112 20 98/50 96 Ventilator 50% 08/17 1508 117 80/50 08/17 1430 50 08/17 1418 Ventilator 100% 08/17 1400 101.1 118 23 86/57 08/17 1200 99.7 118 20 102/68 08/17 1200 98 Ventilator 70% 08/17 1115 70 08/17 1104 122 91/62 08/17 1100 99.0 118 20 90/60 Intake & Output 08/18 1600 08/18 0800 08/18 0000 Intake Total 677 593 Output Total 700 500 Balance -23 93 Intake, IV 677 593 Number 2 4 Bowel Movements Output, 100 Gastric Drainage Output, Urine 600 500 Impression/Plan Impression/Plan Impression/Plan: General Appearance: Intubated did receive ativan, and obtunded Head: atraumatic, normal appearance Ears, Nose, Throat: mucous membranes dry, dried blood noted on mouth. Neck: normal inspection, supple Respiratory: normal breath sounds, crackles (basilar) Cardiovascular: regular rate/rhythm Gastrointestinal: tenderness to palpation right upper quadrant. no distention, no rigidity .hypoactive bowel sounds. Extremities: normal inspection, normal capillary refill, swelling IMPRESSION This is a 57-year-old lady with history of hypertension hypothyroidism significant alcohol abuse with worsening alcoholism in the recent past came into the hospital with confusion and somnolence tachycardia and significant jaundice with severe metabolic acidosis, normal lactate, no significant osmolar gap with clinical signs and symptoms suggestive of severe alcoholic ketoacidosis. She also has significant fatty liver with evidence of significant alcoholic hepatitis with so far preserved synthetic function of her liver. Issues * Septic shock due to pneumonia and ecoli septicemia * Progressive worsening mental status still with evidence of sig liver disease with relatively preserved synthetic function of the liver, diff dx is broad, including hepatic encephalopathy (less likely), toxic metabolic encephalopathy ( tox screen negative, admitted to alcohol use in the past, normal head CT in the beginning, no evidence suggestive of bacterial meningitis upon admission) * Respiratory failure which seems to be both hypoxemic and hypercarbic related to severe bilateral ecoli pna, acute lung injury with, pulmonary edema due to appropriate post fluid resuscitation * Resolved metabolic acidosis (anion gap acidosis), with severe ketosis in a nondiabetic patient Patient did receive thiamine prior to any glucose treatment. * Diffuse fatt liver with sig alchoholic hepatitis * Sig etoh use with DT on lorazepam * Severe electrolyte abnormalities due to enterocolitis with profuse diarrhea * Mild pancreatitis * Severe anemia due to hemodilution and prob slow gi ooze RECOMMENDATION/PLAN * Continue mechanical ventilator, reduce FiO2, with a bite block * REduce lorazepam drip and use prn boluses, can add low dose fentanyl prn * Agg Potassium replacement down NG and IV 40 meq x 4 doses * Continued D5 Ringer's lactate and reduce the dose * Start low dose elemental tube feeding * Transfuse prbc one unit if the next cbc is low today * Proton pump inhibitor * IV mag 2 grams * May try one dose of lasix 20 mg today after potassium is replaced * Cont abx * Vit k down ng 10 mg today * Keep MAP at 65 * Check her fingerstick glucose [id number] and use insulin only if her glucose is now more than 150 Patient is critically ill total time spent 45 minutes
--- NOTE | 2017-08-18 13:47 | PN- Gastroenterology ---
Assessment/Plan GI Assessment/Recommendations: Probable alcoholic hepatitis complicated by Escherichia coli sepsis, of probable pulmonary etiology. There are gallstones on imaging, but no ductal dilatation, and cholangitis seems unlikely. Her bilirubinemia is improving, and INR remains stable. There is scant ascites on CT scan. Ammonia has normalized, making it unlikely that there is persistent hepatic encephalopathy. At this time, given sedation, it is not possible to assess cognitive status. Marked anemia, but with Hemoccult negative stool, making a GI source of blood loss quite unlikely. Improvement in diarrhea (likely related to antibiotics, alcoholic enteropathy, refeeding, etc.), with negative C. difficile toxin. Recommendations * Continue to hold lactulose given diarrhea * Follow LFTs, INR * Continue thiamine Subjective Subjective: Remains intubated and sedated. His been having diarrhea although according to nurse this is slowing down. It was Hemoccult negative today. Remains hypotensive, on pressors. Review of Systems: Unobtainable Objective Vital Signs and I&Os Vital Signs Date Time Temp Pulse Resp B/P B/P Pulse O2 O2 Flow FiO2 Mean Ox Delivery Rate 08/18 1200 98 Ventilator 60% 08/18 1108 60 / 0910 60 08/18 0808 40 08/18 0800 92 Ventilator 40% 08/18 0800 97.4 98 20 100/60 92 Ventilator 40% 08/18 0600 82 18 99/68 / 0553 40 08/18 0400 98.0 112 24 110/70 / 0400 98 Ventilator 40% / 0325 40 08/18 0200 110 22 104/73 08/18 0100 40 08/18 0030 103 20 102/65 08/18 0000 99.7 94 20 110/70 03/13 0000 93 Ventilator 40% 03/12 2300 99.7 94 20 110/70 93 Ventilator 40% 03/12 2245 40 /12 2200 104 21 112/68 /1999 98.5 97 24 102/64 /12 1999 95 Ventilator 40% 03/12 1915 50 03/12 1630 50 03/12 1600 100.1 120 25 99/66 03/12 1600 95 Ventilator 50% 03/12 1544 101.1 112 20 98/50 96 Ventilator 50% 03/12 1508 117 80/50 03/12 1430 50 03/12 1418 Ventilator 100% 03/12 1400 101.1 118 23 86/57 Intake & Output 08/18 1600 08/18 0400 08/17 1600 08/17 0400 08/16 1600 08/16 0400 Intake Total 182 665 9654 800 3163 3270 Output Total 544 720 6608 260 1750 940 Balance -23 93 -5316 540 1413 2330 Intake, IV 324 779 9588 800 2683 3150 Intake, Oral 480 120 Intake, Other 100 Number 2 4 4 5 11 5 Bowel Movements Output, 100 5713 Gastric Drainage Output, Urine 600 500 028 718 7132 940 Patient 146 lb 145 lb 146 lb Weight Weight Bed scale Measurement Method Physical Exam: Intubated and sedated. Sclera icteric. Abdomen soft, nondistended. No edema. Current Medications: Current Medications Sig/Marcus Start time Last Medication Dose Route Stop Time Status Admin Albuterol Sulfate 3 ML Q4P PRN 08/17 1430 AC 08/18 INH 0817 Ampicillin Sodium/ 1,500 MG Q6 08/17 0030 DC 08/17 Sulbactam Sodium IV 1103 Sodium Chloride 100 ML Ceftazidime 1,000 MG IQ8 08/17 1600 CAN IV Ceftriaxone Sodium 1,000 MG DAILY 08/17 1600 AC 08/18 IV 0834 Dextrose/Lactated 1,000 ML Q20H 08/16 1400 AC 08/18 Ringer's IV 0835 Heparin Sodium 5,000 UNIT Q8 08/15 2328 AC 08/18 (Porcine) SC 0641 Insulin Aspart 1 UNITS .STK-MED ONE 08/17 2245 DC SC 08/17 2246 Insulin Human Regular 1 UNITS .STK-MED ONE 08/17 2248 DC IV 08/17 2249 Insulin Human Regular 0 Q4 08/16 1400 AC 08/17 SC 2249 Levothyroxine Sodium 68 MCG DAILY 08/17 1000 AC 08/18 IV 0833 Lorazepam 50 MG ONCE ONE 08/17 1930 DC 08/17 Sodium Chloride 500 ML IV 08/17 1932014 Lorazepam 50 MG ONCE ONE 08/17 1900 DC Dextrose/Water 500 ML IV 08/17 1901 Lorazepam 2 MG ONE ONE 08/17 1530 DC / IV 08/17 1531 1524 Lorazepam 2 MG ONE ONE 08/17 1500 DC 08/17 IV 08/17 1501 1508 Lorazepam 2 MG Q2 08/17 1000 DC 08/17 IV 08/17 1601 1659 Lorazepam 0 Q1P PRN 08/16 1400 DC 08/16 IV 1403 Metoprolol Succinate 50 MG DAILY 08/16 1000 DC PO Norepinephrine 4 MG Q13H 08/17 2330 AC 08/18 Dextrose/Water 250 ML IV 0030 Norepinephrine 4 MG Q24H 08/17 1500 DC 08/17 Dextrose/Water 250 ML IV 08/17 2329 1508 Norepinephrine 4 MG .STK-MED ONE 08/17 1455 DC IV 08/17 1456 Ondansetron HCl 4 MG Q6P PRN 08/15 1845 AC IV Pantoprazole Sodium 40 MG DAILY 08/17 1400 AC 08/18 IV 0834 Phosphate 250 MG ONCE ONE 08/18 1999 DC 08/17 PO 08/17 2000 2019 Phosphate 250 MG PC AND AT BEDTIME 08/17 0900 DC 08/17 PO 08/17 2101 2252 Potassium Chloride 10 MEQ Q1H 08/18 0900 CAN IV 08/18 1001 Potassium Chloride 60 MEQ 0900 08/18 0900 DC 08/18 PO 08/18 0901 0900 Potassium Chloride 20 MEQ Q1H 08/18 0600 DC 08/18 IV 08/18 0701 0833 Potassium Phosphate 15 mMol ONE ONE 08/18 0700 DC 08/18 Sodium Chloride 250 ML IV 08/18 1104 0835 Results Pertinent Lab Results: Laboratory Tests 08/18 08/18 1111 0505 Blood Gas pH (7.35 - 7.45 PH) 7.51 H pCO2 (35 - 45 TORR) 36 pO2 (80 - 100 TORR) 60 L HCO3 (21 - 28 MEQ/L) 28 ABG O2 Sat (Measured) (>96.0 %) 92.0 L P-50 (Temp Corrected) Y Carboxyhemoglobin (1.5 - 5.0 %) 0.3 L O2 Concentration % 40% Temperature (97.0 - 100.0 FARH) 98.0 Respiration Rate (BPM) 20 O2 Delivery Method ESPRIT Vent Mode AC Expiratory Pressure (CMH2O/P) 5 Tidal Volume (CC) 450 Hematology CBC w Diff Cancelled WBC Cancelled RBC Cancelled Hgb Cancelled Hct Cancelled MCV Cancelled MCH Cancelled MCHC Cancelled RDW Cancelled Plt Count Cancelled MPV Cancelled Miscellaneous Phlebotomy Draw Site LEFT RADIAL 08/18 08/18 0452 0037 Chemistry Sodium (137 - 145 mmol/L) 149 H Potassium (3.5 - 5.1 mmol/L) 2.7 *L Chloride (98 - 107 mmol/L) 113 H Carbon Dioxide (22 - 30 mmol/L) 30 Anion Gap (5 - 16) 6 BUN (7 - 17 mg/dL) 3 L Creatinine (0.5 - 1.0 mg/dL) 0.3 L Estimated GFR (>60 ml/min) > 60 Glucose (65 - 99 mg/dL) 106 H Calcium (8.4 - 10.2 mg/dL) 7.4 L Phosphorus (2.5 - 4.5 mg/dL) 1.4 L Magnesium (1.6 - 2.3 mg/dL) 1.6 Total Bilirubin (0.2 - 1.3 mg/dL) 2.7 H AST (14 - 36 U/L) 134 H ALT (9 - 52 U/L) 67 H Albumin (3.5 - 5.0 g/dL) 2.1 L Coagulation PT (9.4 - 12.5 SEC) 13.1 H INR (0.90 - 1.19) 1.20 H APTT (25 - 37 SEC) 42 H Fibrinogen Activity (200 - 393 MG/DL) 278 Hematology CBC w Diff MAN DIFF ORDERED MAN DIFF ORDERED WBC (4.8 - 10.8 /CUMM) 9.4 8.1 RBC (4.20 - 5.40 /CUMM) 1.50 L 1.78 L Hgb (12.0 - 16.0 G/DL) 6.2 *L 7.7 L Hct (37 - 47 %) 18.0 *L 21.5 L MCV (81.0 - 99.0 FL) 120.5 H 120.9 H MCH (27.0 - 31.0 PG) 41.3 H 43.1 H MCHC (33.0 - 37.0 G/DL) 34.3 35.7 RDW (11.5 - 14.5 %) 16.9 H 16.6 H Plt Count (130 - 400 /CUMM) 70 L 71 L MPV (7.4 - 10.4 FL) 11.0 H 9.9 Gran % (42.2 - 75.2 %) 91.6 H 89.5 H Lymphocytes % (20.5 - 51.1 %) 6.5 L 7.0 L Monocytes % (1.7 - 9.3 %) 1.0 L 1.3 L Eosinophils % (0 - 5 %) 0.3 0.1 Basophils % (0.0 - 2.0 %) 0.6 2.1 H Absolute Granulocytes (1.4 - 6.5 /CUMM) 8.6 H 7.2 H Segmented Neutrophils (42.2 - 75.2 %) 83 H 71 Band Neutrophils (0.0 - 5.0 %) 9 H 15 H Absolute Lymphocytes (1.2 - 3.4 /CUMM) 0.6 L 0.6 L Lymphocytes (20.5 - 51.1 %) 7 L 9 L Monocytes (1.7 - 9.3 %) 1 L 5 Absolute Monocytes (0.10 - 0.60 /CUMM) 0.1 0.1 Absolute Eosinophils (0.0 - 0.7 /CUMM) 0 0 Absolute Basophils (0.0 - 0.2 /CUMM) 0.1 0.2 Nucleated RBCs (0.0 - 0.0 /100WBC) 1 H Platelet Estimate (ADEQUATE) DECREASED DECREASED Macrocytic Cells 2+ 2+ Target Cells 1+ 1+ Stomatocytes 1+ FEW 08/17 08/17 08/17 1555 1130 0940 Blood Gas pH (7.35 - 7.45 PH) 7.35 pCO2 (35 - 45 TORR) 47 H pO2 (80 - 100 TORR) 99 HCO3 (21 - 28 MEQ/L) 25 ABG O2 Sat (Measured) (>96.0 %) 96.0 P-50 (Temp Corrected) N Carboxyhemoglobin (1.5 - 5.0 %) 0.3 L O2 Concentration % 100% Temperature (97.0 - 100.0 FARH) 98.8 Respiration Rate (BPM) 20 O2 Delivery Method VENT Vent Mode VC-AC Expiratory Pressure (CMH2O/P) 5 Tidal Volume (CC) 450 Chemistry Sodium (137 - 145 mmol/L) 147 H Potassium (3.5 - 5.1 mmol/L) 3.6 Chloride (98 - 107 mmol/L) 114 H Carbon Dioxide (22 - 30 mmol/L) 29 Anion Gap (5 - 16) 3 L BUN (7 - 17 mg/dL) 5 L Creatinine (0.5 - 1.0 mg/dL) 0.4 L Estimated GFR (>60 ml/min) > 60 Glucose (65 - 99 mg/dL) 110 H Lactic Acid (0.7 - 2.1 mmol/L) 1.0 Calcium (8.4 - 10.2 mg/dL) 7.6 L Phosphorus (2.5 - 4.5 mg/dL) 1.1 L Magnesium (1.6 - 2.3 mg/dL) 1.9 Total Bilirubin (0.2 - 1.3 mg/dL) 3.5 H AST (14 - 36 U/L) 152 H ALT (9 - 52 U/L) 81 H Ammonia (9 - 30 umol/L) 52 H Albumin (3.5 - 5.0 g/dL) 2.2 L Hematology CBC w Diff NO MAN DIFF REQ WBC (4.8 - 10.8 /CUMM) 7.8 RBC (4.20 - 5.40 /CUMM) 1.87 L Hgb (12.0 - 16.0 G/DL) 7.7 L Hct (37 - 47 %) 22.5 L MCV (81.0 - 99.0 FL) 120.4 H MCH (27.0 - 31.0 PG) 41.3 H MCHC (33.0 - 37.0 G/DL) 34.3 RDW (11.5 - 14.5 %) 16.6 H Plt Count (130 - 400 /CUMM) 78 L MPV (7.4 - 10.4 FL) 10.3 Gran % (42.2 - 75.2 %) 94.2 H Lymphocytes % (20.5 - 51.1 %) 3.8 L Monocytes % (1.7 - 9.3 %) 1.5 L Eosinophils % (0 - 5 %) 0.3 Basophils % (0.0 - 2.0 %) 0.2 Absolute Granulocytes (1.4 - 6.5 /CUMM) 7.4 H Absolute Lymphocytes (1.2 - 3.4 /CUMM) 0.3 L Absolute Monocytes (0.10 - 0.60 /CUMM) 0.1 Absolute Eosinophils (0.0 - 0.7 /CUMM) 0 Absolute Basophils (0.0 - 0.2 /CUMM) 0 Miscellaneous Phlebotomy Draw Site RIGHT RADIAL Urines Ur Random Creatinine (mg/dL) 29.1 Ur Random Sodium (30 - 90 mmol/L) 43 Ur Random Potassium (mmol/L) 27.8 Fraction Sodium Excret (<1% %) 0.5 08/17 08/16 0430 1640 Blood Gas pH (7.35 - 7.45 PH) 7.36 pCO2 (35 - 45 TORR) 41 pO2 (80 - 100 TORR) 77 L HCO3 (21 - 28 MEQ/L) 23 ABG O2 Sat (Measured) (>96.0 %) 94.0 L P-50 (Temp Corrected) N Carboxyhemoglobin (1.5 - 5.0 %) 0.3 L O2 Concentration % 60% Temperature (97.0 - 100.0 FARH) 98.9 O2 Delivery Method HFNC AT 45LPM Chemistry Sodium (137 - 145 mmol/L) 147 H Potassium (3.5 - 5.1 mmol/L) 3.5 Chloride (98 - 107 mmol/L) 112 H Carbon Dioxide (22 - 30 mmol/L) 28 Anion Gap (5 - 16) 7 BUN (7 - 17 mg/dL) 8 Creatinine (0.5 - 1.0 mg/dL) 0.5 Estimated GFR (>60 ml/min) > 60 Glucose (65 - 99 mg/dL) 123 H Calcium (8.4 - 10.2 mg/dL) 8.1 L Phosphorus (2.5 - 4.5 mg/dL) 1.6 L Magnesium (1.6 - 2.3 mg/dL) 2.2 Total Bilirubin (0.2 - 1.3 mg/dL) 3.8 H GGT (12 - 43 U/L) 2089 H AST (14 - 36 U/L) 168 H ALT (9 - 52 U/L) 88 H Alkaline Phosphatase (<127 U/L) 323 H Ammonia (9 - 30 umol/L) 12 Albumin (3.5 - 5.0 g/dL) 2.9 L Amylase (30 - 110 U/L) < 30 L Lipase (23 - 300 U/L) 232 Coagulation PT (9.4 - 12.5 SEC) 11.3 INR (0.90 - 1.19) 1.04 Hematology CBC w Diff MAN DIFF ORDERED WBC (4.8 - 10.8 /CUMM) 8.6 RBC (4.20 - 5.40 /CUMM) 2.40 L Hgb (12.0 - 16.0 G/DL) 9.7 L Hct (37 - 47 %) 28.7 L MCV (81.0 - 99.0 FL) 119.7 H MCH (27.0 - 31.0 PG) 40.9 H MCHC (33.0 - 37.0 G/DL) 34.2 RDW (11.5 - 14.5 %) 15.8 H Plt Count (130 - 400 /CUMM) 101 L MPV (7.4 - 10.4 FL) 10.1 Gran % (42.2 - 75.2 %) 93.9 H Lymphocytes % (20.5 - 51.1 %) 4.1 L Monocytes % (1.7 - 9.3 %) 1.2 L Eosinophils % (0 - 5 %) 0.1 Basophils % (0.0 - 2.0 %) 0.7 Absolute Granulocytes (1.4 - 6.5 /CUMM) 8.1 H Segmented Neutrophils (42.2 - 75.2 %) 89 H Band Neutrophils (0.0 - 5.0 %) 8 H Absolute Lymphocytes (1.2 - 3.4 /CUMM) 0.4 L Lymphocytes (20.5 - 51.1 %) 1 L Monocytes (1.7 - 9.3 %) 2 Absolute Monocytes (0.10 - 0.60 /CUMM) 0.1 Absolute Eosinophils (0.0 - 0.7 /CUMM) 0 Absolute Basophils (0.0 - 0.2 /CUMM) 0.1 Nucleated RBCs (0.0 - 0.0 /100WBC) 1 H Platelet Estimate (ADEQUATE) ADEQUATE Polychromasia 1+ Poikilocytosis 2+ Basophilic Stippling 1+ Anisocytosis 2+ Macrocytic Cells 2+ Ovalocytes 1+ Stomatocytes 1+ Miscellaneous Phlebotomy Draw Site RIGHT BRACHIAL Other Body Source Fld Total RBCs Counted (%) 100 08/16 08/16 08/16 08/16 1200 0805 0770 5668 Blood Gas pH (7.35 - 7.45 PH) 7.22 *L pCO2 (35 - 45 TORR) 47 H pO2 (80 - 100 TORR) 75 L HCO3 (21 - 28 MEQ/L) 19 L ABG O2 Sat (Measured) (>96.0 %) 92.0 L P-50 (Temp Corrected) YES Carboxyhemoglobin (1.5 - 5.0 %) 0.3 L O2 Concentration % 5L Temperature (97.0 - 100.0 FARH) 98.4 O2 Delivery Method NC Chemistry Sodium (137 - 145 mmol/L) 140 Potassium (3.5 - 5.1 mmol/L) 4.0 Chloride (98 - 107 mmol/L) 110 H Carbon Dioxide (22 - 30 mmol/L) 23 Anion Gap (5 - 16) 7 BUN (7 - 17 mg/dL) 9 Creatinine (0.5 - 1.0 mg/dL) 0.4 L Estimated GFR (>60 ml/min) > 60 Glucose (65 - 99 mg/dL) 162 H Calcium (8.4 - 10.2 mg/dL) 7.3 L Phosphorus (2.5 - 4.5 mg/dL) 1.0 L Magnesium (1.6 - 2.3 mg/dL) 1.9 Total Bilirubin (0.2 - 1.3 mg/dL) 3.2 H AST (14 - 36 U/L) 165 H ALT (9 - 52 U/L) 76 H Albumin (3.5 - 5.0 g/dL) 2.6 L Lipase (23 - 300 U/L) 190 Cortisol AM Sample (4.46 - 22.7 ug/dL) 79.6 H Miscellaneous Phlebotomy Draw Site RIGHT RADIAL Urines Urine Osmolality (300 - 1000 MOSM/KG) 407 08/16 08/16 08/16 0652 0650 0649 Chemistry Serum Osmolality Cancelled Creatine Kinase Cancelled Cortisol AM Sample Cancelled 08/16 08/16 08/15 0530 0055 2250 Chemistry Sodium (137 - 145 mmol/L) 137 137 Potassium (3.5 - 5.1 mmol/L) 3.1 L 2.9 *L Chloride (98 - 107 mmol/L) 103 102 Carbon Dioxide (22 - 30 mmol/L) 19 L 14 L Anion Gap (5 - 16) 15 21 H BUN (7 - 17 mg/dL) 8 8 Creatinine (0.5 - 1.0 mg/dL) 0.5 0.6 Estimated GFR (>60 ml/min) > 60 > 60 Glucose (65 - 99 mg/dL) 195 H 158 H Serum Osmolality (285 - 295 MOSM/KG) 304 H Calcium (8.4 - 10.2 mg/dL) 7.1 L 7.5 L Phosphorus (2.5 - 4.5 mg/dL) 1.2 L 1.3 L Magnesium (1.6 - 2.3 mg/dL) 1.6 2.0 Total Bilirubin (0.2 - 1.3 mg/dL) 3.1 H 3.1 H GGT (12 - 43 U/L) 1377 H AST (14 - 36 U/L) 175 H 173 H ALT (9 - 52 U/L) 78 H 75 H Alkaline Phosphatase (<127 U/L) 260 H Creatine Kinase (30 - 135 U/L) 116 Troponin I (< 0.11 ng/ml) < 0.01 < 0.01 Cancelled Albumin (3.5 - 5.0 g/dL) 2.7 L 2.6 L Vitamin B12 (239 - 931 pg/mL) > 1000 H Hematology CBC w Diff MAN DIFF ORDERED WBC (4.8 - 10.8 /CUMM) 5.6 RBC (4.20 - 5.40 /CUMM) 2.19 L Hgb (12.0 - 16.0 G/DL) 8.9 L Hct (37 - 47 %) 26.4 L MCV (81.0 - 99.0 FL) 120.5 H MCH (27.0 - 31.0 PG) 40.0 H MCHC (33.0 - 37.0 G/DL) 33.2 RDW (11.5 - 14.5 %) 15.3 H Plt Count (130 - 400 /CUMM) 96 L MPV (7.4 - 10.4 FL) 8.8 Gran % (42.2 - 75.2 %) 95.1 H Lymphocytes % (20.5 - 51.1 %) 2.4 L Monocytes % (1.7 - 9.3 %) 2.3 Eosinophils % (0 - 5 %) 0.1 Basophils % (0.0 - 2.0 %) 0.1 Absolute Granulocytes (1.4 - 6.5 /CUMM) 5.3 Segmented Neutrophils (42.2 - 75.2 %) 75 Band Neutrophils (0.0 - 5.0 %) 23 H Absolute Lymphocytes (1.2 - 3.4 /CUMM) 0.1 L Lymphocytes (20.5 - 51.1 %) 1 L Monocytes (1.7 - 9.3 %) 1 L Absolute Monocytes (0.10 - 0.60 /CUMM) 0.1 Absolute Eosinophils (0.0 - 0.7 /CUMM) 0 Absolute Basophils (0.0 - 0.2 /CUMM) 0 Platelet Estimate (ADEQUATE) DECREASED Poikilocytosis 1+ Anisocytosis 2+ Macrocytic Cells 2+ 08/15 Blood Gas pH (7.35 - 7.45 PH) 7.29 *L pCO2 (35 - 45 TORR) 21 L pO2 (80 - 100 TORR) 67 L HCO3 (21 - 28 MEQ/L) 10 L ABG O2 Sat (Measured) (>96.0 %) 91.0 L P-50 (Temp Corrected) N Carboxyhemoglobin (1.5 - 5.0 %) 0.3 L O2 Concentration % R/A Temperature (97.0 - 100.0 FARH) 98.1 Chemistry Lactic Acid (0.7 - 2.1 mmol/L) 0.7 Miscellaneous Phlebotomy Draw Site LEFT BRACHIAL 08/15 1431 Chemistry Sodium (137 - 145 mmol/L) 137 Potassium (3.5 - 5.1 mmol/L) 2.8 *L Chloride (98 - 107 mmol/L) 98 Carbon Dioxide (22 - 30 mmol/L) 13 L Anion Gap (5 - 16) 26 H BUN (7 - 17 mg/dL) 9 Creatinine (0.5 - 1.0 mg/dL) 0.9 Estimated GFR (>60 ml/min) > 60 Glucose (65 - 99 mg/dL) 99 Calcium (8.4 - 10.2 mg/dL) 7.1 L Phosphorus (2.5 - 4.5 mg/dL) 1.3 L Magnesium (1.6 - 2.3 mg/dL) 1.0 L Total Bilirubin (0.2 - 1.3 mg/dL) 3.5 H AST (14 - 36 U/L) 185 H ALT (9 - 52 U/L) 77 H Troponin I (< 0.11 ng/ml) < 0.01 Albumin (3.5 - 5.0 g/dL) 2.8 L Hematology CBC w Diff MAN DIFF ORDERED WBC (4.8 - 10.8 /CUMM) 4.3 L RBC (4.20 - 5.40 /CUMM) 2.08 L Hgb (12.0 - 16.0 G/DL) 8.8 L Hct (37 - 47 %) 24.9 L MCV (81.0 - 99.0 FL) 119.9 H MCH (27.0 - 31.0 PG) 41.9 H MCHC (33.0 - 37.0 G/DL) 35.0 RDW (11.5 - 14.5 %) 14.9 H Plt Count (130 - 400 /CUMM) 100 L MPV (7.4 - 10.4 FL) 8.0 Gran % (42.2 - 75.2 %) 93.3 H Lymphocytes % (20.5 - 51.1 %) 3.0 L Monocytes % (1.7 - 9.3 %) 3.5 Eosinophils % (0 - 5 %) 0 Basophils % (0.0 - 2.0 %) 0.2 Absolute Granulocytes (1.4 - 6.5 /CUMM) 4.0 Segmented Neutrophils (42.2 - 75.2 %) 59 Band Neutrophils (0.0 - 5.0 %) 33 H Absolute Lymphocytes (1.2 - 3.4 /CUMM) 0.1 L Lymphocytes (20.5 - 51.1 %) 7 L Monocytes (1.7 - 9.3 %) 1 L Absolute Monocytes (0.10 - 0.60 /CUMM) 0.2 Absolute Eosinophils (0.0 - 0.7 /CUMM) 0 Absolute Basophils (0.0 - 0.2 /CUMM) 0 Nucleated RBCs (0.0 - 0.0 /100WBC) 2 H Platelet Estimate (ADEQUATE) DECREASED Anisocytosis 1+ Macrocytic Cells 2+ Retic Count (0.5 - 2.0 %) 2.62 H Toxicology Salicylates (0 - 20.0 mg/dL) 3.5 Urines Urinalysis MOD H Urine Color (YEL,AMB,STR) KRYSTAL Urine Clarity (CLEAR) CLEAR Urine pH (5.0 - 8.0) 6.0 Ur Specific Embudo (1.001 - 1.035) 1.025 Urine Protein (NEG,<30 MG/DL) 30 H Urine Ketones (NEG) >=80 Urine Nitrite (NEG) NEG Urine Bilirubin (NEG) POS@ICTO H Urine Urobilinogen (0.1 - 1.0 EU/dl) 4.0 H Ur Leukocyte Esterase (NEG) NEG Ur Microscopic SEDIMENT EXAMINED Urine RBC (0 - 5 /HPF) 1-3 Urine WBC (0 - 2 /HPF) 1-3 H Ur Epithelial Cells (NONE,FEW) FEW Hyaline Casts (0/LPF) > 75 H Granular Casts (NONE /LPF) RARE H Urine Hemoglobin (NEG) TRACE-INTACT Urine Glucose (N MG/DL) NEG 08/15 08/15 08/15 1431 1415 1400 Chemistry Ammonia (9 - 30 umol/L) 76 H Coagulation PT (9.4 - 12.5 SEC) 12.6 H INR (0.90 - 1.19) 1.15 APTT (25 - 37 SEC) 33 Toxicology Urine Opiates Screen (>2000 NG/ML) < 100 Methadone Screen (>300 NG/ML) < 40 Barbiturate Screen (>200 NG/ML) < 60 Ur Phencyclidine Scrn (>25 NG/ML) < 6.00 Amphetamines Screen (>1000 NG/ML) < 100 U Benzodiazepines Scrn (>200 NG/ML) < 85 Urine Cocaine Screen (>300 NG/ML) < 50 Urine Cannabis Screen (>50 NG/ML) < 5.00 Urines Urine Osmolality (300 - 1000 MOSM/KG) 368 Ur Random Creatinine (mg/dL) 73.2 Ur Random Sodium (30 - 90 mmol/L) 43 Ur Random Potassium (mmol/L) 26.8 Fraction Sodium Excret (<1% %) 0.6 08/15 08/15 1400 1348 Chemistry Sodium (137 - 145 mmol/L) 135 L Potassium (3.5 - 5.1 mmol/L) 3.1 L Chloride (98 - 107 mmol/L) 94 L Carbon Dioxide (22 - 30 mmol/L) 7 *L Anion Gap (5 - 16) 34 H BUN (7 - 17 mg/dL) 9 Creatinine (0.5 - 1.0 mg/dL) 1.4 H Estimated GFR (>60 ml/min) 39 L BUN/Creatinine Ratio (7 - 25 %) 6.4 L Glucose (65 - 99 mg/dL) 113 H Serum Osmolality (285 - 295 MOSM/KG) 295 Lactic Acid (0.7 - 2.1 mmol/L) 1.2 Calcium (8.4 - 10.2 mg/dL) 8.0 L Phosphorus (2.5 - 4.5 mg/dL) 2.9 Magnesium (1.6 - 2.3 mg/dL) 1.0 L Iron (37 - 170 ug/dL) 133 TIBC (265 - 497 ug/dL) 160 L Ferritin (11.1 - 264 ng/mL) 880.0 H Total Bilirubin (0.2 - 1.3 mg/dL) 4.5 H Direct Bilirubin (< 0.4 mg/dL) 3.9 H AST (14 - 36 U/L) 238 H ALT (9 - 52 U/L) 86 H Alkaline Phosphatase (<127 U/L) 327 H Troponin I (< 0.11 ng/ml) < 0.01 Total Protein (6.3 - 8.2 g/dL) 7.7 Albumin (3.5 - 5.0 g/dL) 3.7 Globulin (1.9 - 4.2 gm/dL) 4.0 Albumin/Globulin Ratio (1.1 - 2.2 %) 0.9 L Lipase (23 - 300 U/L) 320 H Vitamin B12 (239 - 931 pg/mL) > 1000 H Folate (2.76 - 20.0 ng/mL) 15.2 TSH (0.270 - 4.200 uIU/mL) 1.870 Cancelled Free T4 (0.64 - 1.79 ng/dL) 1.04 Cancelled Hematology CBC w Diff MAN DIFF ORDERED WBC (4.8 - 10.8 /CUMM) 5.6 RBC (4.20 - 5.40 /CUMM) 2.36 L Hgb (12.0 - 16.0 G/DL) 9.7 L Hct (37 - 47 %) 28.7 L MCV (81.0 - 99.0 FL) 121.6 H MCH (27.0 - 31.0 PG) 41.3 H MCHC (33.0 - 37.0 G/DL) 34.0 RDW (11.5 - 14.5 %) 15.6 H Plt Count (130 - 400 /CUMM) 126 L MPV (7.4 - 10.4 FL) 9.5 Gran % (42.2 - 75.2 %) 91.4 H Lymphocytes % (20.5 - 51.1 %) 2.9 L Monocytes % (1.7 - 9.3 %) 5.7 Eosinophils % (0 - 5 %) 0 Basophils % (0.0 - 2.0 %) 0 Absolute Granulocytes (1.4 - 6.5 /CUMM) 5.1 Segmented Neutrophils (42.2 - 75.2 %) 57 Band Neutrophils (0.0 - 5.0 %) 30 H Absolute Lymphocytes (1.2 - 3.4 /CUMM) 0.2 L Lymphocytes (20.5 - 51.1 %) 5 L Monocytes (1.7 - 9.3 %) 7 Absolute Monocytes (0.10 - 0.60 /CUMM) 0.3 Absolute Eosinophils (0.0 - 0.7 /CUMM) 0 Absolute Basophils (0.0 - 0.2 /CUMM) 0 Metamyelocytes (0.0 - 1.0 %) 1 Nucleated RBCs (0.0 - 0.0 /100WBC) 3 H Platelet Estimate (ADEQUATE) DECREASED Anisocytosis 1+ Macrocytic Cells 2+ Serology Hepatitis A IgM Ab (NONREACTIVE) NONREACTIVE Hep Bs Antigen (NONREACTIVE) NONREACTIVE Hep B Core IgM Ab Conf (NONREACTIVE) NONREACTIVE Hepatitis C Antibody (NONREACTIVE) NONREACTIVE HIV 1&2 Ab Western Blot (NONREACTIVE) NONREACTIVE Toxicology Acetaminophen (10.0 - 30.0 ug/mL) < 10.0 L Serum Alcohol (<10 MG/DL) < 10.0 Acetone Level (NEGATIVE) POSITIVE AT 1:16 DIL
[2017-08-18 14:30] LABS: ABSOLUTE BASOPHIL COUNT 0 /CUMM (0.0-0.2); ABSOLUTE EOSINOPHIL COUNT 0 /CUMM (0.0-0.7); ABSOLUTE GRANULOCYTE CT 7.9 /CUMM (1.4-6.5); ABSOLUTE LYMPH COUNT 0.6 /CUMM (1.2-3.4); ABSOLUTE MONOCYTE COUNT 0.2 /CUMM (0.10-0.60); BASOPHIL % 0.3 % (0.0-2.0); EOSINOPHIL % 0.3 % (0-5); GRANULOCYTE % 89.9 % (42.2-75.2); MEAN PLATELET VOLUME 10.4 FL (7.4-10.4)
[2017-08-18 14:32] LABS: PT 14.5 SEC (9.4-12.5)
[2017-08-18 14:55] LABS: MEAN CORPUSCULAR HGB 38.5 PG (27.0-31.0); MEAN CORPUSCULAR HGB CONC 35.2 G/DL (33.0-37.0); RBC DISTRIBUTION WIDTH 24.4 % (11.5-14.5); RED BLOOD CELL CT 2.39 /CUMM (4.20-5.40)
[2017-08-18 14:56] LABS: HEMATOCRIT 26.2 % (37-47); PLATELET COUNT 62 /CUMM (130-400)
[2017-08-18 14:57] LABS: WHITE BLOOD CELL COUNT 9.2 /CUMM (4.8-10.8)
[2017-08-18 14:58] LABS: MEAN CORPUSCULAR VOLUME 109.3 FL (81.0-99.0)
[2017-08-19] VITALS (9 sets, daily range): BP systolic 81–115; BP diastolic 50–83
[2017-08-19 05:30] LABS: ABSOLUTE BASOPHIL COUNT 0 /CUMM (0.0-0.2); ABSOLUTE EOSINOPHIL COUNT 0 /CUMM (0.0-0.7); ABSOLUTE GRANULOCYTE CT 4.7 /CUMM (1.4-6.5); ABSOLUTE LYMPH COUNT 0.7 /CUMM (1.2-3.4); ABSOLUTE MONOCYTE COUNT 0.2 /CUMM (0.10-0.60); BASOPHIL % 0.2 % (0.0-2.0); EOSINOPHIL % 0.8 % (0-5); GRANULOCYTE % 82.7 % (42.2-75.2); MEAN PLATELET VOLUME 11.2 FL (7.4-10.4); PLATELET COUNT 45 /CUMM (130-400); RBC DISTRIBUTION WIDTH 26.3 % (11.5-14.5); WHITE BLOOD CELL COUNT 5.7 /CUMM (4.8-10.8)
[2017-08-19 05:35] LABS: PT 14.5 SEC (9.4-12.5)
[2017-08-19 06:19] LABS: HEMATOCRIT 29.3 % (37-47); MEAN CORPUSCULAR VOLUME 111.9 FL (81.0-99.0); RED BLOOD CELL CT 2.62 /CUMM (4.20-5.40)
--- NOTE | 2017-08-19 07:37 | PN- Resident CRCU ---
Subjective HPI/CRCU Issues: Patient seen and examined. She is seen lying flat in bed intubated/sedated on a ventilator. She appears to be in no acute distress. Subjective complaints and review of systems are unobtainable. Objective Vital Signs & I&O Last 8 Hrs of Vitals and I&O: HR 110-122 SBP 80-115 DBP 52-83 O2 88-95% on 45% FiO2 RR 20's Exam General Appearance: comfortable, sedated, intubated Other Physical Findings: GEN: ill appearing middle aged woman HEENT: NCAT, MMM, anicteric sclera, PERRLA, ET/OG tube NECK: Supple, no JVD, trachea midline, no accessory respiratory muscle use CARD: normal s1/s2 w/o m/g/r; tachycardic PULM: Scattered rhonchi with diminished bibasilar airflow ABD: Soft, NT, ND, BS+ NEURO: Sedated, spontaneous movement all four extremities EXT: TLC in RUE, normal pulses Current Medications: Current Medications Sig/Marcus Start time Last Medication Dose Route Stop Time Status Admin Albuterol Sulfate 3 ML Q4P PRN 08/17 1430 AC 08/18 INH 0817 Ceftriaxone Sodium 1,000 MG DAILY 08/17 1600 DC 08/18 IV 0834 Ciprofloxacin 400 MG Q12 08/19 1057 DC Dextrose/Water 200 ML IV Dextrose/Lactated 1,000 ML Q20H 08/16 1400 DC 08/18 Ringer's IV 2045 Dextrose/Sodium 1,000 ML Q20H 08/18 1545 CAN Chloride IV Fentanyl Citrate 100 MCG Q4 HRS NEEDED PRN 08/18 1430 AC 08/19 IV 0032 Furosemide 20 MG ONCE ONE 08/18 2315 DC 08/18 IV 08/18 2316 2332 Heparin Sodium 5,000 UNIT Q8 08/15 2328 DC 08/19 (Porcine) SC 0609 Insulin Human Regular 0 Q4 08/16 1400 AC 08/17 SC 2249 Levothyroxine Sodium 68 MCG DAILY 08/17 1000 AC 08/19 IV 1000 Lorazepam 2 MG Q2 PRN 08/18 1430 DC IV Magnesium Sulfate 1 GM Q2H 08/19 1215 UNVr Dextrose/Water 100 ML IV 08/19 1614 Moxifloxacin HCl 400 MG Q24H 08/19 1200 AC N/A 1 UNIT IV Moxifloxacin HCl 400 MG DAILY 08/19 1115 DC IV Norepinephrine 4 MG Q13H 08/17 2330 AC 08/19 Dextrose/Water 250 ML IV 0445 Ondansetron HCl 4 MG Q6P PRN 08/15 1845 AC IV Pantoprazole Sodium 40 MG DAILY 08/17 1400 AC 08/19 IV 1000 Phosphate 500 MG ONCE ONE 08/19 1215 UNVr PO 08/19 1216 Phytonadione 10 MG ONCE ONE 08/19 1215 UNVr PO 08/19 1216 Phytonadione 5 MG ONE TIME ONE 08/18 1430 DC 08/18 PO 08/18 1431 1430 Potassium Chloride 20 MEQ Q20H 08/19 1200 UNVr Dextrose/Water 1,000 ML IV Potassium Chloride 20 MEQ Q1H 08/19 0645 DC 08/19 IV 08/19 0746 1113 Potassium Phosphate 15 mMol ONE ONE 08/19 0645 DC 08/19 Sodium Chloride 250 ML IV 08/19 1049 0800 Impression/Plan Impression/Problem List Impression: 57 year old woman with multiple medical problems significant for etoh abuse seen for evaluation of progressively worsening altered mental status over several weeks found to have gram negative septicemia/pneumonia. Patient remains stable on low dose levophed for gram negative septicemia secondary to probable pneumonia. E. coli is demonstrating some resistance for which ceftriaxone was converted to avelox, final sensitivites pending. Patient has had multiple guaic positive bowel movments with thrombocytopenia for which vitamin K was given. Magnesium / Phosphorous / Potassium are repleted. Problem List -Altered mental status, probable toxic metabolic encephalopathy -Septic shock, improving -E. coli bacteremia -Acute Hypoxic/Hypercarbic Respiratory failure -Thrombocytopenia -Anion Gap Metabolic Acidosis, Resolved -Electrolyte abnormalities -History of EtOH -Hypertension -Hypothyroidism Plan -Continue ICU monitoring -Intubated, Vent: VT 450, RR 20, PEEP 5, FiO2 45% -CIWA -Guaic all stools -Accuchecks Q4H with Charles SSI -OGT / Waller / RUE TLC / Rectal Tube -D5W + KCl @ 50mL/hr -Ceftriaxone discontinued -Avelox 400 mg IV daily started -Levophed for hypotension, titrate to MAP > 65 -Fentanyl / Ativan PRN for sedation -Protonix 40 mg IV Daily -Consults with ID and GI -Follow up cultures & sensitivites -Daily CBC, CMP, Mg, PO, ABG, CXR, INR -Type & Cross -Monitor H&H, transfuse Hgb/Plt PRN -Monitor for signs of EtOH withdrawal -Diurese as tolerated by BP -Pain control PRN -Tube Feeds: Vital AF @ 20mL/hr today, 30mL/hr tomorrow -DVT PPx with ALPS, SC Heparin dc for guaic + stool/hypotension -FULL CODE Problem List: 1. Altered mental status Pain Ratin Tomorrow's Labs & Rationales: CBC,CMP,Mg,PO,INR Plan DVT/Prophylaxis: pharmacological
--- NOTE | 2017-08-19 07:59 | RADIOLOGY REPORT ---
EXAMINATION: XR PORTABLE CHEST CLINICAL INFORMATION: Intubated. Monitor edema. COMPARISON: 08/18/2017 TECHNIQUE: Portable frontal view of the chest was obtained. FINDINGS: The endotracheal tube terminates 4 cm above the adonay. Enteric tube extends into the stomach. Multiple cardiac leads overlie the chest. Right-sided PICC line terminates near the cavoatrial junction. Lung volumes are low. Mild interstitial prominence is noted, decreased from prior. Fullness of the right hilum is unchanged. There is no pleural effusion. The left pleural effusion has improved. No dense consolidation. No pneumothorax. The cardiomediastinal silhouette is unchanged, with a calcified aorta. Chronic healed right lateral rib fractures again noted. IMPRESSION: 1. Endotracheal tube terminating 4 cm above the adonay. 2. Improvement of prior left pleural effusion. Decreasing interstitial prominence.
--- NOTE | 2017-08-19 09:40 | PN- CRCU ---
Subjective HPI/Critical Care Issues: Doing slightly better Continues to be intubated off the Ativan drip and has been getting low-dose fentanyl. Afebrile. Adequate urine output noted. Did get Lasix. Patient continues to be positive. Continues to be on low-dose levo fed and 50 mL of Ringer's lactate Tube feeding has been started Diarrhea persists which appears to be mucousy. Continues to be on assist control 4 5040% now up to 50% this morning with saturation of 94%. Thick yellow-green mucus-type sputum is being aspirated at times. Continues to be tachycardic. Significant data reviewed electrolyte imbalance noted continues to be on ceftriaxone, heparin subcutaneous as well. Objective Current Medications: Current Medications Sig/Marcus Start time Last Medication Dose Route Stop Time Status Admin Albuterol Sulfate 3 ML Q4P PRN 08/17 1430 AC 08/18 INH 0817 Ceftriaxone Sodium 1,000 MG DAILY 08/17 1600 AC 08/18 IV 0834 Dextrose/Lactated 1,000 ML Q20H 08/16 1400 AC 08/18 Ringer's IV 2045 Dextrose/Sodium 1,000 ML Q20H 08/18 1545 CAN Chloride IV Fentanyl Citrate 100 MCG Q4 HRS NEEDED PRN 08/18 1430 AC 08/19 IV 0032 Furosemide 20 MG ONCE ONE 08/18 2315 DC 08/18 IV 08/18 2316 2332 Heparin Sodium 5,000 UNIT Q8 08/15 2328 AC 08/19 (Porcine) SC 0609 Insulin Human Regular 0 Q4 08/16 1400 AC 08/17 SC 2249 Levothyroxine Sodium 68 MCG DAILY 08/17 1000 AC 08/18 IV 0833 Lorazepam 2 MG Q2 PRN 08/18 1430 DC IV Norepinephrine 4 MG Q13H 08/17 2330 AC 08/19 Dextrose/Water 250 ML IV 0445 Ondansetron HCl 4 MG Q6P PRN 08/15 1845 AC IV Pantoprazole Sodium 40 MG DAILY 08/17 1400 AC 08/18 IV 0834 Phytonadione 5 MG ONE TIME ONE 08/18 1430 DC 08/18 PO 08/18 1431 1430 Potassium Chloride 20 MEQ Q1H 08/19 0645 DC 08/19 IV 08/19 0746 0644 Potassium Phosphate 15 mMol ONE ONE 08/19 0645 AC Sodium Chloride 250 ML IV 08/19 1049 Potassium Phosphate 15 mMol ONE ONE 08/18 0700 DC 08/18 Sodium Chloride 250 ML IV 08/18 1104 0835 Vital Signs & I&O Last 24 Hrs of Vitals and I&O: Vital Signs Date Time Temp Pulse Resp B/P B/P Pulse O2 O2 Flow FiO2 Mean Ox Delivery Rate 08/19 0805 50 08/19 0600 45 08/19 0600 115 20 81/59 08/19 0504 45 08/19 0400 98.6 102 22 96/70 08/19 0400 92 Ventilator 40% 08/19 0338 40 08/19 0200 108 20 115/83 08/19 0054 40 08/19 0000 99.0 117 24 100/72 08/19 0000 89 Ventilator 40% 08/19 0000 99.0 117 24 110/70 89 Ventilator 40% 08/18 2208 40 08/18 2200 98.0 90 22 111/78 08/19 1999 98.7 91 19 101/75 08/19 1999 98.7 91 19 101/75 94 Ventilator 08/18 2000 94 Ventilator 40% 08/18 1937 40 08/18 1629 40 08/18 1600 95 Ventilator 50% 08/18 1600 99.3 89 20 98/72 95 Ventilator 50% 08/18 1423 50 08/18 1200 98 Ventilator 60% 08/18 1108 60 Intake & Output 08/19 1600 08/19 0800 08/19 0000 Intake Total 587 666 Output Total 1520 235 Balance -933 431 Intake, IV 447 506 Intake, Tube 80 70 Feeding Intake, Tube 60 90 Irrigant Output, Urine 1520 235 Patient 136 lb Weight Weight Bed scale Measurement Method Impression/Plan Impression/Plan Impression/Plan: Chest x-ray showed improvement General Appearance: Intubated and lethargic on prn ativan and fentanyl Picc line in place Head: atraumatic, normal appearance Ears, Nose, Throat: mucous membranes dry, dried blood noted on mouth. Neck: normal inspection, supple Respiratory: normal breath sounds, crackles (basilar) Cardiovascular: regular rate/rhythm Gastrointestinal: tenderness to palpation right upper quadrant. no distention, no rigidity .hypoactive bowel sounds. Extremities: normal inspection, normal capillary refill, swelling IMPRESSION This is a 57-year-old lady with history of hypertension hypothyroidism significant alcohol abuse with worsening alcoholism in the recent past came into the hospital with confusion and somnolence tachycardia and significant jaundice with severe metabolic acidosis, normal lactate, no significant osmolar gap with clinical signs and symptoms suggestive of severe alcoholic ketoacidosis. She also has significant fatty liver with evidence of significant alcoholic hepatitis with so far preserved synthetic function of her liver. Issues * Improving Septic shock due to pneumonia and ecoli septicemia * Metabolic encephalopathy due to sig liver disease, Sepisis and DT * Respiratory failure which seems to be both hypoxemic and hypercarbic related to severe bilateral ecoli pna, acute lung injury with, pulmonary edema due to appropriate post fluid resuscitation * Sig thromobocytopenia due to sepsis and liver disease * Resolved metabolic acidosis (anion gap acidosis), with severe ketosis in a nondiabetic patient Patient did receive thiamine prior to any glucose treatment. * Diffuse fatt liver with sig alchoholic hepatitis * Sig etoh use with DT on prn llorazepam * Severe electrolyte abnormalities due to enterocolitis with profuse diarrhea and sepsis * Mild pancreatitis * Severe anemia due to hemodilution and prob slow gi ooze RECOMMENDATION/PLAN * Continue mechanical ventilator, reduce FiO2, * PRn lorazepam and fentanyl * Potassium 40 meq down ng x 4 doses and iv replacement * Change ivf to D5 w with kcl at 50 cc * Increase tube feeding to 20 and then 30 cc * Neutraphos down ng 2 packets today * IV mag 2 grams * May try one dose of lasix 20 mg today after potassium is replaced later and keep pt even and repeat lasix * VIt k down ng 10 mg today * Check platelets and if low will consider changing abx as betalactam could cause thrombocytopenia aswell * Hold heparin sub cut and use venodyne boots today * Check cbc later today and pt may need platelet transfusion if active bleeding is noted or if less than 20 k * Keep MAP at 65 * Check her fingerstick glucose [id number] and use insulin only if her glucose is now more than 150 Patient is critically ill total time spent 40 minutes
--- NOTE | 2017-08-19 11:01 | PN- Infect Dx ---
Subjective Subjective: Afebrile. Her blood pressure has improved, with decreasing pressor requirement. She had 4 loose, guaiac negative stools reported yesterday. Objective Last 24 Hrs of Vital Signs/I&O Vital Signs Date Time Temp Pulse Resp B/P B/P Pulse O2 O2 Flow FiO2 Mean Ox Delivery Rate 08/19 0805 50 08/19 0800 92 Ventilator 50% 08/19 0800 99.7 115 20 100/50 92 Ventilator 50% 08/19 0600 45 08/19 0600 115 20 81/59 08/19 0504 45 08/19 0400 98.6 102 22 96/70 08/19 0400 92 Ventilator 40% 08/19 0338 40 08/19 0200 108 20 115/83 08/19 0054 40 08/19 0000 99.0 117 24 100/72 08/19 0000 89 Ventilator 40% 08/19 0000 99.0 117 24 110/70 89 Ventilator 40% 08/18 2208 40 08/18 2200 98.0 90 22 111/78 08/19 1999 98.7 91 19 101/75 08/19 1999 98.7 91 19 101/75 94 Ventilator 08/18 2000 94 Ventilator 40% 08/18 1937 40 08/18 1629 40 08/18 1600 95 Ventilator 50% 08/18 1600 99.3 89 20 98/72 95 Ventilator 50% 08/18 1423 50 08/18 1200 98 Ventilator 60% 08/18 1108 60 Intake & Output 08/19 1600 08/19 0800 08/19 0000 Intake Total 587 666 Output Total 1520 235 Balance -933 431 Intake, IV 447 506 Intake, Tube 80 70 Feeding Intake, Tube 60 90 Irrigant Output, Urine 1520 235 Patient 136 lb Weight Weight Bed scale Measurement Method Physical Exam Other Physical Findings: She remains sedated, minimally responsive, on the ventilator Lungs are clear Heart regular rhythm with no murmur Abdomen is soft, with no obvious tenderness, positive bowel sounds Extremities PICC in the right upper extremity with no inflammation at the site Waller catheter remains in place Results Last 24 Hours of Lab Results: Laboratory Tests 08/19 08/18 0445 1600 Chemistry Sodium (137 - 145 mmol/L) 150 H Potassium (3.5 - 5.1 mmol/L) 3.1 L Chloride (98 - 107 mmol/L) 112 H Carbon Dioxide (22 - 30 mmol/L) 33 H Anion Gap (5 - 16) 5 BUN (7 - 17 mg/dL) 3 L Creatinine (0.5 - 1.0 mg/dL) 0.4 L Estimated GFR (>60 ml/min) > 60 Glucose (65 - 99 mg/dL) 112 H Calcium (8.4 - 10.2 mg/dL) 7.2 L Phosphorus (2.5 - 4.5 mg/dL) 1.1 L Magnesium (1.6 - 2.3 mg/dL) 1.4 L Total Bilirubin (0.2 - 1.3 mg/dL) 3.2 H AST (14 - 36 U/L) 93 H ALT (9 - 52 U/L) 71 H Troponin I Cancelled Albumin (3.5 - 5.0 g/dL) 2.0 L Coagulation PT (9.4 - 12.5 SEC) 14.5 H INR (0.90 - 1.19) 1.33 H Hematology CBC w Diff MAN DIFF ORDERED WBC (4.8 - 10.8 /CUMM) 5.7 RBC (4.20 - 5.40 /CUMM) 2.62 L Hgb (12.0 - 16.0 G/DL) 9.5 L Hct (37 - 47 %) 29.3 L MCV (81.0 - 99.0 FL) 111.9 H MCH (27.0 - 31.0 PG) 38.0 H MCHC (33.0 - 37.0 G/DL) 34.0 RDW (11.5 - 14.5 %) 26.3 H Plt Count (130 - 400 /CUMM) 45 L MPV (7.4 - 10.4 FL) 11.2 H Gran % (42.2 - 75.2 %) 82.7 H Lymphocytes % (20.5 - 51.1 %) 12.1 L Monocytes % (1.7 - 9.3 %) 4.2 Eosinophils % (0 - 5 %) 0.8 Basophils % (0.0 - 2.0 %) 0.2 Absolute Granulocytes (1.4 - 6.5 /CUMM) 4.7 Segmented Neutrophils (42.2 - 75.2 %) 78 H Band Neutrophils (0.0 - 5.0 %) 1 Absolute Lymphocytes (1.2 - 3.4 /CUMM) 0.7 L Lymphocytes (20.5 - 51.1 %) 18 L Monocytes (1.7 - 9.3 %) 3 Absolute Monocytes (0.10 - 0.60 /CUMM) 0.2 Absolute Eosinophils (0.0 - 0.7 /CUMM) 0 Absolute Basophils (0.0 - 0.2 /CUMM) 0 Nucleated RBCs (0.0 - 0.0 /100WBC) 4 H Platelet Estimate (ADEQUATE) DECREASED Polychromasia 1+ Poikilocytosis 1+ Anisocytosis 2+ Macrocytic Cells 2+ Ovalocytes 1+ Other Body Source Fld Total RBCs Counted (%) 100 08/18 08/18 1347 1111 Chemistry Sodium (137 - 145 mmol/L) 151 H Potassium (3.5 - 5.1 mmol/L) 4.0 Chloride (98 - 107 mmol/L) 114 H Carbon Dioxide (22 - 30 mmol/L) 29 Anion Gap (5 - 16) 7 BUN (7 - 17 mg/dL) 2 L Creatinine (0.5 - 1.0 mg/dL) 0.4 L Estimated GFR (>60 ml/min) > 60 Glucose (65 - 99 mg/dL) 106 H Calcium (8.4 - 10.2 mg/dL) 7.2 L Phosphorus (2.5 - 4.5 mg/dL) 2.3 L Magnesium (1.6 - 2.3 mg/dL) 1.5 L Total Bilirubin (0.2 - 1.3 mg/dL) 3.4 H AST (14 - 36 U/L) 126 H ALT (9 - 52 U/L) 75 H Albumin (3.5 - 5.0 g/dL) 2.1 L Coagulation PT (9.4 - 12.5 SEC) 14.5 H INR (0.90 - 1.19) 1.33 H Hematology CBC w Diff NO MAN DIFF REQ Cancelled WBC (4.8 - 10.8 /CUMM) 9.2 Cancelled RBC (4.20 - 5.40 /CUMM) 2.39 L Cancelled Hgb (12.0 - 16.0 G/DL) 9.2 L Cancelled Hct (37 - 47 %) 26.2 L Cancelled MCV (81.0 - 99.0 FL) 109.3 H Cancelled MCH (27.0 - 31.0 PG) 38.5 H Cancelled MCHC (33.0 - 37.0 G/DL) 35.2 Cancelled RDW (11.5 - 14.5 %) 24.4 H Cancelled Plt Count (130 - 400 /CUMM) 62 L Cancelled MPV (7.4 - 10.4 FL) 10.4 Cancelled Gran % (42.2 - 75.2 %) 89.9 H Lymphocytes % (20.5 - 51.1 %) 6.8 L Monocytes % (1.7 - 9.3 %) 2.7 Eosinophils % (0 - 5 %) 0.3 Basophils % (0.0 - 2.0 %) 0.3 Absolute Granulocytes (1.4 - 6.5 /CUMM) 7.9 H Absolute Lymphocytes (1.2 - 3.4 /CUMM) 0.6 L Absolute Monocytes (0.10 - 0.60 /CUMM) 0.2 Absolute Eosinophils (0.0 - 0.7 /CUMM) 0 Absolute Basophils (0.0 - 0.2 /CUMM) 0 Last 24 Hours of Will Results: Blood cultures 2 August 16 positive for Escherichia coli intermediate to Ceftriaxone, sensitive to Ciprofloxacin, Gentamicin and Meropenem Sputum culture August 17 positive for Escherichia coli with sensitivities as noted above Stool C. difficile August 17 negative Recent Imaging Studies: Chest x-ray August 19 improvement in the left pleural effusion with decreased interstitial prominence Assessment/Plan ID Impression: Somewhat improved, with decreasing pressors, though she remains significantly ventilator dependent. She is now afebrile with a normal white blood cell count, with no further bandemia, on Ceftriaxone, Day 4 of treatment for Escherichia coli sepsis, most likely secondary to pneumonia, but, with the sensitivities noted, her antibiotics will need to be adjusted. Her H&H increased significantly after just 1 unit of blood, suggesting that the hematocrit of 18 may have been spurious; nevertheless she did have guaiac positive stools reported, suggesting a possible GI source. Her liver enzymes remain elevated, likely secondary to alcoholic hepatitis. Her thrombocytopenia may be multifactorial, with sepsis likely contributing. Suggestion: 1. Discontinue Ceftriaxone 2. Begin Moxifloxacin 400 mg IV every 24 hours
[2017-08-19 21:41] LABS: ABSOLUTE BASOPHIL COUNT 0 /CUMM (0.0-0.2); ABSOLUTE EOSINOPHIL COUNT 0 /CUMM (0.0-0.7); ABSOLUTE GRANULOCYTE CT 4.3 /CUMM (1.4-6.5); ABSOLUTE LYMPH COUNT 0.9 /CUMM (1.2-3.4); ABSOLUTE MONOCYTE COUNT 0.5 /CUMM (0.10-0.60); BASOPHIL % 0.4 % (0.0-2.0); EOSINOPHIL % 0.9 % (0-5); GRANULOCYTE % 74.3 % (42.2-75.2); MEAN PLATELET VOLUME 11.5 FL (7.4-10.4); RBC DISTRIBUTION WIDTH 26.3 % (11.5-14.5); WHITE BLOOD CELL COUNT 5.8 /CUMM (4.8-10.8)
[2017-08-19 22:04] LABS: HEMATOCRIT 25.2 % (37-47); MEAN CORPUSCULAR HGB 38.1 PG (27.0-31.0); MEAN CORPUSCULAR HGB CONC 34.3 G/DL (33.0-37.0); MEAN CORPUSCULAR VOLUME 111.3 FL (81.0-99.0); RED BLOOD CELL CT 2.26 /CUMM (4.20-5.40)
[2017-08-19 22:09] LABS: PLATELET COUNT 47 /CUMM (130-400)
[2017-08-20] VITALS (11 sets, daily range): BP systolic 94–140; BP diastolic 50–100
[2017-08-20 04:25] LABS: ABSOLUTE BASOPHIL COUNT 0 /CUMM (0.0-0.2); ABSOLUTE EOSINOPHIL COUNT 0 /CUMM (0.0-0.7); ABSOLUTE GRANULOCYTE CT 4.5 /CUMM (1.4-6.5); ABSOLUTE LYMPH COUNT 0.8 /CUMM (1.2-3.4); ABSOLUTE MONOCYTE COUNT 0.4 /CUMM (0.10-0.60); BASOPHIL % 0.5 % (0.0-2.0); EOSINOPHIL % 0.7 % (0-5); GRANULOCYTE % 77.9 % (42.2-75.2); MEAN PLATELET VOLUME 11.9 FL (7.4-10.4); PLATELET COUNT 47 /CUMM (130-400); RBC DISTRIBUTION WIDTH 25.8 % (11.5-14.5)
[2017-08-20 04:31] LABS: PT 14.9 SEC (9.4-12.5)
[2017-08-20 05:53] LABS: MEAN CORPUSCULAR HGB 38.6 PG (27.0-31.0); MEAN CORPUSCULAR VOLUME 111.7 FL (81.0-99.0)
[2017-08-20 05:54] LABS: MEAN CORPUSCULAR HGB CONC 34.5 G/DL (33.0-37.0); RED BLOOD CELL CT 2.23 /CUMM (4.20-5.40)
[2017-08-20 06:42] LABS: WHITE BLOOD CELL COUNT 5.4 /CUMM (4.8-10.8)
--- NOTE | 2017-08-20 07:29 | PN- Resident CRCU ---
Subjective HPI/CRCU Issues: Patient seen and examined. She is seen lying flat in bed intubated / sedated on a ventilator with multiple lines in place. She appears comfortably and in no acute distress. Subjective complaints and review of systems are unobtainable. Objective Vital Signs & I&O Last 8 Hrs of Vitals and I&O: HR 100s-110s Tele Sinus Tach Exam General Appearance: comfortable, sedated, intubated Other Physical Findings: GEN: ill appearing middle aged woman HEENT: NCAT, MMM, anicteric sclera, PERRLA, ET/OG tube NECK: Supple, no JVD, trachea midline, no accessory respiratory muscle use CARD: normal s1/s2 w/o m/g/r; tachycardic PULM: Scattered rhonchi with diminished bibasilar airflow GI: Soft, NT, ND, BS+, rectal tube in place : Waller catheter draining dark yellow urine NEURO: Sedated, spontaneous movement all four extremities EXT: TLC in RUE, normal pulses Current Medications: Current Medications Sig/Marcus Start time Last Medication Dose Route Stop Time Status Admin Albuterol Sulfate 3 ML Q4P PRN 08/17 1430 AC 08/18 INH 0817 Ceftriaxone Sodium 1,000 MG DAILY 08/17 1600 DC 08/18 IV 0834 Ciprofloxacin 400 MG Q12 08/19 1057 DC Dextrose/Water 200 ML IV Dextrose/Lactated 1,000 ML Q20H 08/16 1400 DC 08/18 Ringer's IV 2045 Fentanyl Citrate 100 MCG Q4 HRS NEEDED PRN 08/18 1430 AC 08/19 IV 2127 Heparin Sodium 5,000 UNIT Q8 08/15 2328 DC 08/19 (Porcine) SC 0609 Insulin Human Regular 0 Q4 08/16 1400 AC 08/17 SC 2249 Levothyroxine Sodium 68 MCG DAILY 08/17 1000 AC 08/19 IV 1000 Magnesium Sulfate 2 GM .STK-MED ONE 08/19 1240 DC IM 08/19 1241 Magnesium Sulfate 1 GM Q2H 08/19 1215 DC 08/19 Dextrose/Water 100 ML IV 08/19 1614 1245 Moxifloxacin HCl 400 MG Q24H 08/19 1200 AC 08/19 N/A 1 UNIT IV 1233 Moxifloxacin HCl 400 MG DAILY 08/19 1115 DC IV Norepinephrine 4 MG Q13H 03/12 2330 AC 08/20 Dextrose/Water 250 ML IV 0450 Ondansetron HCl 4 MG Q6P PRN 08/15 1845 AC IV Pantoprazole Sodium 40 MG DAILY 08/17 1400 AC 08/19 IV 1000 Phosphate 500 MG ONCE ONE 08/19 1215 DC 08/19 PO 08/19 1216 1427 Phytonadione 10 MG ONCE ONE 08/19 1215 DC 08/19 PO 08/19 1216 1427 Potassium Chloride 20 MEQ Q1H 08/20 0515 DC 08/20 IV 08/20 0616 0559 Potassium Chloride 20 MEQ Q20H 08/19 1200 AC 08/19 Dextrose/Water 1,000 ML IV 1428 Potassium Phosphate 15 mMol ONE ONE 08/19 0645 DC 08/19 Sodium Chloride 250 ML IV 08/19 1049 0800 Impression/Plan Impression/Problem List Impression: 57 year old woman with multiple medical problems significant for etoh abuse seen for evaluation of progressively worsening altered mental status over several weeks found to have gram negative septicemia/pneumonia. Patient continues to remain hemodynamically stable on low dose levophed for gram negative septicemia secondary to E. coli pneumonia. Stool is guaic negative, rectal tube is now in place. She became febrile this morning to 100.7 less than 24 hours after initiation of Avelox. She is to be continued on avelox and should be recultured should she become febrile. The E. Coli is sensative to avelox. She continues to have large watery guaic negative bowel movements, further GI recommendations are pending. Repeat C. diff toxin is sent. Phosphorous, Magnesium, Potassium are repleted. Problem List -Altered mental status, probable toxic metabolic encephalopathy -Septic shock, improving -E. coli bacteremia -Acute Hypoxic/Hypercarbic Respiratory failure, intubated on vent -Thrombocytopenia, stable -Anion Gap Metabolic Acidosis, Resolved -Electrolyte abnormalities -History of EtOH -Hypertension -Hypothyroidism Plan -Continue ICU monitoring -Intubated, Vent: VT 450, RR 20, PEEP 5, FiO2 50% -CIWA -Guaic all stools -Accuchecks Q4H with Novolin SSI -OGT / Waller / RUE TLC / Rectal Tube -D5W + KCl @ 50mL/hr -Avelox 400 mg IV daily, day 2 -Levophed for hypotension, titrate to MAP > 65 -Fentanyl / Ativan PRN for sedation -Protonix 40 mg IV Daily -Consults with ID and GI -Follow up cultures & sensitivites -Daily CBC, CMP, Mg, PO, ABG, CXR -Repeat C. Diff -Type & Cross -Monitor H&H, transfuse Hgb/Plt PRN -Monitor for signs of EtOH withdrawal -Diurese as tolerated by BP -Pain control PRN -Tube Feeds: Vital AF @ 20mL/hr today -DVT PPx with ALPS/Lovenox, monitor for bleeding/thrombocytopenia -FULL CODE Problem List: 1. Altered mental status Pain Ratin Tomorrow's Labs & Rationales: See assessment Plan DVT/Prophylaxis: pharmacological
--- NOTE | 2017-08-20 08:45 | RADIOLOGY REPORT ---
EXAMINATION: XR PORTABLE CHEST CLINICAL INFORMATION: Gram-negative hu septicemia with pneumonia. Intubated on vent. Interval assessment. Presumptive diagnosis of AMS, probable toxic metabolic encephalopathy. COMPARISON: Several prior chest x-rays, most recent of which is dated 08/19/2017. TECHNIQUE: Portable AP semierect view of the chest was obtained. FINDINGS: Endotracheal tube is in place with tip approximately 4.7 cm above the adonay. Enteric tube courses into the abdomen with tip not adequately visualized. Right subclavian PICC line is in place with tip at the cavoatrial junction, unchanged. EKG leads overlie the chest. The cardiomediastinal silhouette is within normal limits in size. Low lung volumes are seen with mild increased reticular opacities in the lung bases, right greater than left. There is minimal central vascular congestion noted. No significant effusion or pneumothorax is seen. Old healed fracture deformities of the posterolateral right fifth, sixth and seventh ribs again noted. IMPRESSION: 1. Endotracheal tube tip approximately 4.7 cm above the adonay. 2. Enteric tube courses into the abdomen with tip not visualized. 3. Right subclavian PICC line tip at the cavoatrial junction. 4. Low lung volumes with bibasilar opacities, likely representing residual pneumonia or atelectasis. 5. By portable chest x-ray, no significant pleural effusion is appreciated.
--- NOTE | 2017-08-20 10:51 | PN- CRCU ---
Subjective HPI/Critical Care Issues: Doing about the same Febrile Fatigue Objective Current Medications: Current Medications Sig/Marcus Start time Last Medication Dose Route Stop Time Status Admin Acetaminophen 1,000 MG ONCE ONE 08/20 0930 DC 08/20 N/A 1 UNIT IV 08/20 0944 1000 Albuterol Sulfate 3 ML Q4P PRN 08/17 1430 AC 08/18 INH 0817 Ceftriaxone Sodium 1,000 MG DAILY 08/17 1600 DC 08/18 IV 0834 Ciprofloxacin 400 MG Q12 08/19 1057 DC Dextrose/Water 200 ML IV Dextrose/Lactated 1,000 ML Q20H 08/16 1400 DC 08/18 Ringer's IV 2045 Enoxaparin Sodium 40 MG DAILY 08/20 1045 UNVr SC Fentanyl Citrate 100 MCG Q4 HRS NEEDED PRN 08/18 1430 AC 08/20 IV 0816 Heparin Sodium 5,000 UNIT Q8 08/15 2328 DC 08/19 (Porcine) SC 0609 Insulin Human Regular 0 Q4 08/16 1400 AC 08/17 SC 2249 Levothyroxine Sodium 68 MCG DAILY 08/17 1000 AC 08/20 IV 0942 Lorazepam 2 MG Q4P PRN 08/20 1030 UNVr IV Magnesium Sulfate 1 GM ONCE ONE 08/20 0815 AC 08/20 Dextrose/Water 100 ML IV 08/20 1214 0847 Magnesium Sulfate 2 GM .STK-MED ONE 08/19 1240 DC IM 08/19 1241 Magnesium Sulfate 1 GM Q2H 08/19 1215 DC 08/19 Dextrose/Water 100 ML IV 08/19 1614 1245 Moxifloxacin HCl 400 MG Q24H 08/19 1200 AC 08/19 N/A 1 UNIT IV 1233 Moxifloxacin HCl 400 MG DAILY 08/19 1115 DC IV Norepinephrine 4 MG Q13H 08/20 0930 AC 08/20 Dextrose/Water 250 ML IV 0922 Norepinephrine 4 MG Q13H 08/17 2330 DC 08/20 Dextrose/Water 250 ML IV 0450 Ondansetron HCl 4 MG Q6P PRN 08/15 1845 IV Pantoprazole Sodium 40 MG DAILY 08/17 1400 AC 08/20 IV 0942 Phosphate 250 MG ONCE ONE 08/20 1045 UNVr PO 08/20 1046 Phosphate 500 MG ONCE ONE 08/20 0815 DC 08/20 PO 08/20 0816 0942 Phosphate 500 MG ONCE ONE 08/19 1215 DC 08/19 PO 08/19 1216 1427 Phytonadione 10 MG ONCE ONE 08/19 1215 DC 08/19 PO 08/19 1216 1427 Potassium Chloride 40 MEQ TID 08/20 1030 UNVr PO 08/20 2201 Potassium Chloride 20 MEQ Q1H 08/20 0515 DC 08/20 IV 08/20 0616 0847 Potassium Chloride 20 MEQ Q20H 08/19 1200 AC 08/20 Dextrose/Water 1,000 ML IV 0847 Potassium Phosphate 15 mMol ONE ONE 08/19 0645 DC 08/19 Sodium Chloride 250 ML IV 08/19 1049 0800 Laboratory Tests 08/20 08/20 0435 0350 Blood Gas pH (7.35 - 7.45 PH) 7.53 H pCO2 (35 - 45 TORR) 29 L pO2 (80 - 100 TORR) 102 H HCO3 (21 - 28 MEQ/L) 24 ABG O2 Sat (Measured) (>96.0 %) 97.0 P-50 (Temp Corrected) Y Carboxyhemoglobin (1.5 - 5.0 %) 0.2 L O2 Concentration % 50% Temperature (97.0 - 100.0 FARH) 99.2 Respiration Rate (BPM) 20 O2 Delivery Method ESPRIT Vent Mode AC Expiratory Pressure (CMH2O/P) 5 Tidal Volume (CC) 450 Chemistry Sodium (137 - 145 mmol/L) 146 H Potassium (3.5 - 5.1 mmol/L) 2.9 *L Chloride (98 - 107 mmol/L) 110 H Carbon Dioxide (22 - 30 mmol/L) 32 H Anion Gap (5 - 16) 5 BUN (7 - 17 mg/dL) 5 L Creatinine (0.5 - 1.0 mg/dL) 0.5 Estimated GFR (>60 ml/min) > 60 Glucose (65 - 99 mg/dL) 123 H Calcium (8.4 - 10.2 mg/dL) 6.9 L Phosphorus (2.5 - 4.5 mg/dL) 1.6 L Magnesium (1.6 - 2.3 mg/dL) 1.6 Total Bilirubin (0.2 - 1.3 mg/dL) 3.5 H AST (14 - 36 U/L) 95 H ALT (9 - 52 U/L) 62 H Albumin (3.5 - 5.0 g/dL) 1.9 L Coagulation PT (9.4 - 12.5 SEC) 14.9 H INR (0.90 - 1.19) 1.36 H Fibrinogen Activity (200 - 393 MG/DL) 355 D-Dimer High Sensitivty (0 - 243 ng/ml) 1381 H Hematology CBC w Diff MAN DIFF ORDERED WBC (4.8 - 10.8 /CUMM) 5.4 RBC (4.20 - 5.40 /CUMM) 2.23 L Hgb (12.0 - 16.0 G/DL) 8.6 L Hct (37 - 47 %) 25.0 L MCV (81.0 - 99.0 FL) 111.7 H MCH (27.0 - 31.0 PG) 38.6 H MCHC (33.0 - 37.0 G/DL) 34.5 RDW (11.5 - 14.5 %) 25.8 H Plt Count (130 - 400 /CUMM) 47 L MPV (7.4 - 10.4 FL) 11.9 H Gran % (42.2 - 75.2 %) 77.9 H Lymphocytes % (20.5 - 51.1 %) 13.7 L Monocytes % (1.7 - 9.3 %) 7.2 Eosinophils % (0 - 5 %) 0.7 Basophils % (0.0 - 2.0 %) 0.5 Absolute Granulocytes (1.4 - 6.5 /CUMM) 4.5 Segmented Neutrophils (42.2 - 75.2 %) 61 Band Neutrophils (0.0 - 5.0 %) 10 H Absolute Lymphocytes (1.2 - 3.4 /CUMM) 0.8 L Lymphocytes (20.5 - 51.1 %) 20 L Monocytes (1.7 - 9.3 %) 8 Absolute Monocytes (0.10 - 0.60 /CUMM) 0.4 Eosinophils (0 - 5.0 %) 1 Absolute Eosinophils (0.0 - 0.7 /CUMM) 0 Absolute Basophils (0.0 - 0.2 /CUMM) 0 Nucleated RBCs (0.0 - 0.0 /100WBC) 6 H Platelet Estimate (ADEQUATE) VERIFIED BY SMEAR Polychromasia 1+ Anisocytosis 1+ Macrocytic Cells 1+ Target Cells 2+ Stomatocytes FEW Miscellaneous Phlebotomy Draw Site LEFT RADIAL 08/19 08/19 2100 0445 Chemistry Sodium (137 - 145 mmol/L) 150 H Potassium (3.5 - 5.1 mmol/L) 3.1 L Chloride (98 - 107 mmol/L) 112 H Carbon Dioxide (22 - 30 mmol/L) 33 H Anion Gap (5 - 16) 5 BUN (7 - 17 mg/dL) 3 L Creatinine (0.5 - 1.0 mg/dL) 0.4 L Estimated GFR (>60 ml/min) > 60 Glucose (65 - 99 mg/dL) 112 H Calcium (8.4 - 10.2 mg/dL) 7.2 L Phosphorus (2.5 - 4.5 mg/dL) 1.1 L Magnesium (1.6 - 2.3 mg/dL) 1.4 L Total Bilirubin (0.2 - 1.3 mg/dL) 3.2 H AST (14 - 36 U/L) 93 H ALT (9 - 52 U/L) 71 H Albumin (3.5 - 5.0 g/dL) 2.0 L Coagulation PT (9.4 - 12.5 SEC) 14.5 H INR (0.90 - 1.19) 1.33 H Hematology CBC w Diff MAN DIFF ORDERED MAN DIFF ORDERED WBC (4.8 - 10.8 /CUMM) 5.8 5.7 RBC (4.20 - 5.40 /CUMM) 2.26 L 2.62 L Hgb (12.0 - 16.0 G/DL) 8.6 L 9.5 L Hct (37 - 47 %) 25.2 L 29.3 L MCV (81.0 - 99.0 FL) 111.3 H 111.9 H MCH (27.0 - 31.0 PG) 38.1 H 38.0 H MCHC (33.0 - 37.0 G/DL) 34.3 34.0 RDW (11.5 - 14.5 %) 26.3 H 26.3 H Plt Count (130 - 400 /CUMM) 47 L 45 L MPV (7.4 - 10.4 FL) 11.5 H 11.2 H Gran % (42.2 - 75.2 %) 74.3 82.7 H Lymphocytes % (20.5 - 51.1 %) 15.9 L 12.1 L Monocytes % (1.7 - 9.3 %) 8.5 4.2 Eosinophils % (0 - 5 %) 0.9 0.8 Basophils % (0.0 - 2.0 %) 0.4 0.2 Absolute Granulocytes (1.4 - 6.5 /CUMM) 4.3 4.7 Segmented Neutrophils (42.2 - 75.2 %) 73 78 H Band Neutrophils (0.0 - 5.0 %) 6 H 1 Absolute Lymphocytes (1.2 - 3.4 /CUMM) 0.9 L 0.7 L Lymphocytes (20.5 - 51.1 %) 15 L 18 L Monocytes (1.7 - 9.3 %) 4 3 Absolute Monocytes (0.10 - 0.60 /CUMM) 0.5 0.2 Eosinophils (0 - 5.0 %) 1 Absolute Eosinophils (0.0 - 0.7 /CUMM) 0 0 Absolute Basophils (0.0 - 0.2 /CUMM) 0 0 Metamyelocytes (0.0 - 1.0 %) 1 Nucleated RBCs (0.0 - 0.0 /100WBC) 3 H 4 H Platelet Estimate (ADEQUATE) DECREASED DECREASED Polychromasia 1+ 1+ Poikilocytosis 1+ Anisocytosis 1+ 2+ Macrocytic Cells 2+ 2+ Ovalocytes 1+ Other Body Source Fld Total RBCs Counted (%) 100 08/18 08/18 08/18 1600 1347 1111 Chemistry Sodium (137 - 145 mmol/L) 151 H Potassium (3.5 - 5.1 mmol/L) 4.0 Chloride (98 - 107 mmol/L) 114 H Carbon Dioxide (22 - 30 mmol/L) 29 Anion Gap (5 - 16) 7 BUN (7 - 17 mg/dL) 2 L Creatinine (0.5 - 1.0 mg/dL) 0.4 L Estimated GFR (>60 ml/min) > 60 Glucose (65 - 99 mg/dL) 106 H Calcium (8.4 - 10.2 mg/dL) 7.2 L Phosphorus (2.5 - 4.5 mg/dL) 2.3 L Magnesium (1.6 - 2.3 mg/dL) 1.5 L Total Bilirubin (0.2 - 1.3 mg/dL) 3.4 H AST (14 - 36 U/L) 126 H ALT (9 - 52 U/L) 75 H Troponin I Cancelled Albumin (3.5 - 5.0 g/dL) 2.1 L Coagulation PT (9.4 - 12.5 SEC) 14.5 H INR (0.90 - 1.19) 1.33 H Hematology CBC w Diff NO MAN DIFF REQ Cancelled WBC (4.8 - 10.8 /CUMM) 9.2 Cancelled RBC (4.20 - 5.40 /CUMM) 2.39 L Cancelled Hgb (12.0 - 16.0 G/DL) 9.2 L Cancelled Hct (37 - 47 %) 26.2 L Cancelled MCV (81.0 - 99.0 FL) 109.3 H Cancelled MCH (27.0 - 31.0 PG) 38.5 H Cancelled MCHC (33.0 - 37.0 G/DL) 35.2 Cancelled RDW (11.5 - 14.5 %) 24.4 H Cancelled Plt Count (130 - 400 /CUMM) 62 L Cancelled MPV (7.4 - 10.4 FL) 10.4 Cancelled Gran % (42.2 - 75.2 %) 89.9 H Lymphocytes % (20.5 - 51.1 %) 6.8 L Monocytes % (1.7 - 9.3 %) 2.7 Eosinophils % (0 - 5 %) 0.3 Basophils % (0.0 - 2.0 %) 0.3 Absolute Granulocytes (1.4 - 6.5 /CUMM) 7.9 H Absolute Lymphocytes (1.2 - 3.4 /CUMM) 0.6 L Absolute Monocytes (0.10 - 0.60 /CUMM) 0.2 Absolute Eosinophils (0.0 - 0.7 /CUMM) 0 Absolute Basophils (0.0 - 0.2 /CUMM) 0 Microbiology Date/Time Procedure - Status Source Growth 08/20 0954 Clostridium difficile Toxin A & B - COLB STOOL 08/17 1830 Influenza Virus A & B Rapid Smear - COMP NASOPHARYN 08/17 1400 Cryptosporidium Antigen - COMP STOOL 08/17 1400 Giardia Antigen (PRICILLA) - COMP STOOL 08/17 1130 Legionella Antigen - COMP URINE ROUT 08/17 1130 Streptococcus pneumoniae Antigen (M - COMP URINE ROUT Vital Signs & I&O Last 24 Hrs of Vitals and I&O: Vital Signs Date Time Temp Pulse Resp B/P B/P Pulse O2 O2 Flow FiO2 Mean Ox Delivery Rate 08/20 1000 100.7 / 0922 110 94/69 03/15 0755 50 03/15 0608 50 03/15 0600 101 20 97/65 03/15 0450 109 20 100/64 03/15 0400 99.4 109 20 100/60 03/15 0400 93 Ventilator 50% /15 0353 50 /15 0200 114 20 101/68 /15 0124 50 03/15 0000 98.6 97 20 96/50 03/15 0000 93 Ventilator 50% 03/15 0000 98.6 97 20 96/50 93 Ventilator 50% 03/14 2220 50 03/14 2200 99.0 90 20 113/76 /1999 99.3 94 19 100/80 /14 1999 99.3 94 19 100/80 94 Ventilator /14 1926 99.3 94 20 104/73 /14 1926 93 Ventilator /14 1900 50 /14 1600 50 /14 1600 94 Ventilator 50% /14 1600 99.0 103 22 84/60 94 Ventilator 50% 03/14 1406 50 /14 1200 93 Ventilator 50% /14 1120 50 Intake & Output / 1600 /15 0800 08/20 0000 Intake Total 744 730.4 Output Total 215 350 Balance 529 380.4 Intake, IV 544 550.4 Intake, Tube 140 120 Feeding Intake, Tube 60 60 Irrigant Output, Stool 100 Output, Urine 215 250 Impression/Plan Impression/Plan Impression/Plan: General Appearance: Intubated and lethargic on prn ativan and fentanyl Picc line in place Head: atraumatic, normal appearance Ears, Nose, Throat: mucous membranes dry, dried blood noted on mouth. Neck: normal inspection, supple Respiratory: normal breath sounds, crackles (basilar) Cardiovascular: regular rate/rhythm Gastrointestinal: tenderness to palpation right upper quadrant. no distention, no rigidity .hypoactive bowel sounds. Extremities: normal inspection, normal capillary refill, swelling IMPRESSION This is a 57-year-old lady with history of hypertension hypothyroidism significant alcohol abuse with worsening alcoholism in the recent past came into the hospital with confusion and somnolence tachycardia and significant jaundice with severe metabolic acidosis, normal lactate, no significant osmolar gap with clinical signs and symptoms suggestive of severe alcoholic ketoacidosis. She also has significant fatty liver with evidence of significant alcoholic hepatitis with so far preserved synthetic function of her liver. Issues * Improving Septic shock due to pneumonia and ecoli septicemia with resistance to PCN * Metabolic encephalopathy due to sig liver disease, Sepisis and DTs * Respiratory failure which seems to be both hypoxemic and hypercarbic related to severe bilateral ecoli pna, acute lung injury with, pulmonary edema due to appropriate post fluid resuscitation * Sig thromobocytopenia due to sepsis and liver disease * Resolved metabolic acidosis (anion gap acidosis), with severe ketosis in a nondiabetic patient Patient did receive thiamine prior to any glucose treatment. * Diffuse fatt liver with sig alchoholic hepatitis * Sig etoh use with DT on prn llorazepam * Severe electrolyte abnormalities due to enterocolitis with profuse diarrhea and sepsis * Mild pancreatitis * Severe anemia due to hemodilution and prob slow gi ooze RECOMMENDATION/PLAN * Continue mechanical ventilator, reduce FiO2, * PRn lorazepam and fentanyl * Potassium 40 meq down ng x 3 doses and iv replacement * Change ivf to D5 w with kcl at 50 cc * Increase tube feeding to 20 and then 30 cc once phos is 2 * Neutraphos down ng 3 packets today * IV mag 2 grams * Lovenox 40 * Keep MAP at 65 * Check her fingerstick glucose [id number] and use insulin only if her glucose is now more than 150 Patient is critically ill total time spent 40 minutes
--- NOTE | 2017-08-20 11:06 | PN- Infect Dx ---
Subjective Subjective: MAXIMUM TEMPERATURE 100.7. She continues to have watery stools, guaiac negative. Her blood pressure has overall improved, now on low-dose Levophed. Objective Last 24 Hrs of Vital Signs/I&O Vital Signs Date Time Temp Pulse Resp B/P B/P Pulse O2 O2 Flow FiO2 Mean Ox Delivery Rate 08/20 1000 100.7 08/20 1000 100.0 107 25 109/78 03/15 0922 110 94/69 03/15 0800 100.7 110 24 110/60 /15 0800 100.7 110 24 110/60 94 Ventilator 50% /15 0800 84 Ventilator 50% /15 0755 50 /15 0608 50 /15 0600 101 20 97/65 /15 0450 109 20 100/64 /15 0400 99.4 109 20 100/60 /15 0400 93 Ventilator 50% /15 0353 50 /15 0200 114 20 101/68 /15 0124 50 03/15 0000 98.6 97 20 96/50 03/15 0000 93 Ventilator 50% 03/15 0000 98.6 97 20 96/50 93 Ventilator 50% 03/14 2220 50 03/14 2200 99.0 90 20 113/76 03/14 1999 99.3 94 19 100/80 03/14 1999 99.3 94 19 100/80 94 Ventilator 03/14 1926 99.3 94 20 104/73 03/14 1926 93 Ventilator 03/14 1900 50 03/14 1600 50 03/14 1600 94 Ventilator 50% 03/14 1600 99.0 103 22 84/60 94 Ventilator 50% 03/14 1406 50 03/14 1200 93 Ventilator 50% /14 1120 50 Intake & Output /15 1600 03/15 0800 03/15 0000 Intake Total 744 730.4 Output Total 215 350 Balance 529 380.4 Intake, IV 544 550.4 Intake, Tube 140 120 Feeding Intake, Tube 60 60 Irrigant Output, Stool 100 Output, Urine 215 250 Patient 145 lb Weight Weight Bed scale Measurement Method Physical Exam Other Physical Findings: She is minimally responsive on the ventilator Lungs bilateral rhonchi Heart regular rhythm with no murmur Abdomen is soft, questionable tenderness over the right upper quadrant, with positive bowel sounds Extremities PICC in the right upper extremity with no inflammation at the site Waller catheter remains in place Results Last 24 Hours of Lab Results: Laboratory Tests 08/20 08/20 9120 0350 Blood Gas pH (7.35 - 7.45 PH) 7.53 H pCO2 (35 - 45 TORR) 29 L pO2 (80 - 100 TORR) 102 H HCO3 (21 - 28 MEQ/L) 24 ABG O2 Sat (Measured) (>96.0 %) 97.0 P-50 (Temp Corrected) Y Carboxyhemoglobin (1.5 - 5.0 %) 0.2 L O2 Concentration % 50% Temperature (97.0 - 100.0 FARH) 99.2 Respiration Rate (BPM) 20 O2 Delivery Method ESPRIT Vent Mode AC Expiratory Pressure (CMH2O/P) 5 Tidal Volume (CC) 450 Chemistry Sodium (137 - 145 mmol/L) 146 H Potassium (3.5 - 5.1 mmol/L) 2.9 *L Chloride (98 - 107 mmol/L) 110 H Carbon Dioxide (22 - 30 mmol/L) 32 H Anion Gap (5 - 16) 5 BUN (7 - 17 mg/dL) 5 L Creatinine (0.5 - 1.0 mg/dL) 0.5 Estimated GFR (>60 ml/min) > 60 Glucose (65 - 99 mg/dL) 123 H Calcium (8.4 - 10.2 mg/dL) 6.9 L Phosphorus (2.5 - 4.5 mg/dL) 1.6 L Magnesium (1.6 - 2.3 mg/dL) 1.6 Total Bilirubin (0.2 - 1.3 mg/dL) 3.5 H AST (14 - 36 U/L) 95 H ALT (9 - 52 U/L) 62 H Albumin (3.5 - 5.0 g/dL) 1.9 L Coagulation PT (9.4 - 12.5 SEC) 14.9 H INR (0.90 - 1.19) 1.36 H Fibrinogen Activity (200 - 393 MG/DL) 355 D-Dimer High Sensitivty (0 - 243 ng/ml) 1381 H Hematology CBC w Diff MAN DIFF ORDERED WBC (4.8 - 10.8 /CUMM) 5.4 RBC (4.20 - 5.40 /CUMM) 2.23 L Hgb (12.0 - 16.0 G/DL) 8.6 L Hct (37 - 47 %) 25.0 L MCV (81.0 - 99.0 FL) 111.7 H MCH (27.0 - 31.0 PG) 38.6 H MCHC (33.0 - 37.0 G/DL) 34.5 RDW (11.5 - 14.5 %) 25.8 H Plt Count (130 - 400 /CUMM) 47 L MPV (7.4 - 10.4 FL) 11.9 H Gran % (42.2 - 75.2 %) 77.9 H Lymphocytes % (20.5 - 51.1 %) 13.7 L Monocytes % (1.7 - 9.3 %) 7.2 Eosinophils % (0 - 5 %) 0.7 Basophils % (0.0 - 2.0 %) 0.5 Absolute Granulocytes (1.4 - 6.5 /CUMM) 4.5 Segmented Neutrophils (42.2 - 75.2 %) 61 Band Neutrophils (0.0 - 5.0 %) 10 H Absolute Lymphocytes (1.2 - 3.4 /CUMM) 0.8 L Lymphocytes (20.5 - 51.1 %) 20 L Monocytes (1.7 - 9.3 %) 8 Absolute Monocytes (0.10 - 0.60 /CUMM) 0.4 Eosinophils (0 - 5.0 %) 1 Absolute Eosinophils (0.0 - 0.7 /CUMM) 0 Absolute Basophils (0.0 - 0.2 /CUMM) 0 Nucleated RBCs (0.0 - 0.0 /100WBC) 6 H Platelet Estimate (ADEQUATE) VERIFIED BY SMEAR Polychromasia 1+ Anisocytosis 1+ Macrocytic Cells 1+ Target Cells 2+ Stomatocytes FEW Miscellaneous Phlebotomy Draw Site LEFT RADIAL 08/19 2100 Hematology CBC w Diff MAN DIFF ORDERED WBC (4.8 - 10.8 /CUMM) 5.8 RBC (4.20 - 5.40 /CUMM) 2.26 L Hgb (12.0 - 16.0 G/DL) 8.6 L Hct (37 - 47 %) 25.2 L MCV (81.0 - 99.0 FL) 111.3 H MCH (27.0 - 31.0 PG) 38.1 H MCHC (33.0 - 37.0 G/DL) 34.3 RDW (11.5 - 14.5 %) 26.3 H Plt Count (130 - 400 /CUMM) 47 L MPV (7.4 - 10.4 FL) 11.5 H Gran % (42.2 - 75.2 %) 74.3 Lymphocytes % (20.5 - 51.1 %) 15.9 L Monocytes % (1.7 - 9.3 %) 8.5 Eosinophils % (0 - 5 %) 0.9 Basophils % (0.0 - 2.0 %) 0.4 Absolute Granulocytes (1.4 - 6.5 /CUMM) 4.3 Segmented Neutrophils (42.2 - 75.2 %) 73 Band Neutrophils (0.0 - 5.0 %) 6 H Absolute Lymphocytes (1.2 - 3.4 /CUMM) 0.9 L Lymphocytes (20.5 - 51.1 %) 15 L Monocytes (1.7 - 9.3 %) 4 Absolute Monocytes (0.10 - 0.60 /CUMM) 0.5 Eosinophils (0 - 5.0 %) 1 Absolute Eosinophils (0.0 - 0.7 /CUMM) 0 Absolute Basophils (0.0 - 0.2 /CUMM) 0 Metamyelocytes (0.0 - 1.0 %) 1 Nucleated RBCs (0.0 - 0.0 /100WBC) 3 H Platelet Estimate (ADEQUATE) DECREASED Polychromasia 1+ Anisocytosis 1+ Macrocytic Cells 2+ Last 24 Hours of Will Results: No new cultures Recent Imaging Studies: Chest x-ray August 20 mildly increased reticular opacities at both lung bases with minimal central vascular congestion Assessment/Plan ID Impression: Low-grade fever of some concern, with increased bands on today's CBC, though her white blood cell count remains normal, now on Moxifloxacin Day 1 of treatment for Escherichia coli sepsis, most likely secondary to pneumonia, with the CT scan revealing bilateral patchy opacities, though her most recent chest x-ray shows minimal congestion. An intra-abdominal source is possible, though her CT of the abdomen and pelvis did not identify any focus of infection. Her liver enzymes remain elevated, presumably secondary to alcohol hepatitis. Her diarrhea persists, with the recent C. difficile negative. Suggestion: 1. Repeat stool for C. difficile 2. Repeat cultures if temperature over 101 3. Continue Moxifloxacin
--- NOTE | 2017-08-20 19:23 | Event Note ---
Event Note Event Note: Family meeting was held with three of the patients 1st degree family members, patients and next of kin was not present. They were given an update in regards to patients overall clinical progress and informed she is being treated for a presumed resistant E. coli pneumonia with antibiotics and blood pressure support medications. They agreed with the plan and would like to be given any updates should they arise. They were told that their family member is still critically ill and despite having some improvement she still requires ICU level care.
--- NOTE | 2017-08-20 22:09 | PN- Gastroenterology ---
Assessment/Plan GI Assessment/Recommendations: Probable alcoholic hepatitis complicated by Escherichia coli sepsis, of probable pulmonary etiology. There are gallstones on imaging, but no ductal dilatation, and cholangitis seems unlikely. Her bilirubinemia and INR remain stable. There was scant ascites on CT scan. Ammonia has normalized, making it unlikely that there is persistent hepatic encephalopathy. Stable anemia status post transfusion of one unit of packed red blood cells, with Hemoccult positive stool. Continuing diarrhea (likely related to antibiotics, alcoholic enteropathy, refeeding, etc.), with negative C. difficile toxin. Recommendations * I don't disagree with trial of octreotide for diarrhea but need to give 50-100 * Follow CBC, LFTs, INR * Continue thiamine * Agree with tube feeds, with careful monitoring of phosphorus. Subjective Subjective: Remains intubated. Less sedation. Arousable, and denies abdominal pain. Still having diarrhea although decreased. Reported as guaiac-positive, but not overtly bloody Objective Vital Signs and I&Os Vital Signs Date Time Temp Pulse Resp B/P B/P Pulse O2 O2 Flow FiO2 Mean Ox Delivery Rate 08/20 2009 114 98/70 /15 2000 99.2 80 20 140/100 / 2000 97 Ventilator 50% 03/15 1930 50 03/15 1605 60 03/15 1600 99.4 94 20 128/84 03/15 1600 99.4 94 20 128/84 94 Ventilator 60% 03/15 1600 94 Ventilator 50% 03/15 1420 60 03/15 1200 98.9 03/15 1200 98.9 98 20 112/80 03/15 1200 96 Ventilator 60% 03/15 1145 60 03/15 1000 100.7 03/15 1000 100.0 107 25 109/78 03/15 0922 110 94/69 03/15 0800 100.7 110 24 110/60 03/15 0800 100.7 110 24 110/60 94 Ventilator 50% 03/15 0800 84 Ventilator 50% 03/15 0755 50 03/15 0608 50 03/15 0600 101 20 97/65 03/15 0450 109 20 100/64 03/15 0400 99.4 109 20 100/60 03/15 0400 93 Ventilator 50% 03/15 0353 50 03/15 0200 114 20 101/68 03/15 0124 50 03/15 0000 98.6 97 20 96/50 03/15 0000 93 Ventilator 50% 08/20 0000 98.6 97 20 96/50 93 Ventilator 50% 08/19 2220 50 Intake & Output 08/20 1600 08/20 0400 08/19 1600 08/19 0400 08/18 1600 08/18 0400 Intake Total 2274 730.4 9507 879 4182 593 Output Total 817 460 5038 235 1000 500 Balance 1834 380.4 -859 154 9139 93 Intake, Blood 390 Product Intake, IV 1624 550.4 3690 051 1287 593 Intake, Oral 0 0 Intake, Other 60 Intake, Tube 380 120 160 70 Feeding Intake, Tube 270 60 120 90 Irrigant Number 3 1 4 4 Bowel Movements Output, 100 Gastric Drainage Output, Stool 100 Output, Urine 361 157 3046 235 900 500 Patient 145 lb 136 lb Weight Weight Bed scale Bed scale Measurement Method Physical Exam: Intubated and sedated. Sclera anicteric. No adenopathy. No edema. Abdomen is soft and nondistended, and nontender. Current Medications: Current Medications Sig/Marcus Start time Last Medication Dose Route Stop Time Status Admin Acetaminophen 1,000 MG ONCE ONE 08/20 0930 DC 08/20 N/A 1 UNIT IV 08/20 0944 1000 Albuterol Sulfate 3 ML BID 08/20 2200 AC 08/20 INH 2047 Albuterol Sulfate 3 ML Q4P PRN 08/17 1430 DC 08/18 INH 0817 Enoxaparin Sodium 40 MG DAILY 08/20 1045 DC 08/20 SC 08/20 1046 1139 Fentanyl Citrate 100 MCG Q4 HRS NEEDED PRN 08/18 1430 AC 08/20 IV 2009 Insulin Human Regular 0 Q4 08/16 1400 AC 08/17 SC 2249 Levothyroxine Sodium 68 MCG DAILY 08/17 1000 AC 08/20 IV 0942 Lorazepam 2 MG ONE ONE 08/20 1815 DC 08/20 IV 08/20 1816 1804 Lorazepam 2 MG Q2P PRN 08/20 1802 AC 08/20 IV 2131 Lorazepam 2 MG Q4P PRN 08/20 1030 DC 08/20 IV 1552 Magnesium Sulfate 1 GM ONCE ONE 08/20 1545 DC 08/20 Dextrose/Water 100 ML IV 08/20 1944 1555 Magnesium Sulfate 1 GM ONCE ONE 08/20 0815 DC 08/20 Dextrose/Water 100 ML IV 08/20 1214 0847 Moxifloxacin HCl 400 MG Q24H 08/19 1200 AC 08/20 N/A 1 UNIT IV 1139 Norepinephrine 4 MG Q13H 08/20 0930 AC 08/20 Dextrose/Water 250 ML IV 2009 Norepinephrine 4 MG Q13H 08/17 2330 DC 08/20 Dextrose/Water 250 ML IV 0450 Octreotide Acetate 25 MCG ONCE ONE 08/20 1745 DC 08/20 IV 08/20 1742007 Ondansetron HCl 4 MG Q6P PRN 08/15 1845 AC IV Pantoprazole Sodium 40 MG DAILY 08/17 1400 AC 08/20 IV 0942 Phosphate 250 MG ONCE ONE 08/20 1045 DC 08/20 PO 08/20 1046 1138 Phosphate 500 MG ONCE ONE 08/20 0815 DC 08/20 PO 08/20 0816 0942 Potassium Chloride 40 MEQ TID 08/20 1030 DC 08/20 PO 08/20 2201 2131 Potassium Chloride 20 MEQ Q1H 08/20 0515 DC 08/20 IV 08/20 0616 0847 Potassium Chloride 20 MEQ Q20H 08/19 1200 AC 08/20 Dextrose/Water 1,000 ML IV 0847 Results Pertinent Lab Results: Laboratory Tests 08/20 08/20 1600 0435 Blood Gas pH (7.35 - 7.45 PH) 7.53 H pCO2 (35 - 45 TORR) 29 L pO2 (80 - 100 TORR) 102 H HCO3 (21 - 28 MEQ/L) 24 ABG O2 Sat (Measured) (>96.0 %) 97.0 P-50 (Temp Corrected) Y Carboxyhemoglobin (1.5 - 5.0 %) 0.2 L O2 Concentration % 50% Temperature (97.0 - 100.0 FARH) 99.2 Respiration Rate (BPM) 20 O2 Delivery Method ESPRIT Vent Mode AC Expiratory Pressure (CMH2O/P) 5 Tidal Volume (CC) 450 Chemistry Sodium (137 - 145 mmol/L) 142 Potassium (3.5 - 5.1 mmol/L) 3.6 Chloride (98 - 107 mmol/L) 107 Carbon Dioxide (22 - 30 mmol/L) 29 Anion Gap (5 - 16) 6 BUN (7 - 17 mg/dL) 6 L Creatinine (0.5 - 1.0 mg/dL) 0.4 L Estimated GFR (>60 ml/min) > 60 Glucose (65 - 99 mg/dL) 145 H Calcium (8.4 - 10.2 mg/dL) 6.6 L Phosphorus (2.5 - 4.5 mg/dL) 2.1 L Magnesium (1.6 - 2.3 mg/dL) 1.7 Total Bilirubin (0.2 - 1.3 mg/dL) 3.8 H AST (14 - 36 U/L) 109 H ALT (9 - 52 U/L) 63 H Albumin (3.5 - 5.0 g/dL) 1.9 L Miscellaneous Phlebotomy Draw Site LEFT RADIAL 08/20 08/19 0350 2100 Chemistry Sodium (137 - 145 mmol/L) 146 H Potassium (3.5 - 5.1 mmol/L) 2.9 *L Chloride (98 - 107 mmol/L) 110 H Carbon Dioxide (22 - 30 mmol/L) 32 H Anion Gap (5 - 16) 5 BUN (7 - 17 mg/dL) 5 L Creatinine (0.5 - 1.0 mg/dL) 0.5 Estimated GFR (>60 ml/min) > 60 Glucose (65 - 99 mg/dL) 123 H Calcium (8.4 - 10.2 mg/dL) 6.9 L Phosphorus (2.5 - 4.5 mg/dL) 1.6 L Magnesium (1.6 - 2.3 mg/dL) 1.6 Total Bilirubin (0.2 - 1.3 mg/dL) 3.5 H AST (14 - 36 U/L) 95 H ALT (9 - 52 U/L) 62 H Albumin (3.5 - 5.0 g/dL) 1.9 L Coagulation PT (9.4 - 12.5 SEC) 14.9 H INR (0.90 - 1.19) 1.36 H Fibrinogen Activity (200 - 393 MG/DL) 355 D-Dimer High Sensitivty (0 - 243 ng/ml) 1381 H Hematology CBC w Diff MAN DIFF ORDERED MAN DIFF ORDERED WBC (4.8 - 10.8 /CUMM) 5.4 5.8 RBC (4.20 - 5.40 /CUMM) 2.23 L 2.26 L Hgb (12.0 - 16.0 G/DL) 8.6 L 8.6 L Hct (37 - 47 %) 25.0 L 25.2 L MCV (81.0 - 99.0 FL) 111.7 H 111.3 H MCH (27.0 - 31.0 PG) 38.6 H 38.1 H MCHC (33.0 - 37.0 G/DL) 34.5 34.3 RDW (11.5 - 14.5 %) 25.8 H 26.3 H Plt Count (130 - 400 /CUMM) 47 L 47 L MPV (7.4 - 10.4 FL) 11.9 H 11.5 H Gran % (42.2 - 75.2 %) 77.9 H 74.3 Lymphocytes % (20.5 - 51.1 %) 13.7 L 15.9 L Monocytes % (1.7 - 9.3 %) 7.2 8.5 Eosinophils % (0 - 5 %) 0.7 0.9 Basophils % (0.0 - 2.0 %) 0.5 0.4 Absolute Granulocytes (1.4 - 6.5 /CUMM) 4.5 4.3 Segmented Neutrophils (42.2 - 75.2 %) 61 73 Band Neutrophils (0.0 - 5.0 %) 10 H 6 H Absolute Lymphocytes (1.2 - 3.4 /CUMM) 0.8 L 0.9 L Lymphocytes (20.5 - 51.1 %) 20 L 15 L Monocytes (1.7 - 9.3 %) 8 4 Absolute Monocytes (0.10 - 0.60 /CUMM) 0.4 0.5 Eosinophils (0 - 5.0 %) 1 1 Absolute Eosinophils (0.0 - 0.7 /CUMM) 0 0 Absolute Basophils (0.0 - 0.2 /CUMM) 0 0 Metamyelocytes (0.0 - 1.0 %) 1 Nucleated RBCs (0.0 - 0.0 /100WBC) 6 H 3 H Platelet Estimate (ADEQUATE) VERIFIED BY SMEAR DECREASED Polychromasia 1+ 1+ Anisocytosis 1+ 1+ Macrocytic Cells 1+ 2+ Target Cells 2+ Stomatocytes FEW 08/19 08/18 0445 1600 Chemistry Sodium (137 - 145 mmol/L) 150 H Potassium (3.5 - 5.1 mmol/L) 3.1 L Chloride (98 - 107 mmol/L) 112 H Carbon Dioxide (22 - 30 mmol/L) 33 H Anion Gap (5 - 16) 5 BUN (7 - 17 mg/dL) 3 L Creatinine (0.5 - 1.0 mg/dL) 0.4 L Estimated GFR (>60 ml/min) > 60 Glucose (65 - 99 mg/dL) 112 H Calcium (8.4 - 10.2 mg/dL) 7.2 L Phosphorus (2.5 - 4.5 mg/dL) 1.1 L Magnesium (1.6 - 2.3 mg/dL) 1.4 L Total Bilirubin (0.2 - 1.3 mg/dL) 3.2 H AST (14 - 36 U/L) 93 H ALT (9 - 52 U/L) 71 H Troponin I Cancelled Albumin (3.5 - 5.0 g/dL) 2.0 L Coagulation PT (9.4 - 12.5 SEC) 14.5 H INR (0.90 - 1.19) 1.33 H Hematology CBC w Diff MAN DIFF ORDERED WBC (4.8 - 10.8 /CUMM) 5.7 RBC (4.20 - 5.40 /CUMM) 2.62 L Hgb (12.0 - 16.0 G/DL) 9.5 L Hct (37 - 47 %) 29.3 L MCV (81.0 - 99.0 FL) 111.9 H MCH (27.0 - 31.0 PG) 38.0 H MCHC (33.0 - 37.0 G/DL) 34.0 RDW (11.5 - 14.5 %) 26.3 H Plt Count (130 - 400 /CUMM) 45 L MPV (7.4 - 10.4 FL) 11.2 H Gran % (42.2 - 75.2 %) 82.7 H Lymphocytes % (20.5 - 51.1 %) 12.1 L Monocytes % (1.7 - 9.3 %) 4.2 Eosinophils % (0 - 5 %) 0.8 Basophils % (0.0 - 2.0 %) 0.2 Absolute Granulocytes (1.4 - 6.5 /CUMM) 4.7 Segmented Neutrophils (42.2 - 75.2 %) 78 H Band Neutrophils (0.0 - 5.0 %) 1 Absolute Lymphocytes (1.2 - 3.4 /CUMM) 0.7 L Lymphocytes (20.5 - 51.1 %) 18 L Monocytes (1.7 - 9.3 %) 3 Absolute Monocytes (0.10 - 0.60 /CUMM) 0.2 Absolute Eosinophils (0.0 - 0.7 /CUMM) 0 Absolute Basophils (0.0 - 0.2 /CUMM) 0 Nucleated RBCs (0.0 - 0.0 /100WBC) 4 H Platelet Estimate (ADEQUATE) DECREASED Polychromasia 1+ Poikilocytosis 1+ Anisocytosis 2+ Macrocytic Cells 2+ Ovalocytes 1+ Other Body Source Fld Total RBCs Counted (%) 100 08/18 08/18 1347 1111 Chemistry Sodium (137 - 145 mmol/L) 151 H Potassium (3.5 - 5.1 mmol/L) 4.0 Chloride (98 - 107 mmol/L) 114 H Carbon Dioxide (22 - 30 mmol/L) 29 Anion Gap (5 - 16) 7 BUN (7 - 17 mg/dL) 2 L Creatinine (0.5 - 1.0 mg/dL) 0.4 L Estimated GFR (>60 ml/min) > 60 Glucose (65 - 99 mg/dL) 106 H Calcium (8.4 - 10.2 mg/dL) 7.2 L Phosphorus (2.5 - 4.5 mg/dL) 2.3 L Magnesium (1.6 - 2.3 mg/dL) 1.5 L Total Bilirubin (0.2 - 1.3 mg/dL) 3.4 H AST (14 - 36 U/L) 126 H ALT (9 - 52 U/L) 75 H Albumin (3.5 - 5.0 g/dL) 2.1 L Coagulation PT (9.4 - 12.5 SEC) 14.5 H INR (0.90 - 1.19) 1.33 H Hematology CBC w Diff NO MAN DIFF REQ Cancelled WBC (4.8 - 10.8 /CUMM) 9.2 Cancelled RBC (4.20 - 5.40 /CUMM) 2.39 L Cancelled Hgb (12.0 - 16.0 G/DL) 9.2 L Cancelled Hct (37 - 47 %) 26.2 L Cancelled MCV (81.0 - 99.0 FL) 109.3 H Cancelled MCH (27.0 - 31.0 PG) 38.5 H Cancelled MCHC (33.0 - 37.0 G/DL) 35.2 Cancelled RDW (11.5 - 14.5 %) 24.4 H Cancelled Plt Count (130 - 400 /CUMM) 62 L Cancelled MPV (7.4 - 10.4 FL) 10.4 Cancelled Gran % (42.2 - 75.2 %) 89.9 H Lymphocytes % (20.5 - 51.1 %) 6.8 L Monocytes % (1.7 - 9.3 %) 2.7 Eosinophils % (0 - 5 %) 0.3 Basophils % (0.0 - 2.0 %) 0.3 Absolute Granulocytes (1.4 - 6.5 /CUMM) 7.9 H Absolute Lymphocytes (1.2 - 3.4 /CUMM) 0.6 L Absolute Monocytes (0.10 - 0.60 /CUMM) 0.2 Absolute Eosinophils (0.0 - 0.7 /CUMM) 0 Absolute Basophils (0.0 - 0.2 /CUMM) 0 08/18 08/18 9163 4143 Blood Gas pH (7.35 - 7.45 PH) 7.51 H pCO2 (35 - 45 TORR) 36 pO2 (80 - 100 TORR) 60 L HCO3 (21 - 28 MEQ/L) 28 ABG O2 Sat (Measured) (>96.0 %) 92.0 L P-50 (Temp Corrected) Y Carboxyhemoglobin (1.5 - 5.0 %) 0.3 L O2 Concentration % 40% Temperature (97.0 - 100.0 FARH) 98.0 Respiration Rate (BPM) 20 O2 Delivery Method ESPRIT Vent Mode AC Expiratory Pressure (CMH2O/P) 5 Tidal Volume (CC) 450 Chemistry Sodium (137 - 145 mmol/L) 149 H Potassium (3.5 - 5.1 mmol/L) 2.7 *L Chloride (98 - 107 mmol/L) 113 H Carbon Dioxide (22 - 30 mmol/L) 30 Anion Gap (5 - 16) 6 BUN (7 - 17 mg/dL) 3 L Creatinine (0.5 - 1.0 mg/dL) 0.3 L Estimated GFR (>60 ml/min) > 60 Glucose (65 - 99 mg/dL) 106 H Calcium (8.4 - 10.2 mg/dL) 7.4 L Phosphorus (2.5 - 4.5 mg/dL) 1.4 L Magnesium (1.6 - 2.3 mg/dL) 1.6 Total Bilirubin (0.2 - 1.3 mg/dL) 2.7 H AST (14 - 36 U/L) 134 H ALT (9 - 52 U/L) 67 H Albumin (3.5 - 5.0 g/dL) 2.1 L Coagulation PT (9.4 - 12.5 SEC) 13.1 H INR (0.90 - 1.19) 1.20 H APTT (25 - 37 SEC) 42 H Fibrinogen Activity (200 - 393 MG/DL) 278 Hematology CBC w Diff MAN DIFF ORDERED WBC (4.8 - 10.8 /CUMM) 9.4 RBC (4.20 - 5.40 /CUMM) 1.50 L Hgb (12.0 - 16.0 G/DL) 6.2 *L Hct (37 - 47 %) 18.0 *L MCV (81.0 - 99.0 FL) 120.5 H MCH (27.0 - 31.0 PG) 41.3 H MCHC (33.0 - 37.0 G/DL) 34.3 RDW (11.5 - 14.5 %) 16.9 H Plt Count (130 - 400 /CUMM) 70 L MPV (7.4 - 10.4 FL) 11.0 H Gran % (42.2 - 75.2 %) 91.6 H Lymphocytes % (20.5 - 51.1 %) 6.5 L Monocytes % (1.7 - 9.3 %) 1.0 L Eosinophils % (0 - 5 %) 0.3 Basophils % (0.0 - 2.0 %) 0.6 Absolute Granulocytes (1.4 - 6.5 /CUMM) 8.6 H Segmented Neutrophils (42.2 - 75.2 %) 83 H Band Neutrophils (0.0 - 5.0 %) 9 H Absolute Lymphocytes (1.2 - 3.4 /CUMM) 0.6 L Lymphocytes (20.5 - 51.1 %) 7 L Monocytes (1.7 - 9.3 %) 1 L Absolute Monocytes (0.10 - 0.60 /CUMM) 0.1 Absolute Eosinophils (0.0 - 0.7 /CUMM) 0 Absolute Basophils (0.0 - 0.2 /CUMM) 0.1 Nucleated RBCs (0.0 - 0.0 /100WBC) 1 H Platelet Estimate (ADEQUATE) DECREASED Macrocytic Cells 2+ Target Cells 1+ Stomatocytes 1+ Miscellaneous Phlebotomy Draw Site LEFT RADIAL 08/18 0037 Hematology CBC w Diff MAN DIFF ORDERED WBC (4.8 - 10.8 /CUMM) 8.1 RBC (4.20 - 5.40 /CUMM) 1.78 L Hgb (12.0 - 16.0 G/DL) 7.7 L Hct (37 - 47 %) 21.5 L MCV (81.0 - 99.0 FL) 120.9 H MCH (27.0 - 31.0 PG) 43.1 H MCHC (33.0 - 37.0 G/DL) 35.7 RDW (11.5 - 14.5 %) 16.6 H Plt Count (130 - 400 /CUMM) 71 L MPV (7.4 - 10.4 FL) 9.9 Gran % (42.2 - 75.2 %) 89.5 H Lymphocytes % (20.5 - 51.1 %) 7.0 L Monocytes % (1.7 - 9.3 %) 1.3 L Eosinophils % (0 - 5 %) 0.1 Basophils % (0.0 - 2.0 %) 2.1 H Absolute Granulocytes (1.4 - 6.5 /CUMM) 7.2 H Segmented Neutrophils (42.2 - 75.2 %) 71 Band Neutrophils (0.0 - 5.0 %) 15 H Absolute Lymphocytes (1.2 - 3.4 /CUMM) 0.6 L Lymphocytes (20.5 - 51.1 %) 9 L Monocytes (1.7 - 9.3 %) 5 Absolute Monocytes (0.10 - 0.60 /CUMM) 0.1 Absolute Eosinophils (0.0 - 0.7 /CUMM) 0 Absolute Basophils (0.0 - 0.2 /CUMM) 0.2 Platelet Estimate (ADEQUATE) DECREASED Macrocytic Cells 2+ Target Cells 1+ Stomatocytes FEW
[2017-08-21] VITALS (9 sets, daily range): BP systolic 87–118; BP diastolic 60–84
[2017-08-21 04:29] LABS: ABSOLUTE BASOPHIL COUNT 0.7 /CUMM (0.0-0.2); ABSOLUTE EOSINOPHIL COUNT 0 /CUMM (0.0-0.7); ABSOLUTE GRANULOCYTE CT 0.1 /CUMM (1.4-6.5); ABSOLUTE LYMPH COUNT 0.7 /CUMM (1.2-3.4); ABSOLUTE MONOCYTE COUNT 6.5 /CUMM (0.10-0.60); BASOPHIL % 8.4 % (0.0-2.0); EOSINOPHIL % 0 % (0-5); MEAN PLATELET VOLUME 13.5 FL (7.4-10.4); PLATELET COUNT 58 /CUMM (130-400); RBC DISTRIBUTION WIDTH 25.2 % (11.5-14.5)
[2017-08-21 04:31] LABS: GRANULOCYTE % 1.6 % (42.2-75.2)
[2017-08-21 05:04] LABS: HEMATOCRIT 25.1 % (37-47); MEAN CORPUSCULAR HGB 37.6 PG (27.0-31.0); MEAN CORPUSCULAR HGB CONC 33.5 G/DL (33.0-37.0); MEAN CORPUSCULAR VOLUME 112.3 FL (81.0-99.0); RED BLOOD CELL CT 2.23 /CUMM (4.20-5.40); WHITE BLOOD CELL COUNT 7.5 /CUMM (4.8-10.8)
--- NOTE | 2017-08-21 07:08 | RADIOLOGY REPORT ---
EXAMINATION: XR PORTABLE CHEST CLINICAL INFORMATION: Diminutive. COMPARISON: Chest x-ray 08/20/2017 TECHNIQUE: Portable frontal view of the chest was obtained. FINDINGS: Stable cardiac silhouette. Endotracheal tube terminates approximately 4 cm above the level of the adonay. Enteric tube terminates well below the level of the diaphragm. Right-sided PICC line is unchanged in orientation. Unchanged low lung volumes. No lobar consolidation. Similar increased reticular basilar opacities. No gross pleural effusion. Old right-sided rib fracture. IMPRESSION: 1. Stable support apparatuses. 2. Stable cardiopulmonary examination.
--- NOTE | 2017-08-21 07:39 | PN- Resident CRCU ---
Henri INMAN,Mckinley 08/21/17 0738: Subjective HPI/CRCU Issues: Patient seen and examined. She is seen lying flat in bed resting comfortably, sedated, intubated, with multiple lines in place. She appears restless, but in no acute distress. Subjective complaints and review of systems are unobtainable. Objective Vital Signs & I&O Last 8 Hrs of Vitals and I&O: TMAX 100.7 SBP 85-115 Tele NSR, HR 80s-110s Exam General Appearance: sedated, intubated Other Physical Findings: GEN: ill appearing middle aged woman HEENT: NCAT, MMM, anicteric sclera, PERRLA, ET/OG tube NECK: Supple, no JVD, trachea midline, no accessory respiratory muscle use CARD: normal s1/s2 w/o m/g/r; tachycardic PULM: Scattered rhonchi with diminished bibasilar airflow GI: Soft, NT, ND, BS+, rectal tube in place : Waller catheter draining dark yellow urine NEURO: Sedated, spontaneous movement all four extremities EXT: TLC in RUE, normal pulses Current Medications: Current Medications Sig/Marcus Start time Last Medication Dose Route Stop Time Status Admin Albuterol Sulfate 3 ML BID 08/20 2200 AC 08/21 INH 0857 Fentanyl Citrate 100 MCG Q4 HRS NEEDED PRN 08/21 1030 AC 08/21 IV 1030 Fentanyl Citrate 1,000 MCG Q24H 08/21 1000 AC 08/21 Dextrose/Water 250 ML IV 1107 Fentanyl Citrate 100 MCG Q4 HRS NEEDED PRN 08/18 1430 DC 08/21 IV 0845 Heparin Sodium 5,000 UNIT Q8H 08/21 0953 AC 08/21 (Porcine) SC 1126 Insulin Human Regular 1 UNITS .STK-MED ONE 08/21 0129 DC IV 08/21 0130 Insulin Human Regular 0 Q4 08/16 1400 AC 08/21 SC 0130 Levothyroxine Sodium 68 MCG DAILY 08/17 1000 AC 08/21 IV 1115 Lorazepam 2 MG ONE ONE 08/20 1815 DC 08/20 IV 08/20 1816 1804 Lorazepam 2 MG Q2P PRN 08/20 1802 DC 08/21 IV 0822 Lorazepam 2 MG Q4P PRN 08/20 1030 DC 08/20 IV 1552 Magnesium Sulfate 1 GM Q2H 08/21 0745 DC 08/21 Dextrose/Water 100 ML IV 08/21 0944 0820 Magnesium Sulfate 1 GM ONCE ONE 08/21 0600 DC 08/21 Dextrose/Water 100 ML IV 08/21 0959 0555 Magnesium Sulfate 1 GM ONCE ONE 08/20 1545 DC 08/20 Dextrose/Water 100 ML IV 08/20 1944 1555 Moxifloxacin HCl 400 MG Q24H 08/19 1200 AC 08/21 N/A 1 UNIT IV 1117 Norepinephrine 4 MG Q10H 08/21 1400 AC Dextrose/Water 250 ML IV Norepinephrine 4 MG Q13H 08/20 0930 DC 08/21 Dextrose/Water 250 ML IV 08/21 1359 0512 Octreotide Acetate 50 MCG TID 08/21 1000 DC 08/21 SC 0822 Octreotide Acetate 25 MCG ONCE ONE 08/20 1745 DC 08/20 IV 08/20 174 2008 Ondansetron HCl 4 MG Q6P PRN 08/15 1845 AC IV Pantoprazole Sodium 40 MG DAILY 08/17 1400 AC 08/21 IV 0821 Phosphate 750 MG ONCE ONE 08/21 0745 DC 08/21 PO 08/21 0746 0821 Phosphate 250 MG ONCE ONE 08/21 0600 CAN PO 08/21 0601 Potassium Chloride 40 MEQ TID 08/20 1030 DC 08/20 PO 08/20 2201 2131 Potassium Chloride 20 MEQ Q20H 08/19 1200 DC 08/21 Dextrose/Water 1,000 ML IV 0405 Potassium Phosphate 15 mMol ONE ONE 08/21 1000 DC 08/21 Dextrose/Water 250 ML IV 08/21 1404 1115 Vancomycin HCl 125 MG Q6H 08/21 1400 AC 08/21 PO 1422 Zinc Oxide 1 ANGEL BID PRN 08/21 0615 AC 08/21 TOP 0820 Impression/Plan Impression/Problem List Impression: 57 year old woman with multiple medical problems significant for etoh abuse seen for evaluation of progressively worsening altered mental status over several weeks found to have gram negative septicemia/pneumonia. Patient remains stable on low dose levophed. Avelox is continued for her E. coli pneumonia. CTA with PE protocol ruled out any acute pulmonary embolism. She remains afebrile overnight. She continues to have large volume diarrhea with various electrolyte derrangements which are aggressively repleted. C. diff toxin returned positive for with oral vancomycin is started for a 10 day total course. Ativan PRN pushes are discontinued in lieu of Fentanyl drip as patient has increased agitation. CT Abdomen/pelvis demonstrated findings suggestive of pancolitis, possible due to severe C. difficle infection; ischemic collitis is unlikely according to the report. Problem List -Altered mental status, probable toxic metabolic encephalopathy -Septic shock, improving -E. coli bacteremia -C. Diff colitis -Acute Hypoxic/Hypercarbic Respiratory failure, intubated on vent -Thrombocytopenia, stable -Anion Gap Metabolic Acidosis, Resolved -Electrolyte abnormalities -History of EtOH -Hypertension -Hypothyroidism Plan -Continue ICU monitoring -Intubated, Vent: VT 450, RR 20, PEEP 5, FiO2 50% -CIWA -Guaic all stools -Accuchecks Q4H with Novolin SSI -OGT / Waller / RUE TLC / Rectal Tube -Avelox 400 mg IV daily -Levophed for hypotension, titrate to MAP > 65 -Fentanyl drip sedation -Protonix 40 mg IV Daily -Consults with ID and GI -Follow up cultures & sensitivites -Daily CBC, CMP, ABG, CXR -Type & Cross -Monitor H&H, transfuse Hgb/Plt PRN -Monitor for signs of EtOH withdrawal -Diurese as tolerated by BP -Pain control PRN -Tube Feeds: Vital AF @ 30mL/hr today -DVT PPx with ALPS/Lovenox, monitor for bleeding/thrombocytopenia -FULL CODE Problem List: 1. Altered mental status Pain Ratin Tomorrow's Labs & Rationales: See assessment Plan DVT/Prophylaxis: pharmacological Damion Cortez MD 08/21/17 1428: Attending MD Review Statement Attending Sign Off Attending Cosign Statement: I have: examined this patient, reviewed avalbl EMR data, personally reviewd images, discussd w/resident/PA/CHINESE HERBALIST, discussed mgmt plan w/phong, discussed mgmt plan w/CM, discussed mgmt plan w/pt, agreed w/resident/PA/CHINESE HERBALIST, amended to note. Other Findings: IDamion M.D. have examined this patient, reviewed available EMR data, personally reviewed images, discussed with resident/PA/CHINESE HERBALIST, discussed management plan with housestaff and nursing staff, discussed managment plan all of healthcare providers, discussed management plan with patient and/or family, agreed with resident/PA/CHINESE HERBALIST. The past history and parts of the chart have been autopopulated. Impression 57 year old woman * C.diff colitis * metabolic encephaloathy * e.coli sepstic shock * acute hypoxemic respiratory failure * electrolyte derangements * hx of etoh dependence Plan Respiratory -cont mechanical ventilation -no PE -multifocal airspace disease ID -cont Avelox -ID appreciated -C.diff colitis - PO vancomycin CVS -monitor hemodynamics Heme -monitor cbc/coags Metabolic -ins/outs -creatinine monitoring -aggressive repletion of phosphate, goal 4, mag goal 2, k goal 4 Alimentary -tube feeds Neuro -monitor DVT prohylaxis at all times GI appreciated TTS 40 min
--- NOTE | 2017-08-21 10:33 | PN- Infect Dx ---
Subjective Subjective: Afebrile. Her blood pressure has improved on decreasing pressors. Objective Last 24 Hrs of Vital Signs/I&O Vital Signs Date Time Temp Pulse Resp B/P B/P Pulse O2 O2 Flow FiO2 Mean Ox Delivery Rate 08/21 0800 99.2 90 22 118/84 08/21 0800 97 Ventilator 45% 08/21 0800 99.2 90 20 118/84 97 Ventilator 45% 08/21 0756 45 08/21 0600 126 20 108/81 08/21 0535 650 08/21 0512 90 106/82 08/21 0505 40 08/21 0400 40 08/21 0400 98.9 110 20 100/60 08/21 0400 96 Ventilator 40% 08/21 0109 40 08/21 0106 50 03/ 0000 99.7 98 20 112/80 / 0000 98 Ventilator 50% / 0000 99.7 98 20 112/80 98 Ventilator 50% / 2300 99.7 98 20 112/80 99 Ventilator 50% / 2212 50 /15 2200 106 20 94/64 08/20 2009 114 98/70 /1999 99.2 80 20 140/100 /1999 97 Ventilator 50% /15 1930 50 /15 1605 60 /15 1600 99.4 94 20 128/84 /15 1600 99.4 94 20 128/84 94 Ventilator 60% /15 1600 94 Ventilator 50% /15 1420 60 / 1200 98.9 / 1200 98.9 98 20 112/80 03/ 1200 96 Ventilator 60% / 1145 60 Intake & Output 08/21 1600 /16 0800 08/21 0000 Intake Total 964 1020 Output Total 210 215 Balance 754 805 Intake, IV 620 733 Intake, Oral 0 0 Intake, Tube 254 167 Feeding Intake, Tube 90 120 Irrigant Number 4 0 Bowel Movements Output, Urine 210 215 Physical Exam Other Physical Findings: She remains sedated on the ventilator, but is responsive to pain Lungs are clear anteriorly Heart regular rhythm with no murmur Abdomen is soft, mild tenderness on palpation diffusely, with positive bowel sounds Extremities no cyanosis, clubbing or edema; PICC in the right upper extremity with no inflammation at the site Waller catheter remains in place Results Last 24 Hours of Lab Results: Laboratory Tests 08/21 08/21 8732 [id number] Blood Gas pH (7.35 - 7.45 PH) 7.44 pCO2 (35 - 45 TORR) 27 L pO2 (80 - 100 TORR) 56 L HCO3 (21 - 28 MEQ/L) 18 L ABG O2 Sat (Measured) (>96.0 %) 87.0 L P-50 (Temp Corrected) Y Carboxyhemoglobin (1.5 - 5.0 %) 0.1 L O2 Concentration % 40% Temperature (97.0 - 100.0 FARH) 98.9 Respiration Rate (BPM) 20 O2 Delivery Method ESPRIT Vent Mode AC Expiratory Pressure (CMH2O/P) 5 Tidal Volume (CC) 450 Chemistry Sodium (137 - 145 mmol/L) 140 Potassium (3.5 - 5.1 mmol/L) 4.3 Chloride (98 - 107 mmol/L) 109 H Carbon Dioxide (22 - 30 mmol/L) 27 Anion Gap (5 - 16) 4 L BUN (7 - 17 mg/dL) 5 L Creatinine (0.5 - 1.0 mg/dL) 0.4 L Estimated GFR (>60 ml/min) > 60 Glucose (65 - 99 mg/dL) 130 H Calcium (8.4 - 10.2 mg/dL) 6.7 L Phosphorus (2.5 - 4.5 mg/dL) 1.6 L Magnesium (1.6 - 2.3 mg/dL) 1.8 Total Bilirubin (0.2 - 1.3 mg/dL) 3.2 H AST (14 - 36 U/L) 77 H ALT (9 - 52 U/L) 65 H Albumin (3.5 - 5.0 g/dL) 2.0 L Hematology CBC w Diff MAN DIFF ORDERED WBC (4.8 - 10.8 /CUMM) 7.5 RBC (4.20 - 5.40 /CUMM) 2.23 L Hgb (12.0 - 16.0 G/DL) 8.4 L Hct (37 - 47 %) 25.1 L MCV (81.0 - 99.0 FL) 112.3 H MCH (27.0 - 31.0 PG) 37.6 H MCHC (33.0 - 37.0 G/DL) 33.5 RDW (11.5 - 14.5 %) 25.2 H Plt Count (130 - 400 /CUMM) 58 L MPV (7.4 - 10.4 FL) 13.5 H Gran % (42.2 - 75.2 %) 1.6 L Lymphocytes % (20.5 - 51.1 %) 8.8 L Monocytes % (1.7 - 9.3 %) 81.2 H Eosinophils % (0 - 5 %) 0 Basophils % (0.0 - 2.0 %) 8.4 H Absolute Granulocytes (1.4 - 6.5 /CUMM) 0.1 L Segmented Neutrophils (42.2 - 75.2 %) 80 H Band Neutrophils (0.0 - 5.0 %) 1 Absolute Lymphocytes (1.2 - 3.4 /CUMM) 0.7 L Lymphocytes (20.5 - 51.1 %) 10 L Monocytes (1.7 - 9.3 %) 9 Absolute Monocytes (0.10 - 0.60 /CUMM) 6.5 H Absolute Eosinophils (0.0 - 0.7 /CUMM) 0 Absolute Basophils (0.0 - 0.2 /CUMM) 0.7 Nucleated RBCs (0.0 - 0.0 /100WBC) 6 H Platelet Estimate (ADEQUATE) DECREASED Polychromasia 1+ Poikilocytosis 2+ Basophilic Stippling SLIGHT Anisocytosis 2+ Macrocytic Cells 2+ Ovalocytes 1+ Stomatocytes 1+ Miscellaneous Phlebotomy Draw Site LEFT BRACHIAL Other Body Source Fld Total RBCs Counted (%) 100 03/15 1600 Chemistry Sodium (137 - 145 mmol/L) 142 Potassium (3.5 - 5.1 mmol/L) 3.6 Chloride (98 - 107 mmol/L) 107 Carbon Dioxide (22 - 30 mmol/L) 29 Anion Gap (5 - 16) 6 BUN (7 - 17 mg/dL) 6 L Creatinine (0.5 - 1.0 mg/dL) 0.4 L Estimated GFR (>60 ml/min) > 60 Glucose (65 - 99 mg/dL) 145 H Calcium (8.4 - 10.2 mg/dL) 6.6 L Phosphorus (2.5 - 4.5 mg/dL) 2.1 L Magnesium (1.6 - 2.3 mg/dL) 1.7 Total Bilirubin (0.2 - 1.3 mg/dL) 3.8 H AST (14 - 36 U/L) 109 H ALT (9 - 52 U/L) 63 H Albumin (3.5 - 5.0 g/dL) 1.9 L Last 24 Hours of Will Results: Stool C. difficile August 20 pending Recent Imaging Studies: Chest x-ray August 21 reveals no change in the reticular basilar opacities Assessment/Plan ID Impression: Remains critically ill, but with overall improvement, with decreasing oxygen requirements, no further fevers, white blood cell count remaining normal, with decreased bands, and with increasing platelets on Moxifloxacin Day 2 of treatment for Escherichia coli sepsis, most likely secondary to pneumonia, with the initial CT scan revealing bilateral patchy opacities, and with no evidence of any intra-abdominal source on her CT of the abdomen and pelvis. Her diarrhea persists, likely multifactorial, with the initial C. difficile negative. Her elevated d-dimer is noted, of unclear significance, and further evaluation is being considered. Suggestion: 1. Further evaluation regarding the elevated d-dimer per ICU team 2. Follow-up stool for C. difficile 3. Continue Moxifloxacin
--- NOTE | 2017-08-21 11:09 | CT SCAN REPORT ---
EXAMINATION: CT PULMONARY EMBOLISM STUDY CLINICAL INFORMATION: Tachycardia, hypoxia, elevated d-dimer. COMPARISON: Same day chest radiograph. TECHNIQUE: Contiguous helical images of the chest were obtained following the administration of IV contrast. Multiplanar reconstructions were performed. MIPS were obtained and reviewed. DLP: 1158 mGy-cm. CONTRAST: 95 mL of Optiray 350 were administered without incident. FINDINGS: An endotracheal tube is in place. The tip is approximately 3 cm above the adonay. An enteric tube is in place. The tip terminates within the stomach. The heart is of normal size. There is no pericardial effusion. The great vessels are unremarkable. Specifically, there is no pulmonary arterial filling defect. There is no CT evidence for pulmonary embolism. There are no chest wall masses. Review of lung windows demonstrates that there are small bilateral pleural effusions with bilateral posterior basal segment lower lobe airspace disease. There is patchy groundglass opacification noted within both lobes, predominantly the right upper lobe. There are mild manifestations of emphysema identified. Limited evaluation of the upper abdomen demonstrates that the liver is of normal size and diffuse decreased attenuation without focal lesions. Normal adrenal glands are identified. There is a small amount of free fluid within the left upper quadrant. There are healed/healing lateral right rib fractures. IMPRESSION: No CT evidence for pulmonary embolism. Small bilateral pleural effusions with associated bilateral lower lobe airspace disease. Multifocal airspace disease, nonspecific, but possibly indicative of pneumonia. Endotracheal tube and enteric tube in place. Hepatic steatosis. Small amount of free fluid within the left upper quadrant.
--- NOTE | 2017-08-21 14:33 | CT SCAN REPORT ---
EXAMINATION: CT ABDOMEN AND PELVIS WITH CONTRAST CLINICAL INFORMATION: Gram-negative hu bacteremia. Poor urine output. Alcoholic hepatitis. History of alcohol abuse. COMPARISON: CT scan of the abdomen and pelvis dated 08/17/2017. TECHNIQUE: Multidetector CT volumetric acquisition of the abdomen and pelvis was performed after the administration of 95 and mL of intravenous Optiray 350. The data set was reformatted in the sagittal and coronal planes and reviewed on an independent workstation. DLP: 1158.26 mGy-cm. FINDINGS: Evaluation is limited by beam hardening streak artifact from the patient's arms. LOWER CHEST: Small bilateral pleural effusions and associated bilateral lower lobe dependent atelectasis are seen. There are patchy areas of reticular and groundglass opacities in the lower lobes, lingula and right middle lobe, perhaps related to diffuse viral or atypical pneumonitis. LIVER, GALLBLADDER, BILIARY TREE: Liver borderline enlarged, measuring 18.7 cm longitudinally. Diffuse low-attenuation and heterogeneous enhancement is seen throughout the liver, unchanged from the previous study, most consistent with hepatic steatosis. Small areas of fatty sparing is seen adjacent to the gallbladder fossa. No focal cystic or solid mass or intra-or extrahepatic ductal dilatation. Hepatic and portal veins patent. Small volume ascites in the abdomen is again seen, unchanged and also extends minimally around the gallbladder. Gallbladder well distended. Small gallstones are seen in the dependent portion of the gallbladder, similar to the previous exam. Mild gallbladder wall enhancement and thickening is seen, a nonspecific finding, new compared to prior exam. PANCREAS: Normal. No ductal dilatation, mass, or surrounding stranding. SPLEEN: Normal size and appearance. Splenic vein patent. ADRENAL GLANDS AND KIDNEYS: Adrenal glands normal. Kidneys bilaterally symmetric in size and function. There is a nonobstructing 6 x 4 mm calcification in the upper pole of the left kidney and a 0.5 cm calcification in the lower pole of the left kidney, both unchanged compared to the prior study. Pixel attenuation values in the larger calcification extends up to 553 Hounsfield units, consistent with a calcified/non-uric acid stone. No focal mass, hydronephrosis, or perinephric stranding. URETERS AND BLADDER: Ureters decompressed and within normal limits. Bladder decompressed by a Waller catheter and not adequately assessed. Smaller loculations also seen in the bladder lumen, consistent with exogenous introduction. PELVIC ORGANS: The patient is status post hysterectomy. Ovaries bilaterally are atrophic but unremarkable. No suspicious adnexal mass. GASTROINTESTINAL TRACT: As noted previously, there is diffuse wall thickening and mucosal hyperenhancement seen involving the entire colon with mild surrounding edema in the mesentery. No evidence of pneumatosis or bowel perforation or focal interloop abscess formation is seen. Appendix is not seen. Small bowel loops diffusely mildly distended and fluid-filled. Free fluid is seen surrounding the small bowel loops in the right lower quadrant. Compared to the prior exam, the fluid distention of the small bowel loops is slightly more pronounced. Enteric tube courses into the stomach with tip in the gastric body. Abdominal wall: Mild anasarca in the soft tissues is again seen. Small injection granulomas are seen in the subcutaneous tissues of the right lower quadrant. LYMPHOVASCULAR STRUCTURES: Abdominal aorta normal in caliber. No periaortic collections. Moderate atherosclerotic calcifications of the aorta including at the origins of the celiac axis, SMA and RAMAN noted. The visceral vessels all enhance normally. No abdominal or pelvic adenopathy or free fluid collection. BONES: Multilevel mild vertebral spondylosis in the lumbar spine. No suspicious bone findings. IMPRESSION: 1. Persistent diffuse wall thickening and mucosal hyperenhancement of the colon is seen with surrounding edema and mild mesenteric infiltration. There is also mild diffuse fluid distention and minimal marrow enhancement of the small bowel loops in the abdomen and pelvis. Small volume free fluid in the abdomen is seen. Findings are slightly more pronounced than on the previous study and are suspicious for a pancolitis (infectious, inflammatory) and enteritis, possibly reactive. Ischemic etiology to the pancreatitis is felt to be unlikely given normal enhancement of all the mesenteric vessels. However, close clinical correlation is requested to exclude hypoperfusion due to septic shock as a possible etiology for ischemic colitis. 2. Small bilateral pleural effusions with bilateral lower lobe dependent atelectasis. Diffuse parenchymal groundglass and reticular opacities are also seen in the included mid and lower lungs, similar to prior studies, consistent with a diffuse viral or atypical pneumonitis. 3. Borderline enlarged liver with hepatic steatosis and focal area of fatty sparing near the gallbladder fossa. 4. Two nonobstructing left renal calculi are seen, unchanged.
[2017-08-22] VITALS (8 sets, daily range): BP systolic 84–120; BP diastolic 60–76
[2017-08-22 04:20] LABS: ABSOLUTE BASOPHIL COUNT 0 /CUMM (0.0-0.2); ABSOLUTE EOSINOPHIL COUNT 0 /CUMM (0.0-0.7); ABSOLUTE LYMPH COUNT 0.8 /CUMM (1.2-3.4); ABSOLUTE MONOCYTE COUNT 0.3 /CUMM (0.10-0.60); EOSINOPHIL % 0.4 % (0-5); WHITE BLOOD CELL COUNT 7.9 /CUMM (4.8-10.8)
[2017-08-22 04:47] LABS: ABSOLUTE GRANULOCYTE CT 6.8 /CUMM (1.4-6.5); BASOPHIL % 0.2 % (0.0-2.0); MEAN CORPUSCULAR HGB 38.1 PG (27.0-31.0); MEAN CORPUSCULAR HGB CONC 33.6 G/DL (33.0-37.0); MEAN CORPUSCULAR VOLUME 113.5 FL (81.0-99.0); MEAN PLATELET VOLUME 12.4 FL (7.4-10.4); RBC DISTRIBUTION WIDTH 25.2 % (11.5-14.5); RED BLOOD CELL CT 2.07 /CUMM (4.20-5.40)
[2017-08-22 04:49] LABS: GRANULOCYTE % 86.1 % (42.2-75.2); HEMATOCRIT 23.4 % (37-47)
[2017-08-22 04:59] LABS: PLATELET COUNT 61 /CUMM (130-400)
--- NOTE | 2017-08-22 08:05 | PN- Resident CRCU ---
Subjective HPI/CRCU Issues: Patient is still in the ICU requiring mechanical ventilation. Patient followed up and examined by me today. She is resting comfortably in bed , mechanically ventilated via ET intubation, doesn't seem to be in distress, no fever or chills reported overnight no other active issues reported either. Objective Vital Signs & I&O Last 8 Hrs of Vitals and I&O: Intake & Output 08/22 1600 Intake Total 1430 Output Total 200 Balance 1230 Intake, IV 1190 Intake, Tube 240 Feeding Number 1 Bowel Movements Output, Urine 200 Exam General Appearance: sedated, intubated, overweight Other Physical Findings: HEENT: NCAT, MMM, anicteric sclera, PERRLA, ET/OG tube NECK: Supple, no JVD, trachea midline, no accessory respiratory muscle use CARD: normal s1/s2 w/o m/g/r; tachycardic PULM: Scattered rhonchi with diminished bibasilar airflow GI: Soft, NT, ND, BS+, rectal tube in place : Waller catheter draining dark yellow urine NEURO: Sedated, spontaneous movement all four extremities EXT: TLC in RUE, normal pulses Current Medications: Current Medications Sig/Marcus Start time Last Medication Dose Route Stop Time Status Admin Albuterol Sulfate 3 ML BID 08/20 2200 AC 08/22 INH 1027 Fentanyl Citrate 1,000 MCG Q5H 08/22 0900 AC 08/22 Dextrose/Water 250 ML IV 0900 Fentanyl Citrate 100 MCG Q4 HRS NEEDED PRN 08/21 1030 AC 08/21 IV 1030 Fentanyl Citrate 1,000 MCG Q24H 08/21 1000 DC 08/21 Dextrose/Water 250 ML IV 08/22 0859 2200 Heparin Sodium 5,000 UNIT Q8 08/22 1400 AC 08/22 (Porcine) SC 1435 Heparin Sodium 5,000 UNIT Q8H 08/21 0953 DC 08/22 (Porcine) SC 0255 Insulin Human Regular 0 Q4 08/16 1400 AC 08/21 SC 0130 Levothyroxine Sodium 68 MCG DAILY 08/17 1000 AC 08/22 IV 1000 Magnesium Sulfate 1 GM Q2H 08/22 1415 DC 08/22 Dextrose/Water 100 ML IV 08/22 1614 1438 Moxifloxacin HCl 400 MG Q24H 08/19 1200 AC 08/22 N/A 1 UNIT IV 1136 Norepinephrine 4 MG Q10H 08/21 1400 DC 08/21 Dextrose/Water 250 ML IV 1821 Ondansetron HCl 4 MG Q6P PRN 08/15 1845 AC IV Pantoprazole Sodium 40 MG DAILY 08/17 1400 AC 08/22 IV 1000 Potassium Phosphate 15 mMol ONE ONE 08/22 1415 AC 08/22 Dextrose/Water 250 ML IV 08/22 1819 1652 Sodium Chloride 500 ML BOLUS ONE 08/22 1415 DC 08/22 IV 08/22 1514 1436 Vancomycin HCl 125 MG Q6H 08/21 1400 AC 08/22 PO 1435 Vitamin A/Vitamin D 1 ANGEL BID 08/22 1005 AC 08/22 TOP 1438 Zinc Oxide 1 ANGEL BID PRN 08/21 0615 AC 08/21 TOP 0820 Impression/Plan Impression/Problem List Impression: 57 year old woman with multiple medical problems significant for etoh abuse seen for evaluation of progressively worsening altered mental status over several weeks found to have E coli septicemia/pneumonia. Patient remains stable on low dose levophed. Avelox is continued for her E. coli pneumonia. She remains afebrile overnight. Her diarrhea is better today and so is her various electrolyte derrangements which are aggressively repleted. C. diff toxin returned positive for with oral vancomycin was started yesterday for a 10 day total course. Ativan PRN pushes were discontinued yesterday in lieu of Fentanyl drip as patient had increased agitation which is better today. CT Abdomen/pelvis demonstrated findings suggestive of pancolitis, possible due to severe C. difficle infection; ischemic collitis is unlikely according to the report. Problem List -Altered mental status, probable toxic metabolic encephalopathy -Septic shock, improving -E. coli bacteremia -C. Diff colitis, on PO Vancomycin -Acute Hypoxic/Hypercarbic Respiratory failure, intubated on vent -Thrombocytopenia, stable -Anion Gap Metabolic Acidosis, Resolved -Electrolyte abnormalities, repleting daily -History of EtOH -h/o Hypertension -Hypothyroidism Plan -Continue ICU monitoring -Intubated, Vent: VT 450, RR 20, PEEP 5, FiO2 40% -CIWA protocol -Guaic all stools -Accuchecks Q4H with Novolin SSI -OGT / Waller / RUE TLC / Rectal Tube -Avelox 400 mg IV daily -Fentanyl drip sedation -Protonix 40 mg IV Daily -Consults with ID and GI -Follow up cultures & sensitivites -Daily CBC, CMP, ABG, CXR -Type & Cross -Monitor H&H, transfuse Hgb/Plt PRN -Monitor for signs of EtOH withdrawal -Diurese as tolerated by BP -Pain control PRN -Tube Feeds: Vital AF @ 30mL/hr today -DVT PPx with ALPS/Lovenox, monitor for bleeding/thrombocytopenia -FULL CODE Problem List: 1. Altered mental status Pain Ratin Tomorrow's Labs & Rationales: CBC, ICU Bundle, ABG, CXR Plan DVT/Prophylaxis: pharmacological
--- NOTE | 2017-08-22 08:35 | RADIOLOGY REPORT ---
EXAMINATION: XR PORTABLE CHEST CLINICAL INFORMATION: Respiratory failure; question pneumonia. COMPARISON: Prior chest radiographs, most recently 08/21/2017; CT thorax dated 08/21/2017. TECHNIQUE: Portable frontal view of the chest was obtained. FINDINGS: The heart, great vessels, pulmonary vasculature and mediastinum are stable. Endotracheal tube tip is situated approximately 3 cm superior to the adonay. A nasogastric tube is seen with tip inferior to the left hemidiaphragm and cutoff of the submitted examination. PICC catheter position unchanged. Correlating with the CT examination, there is very mild right upper lung field airspace disease. The right lung field appears relatively clear. Known small pleural effusions are not appreciated on the present examination. There is no pneumothorax. No acute osseous abnormality seen. IMPRESSION: There is very mild right upper lobe airspace disease. Recommend continued follow-up to clearance.
--- NOTE | 2017-08-22 09:26 | PN- Infect Dx ---
Subjective Subjective: Afebrile. She is now off pressors. Her diarrhea is improving. Objective Last 24 Hrs of Vital Signs/I&O Vital Signs Date Time Temp Pulse Resp B/P B/P Pulse O2 O2 Flow FiO2 Mean Ox Delivery Rate 08/22 0815 40 08/22 0615 40 08/22 0600 99.1 94 20 90/66 08/22 0400 99.1 92 20 104/72 08/22 0400 97 Ventilator 40% 08/22 0344 40 08/22 0256 107 87/68 08/22 0200 98.3 86 20 85/69 08/22 0106 40 08/22 0000 98.3 102 20 84/62 08/22 0000 98.3 102 20 90/60 92 Ventilator 40% 08/22 0000 94 Ventilator 40% 08/21 2215 40 08/21 2200 98.9 96 20 87/60 08/21 2000 98.9 102 21 104/70 08/21 2000 95 Ventilator 40% 08/21 1925 40 08/21 1821 97 110/79 08/21 1630 45 08/21 1600 99.0 86 20 100/70 08/21 1600 99.0 86 20 100/70 98 Ventilator 45% 08/21 1600 98 Ventilator 45% 08/21 1436 45 08/21 1400 99.3 82 20 98/72 16 1200 99.3 82 20 112/84 08/21 1200 96 Ventilator 45% 08/21 1110 45 Intake & Output 08/22 1600 08/22 0800 08/22 0000 Intake Total 664 636 Output Total 150 170 Balance 514 466 Intake, IV 315 306 Intake, Oral 0 0 Intake, Other 60 Intake, Tube 259 250 Feeding Intake, Tube 30 80 Irrigant Number 2 2 Bowel Movements Output, Urine 150 170 Physical Exam Other Physical Findings: She is responsive but remains lethargic on the ventilator Lungs bilateral rhonchi Heart regular rhythm with no murmur Abdomen is soft, nontender with positive bowel sounds Extremities no cyanosis, clubbing or edema; PICC in the right upper extremity with no inflammation at the site Waller catheter remains in place Results Last 24 Hours of Lab Results: Laboratory Tests 08/22 08/22 0610 0340 Blood Gas pH (7.35 - 7.45 PH) 7.44 pCO2 (35 - 45 TORR) 38 pO2 (80 - 100 TORR) 97 HCO3 (21 - 28 MEQ/L) 25 ABG O2 Sat (Measured) (>96.0 %) 97.0 P-50 (Temp Corrected) N Carboxyhemoglobin (1.5 - 5.0 %) 0.1 L O2 Concentration % .40 Respiration Rate (BPM) 20 O2 Delivery Method VENT Vent Mode A/C Expiratory Pressure (CMH2O/P) 5 Tidal Volume (CC) 450 Chemistry Sodium (137 - 145 mmol/L) 137 Potassium (3.5 - 5.1 mmol/L) 4.1 Chloride (98 - 107 mmol/L) 106 Carbon Dioxide (22 - 30 mmol/L) 26 Anion Gap (5 - 16) 4 L BUN (7 - 17 mg/dL) 5 L Creatinine (0.5 - 1.0 mg/dL) 0.4 L Estimated GFR (>60 ml/min) > 60 Glucose (65 - 99 mg/dL) 88 Calcium (8.4 - 10.2 mg/dL) 6.4 L Phosphorus (2.5 - 4.5 mg/dL) 3.2 Magnesium (1.6 - 2.3 mg/dL) 1.9 Total Bilirubin (0.2 - 1.3 mg/dL) 3.5 H AST (14 - 36 U/L) 53 H ALT (9 - 52 U/L) 52 Albumin (3.5 - 5.0 g/dL) 1.8 L Hematology CBC w Diff MAN DIFF ORDERED WBC (4.8 - 10.8 /CUMM) 7.9 RBC (4.20 - 5.40 /CUMM) 2.07 L Hgb (12.0 - 16.0 G/DL) 7.9 L Hct (37 - 47 %) 23.4 L MCV (81.0 - 99.0 FL) 113.5 H MCH (27.0 - 31.0 PG) 38.1 H MCHC (33.0 - 37.0 G/DL) 33.6 RDW (11.5 - 14.5 %) 25.2 H Plt Count (130 - 400 /CUMM) 61 L MPV (7.4 - 10.4 FL) 12.4 H Gran % (42.2 - 75.2 %) 86.1 H Lymphocytes % (20.5 - 51.1 %) 9.7 L Monocytes % (1.7 - 9.3 %) 3.6 Eosinophils % (0 - 5 %) 0.4 Basophils % (0.0 - 2.0 %) 0.2 Absolute Granulocytes (1.4 - 6.5 /CUMM) 6.8 H Segmented Neutrophils (42.2 - 75.2 %) 79 H Band Neutrophils (0.0 - 5.0 %) 5 Absolute Lymphocytes (1.2 - 3.4 /CUMM) 0.8 L Lymphocytes (20.5 - 51.1 %) 10 L Monocytes (1.7 - 9.3 %) 6 Absolute Monocytes (0.10 - 0.60 /CUMM) 0.3 Absolute Eosinophils (0.0 - 0.7 /CUMM) 0 Absolute Basophils (0.0 - 0.2 /CUMM) 0 Platelet Estimate (ADEQUATE) DECREASED Polychromasia 1+ Hypochromic-Microcytic 2+ Poikilocytosis 1+ Miscellaneous Phlebotomy Draw Site LEFT BRACHIAL Last 24 Hours of Will Results: Stool C. difficile August 20 positive Recent Imaging Studies: CTA of the chest August 21 no evidence of pulmonary emboli; small bilateral pleural effusions with associated bilateral lower lobe airspace disease; patchy ground glass opacifications within both lungs, predominantly the right upper lobe CT of the abdomen and pelvis August 21 reveals persistent diffuse wall thickening and mucosal hyperenhancement of the colon; small volume free fluid in the abdomen Chest x-ray August 22 reveals very mild right upper lobe airspace disease Assessment/Plan ID Impression: Overall improvement, now off pressors, with decreasing oxygen requirements, and with temperatures and white blood cell count normal on Moxifloxacin Day 3 of treatment for Escherichia coli sepsis, most likely secondary to pneumonia, and po Vancomycin, Day 1 of treatment for C. difficile, with the CT of the abdomen and pelvis revealing pancolitis. Suggestion: 1. Continue Moxifloxacin and po Vancomycin
--- NOTE | 2017-08-22 10:03 | PN- CRCU ---
Subjective HPI/Critical Care Issues: Patient remains intubated in hepatic failure sedated on fentanyl pressors have been tapered off Objective Current Medications: Current Medications Sig/Marcus Start time Last Medication Dose Route Stop Time Status Admin Albuterol Sulfate 3 ML BID 08/20 2200 AC 08/21 INH 2035 Fentanyl Citrate 1,000 MCG Q5H 08/22 0900 AC Dextrose/Water 250 ML IV Fentanyl Citrate 100 MCG Q4 HRS NEEDED PRN 08/21 1030 AC 08/21 IV 1030 Fentanyl Citrate 1,000 MCG Q24H 08/21 1000 DC 08/21 Dextrose/Water 250 ML IV 08/22 0859 2200 Heparin Sodium 5,000 UNIT Q8H 08/21 0953 AC 08/22 (Porcine) SC 0255 Insulin Human Regular 0 Q4 08/16 1400 AC 08/21 SC 0130 Levothyroxine Sodium 68 MCG DAILY 08/17 1000 AC 08/21 IV 1115 Moxifloxacin HCl 400 MG Q24H 08/19 1200 AC 08/21 N/A 1 UNIT IV 1117 Norepinephrine 4 MG Q10H 08/21 1400 AC 08/21 Dextrose/Water 250 ML IV 1821 Norepinephrine 4 MG Q13H 08/20 0930 DC 08/21 Dextrose/Water 250 ML IV 08/21 1359 0512 Octreotide Acetate 50 MCG TID 08/21 1000 DC 08/21 SC 0822 Ondansetron HCl 4 MG Q6P PRN 08/15 1845 IV Pantoprazole Sodium 40 MG DAILY 08/17 1400 AC 08/21 IV 0821 Potassium Phosphate 15 mMol ONE ONE 08/21 1000 DC 08/21 Dextrose/Water 250 ML IV 08/21 1404 1115 Vancomycin HCl 125 MG Q6H 08/21 1400 AC 08/22 PO 0822 Zinc Oxide 1 ANGEL BID PRN 08/21 0615 AC 08/21 TOP 0820 Vital Signs & I&O Last 24 Hrs of Vitals and I&O: Vital Signs Date Time Temp Pulse Resp B/P B/P Pulse O2 O2 Flow FiO2 Mean Ox Delivery Rate 08/22 0815 40 08/22 0615 40 08/22 0600 99.1 94 20 90/66 08/22 0400 99.1 92 20 104/72 08/22 0400 97 Ventilator 40% 08/22 0344 40 08/22 0256 107 87/68 08/22 0200 98.3 86 20 85/69 08/22 0106 40 08/22 0000 98.3 102 20 84/62 08/22 0000 98.3 102 20 90/60 92 Ventilator 40% 08/22 0000 94 Ventilator 40% / 2215 40 08/21 2200 98.9 96 20 87/60 08/21 2000 98.9 102 21 104/70 08/22 1999 95 Ventilator 40% 08/21 1925 40 08/21 1821 97 110/79 08/21 1630 45 08/21 1600 99.0 86 20 100/70 08/21 1600 99.0 86 20 100/70 98 Ventilator 45% 08/21 1600 98 Ventilator 45% 08/21 1436 45 08/21 1400 99.3 82 20 98/72 08/21 1200 99.3 82 20 112/84 08/21 1200 96 Ventilator 45% 08/21 1110 45 Intake & Output 08/22 1600 08/22 0800 08/22 0000 Intake Total 664 636 Output Total 150 170 Balance 514 466 Intake, IV 315 306 Intake, Oral 0 0 Intake, Other 60 Intake, Tube 259 250 Feeding Intake, Tube 30 80 Irrigant Number 2 2 Bowel Movements Output, Urine 150 170 Oxygen saturation 97% FiO2 0.4 exam for chest is decreased breath sounds occasional rhonchi cardiac exam shows a regular S1 and S2 without murmurs abdomen is firm atrial blood gases reviewed on current ventilator settings with no changes recommended other then FiO2 can be tapered Impression/Plan Impression/Plan Impression/Plan: 57-year-old woman remains intubated with hepatic failure being treated for sepsis and C. difficile Recommendations: Taper FiO2. Attempt to Taper fentanyl. Complete course of antibiotics. Once sedation decreased can begin trials of CPAP pressure support weaning
--- NOTE | 2017-08-22 19:47 | PN- Gastroenterology ---
Assessment/Plan GI Assessment/Recommendations: ASSESSMENT: 1. C. Diff Colitis 2. E. Coli Pneumonia and Sepsis 3. Abnormal CT Scan of the Abdomen and Pelvis 4. Encephalopathy -- likely multifactorial. Given underlyig alcoholic liver disease, encephalopathy would be worsened by intercurrent infection. 5. RECOMMENDATIONS: 1. Continue Vancomycin 2. Continue to follow electrolytes closely including PO4, Ca, K, and replete fully 3. Encephalopathy multifactorial. Unable to fully assess given intubation and mechanical ventilation. Will evaluate more fully when extubated expect improvement as infection resolves 4. Antibiotics for pneumonia per ID GI will sign off for now as patient appears to be improving with treatment of C. Diff. Please do not hesitate to contact us if new issues arise. Subjective Subjective: Patient has been intubated. She has an E. Coli pneumonia with septicemia and has been diagnosed with C. Diff as well (positive by EIA). She has been started on Vancomycin 125 mg orally QID and her diarrheal episodes have decreased markedly. She had a CT Scan of the abdomen, the results are as follows: IMPRESSION: 1. Persistent diffuse wall thickening and mucosal hyperenhancement of the colon is seen with surrounding edema and mild mesenteric infiltration. There is also mild diffuse fluid distention and minimal marrow enhancement of the small bowel loops in the abdomen and pelvis. Small volume free fluid in the abdomen is seen. Findings are slightly more pronounced than on the previous study and are suspicious for a pancolitis (infectious, inflammatory) and enteritis, possibly reactive. Ischemic etiology to the pancreatitis is felt to be unlikely given normal enhancement of all the mesenteric vessels. However, close clinical correlation is requested to exclude hypoperfusion due to septic shock as a possible etiology for ischemic colitis. 2. Small bilateral pleural effusions with bilateral lower lobe dependent atelectasis. Diffuse parenchymal groundglass and reticular opacities are also seen in the included mid and lower lungs, similar to prior studies, consistent with a diffuse viral or atypical pneumonitis. 3. Borderline enlarged liver with hepatic steatosis and focal area of fatty sparing near the gallbladder fossa. 4. Two nonobstructing left renal calculi are seen, unchanged. Patient is unable to provide history as she is intubated. Although she is alert. Her ammonia levels have decreased. Objective Vital Signs and I&Os Vital Signs Date Time Temp Pulse Resp B/P B/P Pulse O2 O2 Flow FiO2 Mean Ox Delivery Rate 03/17 1643 40 08/22 1600 93 Ventilator 40% 08/22 1600 98.8 110 20 112/70 100 Ventilator 40% 08/22 1419 40 08/22 1200 95 Ventilator 40% 08/22 1130 40 08/22 0815 40 08/22 0800 96 Ventilator 40% 08/22 0800 99.0 88 18 100/60 98 Ventilator 40% 08/22 0615 40 08/22 0600 99.1 94 20 90/66 08/22 0400 99.1 92 20 104/72 08/22 0400 97 Ventilator 40% 08/22 0344 40 08/22 0256 107 87/68 08/22 0200 98.3 86 20 85/69 08/22 0106 40 08/22 0000 98.3 102 20 84/62 08/22 0000 98.3 102 20 90/60 92 Ventilator 40% 08/22 0000 94 Ventilator 40% 08/21 2215 40 08/21 2200 98.9 96 20 87/60 08/21 2000 98.9 102 21 104/70 08/21 2000 95 Ventilator 40% Intake & Output 08/22 1600 08/22 0400 08/21 1600 08/21 0400 08/20 1600 08/20 0400 Intake Total 2094 636 2383 1020 2274 730.4 Output Total 350 170 510 215 440 350 Balance 7655 994 5333 805 1834 380.4 Intake, IV 8606 861 0659 733 1624 550.4 Intake, Oral 0 0 0 0 Intake, Other 60 Intake, Tube 499 250 496 167 380 120 Feeding Intake, Tube 30 80 240 120 270 60 Irrigant Number 3 2 6 0 3 Bowel Movements Output, Stool 100 Output, Urine 350 170 510 215 440 250 Patient 145 lb Weight Weight Bed scale Measurement Method Physical Exam General Appearance: alert, awake Head: normal appearance Neck: supple, full range of motion Respiratory: rhonchi Cardiovascular: regular rate/rhythm, Normal S1 and S2 without rub, murmur or gallop Abdomen: soft, distended, mild decrease in bowel sounds Extremities: normal inspection Neurologic/Psychiatric: awake Skin: pallor Current Medications: Current Medications Sig/Marcus Start time Last Medication Dose Route Stop Time Status Admin Albuterol Sulfate 3 ML BID 08/20 220 AC 08/22 INH 1027 Fentanyl Citrate 1,000 MCG Q5H 08/22 0900 AC 08/22 Dextrose/Water 250 ML IV 1520 Fentanyl Citrate 100 MCG Q4 HRS NEEDED PRN 08/21 1030 AC 08/21 IV 1030 Fentanyl Citrate 1,000 MCG Q24H 08/21 1000 DC 08/21 Dextrose/Water 250 ML IV 08/22 0859 2200 Heparin Sodium 5,000 UNIT Q8 08/22 1400 08/22 (Porcine) SC 1435 Heparin Sodium 5,000 UNIT Q8H 08/21 0953 DC 08/22 (Porcine) SC 0255 Insulin Human Regular 0 Q4 08/16 1400 08/21 SC 0130 Levothyroxine Sodium 68 MCG DAILY 08/17 1000 AC 08/22 IV 1000 Magnesium Sulfate 1 GM Q2H 08/22 1415 CO 08/22 Dextrose/Water 100 ML IV 08/22 1614 1438 Moxifloxacin HCl 400 MG Q24H 08/19 1200 08/22 N/A 1 UNIT IV 1136 Norepinephrine 4 MG Q10H 08/21 1400 CO 08/21 Dextrose/Water 250 ML IV 1821 Ondansetron HCl 4 MG Q6P PRN 08/15 1845 IV Pantoprazole Sodium 40 MG DAILY 08/17 1400 08/22 IV 1000 Potassium Phosphate 15 mMol ONE ONE 08/22 1415 DC 08/22 Dextrose/Water 250 ML IV 08/22 1819 1652 Sodium Chloride 500 ML BOLUS ONE 08/22 1415 DC 08/22 IV 08/22 1514 1436 Vancomycin HCl 125 MG Q6H 08/21 1400 08/22 PO 1435 Vitamin A/Vitamin D 1 ANGEL BID 08/22 1005 08/22 TOP 1438 Zinc Oxide 1 ANGEL BID PRN 08/21 0615 08/21 TOP 0820 Results Pertinent Lab Results: Laboratory Tests 08/22 08/22 0610 0340 Blood Gas pH (7.35 - 7.45 PH) 7.44 pCO2 (35 - 45 TORR) 38 pO2 (80 - 100 TORR) 97 HCO3 (21 - 28 MEQ/L) 25 ABG O2 Sat (Measured) (>96.0 %) 97.0 P-50 (Temp Corrected) N Carboxyhemoglobin (1.5 - 5.0 %) 0.1 L O2 Concentration % .40 Respiration Rate (BPM) 20 O2 Delivery Method VENT Vent Mode A/C Expiratory Pressure (CMH2O/P) 5 Tidal Volume (CC) 450 Chemistry Sodium (137 - 145 mmol/L) 137 Potassium (3.5 - 5.1 mmol/L) 4.1 Chloride (98 - 107 mmol/L) 106 Carbon Dioxide (22 - 30 mmol/L) 26 Anion Gap (5 - 16) 4 L BUN (7 - 17 mg/dL) 5 L Creatinine (0.5 - 1.0 mg/dL) 0.4 L Estimated GFR (>60 ml/min) > 60 Glucose (65 - 99 mg/dL) 88 Calcium (8.4 - 10.2 mg/dL) 6.4 L Phosphorus (2.5 - 4.5 mg/dL) 3.2 Magnesium (1.6 - 2.3 mg/dL) 1.9 Total Bilirubin (0.2 - 1.3 mg/dL) 3.5 H AST (14 - 36 U/L) 53 H ALT (9 - 52 U/L) 52 Albumin (3.5 - 5.0 g/dL) 1.8 L Hematology CBC w Diff MAN DIFF ORDERED WBC (4.8 - 10.8 /CUMM) 7.9 RBC (4.20 - 5.40 /CUMM) 2.07 L Hgb (12.0 - 16.0 G/DL) 7.9 L Hct (37 - 47 %) 23.4 L MCV (81.0 - 99.0 FL) 113.5 H MCH (27.0 - 31.0 PG) 38.1 H MCHC (33.0 - 37.0 G/DL) 33.6 RDW (11.5 - 14.5 %) 25.2 H Plt Count (130 - 400 /CUMM) 61 L MPV (7.4 - 10.4 FL) 12.4 H Gran % (42.2 - 75.2 %) 86.1 H Lymphocytes % (20.5 - 51.1 %) 9.7 L Monocytes % (1.7 - 9.3 %) 3.6 Eosinophils % (0 - 5 %) 0.4 Basophils % (0.0 - 2.0 %) 0.2 Absolute Granulocytes (1.4 - 6.5 /CUMM) 6.8 H Segmented Neutrophils (42.2 - 75.2 %) 79 H Band Neutrophils (0.0 - 5.0 %) 5 Absolute Lymphocytes (1.2 - 3.4 /CUMM) 0.8 L Lymphocytes (20.5 - 51.1 %) 10 L Monocytes (1.7 - 9.3 %) 6 Absolute Monocytes (0.10 - 0.60 /CUMM) 0.3 Absolute Eosinophils (0.0 - 0.7 /CUMM) 0 Absolute Basophils (0.0 - 0.2 /CUMM) 0 Platelet Estimate (ADEQUATE) DECREASED Polychromasia 1+ Hypochromic-Microcytic 2+ Poikilocytosis 1+ Miscellaneous Phlebotomy Draw Site LEFT BRACHIAL 08/21 08/21 5703 2140 Blood Gas pH (7.35 - 7.45 PH) 7.44 pCO2 (35 - 45 TORR) 27 L pO2 (80 - 100 TORR) 56 L HCO3 (21 - 28 MEQ/L) 18 L ABG O2 Sat (Measured) (>96.0 %) 87.0 L P-50 (Temp Corrected) Y Carboxyhemoglobin (1.5 - 5.0 %) 0.1 L O2 Concentration % 40% Temperature (97.0 - 100.0 FARH) 98.9 Respiration Rate (BPM) 20 O2 Delivery Method ESPRIT Vent Mode AC Expiratory Pressure (CMH2O/P) 5 Tidal Volume (CC) 450 Chemistry Sodium (137 - 145 mmol/L) 140 Potassium (3.5 - 5.1 mmol/L) 4.3 Chloride (98 - 107 mmol/L) 109 H Carbon Dioxide (22 - 30 mmol/L) 27 Anion Gap (5 - 16) 4 L BUN (7 - 17 mg/dL) 5 L Creatinine (0.5 - 1.0 mg/dL) 0.4 L Estimated GFR (>60 ml/min) > 60 Glucose (65 - 99 mg/dL) 130 H Calcium (8.4 - 10.2 mg/dL) 6.7 L Phosphorus (2.5 - 4.5 mg/dL) 1.6 L Magnesium (1.6 - 2.3 mg/dL) 1.8 Total Bilirubin (0.2 - 1.3 mg/dL) 3.2 H AST (14 - 36 U/L) 77 H ALT (9 - 52 U/L) 65 H Albumin (3.5 - 5.0 g/dL) 2.0 L Hematology CBC w Diff MAN DIFF ORDERED WBC (4.8 - 10.8 /CUMM) 7.5 RBC (4.20 - 5.40 /CUMM) 2.23 L Hgb (12.0 - 16.0 G/DL) 8.4 L Hct (37 - 47 %) 25.1 L MCV (81.0 - 99.0 FL) 112.3 H MCH (27.0 - 31.0 PG) 37.6 H MCHC (33.0 - 37.0 G/DL) 33.5 RDW (11.5 - 14.5 %) 25.2 H Plt Count (130 - 400 /CUMM) 58 L MPV (7.4 - 10.4 FL) 13.5 H Gran % (42.2 - 75.2 %) 1.6 L Lymphocytes % (20.5 - 51.1 %) 8.8 L Monocytes % (1.7 - 9.3 %) 81.2 H Eosinophils % (0 - 5 %) 0 Basophils % (0.0 - 2.0 %) 8.4 H Absolute Granulocytes (1.4 - 6.5 /CUMM) 0.1 L Segmented Neutrophils (42.2 - 75.2 %) 80 H Band Neutrophils (0.0 - 5.0 %) 1 Absolute Lymphocytes (1.2 - 3.4 /CUMM) 0.7 L Lymphocytes (20.5 - 51.1 %) 10 L Monocytes (1.7 - 9.3 %) 9 Absolute Monocytes (0.10 - 0.60 /CUMM) 6.5 H Absolute Eosinophils (0.0 - 0.7 /CUMM) 0 Absolute Basophils (0.0 - 0.2 /CUMM) 0.7 Nucleated RBCs (0.0 - 0.0 /100WBC) 6 H Platelet Estimate (ADEQUATE) DECREASED Polychromasia 1+ Poikilocytosis 2+ Basophilic Stippling SLIGHT Anisocytosis 2+ Macrocytic Cells 2+ Ovalocytes 1+ Stomatocytes 1+ Miscellaneous Phlebotomy Draw Site LEFT BRACHIAL Other Body Source Fld Total RBCs Counted (%) 100 08/20 08/20 1600 0435 Blood Gas pH (7.35 - 7.45 PH) 7.53 H pCO2 (35 - 45 TORR) 29 L pO2 (80 - 100 TORR) 102 H HCO3 (21 - 28 MEQ/L) 24 ABG O2 Sat (Measured) (>96.0 %) 97.0 P-50 (Temp Corrected) Y Carboxyhemoglobin (1.5 - 5.0 %) 0.2 L O2 Concentration % 50% Temperature (97.0 - 100.0 FARH) 99.2 Respiration Rate (BPM) 20 O2 Delivery Method ESPRIT Vent Mode AC Expiratory Pressure (CMH2O/P) 5 Tidal Volume (CC) 450 Chemistry Sodium (137 - 145 mmol/L) 142 Potassium (3.5 - 5.1 mmol/L) 3.6 Chloride (98 - 107 mmol/L) 107 Carbon Dioxide (22 - 30 mmol/L) 29 Anion Gap (5 - 16) 6 BUN (7 - 17 mg/dL) 6 L Creatinine (0.5 - 1.0 mg/dL) 0.4 L Estimated GFR (>60 ml/min) > 60 Glucose (65 - 99 mg/dL) 145 H Calcium (8.4 - 10.2 mg/dL) 6.6 L Phosphorus (2.5 - 4.5 mg/dL) 2.1 L Magnesium (1.6 - 2.3 mg/dL) 1.7 Total Bilirubin (0.2 - 1.3 mg/dL) 3.8 H AST (14 - 36 U/L) 109 H ALT (9 - 52 U/L) 63 H Albumin (3.5 - 5.0 g/dL) 1.9 L Miscellaneous Phlebotomy Draw Site LEFT RADIAL 08/20 08/19 0350 2100 Chemistry Sodium (137 - 145 mmol/L) 146 H Potassium (3.5 - 5.1 mmol/L) 2.9 *L Chloride (98 - 107 mmol/L) 110 H Carbon Dioxide (22 - 30 mmol/L) 32 H Anion Gap (5 - 16) 5 BUN (7 - 17 mg/dL) 5 L Creatinine (0.5 - 1.0 mg/dL) 0.5 Estimated GFR (>60 ml/min) > 60 Glucose (65 - 99 mg/dL) 123 H Calcium (8.4 - 10.2 mg/dL) 6.9 L Phosphorus (2.5 - 4.5 mg/dL) 1.6 L Magnesium (1.6 - 2.3 mg/dL) 1.6 Total Bilirubin (0.2 - 1.3 mg/dL) 3.5 H AST (14 - 36 U/L) 95 H ALT (9 - 52 U/L) 62 H Albumin (3.5 - 5.0 g/dL) 1.9 L Coagulation PT (9.4 - 12.5 SEC) 14.9 H INR (0.90 - 1.19) 1.36 H Fibrinogen Activity (200 - 393 MG/DL) 355 D-Dimer High Sensitivty (0 - 243 ng/ml) 1381 H Hematology CBC w Diff MAN DIFF ORDERED MAN DIFF ORDERED WBC (4.8 - 10.8 /CUMM) 5.4 5.8 RBC (4.20 - 5.40 /CUMM) 2.23 L 2.26 L Hgb (12.0 - 16.0 G/DL) 8.6 L 8.6 L Hct (37 - 47 %) 25.0 L 25.2 L MCV (81.0 - 99.0 FL) 111.7 H 111.3 H MCH (27.0 - 31.0 PG) 38.6 H 38.1 H MCHC (33.0 - 37.0 G/DL) 34.5 34.3 RDW (11.5 - 14.5 %) 25.8 H 26.3 H Plt Count (130 - 400 /CUMM) 47 L 47 L MPV (7.4 - 10.4 FL) 11.9 H 11.5 H Gran % (42.2 - 75.2 %) 77.9 H 74.3 Lymphocytes % (20.5 - 51.1 %) 13.7 L 15.9 L Monocytes % (1.7 - 9.3 %) 7.2 8.5 Eosinophils % (0 - 5 %) 0.7 0.9 Basophils % (0.0 - 2.0 %) 0.5 0.4 Absolute Granulocytes (1.4 - 6.5 /CUMM) 4.5 4.3 Segmented Neutrophils (42.2 - 75.2 %) 61 73 Band Neutrophils (0.0 - 5.0 %) 10 H 6 H Absolute Lymphocytes (1.2 - 3.4 /CUMM) 0.8 L 0.9 L Lymphocytes (20.5 - 51.1 %) 20 L 15 L Monocytes (1.7 - 9.3 %) 8 4 Absolute Monocytes (0.10 - 0.60 /CUMM) 0.4 0.5 Eosinophils (0 - 5.0 %) 1 1 Absolute Eosinophils (0.0 - 0.7 /CUMM) 0 0 Absolute Basophils (0.0 - 0.2 /CUMM) 0 0 Metamyelocytes (0.0 - 1.0 %) 1 Nucleated RBCs (0.0 - 0.0 /100WBC) 6 H 3 H Platelet Estimate (ADEQUATE) VERIFIED BY SMEAR DECREASED Polychromasia 1+ 1+ Anisocytosis 1+ 1+ Macrocytic Cells 1+ 2+ Target Cells 2+ Stomatocytes FEW
[2017-08-23] VITALS (8 sets, daily range): BP systolic 90–138; BP diastolic 58–79
[2017-08-23 05:35] LABS: ABSOLUTE BASOPHIL COUNT 0 /CUMM (0.0-0.2); ABSOLUTE EOSINOPHIL COUNT 0 /CUMM (0.0-0.7); ABSOLUTE GRANULOCYTE CT 8.9 /CUMM (1.4-6.5); ABSOLUTE LYMPH COUNT 0.6 /CUMM (1.2-3.4); BASOPHIL % 0.1 % (0.0-2.0); EOSINOPHIL % 0.1 % (0-5)
--- NOTE | 2017-08-23 05:46 | RADIOLOGY REPORT ---
EXAMINATION: XR PORTABLE CHEST CLINICAL INFORMATION: Intubation. COMPARISON: Chest x-ray 08/22/2017 TECHNIQUE: Portable frontal view of the chest was obtained. 5:12 AM FINDINGS: Endotracheal tube approximately 4 cm above adonay. Nasogastric tube in stomach. Right subclavian line catheter tip at caval atrial junction. Lung volume is low. This does accentuate the central pulmonary vascular markings. There is no dense consolidation. No pleural effusion. There are multiple healed right-sided rib fractures. IMPRESSION: 1. Endotracheal tube 4 cm above adonay. 2. Nasogastric tube in stomach. 3. Right subclavian line catheter tip at caval atrial junction. 4. Low lung volume accentuating pulmonary vascular markings. 5. No dense consolidation.
[2017-08-23 06:23] LABS: ABSOLUTE MONOCYTE COUNT 0.4 /CUMM (0.10-0.60); RBC DISTRIBUTION WIDTH 25.2 % (11.5-14.5); WHITE BLOOD CELL COUNT 9.9 /CUMM (4.8-10.8)
[2017-08-23 06:24] LABS: HEMATOCRIT 23.3 % (37-47); MEAN CORPUSCULAR HGB 37.4 PG (27.0-31.0); RED BLOOD CELL CT 2.04 /CUMM (4.20-5.40)
[2017-08-23 06:25] LABS: MEAN CORPUSCULAR HGB CONC 32.7 G/DL (33.0-37.0); MEAN CORPUSCULAR VOLUME 114.5 FL (81.0-99.0)
[2017-08-23 06:26] LABS: PLATELET COUNT 94 /CUMM (130-400)
--- NOTE | 2017-08-23 08:23 | PN- Resident CRCU ---
Subjective HPI/CRCU Issues: Hepatic encephalopathy Community acquired pneumonia C.diff colitis 24 Hour Events: Remain hemodynamically stable. Still agitated in restraints, oriented to person. VS Afebrile, HR 90-100, AC 20/450/40/5. On IV fentanyl, and tube feeds Labs did show normal white count with worseing of transaminitis, stable total bili, mild hyponatremia. Objective Vital Signs & I&O Last 8 Hrs of Vitals and I&O: Vital Signs Date Time Temp Pulse Resp B/P B/P Pulse O2 O2 Flow FiO2 Mean Ox Delivery Rate 08/23 0609 40 08/23 0600 99.7 82 20 96/62 08/23 0400 99.7 84 20 98/65 08/23 0400 95 Ventilator 40% 08/23 0327 40 08/23 0200 99.1 100 20 124/73 08/23 0052 40 08/23 0000 99.1 94 20 110/71 / 0000 98 Ventilator 40% 08/23 0000 99.1 94 20 110/72 98 Ventilator 40% 08/22 2212 40 08/22 2200 99.5 102 20 100/76 08/22 2031 40 08/22 2000 99.5 96 20 103/69 08/22 2000 96 Ventilator 40% 08/22 1643 40 08/22 1600 93 Ventilator 40% 08/22 1600 98.8 110 20 112/70 100 Ventilator 40% 08/22 1419 40 08/22 1200 95 Ventilator 40% 08/22 1130 40 Intake & Output 08/23 1600 18 0800 03/ 0000 Intake Total 752 1100 Output Total 1020 320 Balance -268 780 Intake, IV 425 770 Intake, Oral 0 0 Intake, Tube 247 240 Feeding Intake, Tube 80 90 Irrigant Number 3 1 Bowel Movements Output, Urine 1020 320 Exam General Appearance: alert, awake, mild distress Head: atraumatic, normal appearance Neck: normal inspection, supple Respiratory: normal breath sounds, chest non-tender Cardiovascular: regular rate/rhythm, edema Gastrointestinal: normal bowel sounds, soft, non-tender Extremities: normal inspection, normal capillary refill, normal range of motion Cranial Nerves: normal hearing, normal speech, PERRL Skin: intact, normal color, warm/dry IV Drips IV Drips: Fentanyl Nutrition Nutrition: tube feeding Current Medications: Current Medications Sig/Marcus Start time Last Medication Dose Route Stop Time Status Admin Albuterol Sulfate 3 ML BID 08/20 2200 AC 08/23 INH 0832 Fentanyl Citrate 1,000 MCG Q5H 08/22 0900 AC 08/23 Dextrose/Water 250 ML IV 1040 Fentanyl Citrate 100 MCG Q4 HRS NEEDED PRN 08/21 1030 AC 08/23 IV 0255 Heparin Sodium 5,000 UNIT Q8 08/22 1400 AC 08/23 (Porcine) SC 0555 Insulin Human Regular 0 Q4 08/16 1400 AC 08/21 SC 0130 Levothyroxine Sodium 68 MCG DAILY 08/17 1000 AC 08/23 IV 1037 Magnesium Sulfate 1 GM Q2H 08/22 1415 DC 08/22 Dextrose/Water 100 ML IV 08/22 1614 1438 Moxifloxacin HCl 400 MG Q24H 08/19 1200 AC 08/23 N/A 1 UNIT IV 1144 Ondansetron HCl 4 MG Q6P PRN 08/15 1845 AC IV Pantoprazole Sodium 40 MG DAILY 08/17 1400 AC 08/23 IV 0938 Potassium Phosphate 15 mMol ONE ONE 08/22 1415 DC 08/22 Dextrose/Water 250 ML IV 08/22 1819 1652 Sodium Chloride 500 ML BOLUS ONE 08/22 1415 DC 08/22 IV 08/22 1514 1436 Vancomycin HCl 125 MG Q6H 08/21 1400 AC 08/23 PO 0754 Vitamin A/Vitamin D 1 ANGEL BID 08/22 1005 AC 08/23 TOP 1039 Zinc Oxide 1 ANGEL BID PRN 08/21 0615 AC 08/21 TOP 0820 Antibiotics Antibiotic: vanco and moxifloxacin CXR Findings: IMPRESSION: 1. Endotracheal tube 4 cm above adonay. 2. Nasogastric tube in stomach. 3. Right subclavian line catheter tip at caval atrial junction. 4. Low lung volume accentuating pulmonary vascular markings. 5. No dense consolidation. Impression/Plan Impression/Problem List Impression: This is a 57 yo female with known PMH of hypothyroid, htn and known etoh use who comes in with CC of AMS and somnolence. Given her presentation there is concern for various etiologies of encephalopathy including hepatic encephalopathy, metabolic encephalopathy secondary to alcoholic vs. starvation ketosiS encephalopathy due to underlying infection, or even Wernicke's encephalopathy. She was admitted to ICU for further monitoring and work up. Unfortunately, her mental status never improved. She remained significantly obtunded and started desaturiating. On 08/17/2017 AM she had sats in the 60s and was intubated. BCX and respiratory cultures are positive for E.coli. PLAN: Respiratory Acute Hypoxic respiratory failure: Pt intubated on 08/17/2017 with sats in low 60s. CT chest shows increase in central vascular prominence without any dense consolidation. She is currently mechanically ventilated with AC 20/450/40/5 * Continue mechanical ventilation * XRY in AM tomorrow ID: Sepsis secondary to pneumonia: Pt has BCX X2 for E.coli. Sputum shows gramstain E.coli. However, she has tender RUQ cannot rule out cholecystitis/cholangitis given jaundice/fever/ hypotension/AMS/abdominal pain. She got one dose of lactulose and has had about 5L diarrhea. Now has decreased. She was started on Unasyn 1.5 q8 initially on admission and has got 3 doses total. Transitioned to moxifloxacin - day 5. Stool C.diff positive, started on oral vanco. * Appreciate ID recs * BCX Aug 11 + ecoli X2 * Switched to Moxifloxacin 08/19/17 * Started on vancomycin oral 125mg Q6 on 08/21/17 Cardiovascular: Hypotension: Resolved Hx of Hypertension/CAD: Currently hypotensive. * Holding home metoprolol Succinate 50 for hypotension. Restart as necessary * Hold Simvastatin Heme/Onc: Macrocytic Anemia: Hb 9.7 and HCT 28.7. MCV 121.6. * Iron studies represent inflammatory anemia with high ferritin, low TIBC. * B12 and folate wnl. Metabolic Hypothyroid: Nml TFT this admission * Con't home synthroid Alimentary: Alcoholic hepatitis: AST 238, ALT 86, ALK P 327 on admission. LFT improving. She has classic AST>>ALT pattern for alcoholic hepatitis. . Abd us shows fatty liver and some sludging + stones in gall bladder. Hepatitis panel neg. HIV negative. Tylenol lvl negative. * AST/ALT today 102/55. * Pt started on ceftriaxone so bili might worsen due to med sfx. Con't monitor. * Hold home simvastatin NPO: Continue Vital AF 1.2 at 30cc/hr. * Nutrition recs appreciated * OGT in place GI PPX * IV PPI Neuro: AMS: She came in with scleral icterus, elevated conjugated bilirubin, and transamanitis w/significant etoh hx intially there was concern for hepatic or Wernicke's encephalopathy. Though her metabolic derangements have been largely corrected her altered mental status and obtundation never resolved. CT head x2 one with and one with out contrast negative for acute intracranial pathology. At this time given +BCX x2 and LRC grew E.coli will need to treat for sepsis and monitor if her mental status improves. High dose of thiamine given to prevent wernickes, given predisposing factor alchol abuse. * Continue Moxifloxacin - day 5 for E.coli pneumonia Alcohol withdrawl: Pt does have significatn hx of Etoh use. UTOX negative for etoh. Using push of ativan for sedation while intubated. * [facility] protocol * Iinitally got ativan drip for sedation on vent. Have now D/C drip and keeping pt on ativan PRN push and Fentanyl prn push for agitation. Nephro: AGMA: Resolved. Hypok/Hypo Mag: K 3.7, Mag 1.9 * Replete. * Continue to monitor EARL : Cr:1.4 at admission. today 0.4 with GFR > 60. * Waller in place FC CHEM DVT PPX NPO Problem List: 1. Altered mental status 2. Hepatic encephalopathy Pain Ratin Tomorrow's Labs & Rationales: cbc, ICU bundle LFT Plan DVT/Prophylaxis: pharmacological
--- NOTE | 2017-08-23 09:30 | PN- CRCU ---
Subjective HPI/Critical Care Issues: Patient is awake alert intubated cooperating with weaning trials Objective Current Medications: Current Medications Sig/Marcus Start time Last Medication Dose Route Stop Time Status Admin Albuterol Sulfate 3 ML BID 08/20 2200 AC 08/23 INH 0832 Fentanyl Citrate 1,000 MCG Q5H 08/22 0900 AC 08/23 Dextrose/Water 250 ML IV 0555 Fentanyl Citrate 100 MCG Q4 HRS NEEDED PRN 08/21 1030 AC 08/23 IV 0255 Heparin Sodium 5,000 UNIT Q8 08/22 1400 AC 08/23 (Porcine) SC 0555 Heparin Sodium 5,000 UNIT Q8H 08/21 0953 DC 08/22 (Porcine) SC 0255 Insulin Human Regular 0 Q4 08/16 1400 AC 08/21 SC 0130 Levothyroxine Sodium 68 MCG DAILY 08/17 1000 AC 08/22 IV 1000 Magnesium Sulfate 1 GM .STK-MED ONE 08/22 1437 DC IM 08/22 1438 Magnesium Sulfate 1 GM Q2H 08/22 1415 DC 08/22 Dextrose/Water 100 ML IV 08/22 1614 1438 Moxifloxacin HCl 400 MG Q24H 08/19 1200 AC 08/22 N/A 1 UNIT IV 1136 Norepinephrine 4 MG Q10H 08/21 1400 DC 08/21 Dextrose/Water 250 ML IV 1821 Ondansetron HCl 4 MG Q6P PRN 08/15 1845 IV Pantoprazole Sodium 40 MG DAILY 08/17 1400 AC 08/22 IV 1000 Potassium Phosphate 15 mMol ONE ONE 08/22 1415 DC 08/22 Dextrose/Water 250 ML IV 08/22 1819 1652 Sodium Chloride 500 ML BOLUS ONE 08/22 1415 DC 08/22 IV 08/22 1514 1436 Vancomycin HCl 125 MG Q6H 08/21 1400 AC 08/23 PO 0754 Vitamin A/Vitamin D 1 ANGEL BID 08/22 1005 08/22 TOP 2201 Zinc Oxide 1 ANGEL BID PRN 08/21 0615 08/21 TOP 0820 Vital Signs & I&O Last 24 Hrs of Vitals and I&O: Vital Signs Date Time Temp Pulse Resp B/P B/P Pulse O2 O2 Flow FiO2 Mean Ox Delivery Rate 08/23 0847 40 08/23 0609 40 08/23 0600 99.7 82 20 96/62 08/23 0400 99.7 84 20 98/65 08/23 0400 95 Ventilator 40% 08/23 0327 40 08/23 0200 99.1 100 20 124/73 08/23 0052 40 08/23 0000 99.1 94 20 110/71 03/ 0000 98 Ventilator 40% 08/23 0000 99.1 94 20 110/72 98 Ventilator 40% 08/22 2212 40 08/22 2200 99.5 102 20 100/76 08/22 2031 40 08/22 2000 99.5 96 20 103/69 08/22 2000 96 Ventilator 40% 08/22 1643 40 08/22 1600 93 Ventilator 40% 08/22 1600 98.8 110 20 112/70 100 Ventilator 40% 08/22 1419 40 08/22 1200 95 Ventilator 40% 08/22 1130 40 Intake & Output 08/23 1600 08/23 0800 08/23 0000 Intake Total 752 1100 Output Total 1020 320 Balance -268 780 Intake, IV 425 770 Intake, Oral 0 0 Intake, Tube 247 240 Feeding Intake, Tube 80 90 Irrigant Number 3 1 Bowel Movements Output, Urine 1020 320 Oxygen saturation 95% FiO2 0.4 exam for chest shows rare rhonchi cardiac exam shows a regular S1 and S2 without murmurs abdomen is soft Impression/Plan Impression/Plan Impression/Plan: T7-year-old with hepatic failure respiratory failure has had prolonged period of intubation now tolerating CPAP pressure support weaning for brief periods of time Recommendations: Complete course of antibiotics and vancomycin for C. difficile. Continue weaning trials with CPAP pressure support. atTemp to minimize sedation
[2017-08-24] VITALS (8 sets, daily range): BP systolic 99–144; BP diastolic 64–83
[2017-08-24 04:40] LABS: ABSOLUTE BASOPHIL COUNT 0.1 /CUMM (0.0-0.2); ABSOLUTE EOSINOPHIL COUNT 0 /CUMM (0.0-0.7); ABSOLUTE GRANULOCYTE CT 8.9 /CUMM (1.4-6.5); ABSOLUTE LYMPH COUNT 0.6 /CUMM (1.2-3.4); ABSOLUTE MONOCYTE COUNT 0.4 /CUMM (0.10-0.60); BASOPHIL % 0.5 % (0.0-2.0); EOSINOPHIL % 0.1 % (0-5); GRANULOCYTE % 89.7 % (42.2-75.2); MEAN PLATELET VOLUME 11.3 FL (7.4-10.4); PLATELET COUNT 125 /CUMM (130-400); RBC DISTRIBUTION WIDTH 24.6 % (11.5-14.5); WHITE BLOOD CELL COUNT 9.9 /CUMM (4.8-10.8)
[2017-08-24 06:16] LABS: HEMATOCRIT 26.5 % (37-47); MEAN CORPUSCULAR HGB 37.7 PG (27.0-31.0); RED BLOOD CELL CT 2.31 /CUMM (4.20-5.40)
[2017-08-24 06:17] LABS: MEAN CORPUSCULAR HGB CONC 32.8 G/DL (33.0-37.0)
--- NOTE | 2017-08-24 06:22 | RADIOLOGY REPORT ---
EXAMINATION: XR PORTABLE CHEST CLINICAL INFORMATION: Intubation. COMPARISON: Chest x-ray August 23, 2017 TECHNIQUE: Portable frontal view of the chest was obtained. 5:35 AM FINDINGS: Endotracheal tube 5 cm above the adonay. Nasogastric tube in stomach. Right-sided PICC line catheter at caval atrial junction. There is no pulmonary vascular congestion. The lungs are clear. There is no pleural effusion. Multiple healed right-sided rib fractures. IMPRESSION: Endotracheal tube 5 cm above the adonay. Nasogastric tube in stomach. Right-sided PICC line catheter at caval atrial junction. Lungs are clear.
--- NOTE | 2017-08-24 07:32 | PN- Resident CRCU ---
Subjective HPI/CRCU Issues: Patient is still in the ICU requiring mechanical ventilation. Patient followed up and examined by me today. She is resting comfortably in bed , mechanically ventilated via ET intubation, doesn't seem to be in distress, FEVER reported overnight no other active issues reported either. Objective Vital Signs & I&O Last 8 Hrs of Vitals and I&O: Intake & Output 08/24 0800 Intake Total 730 Output Total 810 Balance -80 Intake, IV 400 Intake, Tube 240 Feeding Intake, Tube 90 Irrigant Number 3 Bowel Movements Output, Urine 810 Exam General Appearance: alert, awake, comfortable, intubated Other Physical Findings: HEENT: NCAT, MMM, anicteric sclera, PERRLA, ET/OG tube NECK: Supple, no JVD, trachea midline, no accessory respiratory muscle use CARD: normal s1/s2 w/o m/g/r PULM: b/l air entry better today GI: Soft, NT, ND, BS+ : Waller catheter draining dark yellow urine NEURO: alert, no focal neuro loss (but limited assessment due to intubation) EXT: TLC in RUE, normal pulses Weaning Parameters NIF: 31 Minute Volume: 8 Resp rate: 12 Vt: 590 Heart Rate: 108 Weaning Schedule Start Time: 1650 Minute Volume: 8 Resp Rate: 12 Vt: 590 Heart Rate: 108 End Time: 1830 Minute Volume: 9 Resp Rate: 11 Vt: 440 Heart Rate: 92 Current Medications: Current Medications Sig/Marcus Start time Last Medication Dose Route Stop Time Status Admin Albuterol Sulfate 3 ML BID 08/20 2200 AC 08/23 INH 2158 Fentanyl Citrate 1,000 MCG Q5H 08/22 0900 AC 08/24 Dextrose/Water 250 ML IV 0631 Fentanyl Citrate 100 MCG Q4 HRS NEEDED PRN 08/21 1030 AC 08/23 IV 0255 Heparin Sodium 5,000 UNIT Q8 08/22 1400 AC 08/24 (Porcine) SC 0628 Insulin Human Regular 0 Q4 08/16 1400 AC 08/21 SC 0130 Levothyroxine Sodium 68 MCG DAILY 08/17 1000 AC 08/23 IV 1037 Lorazepam 0.5 MG ONE TIME ONE 08/23 1815 DC 08/23 IV 08/23 1816 1910 Moxifloxacin HCl 400 MG Q24H 08/19 1200 AC 08/23 N/A 1 UNIT IV 1144 Ondansetron HCl 4 MG Q6P PRN 08/15 1845 IV Pantoprazole Sodium 40 MG DAILY 08/17 1400 AC 08/23 IV 0938 Vancomycin HCl 125 MG Q6H 08/21 1400 08/24 PO 0312 Vitamin A/Vitamin D 1 ANGEL BID 08/22 1005 08/23 TOP 2211 Zinc Oxide 1 ANGEL BID PRN 08/21 0615 08/21 TOP 0820 Impression/Plan Impression/Problem List Impression: 57 year old woman with multiple medical problems significant for etoh abuse seen for evaluation of progressively worsening altered mental status over several weeks found to have E coli septicemia/pneumonia. PATIENT WAS EXTUBATED TODAY. Patient is still on Fentanyl taper. Avelox is continued for her E. coli pneumonia. Oral Vancomycin continued for C diff colitis. She was FEBRILE overnight. Her diarrhea is better today and so is her various electrolyte derrangements which are aggressively repleted. Problem List -Altered mental status, probable toxic metabolic encephalopathy, improving -Septic shock, improving -E. coli bacteremia -C. Diff colitis, on PO Vancomycin -Acute Hypoxic/Hypercarbic Respiratory failure, EXTUBATED WITHOUT DIFFICULTY AFTER WEANING TRIAL -Thrombocytopenia, stable -Anion Gap Metabolic Acidosis, Resolved -Electrolyte abnormalities, repleting daily -History of EtOH -h/o Hypertension -Hypothyroidism Plan -Continue ICU monitoring -EXTUBATED SUCCESSFULLY TODAY AFTER A WEANING TRAIL -Swallow evaluation tomorrow -TOMWA protocol -Guaic all stools -Accuchecks Q4H with Novolin SSI till swallow eval tomorrow -Waller / CHLOÉ TLC -Avelox 400 mg IV daily -Protonix 40 mg IV Daily -K-repleted with PO and IV -Mg repleted by IV 2gm -Consults with ID and GI -Follow up cultures & sensitivites -Daily CBC, CMP, ABG, CXR -Type & Cross -Monitor H&H, transfuse Hgb/Plt PRN -Monitor for signs of EtOH withdrawal -Diurese as tolerated by BP: IV lasix 40 mg given today prior to extubation -Pain control PRN, Fentanyl patch dose decreased to 12.5 mcg -Tube Feeds: Vital AF @ 30mL/hr today -DVT PPx with ALPS/Lovenox, monitor for bleeding/thrombocytopenia -FULL CODE Problem List: 1. Altered mental status Pain Ratin Pain Location: back Tomorrow's Labs & Rationales: CBC, ICU Bundle, LFT Plan DVT/Prophylaxis: pharmacological
--- NOTE | 2017-08-24 10:11 | PN- CRCU ---
Subjective HPI/Critical Care Issues: Still has sig diarrhea, Febrile Diarrhea ongoing ID onboard On psv trials doing ok Objective Current Medications: Current Medications Sig/Marcus Start time Last Medication Dose Route Stop Time Status Admin Albuterol Sulfate 3 ML BID 08/20 2200 AC 08/23 INH 2158 Fentanyl Citrate 1,000 MCG Q5H 08/22 0900 AC 08/24 Dextrose/Water 250 ML IV 0631 Fentanyl Citrate 100 MCG Q4 HRS NEEDED PRN 08/21 1030 AC 08/23 IV 0255 Heparin Sodium 5,000 UNIT Q8 08/22 1400 AC 08/24 (Porcine) SC 0628 Insulin Human Regular 0 Q4 08/16 1400 AC 08/21 SC 0130 Levothyroxine Sodium 68 MCG DAILY 08/17 1000 AC 08/23 IV 1037 Lorazepam 0.5 MG ONE TIME ONE 08/23 1815 DC 08/23 IV 08/23 1816 1910 Magnesium Sulfate 1 GM Q2H 08/24 0915 AC Dextrose/Water 100 ML IV 08/24 1314 Moxifloxacin HCl 400 MG Q24H 08/19 1200 AC 08/23 N/A 1 UNIT IV 1144 Ondansetron HCl 4 MG Q6P PRN 08/15 1845 IV Pantoprazole Sodium 40 MG DAILY 08/17 1400 AC 08/23 IV 0938 Phosphate 500 MG PC AND AT BEDTIME 08/24 0915 PO Potassium Chloride 20 MEQ Q1H 08/24 0845 DC IV 08/24 0946 Vancomycin HCl 125 MG Q6H 08/21 1400 AC 08/24 PO 0312 Vitamin A/Vitamin D 1 ANGEL BID 08/22 1005 08/23 TOP 2211 Zinc Oxide 1 ANGEL BID PRN 08/21 0615 08/21 TOP 0820 Vital Signs & I&O Last 24 Hrs of Vitals and I&O: Vital Signs Date Time Temp Pulse Resp B/P B/P Pulse O2 O2 Flow FiO2 Mean Ox Delivery Rate 08/24 0834 35 08/24 0607 35 08/24 0600 100.1 86 24 105/68 08/24 0420 35 08/24 0400 100.4 110 24 132/76 08/24 0400 94 Ventilator 35% 08/24 0208 101.2 92 24 144/81 08/24 0159 35 08/24 0000 101.2 102 21 132/83 08/24 0000 92 Ventilator 35% 08/24 0000 101.2 102 21 132/83 92 Ventilator 35% 08/23 2202 35 08/23 2200 100.2 96 24 138/79 08/24 1999 100.2 82 20 90/60 08/24 1999 96 Ventilator 35% 08/23 1830 35 08/23 1644 35 08/23 1600 94 Ventilator 35% 08/23 1600 98.3 96 20 90/58 94 Ventilator 35% 08/23 1403 35 08/23 1200 94 Ventilator 35% 08/23 1135 35 Intake & Output 08/24 1600 08/24 0800 08/24 0000 Intake Total 730 330 Output Total 810 460 Balance -80 -130 Intake, IV 400 Intake, Tube 240 240 Feeding Intake, Tube 90 90 Irrigant Number 3 Bowel Movements Output, Urine 810 460 Impression/Plan Impression/Plan Impression/Plan: General Appearance: Intubated awake on fentanyl Picc line in place Head: atraumatic, normal appearance Ears, Nose, Throat: mucous membranes dry, dried blood noted on mouth. Neck: normal inspection, supple Respiratory: normal breath sounds, crackles (basilar) Cardiovascular: regular rate/rhythm Gastrointestinal: tenderness to palpation right upper quadrant. no distention, no rigidity .hypoactive bowel sounds. Extremities: normal inspection, normal capillary refill, swelling IMPRESSION This is a 57-year-old lady with history of hypertension hypothyroidism significant alcohol abuse with worsening alcoholism in the recent past came into the hospital with confusion and somnolence tachycardia and significant jaundice with severe metabolic acidosis, normal lactate, no significant osmolar gap with clinical signs and symptoms suggestive of severe alcoholic ketoacidosis. She also has significant fatty liver with evidence of significant alcoholic hepatitis with so far preserved synthetic function of her liver. Issues * Improving Septic shock due to pneumonia and ecoli septicemia now with C. Diff with ongoing diarrhea * Resolving Metabolic encephalopathy due to sig liver disease, Sepisis and DTs * Improving Respiratory failure which seems to be both hypoxemic and hypercarbic related to severe bilateral ecoli pna, acute lung injury with, pulmonary edema due to appropriate post fluid resuscitation * Improving thromobocytopenia due to sepsis and liver disease * Resolved metabolic acidosis (anion gap acidosis), with severe ketosis in a nondiabetic patient Patient did receive thiamine prior to any glucose treatment. * Diffuse fatty liver with sig alchoholic hepatitis, now with worsening lfts rule out Lucila * Improving DT * Severe electrolyte abnormalities due to enterocolitis with profuse diarrhea and sepsis with cdiff * Mild pancreatitis * Ongoing anemia RECOMMENDATION/PLAN * Continue mechanical ventilator, PSV trial adn extubate * Place a low dose fentanyl patch prior to extubation 25mcg for one pathch and then 12.5 mcg for one patch * Potassium 40 meq down ng and one dose of lasix * IVF D5 with kcl 40 meq at 60 cc * IV mag 2 grams Patient is critically ill total time spent 40 minutes
--- NOTE | 2017-08-24 10:54 | PN- Infect Dx ---
Subjective Subjective: MAXIMUM TEMPERATURE 101.2. She does not offer any complaints. She continues to have diarrhea, though it is less frequent and thicker. Objective Last 24 Hrs of Vital Signs/I&O Vital Signs Date Time Temp Pulse Resp B/P B/P Pulse O2 O2 Flow FiO2 Mean Ox Delivery Rate 08/24 0834 35 08/24 0607 35 08/24 0600 100.1 86 24 105/68 08/24 0420 35 08/24 0400 100.4 110 24 132/76 08/24 0400 94 Ventilator 35% 08/24 0208 101.2 92 24 144/81 08/24 0159 35 08/24 0000 101.2 102 21 132/83 03/ 0000 92 Ventilator 35% 08/24 0000 101.2 102 21 132/83 92 Ventilator 35% 08/23 2202 35 08/23 2200 100.2 96 24 138/79 08/23 2000 100.2 82 20 90/60 08/23 2000 96 Ventilator 35% 08/23 1830 35 08/23 1644 35 08/23 1600 94 Ventilator 35% 08/23 1600 98.3 96 20 90/58 94 Ventilator 35% 08/23 1403 35 08/23 1200 94 Ventilator 35% 08/23 1135 35 Intake & Output 08/24 1600 08/24 0800 08/24 0000 Intake Total 730 330 Output Total 810 460 Balance -80 -130 Intake, IV 400 Intake, Tube 240 240 Feeding Intake, Tube 90 90 Irrigant Number 3 Bowel Movements Output, Urine 810 460 Physical Exam Other Physical Findings: She is awake and alert on the ventilator, somewhat agitated but in no acute distress Lungs scattered rhonchi bilaterally Heart regular rhythm with no murmur Abdomen is soft, nontender with positive bowel sounds Extremities PICC in the right upper extremity with no inflammation at the site; no cyanosis, clubbing or edema Waller catheter remains in place Results Last 24 Hours of Lab Results: Laboratory Tests 08/24 08/24 1025 0400 Blood Gas pH (7.35 - 7.45 PH) 7.43 pCO2 (35 - 45 TORR) 42 pO2 (80 - 100 TORR) 74 L HCO3 (21 - 28 MEQ/L) 27 ABG O2 Sat (Measured) (>96.0 %) 93.0 L P-50 (Temp Corrected) N Carboxyhemoglobin (1.5 - 5.0 %) 0.5 L O2 Concentration % 35% Respiration Rate (BPM) 12 O2 Delivery Method VENT Vent Mode CPAP/PSV TRIAL Expiratory Pressure (CMH2O/P) 5 Tidal Volume (CC) 517 Pressure Support (CMH2O/P) 6 Chemistry Sodium (137 - 145 mmol/L) 137 Potassium (3.5 - 5.1 mmol/L) 3.2 L Chloride (98 - 107 mmol/L) 103 Carbon Dioxide (22 - 30 mmol/L) 29 Anion Gap (5 - 16) 5 BUN (7 - 17 mg/dL) < 2 L Creatinine (0.5 - 1.0 mg/dL) 0.4 L Estimated GFR (>60 ml/min) > 60 Glucose (65 - 99 mg/dL) 110 H Calcium (8.4 - 10.2 mg/dL) 7.2 L Phosphorus (2.5 - 4.5 mg/dL) 3.3 Magnesium (1.6 - 2.3 mg/dL) 1.7 Total Bilirubin (0.2 - 1.3 mg/dL) 3.2 H Direct Bilirubin (< 0.4 mg/dL) 2.7 H AST (14 - 36 U/L) 102 H ALT (9 - 52 U/L) 64 H Alkaline Phosphatase (<127 U/L) 374 H Total Protein (6.3 - 8.2 g/dL) 5.4 L Albumin (3.5 - 5.0 g/dL) 2.2 L Hematology CBC w Diff MAN DIFF ORDERED WBC (4.8 - 10.8 /CUMM) Pending RBC (4.20 - 5.40 /CUMM) Pending Hgb (12.0 - 16.0 G/DL) Pending Hct (37 - 47 %) Pending MCV (81.0 - 99.0 FL) Pending MCH (27.0 - 31.0 PG) Pending MCHC (33.0 - 37.0 G/DL) Pending RDW (11.5 - 14.5 %) Pending Plt Count (130 - 400 /CUMM) Pending MPV (7.4 - 10.4 FL) Pending Gran % (42.2 - 75.2 %) Pending Lymphocytes % (20.5 - 51.1 %) Pending Monocytes % (1.7 - 9.3 %) Pending Eosinophils % (0 - 5 %) Pending Basophils % (0.0 - 2.0 %) Pending Absolute Granulocytes (1.4 - 6.5 /CUMM) Pending Segmented Neutrophils (42.2 - 75.2 %) Pending Band Neutrophils (0.0 - 5.0 %) Pending Absolute Lymphocytes (1.2 - 3.4 /CUMM) Pending Lymphocytes (20.5 - 51.1 %) Pending Monocytes (1.7 - 9.3 %) Pending Absolute Monocytes (0.10 - 0.60 /CUMM) Pending Absolute Eosinophils (0.0 - 0.7 /CUMM) Pending Absolute Basophils (0.0 - 0.2 /CUMM) Pending Platelet Estimate (ADEQUATE) Pending Polychromasia Pending Poikilocytosis Pending Anisocytosis Pending Macrocytic Cells Pending Target Cells Pending Stomatocytes Pending Miscellaneous Phlebotomy Draw Site LEFT RADIAL 08/23 1845 Chemistry Ammonia (9 - 30 umol/L) 27 Last 24 Hours of Will Results: Sputum culture August 23 negative Urine culture August 23 negative Recent Imaging Studies: Chest x-ray August 24 clear lungs Assessment/Plan ID Impression: Recent fevers, with white blood cell count yesterday normal but increased from previous values, on Moxifloxacin Day 5 of treatment for Escherichia coli sepsis, presumably secondary to pneumonia, and po Vancomycin Day 3 of treatment for C. difficile, with the CT of the abdomen and pelvis revealing pancolitis. She has overall improved with decreasing oxygen requirements and with recent cultures nonrevealing. Her liver enzymes remain elevated, likely secondary to alcoholic hepatitis, but, with the increasing alkaline phosphatase, a biliary process could still be considered. Suggestion: 1. Repeat blood cultures 2 2. Consider repeat right upper quadrant ultrasound 3. Follow-up recent cultures 4. Continue Moxifloxacin and po Vancomycin
--- NOTE | 2017-08-24 15:19 | ULTRASOUND REPORT ---
EXAMINATION: US ABDOMEN COMPLETE CLINICAL INFORMATION: Fever and transaminitis . COMPARISON: 08/15/2017. TECHNIQUE: Real-time imaging of the abdominal viscera. FINDINGS: PANCREAS: Normal. ABDOMINAL AORTA: The proximal segment is normal in caliber. INFERIOR VENA CAVA: Visualized portions are normal. LIVER: A trace amount of free fluid is present in the superior margin of the right hepatic lobe. The liver demonstrates normal size, contour and echogenicity. No focal lesion or intrahepatic biliary duct dilatation. GALLBLADDER: Normal. The gallbladder is physiologically distended without evidence of stones, sludge, polyps, wall thickening or pericholecystic fluid. COMMON BILE DUCT: Normal in caliber measuring 0.4 cm in diameter. RIGHT KIDNEY: Normal. No hydronephrosis. No renal calculi or focal parenchymal lesions. The kidney measures 13.2 cm in maximum dimension. LEFT KIDNEY: Normal. No hydronephrosis. No renal calculi or focal parenchymal lesions. The kidney measures 12.7 cm in maximum dimension. SPLEEN: Normal. The spleen measures 9.8 cm in maximum dimension. FREE FLUID: None. IMPRESSION: Trace free fluid in the perihepatic region adjacent to the right lobe. Otherwise unremarkable study.
[2017-08-25] VITALS (12 sets, daily range): BP systolic 14–119; BP diastolic 53–75
[2017-08-25 03:45] LABS: ABSOLUTE BASOPHIL COUNT 0 /CUMM (0.0-0.2); ABSOLUTE EOSINOPHIL COUNT 0 /CUMM (0.0-0.7); ABSOLUTE GRANULOCYTE CT 9.9 /CUMM (1.4-6.5); ABSOLUTE LYMPH COUNT 0.6 /CUMM (1.2-3.4); ABSOLUTE MONOCYTE COUNT 0.4 /CUMM (0.10-0.60); BASOPHIL % 0.3 % (0.0-2.0); EOSINOPHIL % 0 % (0-5); GRANULOCYTE % 90.8 % (42.2-75.2); PLATELET COUNT 136 /CUMM (130-400); RBC DISTRIBUTION WIDTH 25.1 % (11.5-14.5); WHITE BLOOD CELL COUNT 10.9 /CUMM (4.8-10.8)
[2017-08-25 04:23] LABS: HEMATOCRIT 23.3 % (37-47); MEAN CORPUSCULAR HGB 38.5 PG (27.0-31.0); MEAN CORPUSCULAR HGB CONC 33.2 G/DL (33.0-37.0); MEAN CORPUSCULAR VOLUME 115.9 FL (81.0-99.0); RED BLOOD CELL CT 2.01 /CUMM (4.20-5.40)
--- NOTE | 2017-08-25 07:20 | PN- Resident CRCU ---
Subjective HPI/CRCU Issues: Patient was extubated successfully yesterday. I followed up and examined the patient today. She is resting comfortably in bed , does not appear to be in distress, has a hoarse voice as expected. VSS. 24 Hour Events: She doesn't have any breathing issues overnight. I tried a bedside swallow screening with 3 ounces of regular water earlier this AM, to which she coughed, but she could take thickened liquids and applesauce without any difficulty. She is still waiting for a formal swallow evaluation later today. Objective Vital Signs & I&O Last 8 Hrs of Vitals and I&O: Vital Signs Date Time Temp Pulse Resp B/P B/P Pulse O2 O2 Flow FiO2 Mean Ox Delivery Rate 08/25 0827 94 Nasal 4.0L Cannula 08/25 0800 98.5 98 24 110/68 08/25 0800 93 Nasal 4.0L Cannula 08/25 0800 98.5 98 24 110/68 93 Nasal 4.0L Cannula 08/25 0600 98.8 87 14 108/67 08/25 0400 98.8 90 14 91/62 08/25 0400 93 Nasal 4.0L Cannula 08/25 0200 97.6 60 16 112/68 08/25 0000 97.6 64 24 119/72 08/25 0000 95 Nasal 4.0L Cannula 08/25 0000 97.6 64 24 112/74 95 Nasal 4.0L Cannula 08/24 2200 97.8 64 14 99/65 08/24 2105 95 Nasal 4.0L Cannula 08/25 1999 97.8 80 16 102/70 08/24 2000 97 Nasal 4.0L Cannula 08/24 1600 98 Nasal 4.0L Cannula 08/24 1600 98.0 86 24 114/64 98 Nasal 4.0L Cannula 08/24 1200 96 Ventilator 35% 08/24 1149 35 Exam General Appearance: alert, awake, comfortable Other Physical Findings: HEENT: NCAT, MMM, anicteric sclera, PERRLA, ET/OG tube NECK: Supple, no JVD, trachea midline, no accessory respiratory muscle use CARD: normal s1/s2 w/o m/g/r PULM: b/l air entry equal, crackles heard over both lung kowalski GI: Soft, NT, ND, BS+ : Waller catheter draining dark yellow urine NEURO: alert, no focal neuro loss EXT: TLC in RUE, normal pulses Nutrition Nutrition: NPO (until swallow eval) Current Medications: Current Medications Sig/Marcus Start time Last Medication Dose Route Stop Time Status Admin Albuterol Sulfate 3 ML BID 08/20 2200 AC 08/25 INH 0809 Dextrose/Sodium 1,000 ML Q13H 08/24 1530 AC 08/25 Chloride IV 0516 Fentanyl Citrate 12 MCG Q72H 08/27 1130 AC TOP Fentanyl Citrate 25 MCG Q72H 08/24 1130 DC 08/24 TOP 1144 Fentanyl Citrate 1,000 MCG Q5H 08/22 0900 DC 08/24 Dextrose/Water 250 ML IV 0631 Fentanyl Citrate 100 MCG Q4 HRS NEEDED PRN 08/21 1030 AC 08/23 IV 0255 Furosemide 20 MG ONCE ONE 08/24 1015 DC 08/24 IV 08/24 1016 1031 Heparin Sodium 5,000 UNIT Q8 08/22 1400 AC 08/25 (Porcine) SC 0516 Insulin Human Regular 0 Q4 08/16 1400 AC 08/21 SC 0130 Levothyroxine Sodium 68 MCG DAILY 08/17 1000 AC 08/24 IV 1031 Magnesium Sulfate 1 GM Q2H 08/25 0730 AC 08/25 Dextrose/Water 100 ML IV 08/25 1129 0913 Magnesium Sulfate 1 GM Q2H 08/24 0915 DC 08/24 Dextrose/Water 100 ML IV 08/24 1314 1147 Moxifloxacin HCl 400 MG Q24H 08/19 1200 AC 08/24 N/A 1 UNIT IV 1200 Ondansetron HCl 4 MG Q6P PRN 08/15 1845 AC IV Pantoprazole Sodium 40 MG DAILY 08/17 1400 AC 08/25 IV 0751 Phosphate 250 MG ONCE ONE 08/25 1200 AC PO 08/25 1201 Phosphate 500 MG ONCE ONE 08/25 0900 DC 08/25 PO 08/25 0901 0804 Phosphate 500 MG PC AND AT BEDTIME 08/24 0915 DC 08/24 PO 1033 Potassium Chloride 20 MEQ ONCE ONE 08/25 0815 DC IV 08/25 0816 Potassium Chloride 40 MEQ ONCE ONE 08/25 0730 DC 08/25 PO 08/25 0731 0756 Potassium Chloride 40 MEQ ONCE ONE 08/24 1015 DC 08/24 PO 08/24 1016 1126 Potassium Chloride 20 MEQ Q1H 08/24 0845 DC 08/24 IV 08/24 0946 1146 Vancomycin HCl 125 MG Q6H 08/21 1400 AC 08/25 PO 0752 Vitamin A/Vitamin D 1 ANGEL BID 08/22 1005 08/25 TOP 0808 Zinc Oxide 1 ANGEL BID PRN 08/21 0615 08/24 TOP 1127 Impression/Plan Impression/Problem List Impression: 57 year old woman with multiple medical problems significant for etoh abuse seen for evaluation of progressively worsening altered mental status over several weeks found to have E coli septicemia/pneumonia. Patient was extubated on 08/24 but failed swallow eval today. Avelox is continued for her E. coli pneumonia. Oral Vancomycin continued for C diff colitis. Her diarrhea is better today as well, and her various electrolyte derrangements which are aggressively repleted. Problem List -Altered mental status, probable toxic metabolic encephalopathy, improving -Septic shock, improving -E. coli bacteremia -C. Diff colitis, on PO Vancomycin -Acute Hypoxic/Hypercarbic Respiratory failure, Extubaed -Thrombocytopenia, stable -Anion Gap Metabolic Acidosis, Resolved -Electrolyte abnormalities, repleting daily -Failed swallow eval -History of EtOH -h/o Hypertension -Hypothyroidism Plan -Continue ICU monitoring -Swallow evaluation tomorrow again (failed today) -CIWA protocol -Guaic all stools -Accuchecks Q4H with Novolin SSI till repeat-swallow eval tomorrow -Sridhar / CHLOÉ TLC -Avelox 400 mg IV daily -Protonix 40 mg IV Daily -K-repleted with PO and IV -Mg repleted by IV -Consults with ID and GI -Follow up cultures & sensitivites -Daily CBC, CMP, ABG, CXR -Type & Cross -Monitor H&H, transfuse Hgb/Plt PRN -Monitor for signs of EtOH withdrawal -Pain control PRN, Fentanyl patch dose decreased to 12.5 mcg which will end in 2 days, weaning -DVT PPx with ALPS/Lovenox, monitor for bleeding/thrombocytopenia -FULL CODE Problem List: 1. Altered mental status 2. Pneumonia 3. Alcohol abuse 4. C. difficile colitis Pain Ratin Tomorrow's Labs & Rationales: CBC, ICU Bundle Plan DVT/Prophylaxis: pharmacological
--- NOTE | 2017-08-25 09:32 | PN- CRCU ---
Subjective HPI/Critical Care Issues: Better S/p extubation Diarrhea persists Good diuresis No sig complaints Objective Current Medications: Current Medications Sig/Marcus Start time Last Medication Dose Route Stop Time Status Admin Albuterol Sulfate 3 ML BID 08/20 2200 AC 08/25 INH 0809 Dextrose/Sodium 1,000 ML Q13H 08/24 1530 AC 08/25 Chloride IV 0516 Fentanyl Citrate 12 MCG Q72H 08/27 1130 AC TOP Fentanyl Citrate 25 MCG Q72H 08/24 1130 DC 08/24 TOP 1144 Fentanyl Citrate 1,000 MCG Q5H 08/22 0900 DC 08/24 Dextrose/Water 250 ML IV 0631 Fentanyl Citrate 100 MCG Q4 HRS NEEDED PRN 08/21 1030 AC 08/23 IV 0255 Furosemide 20 MG ONCE ONE 08/24 1015 DC 08/24 IV 08/24 1016 1031 Heparin Sodium 5,000 UNIT Q8 08/22 1400 AC 08/25 (Porcine) SC 0516 Insulin Human Regular 0 Q4 08/16 1400 AC 08/21 SC 0130 Levothyroxine Sodium 68 MCG DAILY 08/17 1000 AC 08/24 IV 1031 Magnesium Sulfate 1 GM Q2H 08/25 0730 AC 08/25 Dextrose/Water 100 ML IV 08/25 1129 0913 Magnesium Sulfate 1 GM Q2H 08/24 0915 DC 08/24 Dextrose/Water 100 ML IV 08/24 1314 1147 Moxifloxacin HCl 400 MG Q24H 08/19 1200 AC 08/24 N/A 1 UNIT IV 1200 Ondansetron HCl 4 MG Q6P PRN 08/15 1845 AC IV Pantoprazole Sodium 40 MG DAILY 08/17 1400 AC 08/25 IV 0751 Phosphate 250 MG ONCE ONE 08/25 1200 AC PO 08/25 1201 Phosphate 500 MG ONCE ONE 08/25 0900 DC 08/25 PO 08/25 0901 0804 Phosphate 500 MG PC AND AT BEDTIME 08/24 0915 DC 08/24 PO 1033 Potassium Chloride 20 MEQ ONCE ONE 08/25 0815 DC IV 08/25 0816 Potassium Chloride 40 MEQ ONCE ONE 08/25 0730 DC 08/25 PO 08/25 0731 0756 Potassium Chloride 40 MEQ ONCE ONE 08/24 1015 DC 08/24 PO 08/24 1016 1126 Potassium Chloride 20 MEQ Q1H 08/24 0845 DC 08/24 IV 08/24 0946 1146 Vancomycin HCl 125 MG Q6H 08/21 1400 AC 08/25 PO 0752 Vitamin A/Vitamin D 1 ANGEL BID 08/22 1005 AC 08/25 TOP 0808 Zinc Oxide 1 ANGEL BID PRN 08/21 0615 08/24 TOP 1127 Vital Signs & I&O Last 24 Hrs of Vitals and I&O: Vital Signs Date Time Temp Pulse Resp B/P B/P Pulse O2 O2 Flow FiO2 Mean Ox Delivery Rate 08/25 0827 94 Nasal 4.0L Cannula 08/25 0800 98.5 98 24 110/68 08/25 0800 93 Nasal 4.0L Cannula 08/25 0800 98.5 98 24 110/68 93 Nasal 4.0L Cannula 08/25 0600 98.8 87 14 108/67 08/25 0400 98.8 90 14 91/62 08/25 0400 93 Nasal 4.0L Cannula 08/25 0200 97.6 60 16 112/68 08/25 0000 97.6 64 24 119/72 08/25 0000 95 Nasal 4.0L Cannula 08/25 0000 97.6 64 24 112/74 95 Nasal 4.0L Cannula 08/24 2200 97.8 64 14 99/65 08/24 2105 95 Nasal 4.0L Cannula 08/25 1999 97.8 80 16 102/70 08/24 2000 97 Nasal 4.0L Cannula 08/24 1600 98 Nasal 4.0L Cannula 08/24 1600 98.0 86 24 114/64 98 Nasal 4.0L Cannula 08/24 1200 96 Ventilator 35% 08/24 1149 35 Intake & Output 08/25 1600 08/25 0800 08/25 0000 Intake Total 542 398 Output Total 650 700 Balance -108 -302 Intake, IV 542 398 Intake, Oral 0 0 Number 2 2 Bowel Movements Output, Urine 650 700 Laboratory Tests 08/25 08/24 0320 1025 Blood Gas pH (7.35 - 7.45 PH) 7.43 pCO2 (35 - 45 TORR) 42 pO2 (80 - 100 TORR) 74 L HCO3 (21 - 28 MEQ/L) 27 ABG O2 Sat (Measured) (>96.0 %) 93.0 L P-50 (Temp Corrected) N Carboxyhemoglobin (1.5 - 5.0 %) 0.5 L O2 Concentration % 35% Respiration Rate (BPM) 12 O2 Delivery Method VENT Vent Mode CPAP/PSV TRIAL Expiratory Pressure (CMH2O/P) 5 Tidal Volume (CC) 517 Pressure Support (CMH2O/P) 6 Chemistry Sodium (137 - 145 mmol/L) 138 Potassium (3.5 - 5.1 mmol/L) 3.7 Chloride (98 - 107 mmol/L) 102 Carbon Dioxide (22 - 30 mmol/L) 30 Anion Gap (5 - 16) 6 BUN (7 - 17 mg/dL) < 2 L Creatinine (0.5 - 1.0 mg/dL) 0.3 L Estimated GFR (>60 ml/min) > 60 Glucose (65 - 99 mg/dL) 101 H Calcium (8.4 - 10.2 mg/dL) 7.6 L Phosphorus (2.5 - 4.5 mg/dL) 3.6 Magnesium (1.6 - 2.3 mg/dL) 1.7 Total Bilirubin (0.2 - 1.3 mg/dL) 2.6 H Direct Bilirubin (< 0.4 mg/dL) 2.0 H AST (14 - 36 U/L) 88 H ALT (9 - 52 U/L) 70 H Alkaline Phosphatase (<127 U/L) 329 H Total Protein (6.3 - 8.2 g/dL) 5.4 L Albumin (3.5 - 5.0 g/dL) 2.2 L Hematology CBC w Diff MAN DIFF ORDERED WBC (4.8 - 10.8 /CUMM) 10.9 H RBC (4.20 - 5.40 /CUMM) 2.01 L Hgb (12.0 - 16.0 G/DL) 7.7 L Hct (37 - 47 %) 23.3 L MCV (81.0 - 99.0 FL) 115.9 H MCH (27.0 - 31.0 PG) 38.5 H MCHC (33.0 - 37.0 G/DL) 33.2 RDW (11.5 - 14.5 %) 25.1 H Plt Count (130 - 400 /CUMM) 136 MPV (7.4 - 10.4 FL) 12.0 H Gran % (42.2 - 75.2 %) 90.8 H Lymphocytes % (20.5 - 51.1 %) 5.5 L Monocytes % (1.7 - 9.3 %) 3.4 Eosinophils % (0 - 5 %) 0 Basophils % (0.0 - 2.0 %) 0.3 Absolute Granulocytes (1.4 - 6.5 /CUMM) 9.9 H Segmented Neutrophils (42.2 - 75.2 %) 85 H Band Neutrophils (0.0 - 5.0 %) 1 Absolute Lymphocytes (1.2 - 3.4 /CUMM) 0.6 L Lymphocytes (20.5 - 51.1 %) 7 L Monocytes (1.7 - 9.3 %) 7 Absolute Monocytes (0.10 - 0.60 /CUMM) 0.4 Absolute Eosinophils (0.0 - 0.7 /CUMM) 0 Absolute Basophils (0.0 - 0.2 /CUMM) 0 Platelet Estimate (ADEQUATE) ADEQUATE Polychromasia 1+ Poikilocytosis 2+ Basophilic Stippling SLIGHT Anisocytosis 1+ Macrocytic Cells 2+ Ovalocytes 1+ Stomatocytes 1+ Miscellaneous Phlebotomy Draw Site LEFT RADIAL Other Body Source Fld Total RBCs Counted (%) 100 08/24 08/23 0400 1845 Chemistry Sodium (137 - 145 mmol/L) 137 Potassium (3.5 - 5.1 mmol/L) 3.2 L Chloride (98 - 107 mmol/L) 103 Carbon Dioxide (22 - 30 mmol/L) 29 Anion Gap (5 - 16) 5 BUN (7 - 17 mg/dL) < 2 L Creatinine (0.5 - 1.0 mg/dL) 0.4 L Estimated GFR (>60 ml/min) > 60 Glucose (65 - 99 mg/dL) 110 H Calcium (8.4 - 10.2 mg/dL) 7.2 L Phosphorus (2.5 - 4.5 mg/dL) 3.3 Magnesium (1.6 - 2.3 mg/dL) 1.7 Total Bilirubin (0.2 - 1.3 mg/dL) 3.2 H Direct Bilirubin (< 0.4 mg/dL) 2.7 H AST (14 - 36 U/L) 102 H ALT (9 - 52 U/L) 64 H Alkaline Phosphatase (<127 U/L) 374 H Ammonia (9 - 30 umol/L) 27 Total Protein (6.3 - 8.2 g/dL) 5.4 L Albumin (3.5 - 5.0 g/dL) 2.2 L Hematology CBC w Diff MAN DIFF ORDERED WBC (4.8 - 10.8 /CUMM) 9.9 RBC (4.20 - 5.40 /CUMM) 2.31 L Hgb (12.0 - 16.0 G/DL) 8.7 L Hct (37 - 47 %) 26.5 L MCV (81.0 - 99.0 FL) 115.0 H MCH (27.0 - 31.0 PG) 37.7 H MCHC (33.0 - 37.0 G/DL) 32.8 L RDW (11.5 - 14.5 %) 24.6 H Plt Count (130 - 400 /CUMM) 125 L MPV (7.4 - 10.4 FL) 11.3 H Gran % (42.2 - 75.2 %) 89.7 H Lymphocytes % (20.5 - 51.1 %) 5.7 L Monocytes % (1.7 - 9.3 %) 4.0 Eosinophils % (0 - 5 %) 0.1 Basophils % (0.0 - 2.0 %) 0.5 Absolute Granulocytes (1.4 - 6.5 /CUMM) 8.9 H Segmented Neutrophils (42.2 - 75.2 %) 81 H Band Neutrophils (0.0 - 5.0 %) 6 H Absolute Lymphocytes (1.2 - 3.4 /CUMM) 0.6 L Lymphocytes (20.5 - 51.1 %) 6 L Monocytes (1.7 - 9.3 %) 7 Absolute Monocytes (0.10 - 0.60 /CUMM) 0.4 Absolute Eosinophils (0.0 - 0.7 /CUMM) 0 Absolute Basophils (0.0 - 0.2 /CUMM) 0.1 Platelet Estimate (ADEQUATE) ADEQUATE Polychromasia 1+ Poikilocytosis 1+ Anisocytosis 1+ Macrocytic Cells 2+ Target Cells 2+ Stomatocytes 2+ Microbiology Date/Time Procedure - Status Source Growth 08/24 1030 Blood Culture - RECD BLOOD 08/24 1020 Blood Culture - RECD BLOOD 08/23 2244 Urine Culture - COMP URINE ROUT 08/23 2244 Respiratory Culture - RES LOWER RESP 08/23 2244 Gram Stain - RES LOWER RESP 08/23 2149 Blood Culture - CAN BLOOD Cancelled: SPECIMEN NOT RECEIVED IN LABORATORY 08/23 2149 Blood Culture - CAN BLOOD Cancelled: SPECIMEN NOT RECEIVED IN LABORATORY Impression/Plan Impression/Plan Impression/Plan: General Appearance:Extubated and awake Picc line in place Head: atraumatic, normal appearance Ears, Nose, Throat: mucous membranes dry, dried blood noted on mouth. Neck: normal inspection, supple Respiratory: normal breath sounds, crackles (basilar) Cardiovascular: regular rate/rhythm Gastrointestinal: no distention, no rigidity .hypoactive bowel sounds. Extremities: normal inspection, normal capillary refill, swelling IMPRESSION This is a 57-year-old lady with history of hypertension hypothyroidism significant alcohol abuse with worsening alcoholism in the recent past came into the hospital with confusion and somnolence tachycardia and significant jaundice with severe metabolic acidosis, normal lactate, no significant osmolar gap with clinical signs and symptoms suggestive of severe alcoholic ketoacidosis. She also has significant fatty liver with evidence of significant alcoholic hepatitis with so far preserved synthetic function of her liver. Issues * Resolved Septic shock due to pneumonia and ecoli septicemia now with C. Diff with ongoing diarrhea * Resolved Metabolic encephalopathy due to sig liver disease, Sepisis and DTs * Resolved resp failure- (hypoxemic and hypercarbic related to severe bilateral ecoli pna, acute lung injury with, pulmonary edema due to appropriate post fluid resuscitation) * Improving thromobocytopenia due to sepsis and liver disease * Resolved metabolic acidosis (anion gap acidosis), with severe ketosis in a nondiabetic patient Patient did receive thiamine prior to any glucose treatment. * Diffuse fatty liver with sig alchoholic hepatitis * Resolved DT * Resolving electrolyte abnormalities due to enterocolitis with profuse diarrhea and sepsis with cdiff * Resolving Mild pancreatitis * Ongoing anemia, macrocytic due to sig etoh and normal b12 and folate level RECOMMENDATION/PLAN * Cont IVF till pt can eat, reduce rate to 60 cc * Swallow eval and feed * Dc fentanyl after tommorow * OOB to chair, DC hines and venodyne boots as she is on heparin * PEriodex oral care tid * Cont abx * PRn nebs and incentive spirometry * Replace Potassium * Mag iv one gram today * OOB to chair Will consider transfer to the floor soon
--- NOTE | 2017-08-25 11:34 | PN- Infect Dx ---
Subjective Subjective: Afebrile without complaints. She was extubated yesterday. She does have a mild cough. She continues to have diarrhea, though it is reportedly less frequent. Objective Last 24 Hrs of Vital Signs/I&O Vital Signs Date Time Temp Pulse Resp B/P B/P Pulse O2 O2 Flow FiO2 Mean Ox Delivery Rate 08/25 1000 98.6 102 30 99/62 08/25 0827 94 Nasal 4.0L Cannula 08/25 0800 98.5 98 24 110/68 08/25 0800 93 Nasal 4.0L Cannula 08/25 0800 98.5 98 24 110/68 93 Nasal 4.0L Cannula 08/25 0600 98.8 87 14 108/67 08/25 0400 98.8 90 14 91/62 08/25 0400 93 Nasal 4.0L Cannula 08/25 0200 97.6 60 16 112/68 08/25 0000 97.6 64 24 119/72 08/25 0000 95 Nasal 4.0L Cannula 08/25 0000 97.6 64 24 112/74 95 Nasal 4.0L Cannula 08/24 2200 97.8 64 14 99/65 08/24 2105 95 Nasal 4.0L Cannula 08/25 1999 97.8 80 16 102/70 08/24 2000 97 Nasal 4.0L Cannula 08/24 1600 98 Nasal 4.0L Cannula 08/24 1600 98.0 86 24 114/64 98 Nasal 4.0L Cannula 08/24 1200 96 Ventilator 35% 08/24 1149 35 Intake & Output 08/25 1600 08/25 0800 08/25 0000 Intake Total 542 398 Output Total 650 700 Balance -108 -302 Intake, IV 542 398 Intake, Oral 0 0 Number 2 2 Bowel Movements Output, Urine 650 700 Patient 152 lb Weight Weight Bed scale Measurement Method Physical Exam Other Physical Findings: She appears comfortable in no acute distress Lungs scattered rhonchi bilaterally Heart regular rhythm with no murmur Abdomen is soft, nontender with positive bowel sounds Extremities PICC in the right upper extremity with no inflammation at the site Waller catheter remains in place Results Last 24 Hours of Lab Results: Laboratory Tests 08/25 0320 Chemistry Sodium (137 - 145 mmol/L) 138 Potassium (3.5 - 5.1 mmol/L) 3.7 Chloride (98 - 107 mmol/L) 102 Carbon Dioxide (22 - 30 mmol/L) 30 Anion Gap (5 - 16) 6 BUN (7 - 17 mg/dL) < 2 L Creatinine (0.5 - 1.0 mg/dL) 0.3 L Estimated GFR (>60 ml/min) > 60 Glucose (65 - 99 mg/dL) 101 H Calcium (8.4 - 10.2 mg/dL) 7.6 L Phosphorus (2.5 - 4.5 mg/dL) 3.6 Magnesium (1.6 - 2.3 mg/dL) 1.7 Total Bilirubin (0.2 - 1.3 mg/dL) 2.6 H Direct Bilirubin (< 0.4 mg/dL) 2.0 H AST (14 - 36 U/L) 88 H ALT (9 - 52 U/L) 70 H Alkaline Phosphatase (<127 U/L) 329 H Total Protein (6.3 - 8.2 g/dL) 5.4 L Albumin (3.5 - 5.0 g/dL) 2.2 L Hematology CBC w Diff MAN DIFF ORDERED WBC (4.8 - 10.8 /CUMM) 10.9 H RBC (4.20 - 5.40 /CUMM) 2.01 L Hgb (12.0 - 16.0 G/DL) 7.7 L Hct (37 - 47 %) 23.3 L MCV (81.0 - 99.0 FL) 115.9 H MCH (27.0 - 31.0 PG) 38.5 H MCHC (33.0 - 37.0 G/DL) 33.2 RDW (11.5 - 14.5 %) 25.1 H Plt Count (130 - 400 /CUMM) 136 MPV (7.4 - 10.4 FL) 12.0 H Gran % (42.2 - 75.2 %) 90.8 H Lymphocytes % (20.5 - 51.1 %) 5.5 L Monocytes % (1.7 - 9.3 %) 3.4 Eosinophils % (0 - 5 %) 0 Basophils % (0.0 - 2.0 %) 0.3 Absolute Granulocytes (1.4 - 6.5 /CUMM) 9.9 H Segmented Neutrophils (42.2 - 75.2 %) 85 H Band Neutrophils (0.0 - 5.0 %) 1 Absolute Lymphocytes (1.2 - 3.4 /CUMM) 0.6 L Lymphocytes (20.5 - 51.1 %) 7 L Monocytes (1.7 - 9.3 %) 7 Absolute Monocytes (0.10 - 0.60 /CUMM) 0.4 Absolute Eosinophils (0.0 - 0.7 /CUMM) 0 Absolute Basophils (0.0 - 0.2 /CUMM) 0 Platelet Estimate (ADEQUATE) ADEQUATE Polychromasia 1+ Poikilocytosis 2+ Basophilic Stippling SLIGHT Anisocytosis 1+ Macrocytic Cells 2+ Ovalocytes 1+ Stomatocytes 1+ Other Body Source Fld Total RBCs Counted (%) 100 Last 24 Hours of Will Results: Sputum culture August 23 positive for gram-negative rods Urine culture August 23 negative Blood cultures 2 August 24 negative Recent Imaging Studies: Right upper quadrant ultrasound August 24 revealed a trace amount of free fluid in the perihepatic region, with the gallbladder physiologically distended with no evidence of stones, sludge, polyps, wall thickening or pericholecystic fluid Assessment/Plan ID Impression: Overall improved, status post successful extubation yesterday, with no further fevers, though with a slight increase in her white blood cell count, on Moxifloxacin Day 6 of treatment for Escherichia coli sepsis, presumably secondary to pneumonia, and po Vancomycin Day 4 of treatment for C. difficile, with some improvement reported in her diarrhea. Her recent sputum culture is again growing gram-negative rods, but this is of unclear significance given her improving respiratory status, negative chest x-ray and defervescence. Her liver enzymes are decreasing, with no evidence of any biliary process on her recent right upper quadrant ultrasound. Suggestion: 1. Follow-up final sputum culture 2. Remove Waller catheter 3. Continue Moxifloxacin and po Vancomycin
[2017-08-26] VITALS (7 sets, daily range): BP systolic 100–150; BP diastolic 50–88
[2017-08-26 04:15] LABS: ABSOLUTE BASOPHIL COUNT 0 /CUMM (0.0-0.2); ABSOLUTE EOSINOPHIL COUNT 0 /CUMM (0.0-0.7); ABSOLUTE GRANULOCYTE CT 5.9 /CUMM (1.4-6.5); ABSOLUTE LYMPH COUNT 0.7 /CUMM (1.2-3.4); ABSOLUTE MONOCYTE COUNT 0.3 /CUMM (0.10-0.60); BASOPHIL % 0.2 % (0.0-2.0); EOSINOPHIL % 0.2 % (0-5); GRANULOCYTE % 84.9 % (42.2-75.2); MEAN CORPUSCULAR VOLUME 118.5 FL (81.0-99.0); MEAN PLATELET VOLUME 11.2 FL (7.4-10.4); PLATELET COUNT 168 /CUMM (130-400); RBC DISTRIBUTION WIDTH 25.4 % (11.5-14.5); WHITE BLOOD CELL COUNT 6.9 /CUMM (4.8-10.8)
[2017-08-26 06:36] LABS: MEAN CORPUSCULAR HGB 37.7 PG (27.0-31.0); MEAN CORPUSCULAR HGB CONC 32.1 G/DL (33.0-37.0)
[2017-08-26 06:37] LABS: RED BLOOD CELL CT 2.25 /CUMM (4.20-5.40)
[2017-08-26 06:38] LABS: HEMATOCRIT 26.5 % (37-47)
--- NOTE | 2017-08-26 07:01 | PN- Resident CRCU ---
Subjective HPI/CRCU Issues: I followed up and examined the patient today. She is resting comfortably in bed , does not appear to be in distress, hoarseness of voice is better today, VSS, awaiting repeat swallow eval. Update: Formal swallow eval: Patient did poorly with regular thin liquids, and thus has been placed on thickened consistency diet for now. Speech therapist will reevaluate tomorrow and possibly do modified barium swallow evaluation. Pending: -Social work consult (requested) -Psychiatry (requested) -Speech therapy for swallow eval (will repeat tomorrow) 24 Hour Events: No respiratory issues noted overnight. VSS. Objective Vital Signs & I&O Last 8 Hrs of Vitals and I&O: Vital Signs Date Time Temp Pulse Resp B/P B/P Pulse O2 O2 Flow FiO2 Mean Ox Delivery Rate 08/26 1028 97 Nasal 3.0L Cannula 08/26 0800 Nasal 4.0L Cannula 08/26 0800 98.4 100 22 130/80 96 Nasal 4.0L Cannula 08/26 0600 74 22 143/82 08/26 0400 99.2 86 24 150/88 08/26 0400 95 Nasal 4.0L Cannula 08/26 0200 92 20 121/79 08/26 0000 98.5 68 20 120/80 08/26 0000 94 Nasal 4.0L Cannula 08/26 0000 98.5 68 20 120/80 94 Nasal 4.0L Cannula 08/25 2200 99.5 62 14 100/53 08/26 1999 99.5 80 23 110/75 08/25 2000 95 Nasal 4.0L Cannula 08/25 2000 94 Nasal 4.0L Cannula 08/25 1800 98.1 64 21 14/66 08/25 1600 98.1 65 20 117/74 08/25 1600 93 Nasal 4.0L Cannula 08/25 1600 98.1 65 20 117/74 93 Nasal 4.0L Cannula 08/25 1528 Nasal 4.0L Cannula 08/25 1521 Nasal 4.0L Cannula 08/25 1400 82 24 110/68 Exam General Appearance: alert, awake, comfortable, overweight Other Physical Findings: HEENT: NCAT, MMM, anicteric sclera, PERRLA, ET/OG tube NECK: Supple, no JVD, trachea midline, no accessory respiratory muscle use CARD: normal s1/s2 w/o m/g/r PULM: b/l air entry equal, crackles heard over both lung kowalski, not in resp distress GI: Soft, NT, ND, BS+ : Waller catheter draining dark yellow urine NEURO: alert, no focal neuro loss EXT: TLC in RUE, normal pulses Waller Site: - Current Medications: Current Medications Sig/Marcus Start time Last Medication Dose Route Stop Time Status Admin Albuterol Sulfate 3 ML BID 08/20 2200 AC 08/26 INH 1028 Chlorhexidine 10 ML TID 08/25 1000 AC 08/26 Gluconate PO 1106 Dextrose/Sodium 1,000 ML Q13H 08/24 1530 AC 08/26 Chloride IV 0610 Fentanyl Citrate 12 MCG ONCE ONE 08/27 1015 AC TOP 08/27 1016 Furosemide 20 MG ONCE ONE 08/26 0915 DC 08/26 IV 08/26 0916 1103 Heparin Sodium 5,000 UNIT Q8 08/22 1400 AC 08/26 (Porcine) SC 0609 Levothyroxine Sodium 68 MCG DAILY 08/17 1000 AC 08/26 IV 1104 Magnesium Sulfate 1 GM Q2H 08/26 0815 DC 08/26 Dextrose/Water 100 ML IV 08/26 1214 1222 Moxifloxacin HCl 400 MG Q24H 08/19 1200 AC 08/25 N/A 1 UNIT IV 1219 Ondansetron HCl 4 MG Q6P PRN 08/15 1845 AC IV Pantoprazole Sodium 40 MG DAILY 08/17 1400 AC 08/26 IV 1059 Potassium Chloride 20 MEQ ONCE ONE 08/26 0800 DC 08/26 PO 08/26 0801 0850 Vancomycin HCl 125 MG Q6H 08/21 1400 AC 08/26 PO 0849 Vitamin A/Vitamin D 1 ANGEL BID 08/22 1005 AC 08/26 TOP 0850 Zinc Oxide 1 ANGEL BID PRN 08/21 0615 AC 08/24 TOP 1127 Impression/Plan Impression/Problem List Impression: 57 year old woman with multiple medical problems significant for etoh abuse seen for evaluation of progressively worsening altered mental status over several weeks found to have E coli septicemia/pneumonia, and C diff colitis.. Patient was extubated on 08/24 but failed swallow re-eval today. Avelox is continued for her E. coli pneumonia. Oral Vancomycin continued for C diff colitis. Her diarrhea is better today as well, and her various electrolyte derrangements which are aggressively repleted. She was orthostat positive, but also had received Lasix earlier. We will keep close observation on that. Problem List -Altered mental status, probable toxic metabolic encephalopathy, improved -Septic shock, improved -E. coli bacteremia, still growing E coli on LRC of 08/23/17 -Acute Hypoxic/Hypercarbic Respiratory failure, Extubaed -C. Diff colitis, on PO Vancomycin, improving -Thrombocytopenia, improved. -Anion Gap Metabolic Acidosis, Resolved -Electrolyte abnormalities, repleting daily -Failed swallow re-eval -History of EtOH, contemplating quitting -h/o Hypertension -Hypothyroidism Plan -Can transfer to general medical floor from the ICU today -Continue IV levofloxacin 400 mg daily for Escherichia coli pneumonia -Continue TRC/nebs -Swallow evaluation tomorrow again, with possible modified barium swallow study, not ordered yet per ST -Continue by mouth vancomycin for C. difficile pancolitis -Repeat electrolytes aggressively -Guaic all stools -Accuchecks Q4H with Novolin SSI till repeat-swallow eval tomorrow -We'll decrease IV fluids to 60 mL per hour once she starts eating -Sridhar has been DC'ed already/ RUE TLC -CIWA protocol, discontinued -Social work/psychiatry consult pending -Protonix 40 mg IV Daily -Consults with ID and GI (signed off now) -Follow up cultures & sensitivites -Pain control PRN, Fentanyl patch weaning to stop. -DVT PPx with ALPS/Lovenox -FULL CODE Problem List: 1. Altered mental status 2. Pneumonia 3. C. difficile colitis 4. Alcohol abuse Pain Ratin Tomorrow's Labs & Rationales: CBC, BEP, Mg, Phos Plan DVT/Prophylaxis: pharmacological
--- NOTE | 2017-08-26 09:03 | PN- Pulmonary ---
Subjective HPI/Critical Care Issues: DOing well Stable Apparently did fail swallow eval Wants to eat ON ivf Stable Objective Current Medications: Current Medications Sig/Marcus Start time Last Medication Dose Route Stop Time Status Admin Albuterol Sulfate 3 ML BID 08/20 2200 AC 08/25 INH 2000 Chlorhexidine 10 ML TID 08/25 1000 AC 08/25 Gluconate PO 2237 Dextrose/Sodium 1,000 ML Q13H 08/24 1530 AC 08/26 Chloride IV 0610 Fentanyl Citrate 12 MCG Q72H 08/27 1130 DC TOP Fentanyl Citrate 12 MCG ONCE ONE 08/27 1015 AC TOP 08/27 1016 Fentanyl Citrate 100 MCG Q4 HRS NEEDED PRN 08/21 1030 DC 08/23 IV 08/26 2300 0255 Heparin Sodium 5,000 UNIT Q8 08/22 1400 AC 08/26 (Porcine) SC 0609 Insulin Human Regular 0 Q4 08/16 1400 DC 08/21 SC 0130 Levothyroxine Sodium 68 MCG DAILY 08/17 1000 AC 08/25 IV 1028 Magnesium Sulfate 1 GM Q2H 08/26 0815 AC Dextrose/Water 100 ML IV 08/26 1214 Magnesium Sulfate 1 GM Q2H 08/25 0730 DC 08/25 Dextrose/Water 100 ML IV 08/25 1129 0913 Moxifloxacin HCl 400 MG Q24H 08/19 1200 AC 08/25 N/A 1 UNIT IV 1219 Ondansetron HCl 4 MG Q6P PRN 08/15 1845 AC IV Pantoprazole Sodium 40 MG DAILY 08/17 1400 AC 08/25 IV 0751 Phosphate 250 MG ONCE ONE 08/25 1200 DC 08/25 PO 08/25 1201 1426 Phosphate 500 MG ONCE ONE 08/25 0900 DC 08/25 PO 08/25 0901 0804 Potassium Chloride 20 MEQ ONCE ONE 08/26 0800 DC 08/26 PO 08/26 0801 0850 Vancomycin HCl 125 MG Q6H 08/21 1400 AC 08/26 PO 0849 Vitamin A/Vitamin D 1 ANGEL BID 08/22 1005 AC 08/26 TOP 0850 Zinc Oxide 1 ANGEL BID PRN 08/21 0615 AC 08/24 TOP 1127 Vital Signs & I&O Last 24 Hrs of Vitals and I&O: Vital Signs Date Time Temp Pulse Resp B/P B/P Pulse O2 O2 Flow FiO2 Mean Ox Delivery Rate 08/26 0600 74 22 143/82 08/26 0400 99.2 86 24 150/88 08/26 0400 95 Nasal 4.0L Cannula 08/26 0200 92 20 121/79 08/26 0000 98.5 68 20 120/80 08/26 0000 94 Nasal 4.0L Cannula 08/26 0000 98.5 68 20 120/80 94 Nasal 4.0L Cannula 08/25 2200 99.5 62 14 100/53 08/26 1999 99.5 80 23 110/75 08/25 2000 95 Nasal 4.0L Cannula 08/25 2000 94 Nasal 4.0L Cannula 08/25 1800 98.1 64 21 14/66 08/25 1600 98.1 65 20 117/74 08/25 1600 93 Nasal 4.0L Cannula 08/25 1600 98.1 65 20 117/74 93 Nasal 4.0L Cannula 08/25 1528 Nasal 4.0L Cannula 08/25 1521 Nasal 4.0L Cannula 08/25 1400 82 24 110/68 08/25 1200 98.2 80 24 118/62 08/25 1200 94 Nasal 4.0L Cannula 08/25 1000 98.6 102 30 99/62 Intake & Output 08/26 1600 08/26 0800 08/26 0000 Intake Total 550 600 Output Total 200 Balance 350 600 Intake, IV 550 600 Number 1 1 Bowel Movements Output, Urine 200 Patient 144 lb Weight Weight Bed scale Measurement Method Laboratory Tests 08/26 08/25 0325 0320 Chemistry Sodium (137 - 145 mmol/L) 139 138 Potassium (3.5 - 5.1 mmol/L) 3.8 3.7 Chloride (98 - 107 mmol/L) 103 102 Carbon Dioxide (22 - 30 mmol/L) 30 30 Anion Gap (5 - 16) 5 6 BUN (7 - 17 mg/dL) < 2 L < 2 L Creatinine (0.5 - 1.0 mg/dL) 0.4 L 0.3 L Estimated GFR (>60 ml/min) > 60 > 60 Glucose (65 - 99 mg/dL) 94 101 H Calcium (8.4 - 10.2 mg/dL) 7.9 L 7.6 L Phosphorus (2.5 - 4.5 mg/dL) 5.2 H 3.6 Magnesium (1.6 - 2.3 mg/dL) 1.7 1.7 Total Bilirubin (0.2 - 1.3 mg/dL) 2.3 H 2.6 H Direct Bilirubin (< 0.4 mg/dL) 2.0 H AST (14 - 36 U/L) 85 H 88 H ALT (9 - 52 U/L) 68 H 70 H Alkaline Phosphatase (<127 U/L) 329 H Total Protein (6.3 - 8.2 g/dL) 5.4 L Albumin (3.5 - 5.0 g/dL) 2.2 L 2.2 L Hematology CBC w Diff MAN DIFF ORDERED MAN DIFF ORDERED WBC (4.8 - 10.8 /CUMM) 6.9 10.9 H RBC (4.20 - 5.40 /CUMM) 2.25 L 2.01 L Hgb (12.0 - 16.0 G/DL) 8.7 L 7.7 L Hct (37 - 47 %) 26.5 L 23.3 L MCV (81.0 - 99.0 FL) 118.5 H 115.9 H MCH (27.0 - 31.0 PG) 37.7 H 38.5 H MCHC (33.0 - 37.0 G/DL) 32.1 L 33.2 RDW (11.5 - 14.5 %) 25.4 H 25.1 H Plt Count (130 - 400 /CUMM) 168 136 MPV (7.4 - 10.4 FL) 11.2 H 12.0 H Gran % (42.2 - 75.2 %) 84.9 H 90.8 H Lymphocytes % (20.5 - 51.1 %) 10.7 L 5.5 L Monocytes % (1.7 - 9.3 %) 4.0 3.4 Eosinophils % (0 - 5 %) 0.2 0 Basophils % (0.0 - 2.0 %) 0.2 0.3 Absolute Granulocytes (1.4 - 6.5 /CUMM) 5.9 9.9 H Segmented Neutrophils (42.2 - 75.2 %) 83 H 85 H Band Neutrophils (0.0 - 5.0 %) 3 1 Absolute Lymphocytes (1.2 - 3.4 /CUMM) 0.7 L 0.6 L Lymphocytes (20.5 - 51.1 %) 7 L 7 L Monocytes (1.7 - 9.3 %) 6 7 Absolute Monocytes (0.10 - 0.60 /CUMM) 0.3 0.4 Eosinophils (0 - 5.0 %) 1 Absolute Eosinophils (0.0 - 0.7 /CUMM) 0 0 Absolute Basophils (0.0 - 0.2 /CUMM) 0 0 Platelet Estimate (ADEQUATE) ADEQUATE ADEQUATE Polychromasia 1+ 1+ Poikilocytosis 2+ Basophilic Stippling RARE SLIGHT Anisocytosis 1+ 1+ Macrocytic Cells 2+ Target Cells 1+ Ovalocytes 1+ Stomatocytes 2+ 1+ Elliptocytes FEW Other Body Source Fld Total RBCs Counted (%) 100 08/24 1025 Blood Gas pH (7.35 - 7.45 PH) 7.43 pCO2 (35 - 45 TORR) 42 pO2 (80 - 100 TORR) 74 L HCO3 (21 - 28 MEQ/L) 27 ABG O2 Sat (Measured) (>96.0 %) 93.0 L P-50 (Temp Corrected) N Carboxyhemoglobin (1.5 - 5.0 %) 0.5 L O2 Concentration % 35% Respiration Rate (BPM) 12 O2 Delivery Method VENT Vent Mode CPAP/PSV TRIAL Expiratory Pressure (CMH2O/P) 5 Tidal Volume (CC) 517 Pressure Support (CMH2O/P) 6 Miscellaneous Phlebotomy Draw Site LEFT RADIAL Microbiology Date/Time Procedure - Status Source Growth 08/24 1030 Blood Culture - RES BLOOD 08/24 1020 Blood Culture - RES BLOOD 08/23 2245 Urine Culture - COMP URINE ROUT 08/23 2244 Respiratory Culture - RES LOWER RESP GRAM NEGATIVE RODS 08/23 2244 Gram Stain - RES LOWER RESP 08/23 2149 Blood Culture - CAN BLOOD Cancelled: SPECIMEN NOT RECEIVED IN LABORATORY 08/23 2149 Blood Culture - CAN BLOOD Cancelled: SPECIMEN NOT RECEIVED IN LABORATORY Impression/Plan Impression/Plan Impression/Plan: General Appearance:Extubated and awake Picc line in place Head: atraumatic, normal appearance Ears, Nose, Throat: mucous membranes dry, dried blood noted on mouth. Neck: normal inspection, supple Respiratory: normal breath sounds, crackles (basilar) Cardiovascular: regular rate/rhythm Gastrointestinal: no distention, no rigidity .hypoactive bowel sounds. Extremities: normal inspection, normal capillary refill, swelling IMPRESSION This is a 57-year-old lady with history of hypertension hypothyroidism significant alcohol abuse with worsening alcoholism in the recent past came into the hospital with confusion and somnolence tachycardia and significant jaundice with severe metabolic acidosis, normal lactate, no significant osmolar gap with clinical signs and symptoms suggestive of severe alcoholic ketoacidosis. She also has significant fatty liver with evidence of significant alcoholic hepatitis with so far preserved synthetic function of her liver. Issues * Resolved Septic shock due to pneumonia and ecoli septicemia now with C. Diff with ongoing diarrhea * Resolved Metabolic encephalopathy due to sig liver disease, Sepisis and DTs * Resolved resp failure- (hypoxemic and hypercarbic related to severe bilateral ecoli pna, acute lung injury with, pulmonary edema due to appropriate post fluid resuscitation) * Improving thromobocytopenia due to sepsis and liver disease * Resolved metabolic acidosis (anion gap acidosis), with severe ketosis in a nondiabetic patient Patient did receive thiamine prior to any glucose treatment. * Diffuse fatty liver with sig alchoholic hepatitis which is better * Resolved DT * Resolving electrolyte abnormalities due to enterocolitis with profuse diarrhea and sepsis with cdiff * Resolving Mild pancreatitis * Ongoing anemia, macrocytic due to sig etoh and normal b12 and folate level RECOMMENDATION/PLAN * Cont IVF till pt can eat, reduce rate to 60 cc and repeat swallow eval * IV lasix * Kcl 40 meq x 2 * IV mag * Dc fentanyl * OOB to chair, * PEriodex oral care tid * Cont abx * PRn nebs and incentive spirometry * PSych eval Will consider transfer to the floor
--- NOTE | 2017-08-26 09:30 | PN- Infect Dx ---
Subjective Subjective: Afebrile without complaints. She continues to have diarrhea, with 5 stools reported yesterday and 1 overnight. Objective Last 24 Hrs of Vital Signs/I&O Vital Signs Date Time Temp Pulse Resp B/P B/P Pulse O2 O2 Flow FiO2 Mean Ox Delivery Rate 08/26 0600 74 22 143/82 08/26 0400 99.2 86 24 150/88 08/26 0400 95 Nasal 4.0L Cannula 08/26 0200 92 20 121/79 08/26 0000 98.5 68 20 120/80 08/26 0000 94 Nasal 4.0L Cannula 08/26 0000 98.5 68 20 120/80 94 Nasal 4.0L Cannula 08/25 2200 99.5 62 14 100/53 08/26 1999 99.5 80 23 110/75 08/25 2000 95 Nasal 4.0L Cannula 08/25 2000 94 Nasal 4.0L Cannula 08/25 1800 98.1 64 21 14/66 08/25 1600 98.1 65 20 117/74 08/25 1600 93 Nasal 4.0L Cannula 08/25 1600 98.1 65 20 117/74 93 Nasal 4.0L Cannula 08/25 1528 Nasal 4.0L Cannula 08/25 1521 Nasal 4.0L Cannula 08/25 1400 82 24 110/68 08/25 1200 98.2 80 24 118/62 08/25 1200 94 Nasal 4.0L Cannula 08/25 1000 98.6 102 30 99/62 Intake & Output 08/26 1600 08/26 0800 08/26 0000 Intake Total 550 600 Output Total 200 Balance 350 600 Intake, IV 550 600 Number 1 1 Bowel Movements Output, Urine 200 Patient 144 lb Weight Weight Bed scale Measurement Method Physical Exam Other Physical Findings: She is awake and alert, somewhat agitated, and in no acute distress Lungs decreased breath sounds laterally Heart regular rhythm with no murmur Abdomen is soft, nontender with positive bowel sounds Extremities no cyanosis, clubbing or edema; PICC in the right upper extremity with no inflammation at the site Results Last 24 Hours of Lab Results: Laboratory Tests 08/26 0325 Chemistry Sodium (137 - 145 mmol/L) 139 Potassium (3.5 - 5.1 mmol/L) 3.8 Chloride (98 - 107 mmol/L) 103 Carbon Dioxide (22 - 30 mmol/L) 30 Anion Gap (5 - 16) 5 BUN (7 - 17 mg/dL) < 2 L Creatinine (0.5 - 1.0 mg/dL) 0.4 L Estimated GFR (>60 ml/min) > 60 Glucose (65 - 99 mg/dL) 94 Calcium (8.4 - 10.2 mg/dL) 7.9 L Phosphorus (2.5 - 4.5 mg/dL) 5.2 H Magnesium (1.6 - 2.3 mg/dL) 1.7 Total Bilirubin (0.2 - 1.3 mg/dL) 2.3 H AST (14 - 36 U/L) 85 H ALT (9 - 52 U/L) 68 H Albumin (3.5 - 5.0 g/dL) 2.2 L Hematology CBC w Diff MAN DIFF ORDERED WBC (4.8 - 10.8 /CUMM) 6.9 RBC (4.20 - 5.40 /CUMM) 2.25 L Hgb (12.0 - 16.0 G/DL) 8.7 L Hct (37 - 47 %) 26.5 L MCV (81.0 - 99.0 FL) 118.5 H MCH (27.0 - 31.0 PG) 37.7 H MCHC (33.0 - 37.0 G/DL) 32.1 L RDW (11.5 - 14.5 %) 25.4 H Plt Count (130 - 400 /CUMM) 168 MPV (7.4 - 10.4 FL) 11.2 H Gran % (42.2 - 75.2 %) 84.9 H Lymphocytes % (20.5 - 51.1 %) 10.7 L Monocytes % (1.7 - 9.3 %) 4.0 Eosinophils % (0 - 5 %) 0.2 Basophils % (0.0 - 2.0 %) 0.2 Absolute Granulocytes (1.4 - 6.5 /CUMM) 5.9 Segmented Neutrophils (42.2 - 75.2 %) 83 H Band Neutrophils (0.0 - 5.0 %) 3 Absolute Lymphocytes (1.2 - 3.4 /CUMM) 0.7 L Lymphocytes (20.5 - 51.1 %) 7 L Monocytes (1.7 - 9.3 %) 6 Absolute Monocytes (0.10 - 0.60 /CUMM) 0.3 Eosinophils (0 - 5.0 %) 1 Absolute Eosinophils (0.0 - 0.7 /CUMM) 0 Absolute Basophils (0.0 - 0.2 /CUMM) 0 Platelet Estimate (ADEQUATE) ADEQUATE Polychromasia 1+ Basophilic Stippling RARE Anisocytosis 1+ Target Cells 1+ Stomatocytes 2+ Elliptocytes FEW Last 24 Hours of Will Results: Sputum culture August 23 positive for Escherichia coli, sensitivities pending Blood cultures 2 August 24 negative Assessment/Plan ID Impression: Overall improved, with respiratory status remaining stable, status post extubation 2 days ago, with her temperatures and white blood cell count normal on Moxifloxacin, Day 7 of treatment for Escherichia coli sepsis, presumably secondary to pneumonia, and po Vancomycin, Day 5 for C. difficile, with persistent, though less frequent, diarrhea. Her recent sputum culture is again growing gram-negative rods, but this is of unclear significance given her improving respiratory status, negative chest x-ray and defervescence. Her liver enzymes continue to decrease. Suggestion: 1. Follow-up final sputum culture 2. Continue Moxifloxacin and po Vancomycin
--- NOTE | 2017-08-26 10:26 | Transfer of Care Summary ---
Hospital Course Course Hospital Course: 57 year old woman with hypertension, hypothyroidism, chronic alcoholism, presented to the emergency department for evaluation of progressively worsening altered mental status over several weeks, and was found to have aspiration pneumonia. Patient was managed in the ICU for the following issues: #Altered mental status, secondary to toxic metabolic encephalopathy #Septic shock due to Escherichia coli septicemia/pneumonia Patient was resuscitated in the ICU, needed mechanical ventilatory support, improved, and was extubated on 08/24 but failed swallow re-eval today. Avelox is continued for her E. coli pneumonia. Her altered mental condition was thought to be secondary to sepsis. #Failed swallow evaluation, status post extubation Patient has failed swallow evaluation again today. The speech therapist recommended reevaluation tomorrow morning and accordingly might go for a modified swallow study. The test has not been ordered per ST recommendation today. #E. coli bacteremia, still growing E coli on LRC of 08/23/17 #C. Diff colitis, on PO Vancomycin, improving #Severe electrolyte disturbance Continuing oral Vancomycin continued for C diff colitis. Her diarrhea is better today as well, and her various electrolyte derrangements which are aggressively repleted. #Thrombocytopenia, improved Patient's leukocytopenia is believed to be due to sepsis, which now has improved already. #Weakness, during the course of stay Patient has been in the ICU since 08/15/17, intubated, lying in bed, does have significant amount of weakness. PT has been working with her since yesterday. She was dizzy with orthostat positive, but also had received Lasix earlier. We will keep close observation on that. #Continuing her hypothyroidism medication. Her antihypertensives has been on hold. TO DO: -Swallow evaluation tomorrow again, with possible modified barium swallow study, not ordered yet per ST -Continue PO and IV antibiotics -Repeat electrolytes aggressively -Accuchecks Q4H with Novolin SSI till repeat-swallow eval tomorrow -Decrease IV fluids to 60 mL per hour once she starts eating -Social work/psychiatry consult pending -Protonix 40 mg IV Daily to change to PO -Follow Consults with ID Assessment/Plan: As listed above -Follow up cultures & sensitivites -Pain control PRN, Fentanyl patch weaning to stop. -DVT PPx with ALPS/Lovenox -FULL CODE
[2017-08-27] VITALS (9 sets, daily range): BP systolic 110–140; BP diastolic 68–80
--- NOTE | 2017-08-27 07:02 | PN- Housestaff ---
Emerald INMAN,Azucena 08/27/17 0702: Subjective Follow-up For: E coli, it recurred pneumonia, pancolitis with C. difficile, elec abnormalities Complaints: no complaints Subjective: Patient seen and examined at bedside. No overnight events/complaints. She denied cough, fever, shortness of breath, chest pain, abdominal pain. She is alert, awake oriented 2. Review of Systems Constitutional: Reports: see HPI. Objective Last 24 Hrs of Vital Signs/I&O Vital Signs Date Time Temp Pulse Resp B/P B/P Pulse O2 O2 Flow FiO2 Mean Ox Delivery Rate 08/27 1451 98.1 70 20 140/80 96 Nasal 3.0L Cannula 08/27 1000 98.2 64 18 134/72 08/27 0800 92 Nasal 2.0L Cannula 08/27 0637 98.2 64 19 134/72 96 Nasal 3.0L Cannula 08/27 0000 Nasal 3.0L Cannula 08/26 2211 99.2 70 16 112/72 94 Nasal 3.0L Cannula Intake & Output 08/27 1600 08/27 0800 08/27 0000 Intake Total 1255 600 825 Output Total 300 100 Balance 1255 300 725 Intake, IV 775 600 525 Intake, Oral 480 300 Number 0 3 0 Bowel Movements Output, Urine 300 100 Patient 145 lb Weight Physical Exam General Appearance: Alert, Cooperative, No Acute Distress, patient on 3 L of oxygenand has hoarseness of voice Cardiovascular: Normal S1, Normal S2, No Murmurs, Gallops Lungs: Normal Air Movement Abdomen: Soft, No Tenderness, No Hepatospenomegaly, No Masses Neurological: Strength at 5/5 X4 Ext, Normal Tone, Sensation Intact Extremities: No Cyanosis, No Edema, Normal Pulses Current Medications: Current Medications Sig/Marcus Start time Last Medication Dose Route Stop Time Status Admin Albuterol Sulfate 3 ML BID PRN 08/26 1349 AC INH Chlorhexidine 10 ML TID 08/25 1000 AC 08/27 Gluconate PO 0854 Dextrose/Sodium 1,000 ML Q13H 08/24 1530 AC 08/27 Chloride IV 0818 Fentanyl Citrate 12 MCG ONCE ONE 08/27 1015 DC 08/27 TOP 08/27 1016 1015 Heparin Sodium 5,000 UNIT Q8 08/22 1400 AC 08/27 (Porcine) SC 1427 Lactulose 20 GM BID 08/27 2200 AC PO Levothyroxine Sodium 68 MCG DAILY 08/17 1000 AC 08/27 IV 1301 Magnesium Sulfate 1 GM ONCE ONE 08/27 0845 DC 08/27 Dextrose/Water 100 ML IV 08/27 1244 1100 Moxifloxacin HCl 400 MG Q24H 08/19 1200 AC 08/27 N/A 1 UNIT IV 1301 Ondansetron HCl 4 MG Q6P PRN 08/15 1845 AC IV Pantoprazole Sodium 40 MG DAILY 08/17 1400 AC 08/27 IV 0851 Potassium Chloride 10 MEQ ONCE ONE 08/27 0845 DC 08/27 IV 08/27 0846 1000 Vancomycin HCl 125 MG Q6H 08/21 1400 AC 08/27 PO 1439 Vitamin A/Vitamin D 1 ANGEL BID 08/22 1005 08/27 TOP 0854 Zinc Oxide 1 ANGEL BID PRN 08/21 0615 08/24 TOP 1127 Last 24 Hrs of Lab/Will Results Last 24 Hrs of Labs/Mics: Laboratory Tests 08/27/17 0630: Anion Gap 8, Estimated GFR > 60, BUN/Creatinine Ratio 5.0 L, Calcium 7.7 L, Phosphorus 5.1 H, Magnesium 1.6, CBC w Diff NO MAN DIFF REQ, RBC 1.95 L, MCV 116.8 H, MCH 38.2 H, MCHC 32.7 L, RDW 25.6 H, MPV 10.9 H, Gran % 81.0 H, Lymphocytes % 11.8 L, Monocytes % 6.0, Eosinophils % 0.6, Basophils % 0.6, Absolute Granulocytes 4.5, Absolute Lymphocytes 0.7 L, Absolute Monocytes 0.3, Absolute Eosinophils 0, Absolute Basophils 0 Lines/Diet/Fluids Restraints: right wrist, left wrist Assessment/Plan Assessment: 57 year old woman with multiple medical problems significant for etoh abuse seen for evaluation of progressively worsening altered mental status over several weeks found to have E coli septicemia/pneumonia, and C diff colitis. Problem List -Altered mental status, probable toxic metabolic encephalopathy, improved -Septic shock, improved -E. coli bacteremia, still growing E coli on LRC of 08/23/17 -Acute Hypoxic/Hypercarbic Respiratory failure, Extubaed -C. Diff colitis, on PO Vancomycin, improving -Thrombocytopenia, improved. -Anion Gap Metabolic Acidosis, Resolved -Electrolyte abnormalities, repleting daily -Failed swallow re-eval -History of EtOH, contemplating quitting -h/o Hypertension -Hypothyroidism * Patient treated with IV moxifloxacin for E coli pneumonia. Patient is on by mouth vancomycin day 8 for C. difficile pancolitis. ID follow-up appreciated. Patient at times has periods of confusion which can be secondary due to alcoholic cirrhotic liver disease. Replete lites as needed. Patient planned for modified barium swallow today. Patient was extubated 5 days ago and since then persistently failed swallow eval. Patient able to speak well and has hoarseness of voice. Her dysphagia can be secondary due to injury to the work according intubation. We will await MBS today. * Patient is on IV fluids 60 mL per hour. * GI prophylaxis-Protonix * addiction social worker and psychiatric consult on board. * Follow-up pending culture and sensitivity. * Novolin sliding scale insulin. Problem List: 1. C. difficile colitis 2. Pneumonia Pain Ratin Pain Location: none Pain Goal: Remain pain free Pain Plan: tylenol Tomorrow's Labs & Rationales: cbc,bep Ministerio Acosta 08/27/17 1252: Attending MD Review Statement Attending Statement Attending MD Statement: examined this patient, discuss w/resident/PA/COATER OPERATOR, agreed w/resident/PA/COATER OPERATOR, discussed with family, reviewed EMR data (avail), discussed with nursing, discussed with case mgmt, reviewed images, amended to note Attending Assessment/Plan: Patient transferred from ICU requiring intubation for respiratroy failure 2/2 pneumonia E coli on fluoroquinolones and C diff for diarrhea on PO vancomycin. Patient transferred to [facility] for ongoing dysphagia evaluation from ICU. Failed speech/swallow and for MBS study. Follow ID for duration of abx. Also f/u Case management if PO vanco covered with insurance.
[2017-08-27 08:33] LABS: ABSOLUTE BASOPHIL COUNT 0 /CUMM (0.0-0.2); ABSOLUTE EOSINOPHIL COUNT 0 /CUMM (0.0-0.7); ABSOLUTE GRANULOCYTE CT 4.5 /CUMM (1.4-6.5); ABSOLUTE LYMPH COUNT 0.7 /CUMM (1.2-3.4); ABSOLUTE MONOCYTE COUNT 0.3 /CUMM (0.10-0.60); BASOPHIL % 0.6 % (0.0-2.0); EOSINOPHIL % 0.6 % (0-5); MEAN PLATELET VOLUME 10.9 FL (7.4-10.4); PLATELET COUNT 160 /CUMM (130-400); RBC DISTRIBUTION WIDTH 25.6 % (11.5-14.5); WHITE BLOOD CELL COUNT 5.6 /CUMM (4.8-10.8)
[2017-08-27 10:07] LABS: HEMATOCRIT 22.8 % (37-47); MEAN CORPUSCULAR HGB 38.2 PG (27.0-31.0); MEAN CORPUSCULAR HGB CONC 32.7 G/DL (33.0-37.0); MEAN CORPUSCULAR VOLUME 116.8 FL (81.0-99.0); RED BLOOD CELL CT 1.95 /CUMM (4.20-5.40)
--- NOTE | 2017-08-27 11:51 | RADIOLOGY REPORT ---
EXAMINATION: XR MODIFIED BARIUM SWALLOW CLINICAL INFORMATION: Dysphagia. COMPARISON: None TECHNIQUE: Modified barium swallow was performed with speech therapist. FINDINGS: Evidence of aspiration with thin liquid was noted. However, subsequent attempt with thin liquid with head turned to the right showed no further aspiration. Minimal residual was noted within the vallecula with all consistencies. FLUOROSCOPY TIME: 2 minutes 34 seconds. NUMBER OF IMAGES: 17 images IMPRESSION: Aspiration with thin liquid, resolved following head done to the right. Please see the speech therapist report for further full details.
--- NOTE | 2017-08-27 15:40 | PN- Infect Dx ---
Subjective Subjective: Afebrile. She has had no diarrhea reported today. Objective Last 24 Hrs of Vital Signs/I&O Vital Signs Date Time Temp Pulse Resp B/P B/P Pulse O2 O2 Flow FiO2 Mean Ox Delivery Rate 08/27 1451 98.1 70 20 140/80 96 Nasal 3.0L Cannula 08/27 0637 98.2 64 19 134/72 96 Nasal 3.0L Cannula 08/27 0000 Nasal 3.0L Cannula 08/26 2211 99.2 70 16 112/72 94 Nasal 3.0L Cannula Intake & Output 08/27 1600 08/27 0800 08/27 0000 Intake Total 600 825 Output Total 300 100 Balance 300 725 Intake, IV 600 525 Intake, Oral 300 Number 3 0 Bowel Movements Output, Urine 300 100 Patient 145 lb Weight Physical Exam Other Physical Findings: She is awake and alert, confused, but in no acute distress Skin maculopapular rash on her back and trunk Lungs are clear Heart regular rhythm with no murmur Abdomen is soft, nontender with positive bowel sounds Extremities PICC in the right upper extremity with no inflammation at the site Results Last 24 Hours of Lab Results: Laboratory Tests 08/27 0630 Chemistry Sodium (137 - 145 mmol/L) 139 Potassium (3.5 - 5.1 mmol/L) 3.2 L Chloride (98 - 107 mmol/L) 102 Carbon Dioxide (22 - 30 mmol/L) 29 Anion Gap (5 - 16) 8 BUN (7 - 17 mg/dL) < 2 L Creatinine (0.5 - 1.0 mg/dL) 0.4 L Estimated GFR (>60 ml/min) > 60 BUN/Creatinine Ratio (7 - 25 %) 5.0 L Calcium (8.4 - 10.2 mg/dL) 7.7 L Phosphorus (2.5 - 4.5 mg/dL) 5.1 H Magnesium (1.6 - 2.3 mg/dL) 1.6 Hematology CBC w Diff NO MAN DIFF REQ WBC (4.8 - 10.8 /CUMM) 5.6 RBC (4.20 - 5.40 /CUMM) 1.95 L Hgb (12.0 - 16.0 G/DL) 7.5 L Hct (37 - 47 %) 22.8 L MCV (81.0 - 99.0 FL) 116.8 H MCH (27.0 - 31.0 PG) 38.2 H MCHC (33.0 - 37.0 G/DL) 32.7 L RDW (11.5 - 14.5 %) 25.6 H Plt Count (130 - 400 /CUMM) 160 MPV (7.4 - 10.4 FL) 10.9 H Gran % (42.2 - 75.2 %) 81.0 H Lymphocytes % (20.5 - 51.1 %) 11.8 L Monocytes % (1.7 - 9.3 %) 6.0 Eosinophils % (0 - 5 %) 0.6 Basophils % (0.0 - 2.0 %) 0.6 Absolute Granulocytes (1.4 - 6.5 /CUMM) 4.5 Absolute Lymphocytes (1.2 - 3.4 /CUMM) 0.7 L Absolute Monocytes (0.10 - 0.60 /CUMM) 0.3 Absolute Eosinophils (0.0 - 0.7 /CUMM) 0 Absolute Basophils (0.0 - 0.2 /CUMM) 0 Last 24 Hours of Will Results: Blood cultures 2 August 24 negative Sputum culture August 23 positive for Escherichia coli sensitive to Moxifloxacin, Gentamicin and Bactrim Recent Imaging Studies: Modified barium swallow August 27 revealed aspiration with thin liquids, eliminated with head turned to the right Assessment/Plan ID Impression: Stable, with temperatures and white blood cell count remaining normal, on Moxifloxacin, Day 8 of treatment for Escherichia coli sepsis, presumably secondary to pneumonia, and po Vancomycin, Day 6 for C. difficile, with diarrhea improved. She remains encephalopathic, possibly hepatic in etiology, though she is not on any Lactulose or Rifaximin at this time. Suggestion: 1. Further evaluation/management of her encephalopathy per Medicine 2. Continue Moxifloxacin and po Vancomycin
[2017-08-28 05:35] LABS: ABSOLUTE BASOPHIL COUNT 0 /CUMM (0.0-0.2); ABSOLUTE EOSINOPHIL COUNT 0.1 /CUMM (0.0-0.7); ABSOLUTE GRANULOCYTE CT 4.7 /CUMM (1.4-6.5); ABSOLUTE LYMPH COUNT 0.5 /CUMM (1.2-3.4); ABSOLUTE MONOCYTE COUNT 0.4 /CUMM (0.10-0.60); BASOPHIL % 0.1 % (0.0-2.0); GRANULOCYTE % 83.4 % (42.2-75.2); MEAN PLATELET VOLUME 10.3 FL (7.4-10.4); PLATELET COUNT 184 /CUMM (130-400); RBC DISTRIBUTION WIDTH 24.8 % (11.5-14.5); WHITE BLOOD CELL COUNT 5.6 /CUMM (4.8-10.8)
[2017-08-28 06:39] LABS: HEMATOCRIT 25.5 % (37-47); MEAN CORPUSCULAR HGB CONC 32.5 G/DL (33.0-37.0); RED BLOOD CELL CT 2.18 /CUMM (4.20-5.40)
[2017-08-28 07:27] VITALS: BP 140/84
--- NOTE | 2017-08-28 07:48 | PN- Housestaff ---
Emerald INMAN,Azucena 08/28/17 0748: Subjective Follow-up For: Community-acquired pneumonia, pancolitis, C. difficile Complaints: no complaints Subjective: Patient seen and examined at bedside. She was lying in bed comfortably. She is on 2 L of oxygen. No overnight events. She said she slept well overnight. She is awake, drowsy able to follow commands. Review of Systems Constitutional: Reports: see HPI. Objective Last 24 Hrs of Vital Signs/I&O Vital Signs Date Time Temp Pulse Resp B/P B/P Pulse O2 O2 Flow FiO2 Mean Ox Delivery Rate 08/28 08 98.1 57 20 140/84 08/28 0800 97 Nasal 2.0L Cannula 08/28 0727 98.1 57 20 140/84 97 Nasal 2.0L Cannula 08/28 0000 Nasal 2.0L Cannula 08/27 2149 97.9 71 20 110/80 95 Nasal 2.0L Cannula 08/27 1905 95 Nasal 3.0L Cannula 08/27 1800 98.2 64 19 134/72 08/27 1600 98.1 70 20 140/80 08/27 1600 93 Nasal 2.0L Cannula 08/27 1451 98.1 70 20 140/80 96 Nasal 3.0L Cannula Intake & Output 08/28 1600 08/28 0800 08/28 0000 Intake Total 240 400 Output Total Balance 240 400 Intake, Oral 240 400 Patient 127 lb Weight Physical Exam General Appearance: Cooperative, No Acute Distress, drowsy, able to follow commands, maculopapular rash in the abdomen, bilateral breast, the back. Cardiovascular: Normal S1, Normal S2, No Murmurs Lungs: Normal Air Movement Abdomen: Soft, No Tenderness, No Hepatospenomegaly Neurological: Strength at 5/5 X4 Ext, Normal Tone Current Medications: Current Medications Sig/Marcus Start time Last Medication Dose Route Stop Time Status Admin Albuterol Sulfate 3 ML BID PRN 08/26 1349 AC INH Chlorhexidine 10 ML TID 08/25 1000 AC 08/28 Gluconate PO 0922 Cyanocobalamin 1,000 MCG DAILY 08/28 1000 AC 08/28 PO 1147 Dextrose/Sodium 1,000 ML Q13H 08/24 1530 DC 08/28 Chloride IV 0123 Famotidine 20 MG BID 08/28 1429 UNVr PO Folic Acid 1 MG DAILY 08/28 1000 AC 08/28 PO 1147 Heparin Sodium 5,000 UNIT Q8 08/22 1400 AC 08/28 (Porcine) SC 1318 Lactulose 20 GM BID 08/27 2200 DC 08/28 PO 0922 Levothyroxine Sodium 0.137 MG DAILY AC 08/29 0700 UNVr PO Levothyroxine Sodium 68 MCG DAILY 08/17 1000 DC 08/28 IV 0930 Moxifloxacin HCl 400 MG DAILY 08/29 1000 AC PO Moxifloxacin HCl 400 MG Q24H 08/19 1200 DC 08/28 N/A 1 UNIT IV 1148 Multivitamins 1 TAB DAILY 08/28 1100 AC 08/28 PO 1147 Ondansetron HCl 4 MG Q6P PRN 08/15 1845 AC IV Pantoprazole Sodium 40 MG DAILY 08/17 1400 DC 08/28 IV 0922 Potassium Chloride 40 MEQ ONCE ONE 08/28 0800 DC 08/28 PO 08/28 0801 0814 Thiamine HCl 500 MG Q8H 08/28 1200 AC 08/28 Sodium Chloride 250 ML IV 08/30 0459 1317 Vancomycin HCl 125 MG Q6H 08/21 1400 DC 08/28 PO 1317 Vitamin A/Vitamin D 1 ANGEL BID 08/22 1005 AC 08/28 TOP 0922 Zinc Oxide 1 ANGEL BID PRN 08/21 0615 AC 08/24 TOP 1127 Last 24 Hrs of Lab/Will Results Last 24 Hrs of Labs/Mics: Laboratory Tests 08/28/17 0500: Anion Gap 8, Estimated GFR > 60, BUN/Creatinine Ratio 5.0 L, Phosphorus 4.8 H, Magnesium 1.5 L, CBC w Diff MAN DIFF ORDERED, RBC 2.18 L, MCV 117.0 H, MCH 38.0 H, MCHC 32.5 L, RDW 24.8 H, MPV 10.3, Gran % 83.4 H, Lymphocytes % 8.2 L, Monocytes % 7.3, Eosinophils % 1.0, Basophils % 0.1, Absolute Granulocytes 4.7, Segmented Neutrophils 74, Band Neutrophils 4, Absolute Lymphocytes 0.5 L, Lymphocytes 14 L, Monocytes 6, Absolute Monocytes 0.4, Eosinophils 1, Absolute Eosinophils 0.1, Basophils 1, Absolute Basophils 0, Platelet Estimate ADEQUATE, Polychromasia 1+, Anisocytosis 1+, Macrocytic Cells 2+, Stomatocytes 1+, Elliptocytes FEW Lines/Diet/Fluids Restraints: right wrist, left wrist Assessment/Plan Assessment: 57 year old woman with multiple medical problems significant for etoh abuse seen for evaluation of progressively worsening altered mental status over several weeks found to have E coli septicemia/pneumonia, and C diff colitis. Problem List -Altered mental status, probable toxic metabolic encephalopathy -Septic shock, improved -E. coli bacteremia, still growing E coli on LRC of 08/23/17 -Acute Hypoxic/Hypercarbic Respiratory failure, Extubaed -C. Diff colitis, on PO Vancomycin, improving -Thrombocytopenia, improved. -Anion Gap Metabolic Acidosis, Resolved -Electrolyte abnormalities, repleting daily -Failed swallow re-eval -History of EtOH, contemplating quitting -h/o Hypertension -Hypothyroidism * Patient treated with IV moxifloxacin for E coli pneumonia. Since the patient passed swallow evaluation we will change IV moxifloxacin to by mouth moxifloxacin nightly 24. Discontinue vancomycin as per infectious disease. Patient at times has periods of confusion which can be secondary due to alcoholic cirrhotic liver disease/electrolytes. For his encephalopathy will get neurology on board. Replete lites as needed. Patient able to speak well and has hoarseness of voice. We will convert all her IV meds to by mouth meds. * Patient has maculopapular rash in the back, belly and bilateral breast which can be secondary due to medication use. Patient denies pruritus. * soaker soda worker on board. * Novolin sliding scale insulin. Problem List: 1. C. difficile colitis 2. Pneumonia Pain Ratin Pain Location: none Pain Goal: Remain pain free Pain Plan: tylenol Tomorrow's Labs & Rationales: cbc,bep Ministerio Acosta 08/28/17 1120: Attending MD Review Statement Attending Statement Attending MD Statement: examined this patient, discuss w/resident/PA/CONTROL BOARD OPERATOR, agreed w/resident/PA/CONTROL BOARD OPERATOR, discussed with family, reviewed EMR data (avail), discussed with nursing, discussed with case mgmt, reviewed images, amended to note Attending Assessment/Plan: Patient came initally for altered mental status transferred from ICU requiring intubation for respiratroy failure 2/2 pneumonia E coli on fluoroquinolones and C diff for diarrhea on PO vancomycin. [facility] dysphagia evaluation from ICU. MBS study performed and follow dietary recs. Patient is aaox2 oriented. She is eating PO as per s/s recs. No nausea, no vomiting. Sepsis from E coli pneumonia and C diff colitis. Follow ID for duration of abx. Encephalopathy initally thought to be hepatic USG shows no evidence of cirrhosis , alcohol mediated BRITTANY on admission <10. CT head on admisison negative for bleed. No focal deficit. Add thiamine/folic acid today. Not sure the etiology, consult neurolgoy for prognosis of encephalopathy. Also f/u Case management if PO vanco covered with insurance.
[2017-08-28 08:00] VITALS: BP 140/84
--- NOTE | 2017-08-28 12:48 | PN- Infect Dx ---
Subjective Subjective: Afebrile. She continues to have diarrhea with 5 watery stools reported this morning. She is eating poorly and apparently refusing to eat. Objective Last 24 Hrs of Vital Signs/I&O Vital Signs Date Time Temp Pulse Resp B/P B/P Pulse O2 O2 Flow FiO2 Mean Ox Delivery Rate 08/28 0800 98.1 57 20 140/84 08/28 0800 97 Nasal 2.0L Cannula 08/28 0727 98.1 57 20 140/84 97 Nasal 2.0L Cannula 08/28 0000 Nasal 2.0L Cannula 08/27 2149 97.9 71 20 110/80 95 Nasal 2.0L Cannula 08/27 1905 95 Nasal 3.0L Cannula 08/27 1800 98.2 64 19 134/72 08/27 1600 98.1 70 20 140/80 08/27 1600 93 Nasal 2.0L Cannula 08/27 1451 98.1 70 20 140/80 96 Nasal 3.0L Cannula 08/27 1400 97.0 72 20 136/68 Intake & Output 08/28 1600 08/28 0800 08/28 0000 Intake Total 240 400 Output Total Balance 240 400 Intake, Oral 240 400 Patient 127 lb Weight Physical Exam Other Physical Findings: She remains confused and mildly agitated Skin maculopapular, nonpruritic rash on her back and trunk unchanged Lungs decreased breath sounds bilaterally Heart regular rhythm with no murmur Abdomen is soft, nontender with positive bowel sounds Results Last 24 Hours of Lab Results: Laboratory Tests 08/28 0500 Chemistry Sodium (137 - 145 mmol/L) 141 Potassium (3.5 - 5.1 mmol/L) 3.0 L Chloride (98 - 107 mmol/L) 106 Carbon Dioxide (22 - 30 mmol/L) 27 Anion Gap (5 - 16) 8 BUN (7 - 17 mg/dL) < 2 L Creatinine (0.5 - 1.0 mg/dL) 0.4 L Estimated GFR (>60 ml/min) > 60 BUN/Creatinine Ratio (7 - 25 %) 5.0 L Phosphorus (2.5 - 4.5 mg/dL) 4.8 H Magnesium (1.6 - 2.3 mg/dL) 1.5 L Hematology CBC w Diff MAN DIFF ORDERED WBC (4.8 - 10.8 /CUMM) 5.6 RBC (4.20 - 5.40 /CUMM) 2.18 L Hgb (12.0 - 16.0 G/DL) 8.5 L Hct (37 - 47 %) 25.5 L MCV (81.0 - 99.0 FL) 117.0 H MCH (27.0 - 31.0 PG) 38.0 H MCHC (33.0 - 37.0 G/DL) 32.5 L RDW (11.5 - 14.5 %) 24.8 H Plt Count (130 - 400 /CUMM) 184 MPV (7.4 - 10.4 FL) 10.3 Gran % (42.2 - 75.2 %) 83.4 H Lymphocytes % (20.5 - 51.1 %) 8.2 L Monocytes % (1.7 - 9.3 %) 7.3 Eosinophils % (0 - 5 %) 1.0 Basophils % (0.0 - 2.0 %) 0.1 Absolute Granulocytes (1.4 - 6.5 /CUMM) 4.7 Segmented Neutrophils (42.2 - 75.2 %) 74 Band Neutrophils (0.0 - 5.0 %) 4 Absolute Lymphocytes (1.2 - 3.4 /CUMM) 0.5 L Lymphocytes (20.5 - 51.1 %) 14 L Monocytes (1.7 - 9.3 %) 6 Absolute Monocytes (0.10 - 0.60 /CUMM) 0.4 Eosinophils (0 - 5.0 %) 1 Absolute Eosinophils (0.0 - 0.7 /CUMM) 0.1 Basophils (0.0 - 2.0 %) 1 Absolute Basophils (0.0 - 0.2 /CUMM) 0 Platelet Estimate (ADEQUATE) ADEQUATE Polychromasia 1+ Anisocytosis 1+ Macrocytic Cells 2+ Stomatocytes 1+ Elliptocytes FEW Last 24 Hours of Will Results: Blood cultures August 24 negative Assessment/Plan ID Impression: Encephalopathy of unclear etiology, with an elevated ammonia level noted on admission, now back on Lactulose, which may explain her worsening diarrhea, though cannot rule out the possibility that this represents C. difficile not responsive to Vancomycin, now Day 7 of treatment. She remains afebrile, with white blood cell count remaining normal, on Moxifloxacin, Day 9 of treatment for Escherichia coli sepsis, presumably secondary to pneumonia. Her rash may be medication related, though she has no fever or eosinophilia and it does not appear to be pruritic. Suggestion: 1. GI follow-up regarding her diarrhea/Lactulose 2. Discontinue Vancomycin 3. Begin Fidaxomicin 200 mg po every 12 hours 4. Change Moxifloxacin to 400 mg po every 24 hours if taking her po meds
[2017-08-28 15:12] VITALS: BP 136/88
--- NOTE | 2017-08-28 19:33 | Incdntl Nt Psy ---
Incidental Note Notation: 57 F Encephalopathy noted on admission, with elevated ammonia, thought to be related to history of heavy alcohol use. She is on lactulose, but also is being treated for c.diff colitis, both probably contributing to her diarrhea. She is also being treated for e.coli sepsis, possibly due to pneumonia, per ID report. She is afebrile, and by report her confusion is waxing and waning. MSE: The patient was seen briefly today, and found to be in soft wrist restraints, with a sitter with her. She is calm and cooperative. Her speech is very soft and tremulous, normal rate. She is alert and oriented to name, place, month, year, but off by one day. She denies AH or VH and presents no tamera delusions. The patient reports interrupted sleep and jokes about her appetite, patting her stomach. She denies SI or HI. The patient is in no apprarent distress and has been mostly redirectable. However, nursing reports she can be confused about her medications, and during a trial off the wrist restraints, she began to immediately pull on her lines. At this time, we do not recommend any psychotropic intervention. If she becomes severely agitated, she may need a medication to help calm her, possibly haloperidol or olanzapine. However, her last EKG on 08/20/17 shows QTc prolongation of 490 mS, and her electrolytes today show potassium 3.0L and magnesium 1.5L. 1. New EKG, in the event that an antipsychotic is needed for severe or dangerous agitation, which we would avoid if possible. These medications should not be administered if arrhythmia or QTc greater than 475 mS. 2. Continue to replete electrolytes, particularly potassium and magnesiumin the event that an antipsychotic is needed for severe or dangerous agitation. These must be repleted to the upper portion of the normal range. 3. Avoid delirium triggers and try to allow thepatient to sleep, as much as possible between 10P and 6A. 4. Redirection and soft restraints for confusion, along with a 1:1 sitter. If there are any questions about medications over the weekend, please contact [employer] specialist psychiatry over the weekend, at [phone] or [phone]. We will revisit the patient next 08/31/17.
[2017-08-28 23:06] VITALS: BP 91/62
[2017-08-29] VITALS: BP 91/62
[2017-08-29 07:30] VITALS: BP 122/70
--- NOTE | 2017-08-29 08:29 | PN- Housestaff ---
See Addendum Subjective Follow-up For: Altered mental status, most likely 2/2 toxic metabolic encephalopathy Septic shock - resolved E. coli bacteremia Acute Hypoxic/Hypercarbic Respiratory failure s/p Extubation Thrombocytopenia - improving Anion Gap Metabolic Acidosis - Resolved Community-acquired pneumonia pancolitis C. difficile Subjective: No acute events overnight Review of Systems Constitutional: Reports: see HPI. Objective Last 24 Hrs of Vital Signs/I&O Vital Signs Date Time Temp Pulse Resp B/P B/P Pulse O2 O2 Flow FiO2 Mean Ox Delivery Rate 08/29 0844 98.6 08/29 0730 98.4 68 20 122/70 95 Room Air 08/29 0000 Nasal 1.5L Cannula 08/29 0000 100.6 93 20 91/62 08/28 2306 100.6 93 20 95 Room Air 08/28 1600 97 Nasal 1.0L Cannula 08/28 1512 98.1 84 20 136/88 96 Nasal Cannula 08/28 1444 96 Nasal 1.5L Cannula Intake & Output 08/29 1600 08/29 0800 08/29 0000 Intake Total 1150 390 Output Total Balance 1150 390 Intake, IV 910 150 Intake, Oral 240 240 Number 1 2 Bowel Movements Patient 143 lb Weight Weight Bed scale Measurement Method Physical Exam General Appearance: Lethargic, unable to assess orientation Cardiovascular: Regular Rate, Normal S1, Normal S2 Lungs: Clear to Auscultation, Normal Air Movement Abdomen: Normal Bowel Sounds, Soft, No Tenderness Current Medications: Current Medications Sig/Mracus Start time Last Medication Dose Route Stop Time Status Admin Albuterol Sulfate 3 ML BID PRN 08/26 1349 AC INH Chlorhexidine 10 ML TID 08/25 1000 AC 08/28 Gluconate PO 2115 Cyanocobalamin 1,000 MCG DAILY 08/28 1000 AC 08/28 PO 1147 Dextrose/Sodium 1,000 ML Q13H 08/28 1445 AC 08/29 Chloride IV 0550 Dextrose/Sodium 1,000 ML Q13H 08/24 1530 DC 08/28 Chloride IV 0123 Famotidine 20 MG BID 08/28 1429 AC 08/28 PO 2118 Fidaxomicin 200 MG Q12 08/28 2200 AC PO 09/01 2159 Folic Acid 1 MG DAILY 08/28 1000 AC 08/28 PO 1147 Heparin Sodium 5,000 UNIT Q8 08/22 1400 AC 08/29 (Porcine) SC 0550 Lactulose 20 GM BID 08/27 2200 DC 08/28 PO 0922 Levothyroxine Sodium 0.137 MG DAILY AC 08/29 0700 AC PO Levothyroxine Sodium 68 MCG DAILY 08/17 1000 DC 08/28 IV 0930 Moxifloxacin HCl 400 MG DAILY 08/29 1000 AC PO Moxifloxacin HCl 400 MG Q24H 08/19 1200 DC 08/28 N/A 1 UNIT IV 1148 Multivitamins 1 TAB DAILY 08/28 1100 AC 08/28 PO 1147 Ondansetron HCl 4 MG Q6P PRN 08/15 1845 AC IV Pantoprazole Sodium 40 MG DAILY 08/17 1400 DC 08/28 IV 0922 Thiamine HCl 500 MG Q8H 08/28 1200 AC 08/29 Sodium Chloride 250 ML IV 08/30 0459 0550 Vancomycin HCl 125 MG Q6H 08/21 1400 DC 08/28 PO 1317 Vitamin A/Vitamin D 1 ANGEL BID 08/22 1005 AC 08/28 TOP 2124 Zinc Oxide 1 ANGEL BID PRN 08/21 0615 08/24 TOP 1127 Last 24 Hrs of Lab/Will Results Last 24 Hrs of Labs/Mics: Laboratory Tests 08/29/17 0600: Sodium Pending, Potassium Pending, Chloride Pending, Carbon Dioxide Pending, Anion Gap Pending, BUN Pending, Creatinine Pending, BUN/Creatinine Ratio Pending , CBC w Diff Pending, WBC Pending, RBC Pending, Hgb Pending, Hct Pending, MCV Pending, MCH Pending, MCHC Pending, RDW Pending, Plt Count Pending, MPV Pending Assessment/Plan Assessment: Ms. Villagomez is a 57 year old woman with multiple medical problems significant for etoh abuse seen for evaluation of progressively worsening altered mental status over several weeks found to have E coli septicemia/pneumonia, and C diff colitis. Problem list: Altered mental status, most likely 2/2 toxic metabolic encephalopathy Septic shock - resolved E. coli bacteremia Acute Hypoxic/Hypercarbic Respiratory failure s/p Extubation Thrombocytopenia - improving Anion Gap Metabolic Acidosis - Resolved Community-acquired pneumonia pancolitis C. difficile Plan: TRC/nebs PRN Continue Fidaxomicin for C. difficile, Moxifloxacin for PNA Monitior platelets ID recommendations appreciated GI recommendations appreciated Neuro recommendations appreciated Problem List: 1. C. difficile colitis 2. Altered mental status 3. Pneumonia 4. Acute alcoholic hepatitis 5. Hepatic encephalopathy Pain Ratin Pain Location: NA Pain Goal: Remain pain free Pain Plan: NA Tomorrow's Labs & Rationales: BEP for K+
[2017-08-29 08:50] LABS: ABSOLUTE BASOPHIL COUNT 0 /CUMM (0.0-0.2); ABSOLUTE EOSINOPHIL COUNT 0.1 /CUMM (0.0-0.7); ABSOLUTE LYMPH COUNT 0.2 /CUMM (1.2-3.4); BASOPHIL % 0 % (0.0-2.0)
[2017-08-29 11:28] LABS: ABSOLUTE GRANULOCYTE CT 11.8 /CUMM (1.4-6.5); ABSOLUTE MONOCYTE COUNT 0.1 /CUMM (0.10-0.60); EOSINOPHIL % 0.6 % (0-5); HEMATOCRIT 27.2 % (37-47); MEAN CORPUSCULAR HGB 37.3 PG (27.0-31.0); MEAN CORPUSCULAR HGB CONC 31.6 G/DL (33.0-37.0); MEAN CORPUSCULAR VOLUME 118.1 FL (81.0-99.0); MEAN PLATELET VOLUME 10.1 FL (7.4-10.4); PLATELET COUNT 180 /CUMM (130-400)
[2017-08-29 11:56] LABS: WHITE BLOOD CELL COUNT 12.2 /CUMM (4.8-10.8)
--- NOTE | 2017-08-29 11:56 | Cons- Neurology ---
General Information and HPI Consulting Request Date of Consult: 08/29/17 Requested By: Ministerio Acosta MD Reason for Consult: hepatic encephalopathy History of Present Illness: 57-year-old woman with a history of ethanol abuse presented with subacute onset confusion, somnolence, jaundice, initially refusing medical attention, ultimately reportedly but brought in by her step daughter and her son. Workup revealed pneumonia, Escherichia coli sepsis, C. difficile colitis. LFTs a bit elevated. Serum ammonia levels have been variable, ranging from 76 on August 15, 52 on August 17, 27 on August 23. She has been receiving lactulose. She has transferred out of the critical care unit but remains confused and restless. Vest and wrist restraints are being used. There has apparently been no overt aggression. She was seen by the psychiatry service who suggested avoiding neuroleptics due to her prolonged QT on EKG She was febrile overnight to 100.6F Allergies/Medications Allergies: Coded Allergies: Penicillins (UNKNOWN 08/17/17) Home Med List: Levothyroxine Sodium (Synthroid) 137 MCG TABLET 1 TAB PO DAILY THYROID ( Reported) Metoprolol Succinate 50 MG TAB.ER.24H 1 TAB PO DAILY HEART/BP (Reported) Simvastatin (Simvastatin*) 80 MG TABLET 1 TAB PO DAILY CHOLESTEROL (Reported) Current Medications: Current Medications Sig/Marcus Start time Last Medication Dose Route Stop Time Status Admin Albuterol Sulfate 3 ML BID PRN 08/26 1349 AC INH Chlorhexidine 10 ML TID 08/25 1000 AC 08/29 Gluconate PO 1013 Cyanocobalamin 1,000 MCG DAILY 08/28 1000 AC 08/29 PO 1013 Dextrose/Sodium 1,000 ML Q13H 08/28 1445 AC 08/29 Chloride IV 0550 Dextrose/Sodium 1,000 ML Q13H 08/24 1530 DC 08/28 Chloride IV 0123 Famotidine 20 MG BID 08/28 1429 AC 08/29 PO 1013 Fidaxomicin 200 MG Q12 08/28 2200 AC 08/29 PO 09/01 2159 1013 Folic Acid 1 MG DAILY 08/28 1000 AC 08/29 PO 1013 Heparin Sodium 5,000 UNIT Q8 08/22 1400 AC 08/29 (Porcine) SC 0550 Lactulose 20 GM BID 08/27 2200 DC 08/28 PO 0922 Levothyroxine Sodium 0.137 MG DAILY AC 08/29 0700 AC PO Levothyroxine Sodium 68 MCG DAILY 08/17 1000 DC 08/28 IV 0930 Moxifloxacin HCl 400 MG DAILY 08/29 1000 AC 08/29 PO 1014 Moxifloxacin HCl 400 MG Q24H 08/19 1200 DC 08/28 N/A 1 UNIT IV 1148 Multivitamins 1 TAB DAILY 08/28 1100 AC 08/29 PO 1013 Ondansetron HCl 4 MG Q6P PRN 08/15 1845 AC IV Pantoprazole Sodium 40 MG DAILY 08/17 1400 DC 08/28 IV 0922 Potassium Chloride 40 MEQ ONCE ONE 08/29 0915 DC 08/29 PO 08/29 0916 1014 Thiamine HCl 500 MG Q8H 08/28 1200 AC 08/29 Sodium Chloride 250 ML IV 08/30 0459 1151 Vancomycin HCl 125 MG Q6H 08/21 1400 DC 08/28 PO 1317 Vitamin A/Vitamin D 1 ANGEL BID 08/22 1005 AC 08/29 TOP 1014 Zinc Oxide 1 ANGEL BID PRN 08/21 0615 AC 08/24 TOP 1127 Review of Systems Review of Systems: Presently unobtainable from the patient She is on contact isolation due to C. difficile colitis She has persistent diarrhea/fecal incontinence Past History Travel History Traveled to [place] past 21 day No Medical History Blood Transfusion Hx: No Neurological: NONE EENT: NONE Cardiovascular: hypertension Respiratory: NONE Gastrointestinal: NONE Hepatic: NONE Renal: NONE Musculoskeletal: NONE Psychiatric: NONE Endocrine: hypothyroidism Blood Disorders: NONE Cancer(s): NONE Surgical History Surgical History: non-contributory Psychosocial History Where Do You Live? Home Smoking Status: Current Everyday Smoker ETOH Use: heavy use Exam & Diagnostic Data Vital Signs and I&O Vital Signs Date Time Temp Pulse Resp B/P B/P Pulse O2 O2 Flow FiO2 Mean Ox Delivery Rate 08/29 0844 98.6 08/29 0730 98.4 68 20 122/70 95 Room Air 08/29 0000 Nasal 1.5L Cannula 08/29 0000 100.6 93 20 91/62 08/28 2306 100.6 93 20 9162 95 Room Air 08/28 1600 97 Nasal 1.0L Cannula 08/28 1512 98.1 84 20 136/88 96 Nasal Cannula 08/28 1444 96 Nasal 1.5L Cannula Intake & Output 08/29 1600 08/29 0800 08/29 0000 Intake Total 1150 390 Output Total Balance 1150 390 Intake, IV 910 150 Intake, Oral 240 240 Number 1 2 Bowel Movements Patient 143 lb Weight Weight Bed scale Measurement Method Physical Exam: Awake, alert, restless, fidgeting with hospital gown and sheets, redirectable at times Head norms for atraumatic Neck supple Audible carotid or cranial bruits Heart regular rate and rhythm Extremities without clubbing cyanosis or edema. Intact peripheral pulses Neurologic exam: Awake, alert, restless Oriented to person, year, and month Not oriented to situation or place stated she was at "psych" Spoke in a whisper, with reduced intelligibility Cranial nerves: Not cooperative for funduscopic exam Pupils equal and reactive to light Extraocular movements full, with no nystagmus No gross visual field loss Facial movements symmetric Midline tongue protrusion Grossly intact hearing Motor: Normal muscle bulk tone and strength Mild diffuse action and postural tremor No overt limb ataxia No overt sensory loss Tendon reflexes symmetrically trace to absent Plantar responses flexor Gait not tested Last 48 Hours of Lab Results: Laboratory Tests 08/29 08/28 0600 0500 Chemistry Sodium (137 - 145 mmol/L) 140 141 Potassium (3.5 - 5.1 mmol/L) 2.9 *L 3.0 L Chloride (98 - 107 mmol/L) 106 106 Carbon Dioxide (22 - 30 mmol/L) 25 27 Anion Gap (5 - 16) 9 8 BUN (7 - 17 mg/dL) < 2 L < 2 L Creatinine (0.5 - 1.0 mg/dL) 0.5 0.4 L Estimated GFR (>60 ml/min) > 60 > 60 BUN/Creatinine Ratio (7 - 25 %) 4.0 L 5.0 L Phosphorus (2.5 - 4.5 mg/dL) 4.8 H Magnesium (1.6 - 2.3 mg/dL) 1.5 L Hematology CBC w Diff NO MAN DIFF REQ MAN DIFF ORDERED WBC (4.8 - 10.8 /CUMM) 12.2 H 5.6 RBC (4.20 - 5.40 /CUMM) 2.30 L 2.18 L Hgb (12.0 - 16.0 G/DL) 8.6 L 8.5 L Hct (37 - 47 %) 27.2 L 25.5 L MCV (81.0 - 99.0 FL) 118.1 H 117.0 H MCH (27.0 - 31.0 PG) 37.3 H 38.0 H MCHC (33.0 - 37.0 G/DL) 31.6 L 32.5 L RDW (11.5 - 14.5 %) 24.0 H 24.8 H Plt Count (130 - 400 /CUMM) 180 184 MPV (7.4 - 10.4 FL) 10.1 10.3 Gran % (42.2 - 75.2 %) 97.3 H 83.4 H Lymphocytes % (20.5 - 51.1 %) 1.5 L 8.2 L Monocytes % (1.7 - 9.3 %) 0.6 L 7.3 Eosinophils % (0 - 5 %) 0.6 1.0 Basophils % (0.0 - 2.0 %) 0 0.1 Absolute Granulocytes (1.4 - 6.5 /CUMM) 11.8 H 4.7 Segmented Neutrophils (42.2 - 75.2 %) 74 Band Neutrophils (0.0 - 5.0 %) 4 Absolute Lymphocytes (1.2 - 3.4 /CUMM) 0.2 L 0.5 L Lymphocytes (20.5 - 51.1 %) 14 L Monocytes (1.7 - 9.3 %) 6 Absolute Monocytes (0.10 - 0.60 /CUMM) 0.1 0.4 Eosinophils (0 - 5.0 %) 1 Absolute Eosinophils (0.0 - 0.7 /CUMM) 0.1 0.1 Basophils (0.0 - 2.0 %) 1 Absolute Basophils (0.0 - 0.2 /CUMM) 0 0 Platelet Estimate (ADEQUATE) ADEQUATE Polychromasia 1+ Anisocytosis 1+ Macrocytic Cells 2+ Stomatocytes 1+ Elliptocytes FEW B12 greater than thousand August 16 See HPI for serum ammonia levels Transaminases elevated when last checked Imaging/Other Studies: EXAM TYPE: CAT - CT HEAD W&WO IV CONTRAST EXAMINATION: CT HEAD WITHOUT AND WITH CONTRAST CLINICAL INFORMATION: Change in mental status. COMPARISON: None TECHNIQUE: Contiguous axial imaging was performed from the skull base to vertex before and after the administration of 95 mL of Optiray 320 intravenous contrast. DLP: 1850 mGy-cm FINDINGS: There is no evidence of acute intracranial hemorrhage or territorial infarction. No abnormal mass effect or midline shift is seen. Gill to white matter differentiation is well preserved. No extra-axial fluid collections are identified. There is no abnormal enhancement. The ventricles are normal in size. Mild periventricular and deep white matter hypoattenuation is most consistent with small vessel ischemic change. The osseous structures and soft tissues are normal. The mastoid air cells are well aerated. Moderate opacification of the right sphenoid sinus and left ethmoid air cells. IMPRESSION: No acute intracranial pathology. No abnormal enhancement. DICTATED BY: Biju Montalvo MD DATE/TIME DICTATED:08/17/171034 DELIVERY ENGINEER:LAURO DATE/TIME TRANSCRIBED:08/17/171034 CONFIDENTIAL, DO NOT COPY WITHOUT APPROPRIATE AUTHORIZATION. <Electronically signed in Other Vendor System> SIGNED BY: Biju Montalvo MD 08/17 1040 Assessment/Plan Assessment: Encephalopathy, multifactorial-> metabolic, infectious, possibly also residual delirium tremens Recommendations: EEG on August 31 Psychiatric follow-up Consider low-dose benzodiazepine Continue to monitor serum ammonia and treat w/ lactulose or rifaximin if elevated Consult Acknowledgment - Thank you for your consult request.
[2017-08-29 11:57] LABS: GRANULOCYTE % 97.3 % (42.2-75.2)
[2017-08-29 15:26] VITALS: BP 110/62
[2017-08-29 23:51] VITALS: BP 131/79
[2017-08-30 07:01] VITALS: BP 146/90
--- NOTE | 2017-08-30 08:28 | PN- Housestaff ---
Emerald INMAN,Azucena 08/30/17 0827: Subjective Follow-up For: Encephalopathy Comminuted acquired pneumonia Pancolitis Subjective: Patient seen and examined at bedside. She is still confused oriented 2. Patient still has hoarseness of voice. No complaints. She denies abdominal pain, nausea, vomiting, chest pain, cough, fever. Patient had 3 loose bowel movements since morning. Review of Systems Constitutional: Reports: see HPI. Objective Last 24 Hrs of Vital Signs/I&O Vital Signs Date Time Temp Pulse Resp B/P B/P Pulse O2 O2 Flow FiO2 Mean Ox Delivery Rate 08/30 0701 99.7 86 20 146/90 94 Room Air 08/29 2351 98.5 71 18 131/79 94 Room Air 08/29 1600 Room Air 08/29 1526 98.4 90 20 110/62 93 Room Air 08/29 1253 93 Room Air Intake & Output 08/30 1600 08/30 0800 08/30 0000 Intake Total 655 200 Output Total Balance 655 200 Intake, IV 655 Intake, Oral 200 Number 4 1 Bowel Movements Physical Exam General Appearance: Alert, Cooperative, No Acute Distress Cardiovascular: Regular Rate, Normal S1, Normal S2, No Murmurs Lungs: Clear to Auscultation, Normal Air Movement Abdomen: Soft, No Tenderness, No Hepatospenomegaly Neurological: Normal Speech, Strength at 5/5 X4 Ext, Normal Tone, Sensation Intact Current Medications: Current Medications Sig/Marcus Start time Last Medication Dose Route Stop Time Status Admin Albuterol Sulfate 3 ML BID PRN 08/26 1349 AC INH Alteplase, 2 MG ONE ONE 08/30 0600 DC 08/30 Recombinant IV 08/30 0601 1215 Chlorhexidine 10 ML TID 08/25 1000 AC 08/30 Gluconate PO 1029 Cholestyramine Resin 1 PAC Q6 08/30 1212 AC PO Cyanocobalamin 1,000 MCG DAILY 08/28 1000 AC 08/30 PO 1031 Dextrose/Sodium 1,000 ML Q13H 08/28 1445 AC 08/30 Chloride IV 0504 Famotidine 20 MG BID 08/28 1429 AC 08/30 PO 1029 Fidaxomicin 200 MG Q12 08/28 2200 AC 08/30 PO 09/01 2158 1029 Folic Acid 1 MG DAILY 08/28 1000 AC 08/30 PO 1029 Heparin Sodium 5,000 UNIT Q8 08/22 1400 AC 08/30 (Porcine) SC 0503 Levothyroxine Sodium 0.137 MG DAILY AC 08/29 0700 AC 08/30 PO 0659 Moxifloxacin HCl 400 MG DAILY 08/29 1000 AC 08/30 PO 1029 Multivitamins 1 TAB DAILY 08/28 1100 AC 08/30 PO 1031 Ondansetron HCl 4 MG Q6P PRN 08/15 1845 AC IV Potassium Chloride 60 MEQ ONCE ONE 08/30 0630 DC 08/30 PO 08/30 0631 1032 Potassium Chloride 10 MEQ Q1H 08/30 0630 DC 08/30 IV 08/30 0731 1216 Thiamine HCl 500 MG Q8H 08/28 1200 DC 08/30 Sodium Chloride 250 ML IV 08/30 0459 0505 Vitamin A/Vitamin D 1 ANGEL BID 08/22 1005 AC 08/30 TOP 1028 Zinc Oxide 1 ANGEL BID PRN 08/21 0615 AC 08/24 TOP 1127 Last 24 Hrs of Lab/Wlil Results Last 24 Hrs of Labs/Mics: Laboratory Tests 08/30/17 0517: Anion Gap 7, Estimated GFR > 60, BUN/Creatinine Ratio 6.0 L, Magnesium 1.4 L 08/29/17 1910: Anion Gap 8, Estimated GFR > 60, BUN/Creatinine Ratio 4.0 L Lines/Diet/Fluids Restraints: right wrist, left wrist Assessment/Plan Assessment: 57 year old woman with multiple medical problems significant for etoh abuse seen for evaluation of progressively worsening altered mental status over several weeks found to have E coli septicemia/pneumonia, and C diff colitis. Problem List -Altered mental status, probable alcoholic/metabolic/infectious encephalopathy -Septic shock, improved -E. coli bacteremia, still growing E coli on LRC of 08/23/17 -Acute Hypoxic/Hypercarbic Respiratory failure, Extubaed -C. Diff colitis, on PO FIDAXOMICIN improving -Thrombocytopenia, improved. -Anion Gap Metabolic Acidosis, Resolved -Electrolyte abnormalities, repleting daily -History of EtOH, contemplating quitting -h/o Hypertension -Hypothyroidism -Anemia-1 unit of blood transfused. * Patient treated with IV moxifloxacin for E coli pneumonia. Patient is able to tolerate oral feeds. We'll continue moxifloxacin and fidaxomicin. Seen by ID who suggested started cholestyrmin every 6. Patient at times has periods of confusion which can be secondary due to alcoholic cirrhotic liver disease/ electrolytes/infection. Patient was seen by neurology who suggested EEG tomorrow. Patient potassium was low today 2.7 and replaced. We'll follow potassium. Patient able to speak well and has hoarseness of voice. * Patient has maculopapular rash in the back, belly and bilateral breast which can be secondary due to medication use-this has been resolved. * perinatal social worker on board. * Novolin sliding scale insulin. Code-full code DVT prophylaxis- Problem List: 1. C. difficile colitis 2. Pneumonia 3. Hepatic encephalopathy Pain Ratin Pain Location: none Pain Goal: Remain pain free Pain Plan: Tylenol Tomorrow's Labs & Rationales: cbc,bep Roe INMAN,Guadalupe 08/30/17 1308: Attending MD Review Statement Attending Statement Attending MD Statement: examined this patient, discuss w/resident/PA/MEDIUM CYCLE SALESPERSON, agreed w/resident/PA/MEDIUM CYCLE SALESPERSON, reviewed EMR data (avail), discussed with nursing, discussed with case mgmt, reviewed images, amended to note Attending Assessment/Plan: Patient seen and examined, slightly more awake today. Still having significant amount of diarrhea. Vital Signs Date Time Temp Pulse Resp B/P B/P Pulse O2 O2 Flow FiO2 Mean Ox Delivery Rate 08/30 0701 99.7 86 20 146/90 94 Room Air 08/29 2351 98.5 71 18 131/79 94 Room Air 08/29 1600 Room Air 08/29 1526 98.4 90 20 110/62 93 Room Air on exam; more awake today but still confused. cv; s1,s2, rrr resp; clear abd; soft, bs+ ext; no edema. Laboratory Tests 08/30 08/29 0517 1910 Chemistry Sodium (137 - 145 mmol/L) 141 140 Potassium (3.5 - 5.1 mmol/L) 2.7 *L 3.0 L Chloride (98 - 107 mmol/L) 110 H 108 H Carbon Dioxide (22 - 30 mmol/L) 24 23 Anion Gap (5 - 16) 7 8 BUN (7 - 17 mg/dL) 3 L < 2 L Creatinine (0.5 - 1.0 mg/dL) 0.5 0.5 Estimated GFR (>60 ml/min) > 60 > 60 BUN/Creatinine Ratio (7 - 25 %) 6.0 L 4.0 L Magnesium (1.6 - 2.3 mg/dL) 1.4 L A/P; 57-year-old female with multiple medical problems admitted with septic shock which is resolved, patient also has acute history failure, pneumonia and C. difficile colitis. Currently getting treated with moxifloxacin as well as Fidaxomycin. Followed by infectious disease. Neurology consultation was obtained for altered mental state. Please follow neuro and infectious disease consultations. Patient continued to have diarrhea, we'll add cholestyramine as recommended by infectious disease. She does have increase in white count today. Please replete her potassium aggressively. Continue the rest of the management and patient on heparin subcutaneous for DVT prophylaxis.
--- NOTE | 2017-08-30 09:57 | PN- Infect Dx ---
Subjective Subjective: Afebrile. She continues to have diarrhea with 4 bowel movements reported overnight. She does not offer any complaints but is unable to provide a reliable history. Objective Last 24 Hrs of Vital Signs/I&O Vital Signs Date Time Temp Pulse Resp B/P B/P Pulse O2 O2 Flow FiO2 Mean Ox Delivery Rate 08/30 0701 99.7 86 20 146/90 94 Room Air 08/29 2351 98.5 71 18 131/79 94 Room Air 08/29 1600 Room Air 08/29 1526 98.4 90 20 110/62 93 Room Air 08/29 1253 93 Room Air Intake & Output 08/30 1600 08/30 0800 08/30 0000 Intake Total 655 200 Output Total Balance 655 200 Intake, IV 655 Intake, Oral 200 Number 4 1 Bowel Movements Physical Exam Other Physical Findings: She remains confused and disoriented but in no acute distress Lungs crackles at the right base Heart regular rhythm with no murmur Abdomen is soft, nontender with positive bowel sounds Extremities no cyanosis, clubbing or edema; PICC in the right upper extremity with no inflammation at the site Results Last 24 Hours of Lab Results: Laboratory Tests 08/30 08/29 0517 1910 Chemistry Sodium (137 - 145 mmol/L) 141 140 Potassium (3.5 - 5.1 mmol/L) 2.7 *L 3.0 L Chloride (98 - 107 mmol/L) 110 H 108 H Carbon Dioxide (22 - 30 mmol/L) 24 23 Anion Gap (5 - 16) 7 8 BUN (7 - 17 mg/dL) 3 L < 2 L Creatinine (0.5 - 1.0 mg/dL) 0.5 0.5 Estimated GFR (>60 ml/min) > 60 > 60 BUN/Creatinine Ratio (7 - 25 %) 6.0 L 4.0 L Magnesium (1.6 - 2.3 mg/dL) Pending Last 24 Hours of Will Results: No recent cultures Assessment/Plan ID Impression: Diarrhea persists, now on Fidaxomicin Day 2 of treatment for C. difficile that did not appear to respond to 7 days of Vancomycin. She remains afebrile but her white blood cell count increased yesterday, possibly secondary to the C. difficile. She remains on Moxifloxacin now Day 11 of treatment for Escherichia coli sepsis, presumably secondary to pneumonia. She remains encephalopathic, now off Lactulose after it was initially restarted, with Neuro evaluation appreciated. Suggestion: 1. Would add Cholestyramine 1 packet po 4 times a day 2. Follow Neurology recommendations 3. Continue Moxifloxacin 4. Continue Fidaxomicin
[2017-08-30 14:47] VITALS: BP 128/74
--- NOTE | 2017-08-30 18:33 | PN- Neurology ---
Subjective Subjective: On one-to-one supervision Restraints untied Objective Vital Signs and I&Os Vital Signs Date Time Temp Pulse Resp B/P B/P Pulse O2 O2 Flow FiO2 Mean Ox Delivery Rate 08/30 1447 98.2 66 16 128/74 92 Room Air 08/30 0701 99.7 86 20 146/90 94 Room Air 08/29 2351 98.5 71 18 131/79 94 Room Air Intake & Output 08/30 1600 08/30 0800 08/30 0000 08/29 1600 08/29 0800 08/29 0000 Intake Total 950 655 218 869 5174 390 Output Total Balance 950 655 661 130 6046 390 Intake, IV 600 655 350 910 150 Intake, Oral 350 200 240 240 240 Number 5 4 1 1 2 Bowel Movements Patient 143 lb Weight Weight Bed scale Measurement Method Physical Exam: Awake and alert Oriented to person year and month, not to place Apparent visual hallucinations. Calling out for "Yunier" and stating that there is a washing machine in the room. Speech very difficult to discern due to incoordination of breath with vocalization Symmetric facial movements Full extraocular motility Mild tremulousness Current Medications: Current Medications Sig/Marcus Start time Last Medication Dose Route Stop Time Status Admin Albuterol Sulfate 3 ML BID PRN 08/26 1349 AC INH Alteplase, 2 MG ONE ONE 08/30 0600 DC 08/30 Recombinant IV 08/30 0601 1215 Chlorhexidine 10 ML TID 08/25 1000 AC 08/30 Gluconate PO 1029 Cholestyramine Resin 1 PAC Q6 08/30 1212 AC 08/30 PO 1330 Cyanocobalamin 1,000 MCG DAILY 08/28 1000 AC 08/30 PO 1031 Dextrose/Sodium 1,000 ML Q13H 08/28 1445 AC 08/30 Chloride IV 0504 Famotidine 20 MG BID 08/28 1429 AC 08/30 PO 1029 Fidaxomicin 200 MG Q12 08/28 2200 AC 08/30 PO 09/01 2159 1029 Folic Acid 1 MG DAILY 08/28 1000 AC 08/30 PO 1029 Heparin Sodium 5,000 UNIT Q8 08/22 1400 AC 08/30 (Porcine) SC 1330 Levothyroxine Sodium 0.137 MG DAILY AC 08/29 0700 AC 08/30 PO 0659 Magnesium Oxide 400 MG DAILY 08/30 1237 AC 08/30 PO 1330 Moxifloxacin HCl 400 MG DAILY 08/29 1000 AC 08/30 PO 1029 Multivitamins 1 TAB DAILY 08/28 1100 AC 08/30 PO 1031 Ondansetron HCl 4 MG Q6P PRN 08/15 1845 AC IV Potassium Chloride 40 MEQ ONCE ONE 08/30 1700 DC PO 08/30 1701 Potassium Chloride 60 MEQ ONCE ONE 08/30 0630 DC 08/30 PO 08/30 0631 1032 Potassium Chloride 10 MEQ Q1H 08/30 0630 DC 08/30 IV 08/30 0731 1216 Thiamine HCl 500 MG Q8H 08/28 1200 DC 08/30 Sodium Chloride 250 ML IV 08/30 0459 0505 Vitamin A/Vitamin D 1 ANGEL BID 08/22 1005 AC 08/30 TOP 1028 Zinc Oxide 1 ANGEL BID PRN 08/21 0615 AC 08/24 TOP 1127 Results Last 24 Hours of Lab Results: Laboratory Tests 08/30 08/30 08/30 08/29 1430 1419 0517 1910 Chemistry Sodium (137 - 145 mmol/L) 141 140 Potassium (3.5 - 5.1 mmol/L) Cancelled 3.0 L 2.7 *L 3.0 L Chloride (98 - 107 mmol/L) 110 H 108 H Carbon Dioxide (22 - 30 mmol/L) 24 23 Anion Gap (5 - 16) 7 8 BUN (7 - 17 mg/dL) 3 L < 2 L Creatinine (0.5 - 1.0 mg/dL) 0.5 0.5 Estimated GFR (>60 ml/min) > 60 > 60 BUN/Creatinine Ratio (7 - 25 %) 6.0 L 4.0 L Magnesium (1.6 - 2.3 mg/dL) 1.4 L Assessment/Plan Assessment: Encephalopathy, multifactorial-> metabolic, infectious, possibly also residual delirium tremens Plan: EEG on August 31 Psychiatric follow-up Consider low-dose benzodiazepine Continue to monitor serum ammonia and treat w/ lactulose or rifaximin if elevated
[2017-08-30 21:40] VITALS: BP 118/70
[2017-08-31 05:44] VITALS: BP 132/60
--- NOTE | 2017-08-31 07:36 | PN- Housestaff ---
Emerald INMAN,Azucena 08/31/17 0736: Subjective Follow-up For: Encephalopathy, E coli pneumonia, C. difficile Complaints: no complaints Subjective: Patient seen and examined at bedside. Patient still has hoarseness of voice alert, awake, oriented 2. She denies cough, fever, chest pain, abdominal pain. Review of Systems Constitutional: Reports: see HPI. Objective Last 24 Hrs of Vital Signs/I&O Vital Signs Date Time Temp Pulse Resp B/P B/P Pulse O2 O2 Flow FiO2 Mean Ox Delivery Rate 08/31 0544 99.6 65 20 132/60 92 08/31 0000 Room Air 08/30 2140 97.5 60 18 118/70 96 Room Air 08/30 1600 Room Air 08/30 1447 98.2 66 16 128/74 92 Room Air Intake & Output 08/31 1600 08/31 0800 08/31 0000 Intake Total 450 200 Output Total 360 300 Balance 90 -100 Intake, IV 400 Intake, Oral 50 200 Number 1 5 13 Bowel Movements Output, Urine 360 300 Physical Exam General Appearance: Alert, Oriented X3, Cooperative, mild icterus Cardiovascular: Normal S1, Normal S2, No Murmurs Lungs: Clear to Auscultation Abdomen: Soft, No Tenderness, No Hepatospenomegaly Neurological: Strength at 5/5 X4 Ext, Normal Tone, Sensation Intact Extremities: No Cyanosis, No Edema, Normal Pulses Current Medications: Current Medications Sig/Marcus Start time Last Medication Dose Route Stop Time Status Admin Albuterol Sulfate 3 ML BID PRN 08/26 1349 AC INH Chlorhexidine 10 ML TID 08/25 1000 AC 08/31 Gluconate PO 1111 Cholestyramine Resin 1 PAC Q6 08/30 1212 AC 08/31 PO 1335 Cyanocobalamin 1,000 MCG DAILY 08/28 1000 AC 08/31 PO 0940 Dextrose/Sodium 1,000 ML Q13H 08/28 1445 DC 08/31 Chloride IV 0115 Famotidine 20 MG BID 08/28 1429 AC 08/31 PO 0940 Fidaxomicin 200 MG Q12 08/28 2200 AC 08/31 PO 09/01 2159 0940 Folic Acid 1 MG DAILY 08/28 1000 AC 08/31 PO 0940 Heparin Sodium 5,000 UNIT Q8 08/22 1400 AC 08/31 (Porcine) SC 1347 Levothyroxine Sodium 0.137 MG DAILY AC 08/29 0700 AC 08/31 PO 0646 Magnesium Chloride 64 MG TID 08/31 1000 AC 08/31 PO 1110 Magnesium Oxide 400 MG DAILY 08/30 1237 DC 08/30 PO 1330 Magnesium Sulfate 1 GM ONCE ONE 08/31 1145 AC 08/31 Dextrose/Water 100 ML IV 08/31 1544 1340 Moxifloxacin HCl 400 MG DAILY 08/29 1000 r 08/31 PO 09/03 0600 0941 Multivitamins 1 TAB DAILY 08/28 1100 AC 08/31 PO 0941 Ondansetron HCl 4 MG Q6P PRN 08/15 1845 AC IV Potassium Chloride 40 MEQ AT BEDTIME 08/31 2200 AC PO 08/31 2201 Potassium Chloride 20 MEQ Q20H 08/31 1200 AC 08/31 Dextrose/Sodium 1,000 ML IV 1334 Chloride Potassium Chloride 60 MEQ ONCE ONE 08/31 1145 DC 08/31 PO 08/31 1146 1334 Potassium Chloride 40 MEQ ONCE ONE 08/30 1700 DC 08/30 PO 08/30 1701 1848 Vitamin A/Vitamin D 1 ANGEL BID 08/22 1005 AC 08/31 TOP 0956 Zinc Oxide 1 ANGEL BID PRN 08/21 0615 AC 08/24 TOP 1127 Last 24 Hrs of Lab/Will Results Last 24 Hrs of Labs/Mics: Laboratory Tests 08/31/17 1118: Ammonia 18 08/31/17 0830: Anion Gap 7, Estimated GFR > 60, BUN/Creatinine Ratio 5.0 L, Magnesium 1.4 L, CBC w Diff NO MAN DIFF REQ, RBC 2.14 L, MCV 117.1 H, MCH 36.9 H, MCHC 31.5 L , RDW 22.8 H, MPV 10.6 H, Gran % 74.9, Lymphocytes % 11.4 L, Monocytes % 5.4, Eosinophils % 7.3 H, Basophils % 1.0, Absolute Granulocytes 5.0, Absolute Lymphocytes 0.8 L, Absolute Monocytes 0.4, Absolute Eosinophils 0.5, Absolute Basophils 0.1 08/30/17 1430: Potassium Cancelled Assessment/Plan Assessment: 57 year old woman with multiple medical problems significant for etoh abuse seen for evaluation of progressively worsening altered mental status over several weeks found to have E coli septicemia/pneumonia, and C diff colitis. Problem List -Altered mental status, probable alcoholic/metabolic/infectious encephalopathy -Septic shock, improved -E. coli bacteremia, still growing E coli on LRC of 08/23/17 -Acute Hypoxic/Hypercarbic Respiratory failure, Extubaed -C. Diff colitis, on PO FIDAXOMICIN improving -Thrombocytopenia, improved. -Anion Gap Metabolic Acidosis, Resolved -Electrolyte abnormalities, repleting daily -History of EtOH, contemplating quitting -h/o Hypertension -Hypothyroidism -Anemia-1 unit of blood transfused. * Patient treated with po moxifloxacin for E coli pneumonia. Patient is able to tolerate oral feeds. We'll continue moxifloxacin [for 2 more days] and fidaxomicin. Seen by ID who suggested started cholestyrmin every 6. Patient still have watery diarrhea had 4 loose bowel movements last 24 hours. If patient continues having diarrhea we will bring GI on board. Patient at times has periods of confusion which can be secondary due to alcoholic cirrhotic liver disease/electrolytes/infection. Patient was seen by neurology who suggested EEG today. Initial CAT scan of the head was negative. Patient potassium is 2.9 today and this was replaced. Her magnesium was low replaced. * Patient has maculopapular rash in the back, belly and bilateral breast which can be secondary due to medication use-this has been resolved. * gang worker on board. Physical therapy consult placed today. * Novolin sliding scale insulin. Code-full code DVT prophylaxis-heparin Problem List: 1. C. difficile colitis 2. Pneumonia 3. Altered mental status 4. Hepatic encephalopathy Pain Ratin Pain Location: none Pain Goal: Remain pain free Pain Plan: Tylenol Tomorrow's Labs & Rationales: cbc,bep Ministerio Acosta 08/31/17 1246: Attending MD Review Statement Attending Statement Attending MD Statement: examined this patient, discuss w/resident/PA/OUTSIDE SALES ACCOUNT REPRESENTATIVE, agreed w/resident/PA/OUTSIDE SALES ACCOUNT REPRESENTATIVE, discussed with family, reviewed EMR data (avail), discussed with nursing, discussed with case mgmt, reviewed images, amended to note Attending Assessment/Plan: Patient came initally for altered mental status transferred from ICU requiring intubation for respiratroy failure 2/2 pneumonia E coli on fluoroquinolones and C diff for diarrhea on PO abx likely vancomycin failure. Patient is aaox2 oriented. Still c/o diarrhea. She is eating PO as per s/s recs. No nausea, no vomiting. Restraints , trial off. Sepsis resolved from E coli pneumonia and C diff colitis. Follow ID for duration of abx. (moxi and fosfamycin) Encephalopathy multifactorial initally thought to be hepatic USG shows no evidence of cirrhosis, alcohol mediated BRITTANY on admission <10. CT head on admisison negative for bleed. No focal deficit. Consulted neurolgoy for prognosis/work up of encephalopathy, EEG today. avoid all agents which are c diffogenic. If no improvement follow up GI.
[2017-08-31 10:39] LABS: ABSOLUTE BASOPHIL COUNT 0.1 /CUMM (0.0-0.2); ABSOLUTE EOSINOPHIL COUNT 0.5 /CUMM (0.0-0.7); ABSOLUTE LYMPH COUNT 0.8 /CUMM (1.2-3.4); ABSOLUTE MONOCYTE COUNT 0.4 /CUMM (0.10-0.60); EOSINOPHIL % 7.3 % (0-5); MEAN PLATELET VOLUME 10.6 FL (7.4-10.4); WHITE BLOOD CELL COUNT 6.6 /CUMM (4.8-10.8)
[2017-08-31 11:30] LABS: MEAN CORPUSCULAR HGB 36.9 PG (27.0-31.0); MEAN CORPUSCULAR HGB CONC 31.5 G/DL (33.0-37.0); MEAN CORPUSCULAR VOLUME 117.1 FL (81.0-99.0)
[2017-08-31 11:31] LABS: RBC DISTRIBUTION WIDTH 22.8 % (11.5-14.5); RED BLOOD CELL CT 2.14 /CUMM (4.20-5.40)
[2017-08-31 11:47] LABS: GRANULOCYTE % 74.9 % (42.2-75.2); PLATELET COUNT 174 /CUMM (130-400)
--- NOTE | 2017-08-31 14:17 | PN- Infect Dx ---
Subjective Subjective: Afebrile without complaints. She continues to have watery stools, with 17 recorded yesterday and 11 overnight. Objective Last 24 Hrs of Vital Signs/I&O Vital Signs Date Time Temp Pulse Resp B/P B/P Pulse O2 O2 Flow FiO2 Mean Ox Delivery Rate 08/31 0544 99.6 65 20 132/60 92 08/31 0000 Room Air 08/30 2140 97.5 60 18 118/70 96 Room Air 08/30 1600 Room Air 08/30 1447 98.2 66 16 128/74 92 Room Air Intake & Output 08/31 1600 08/31 0800 08/31 0000 Intake Total 450 200 Output Total 360 300 Balance 90 -100 Intake, IV 400 Intake, Oral 50 200 Number 1 5 13 Bowel Movements Output, Urine 360 300 Physical Exam Other Physical Findings: She is more awake and alert but remains confused with a whispery voice Lungs are clear Heart regular rhythm with no murmur Abdomen is soft, nontender with positive bowel sounds Extremities no cyanosis, clubbing or edema Results Last 24 Hours of Lab Results: Laboratory Tests 08/31 08/31 08/30 1118 0830 1430 Chemistry Sodium (137 - 145 mmol/L) 142 Potassium (3.5 - 5.1 mmol/L) 2.9 *L Cancelled Chloride (98 - 107 mmol/L) 111 H Carbon Dioxide (22 - 30 mmol/L) 23 Anion Gap (5 - 16) 7 BUN (7 - 17 mg/dL) 2 L Creatinine (0.5 - 1.0 mg/dL) 0.4 L Estimated GFR (>60 ml/min) > 60 BUN/Creatinine Ratio (7 - 25 %) 5.0 L Magnesium (1.6 - 2.3 mg/dL) 1.4 L Ammonia (9 - 30 umol/L) 18 Hematology CBC w Diff NO MAN DIFF REQ WBC (4.8 - 10.8 /CUMM) 6.6 RBC (4.20 - 5.40 /CUMM) 2.14 L Hgb (12.0 - 16.0 G/DL) 8.0 L Hct (37 - 47 %) 25.0 L MCV (81.0 - 99.0 FL) 117.1 H MCH (27.0 - 31.0 PG) 36.9 H MCHC (33.0 - 37.0 G/DL) 31.5 L RDW (11.5 - 14.5 %) 22.8 H Plt Count (130 - 400 /CUMM) 174 MPV (7.4 - 10.4 FL) 10.6 H Gran % (42.2 - 75.2 %) 74.9 Lymphocytes % (20.5 - 51.1 %) 11.4 L Monocytes % (1.7 - 9.3 %) 5.4 Eosinophils % (0 - 5 %) 7.3 H Basophils % (0.0 - 2.0 %) 1.0 Absolute Granulocytes (1.4 - 6.5 /CUMM) 5.0 Absolute Lymphocytes (1.2 - 3.4 /CUMM) 0.8 L Absolute Monocytes (0.10 - 0.60 /CUMM) 0.4 Absolute Eosinophils (0.0 - 0.7 /CUMM) 0.5 Absolute Basophils (0.0 - 0.2 /CUMM) 0.1 08/30 1419 Chemistry Potassium (3.5 - 5.1 mmol/L) 3.0 L Last 24 Hours of Will Results: No new cultures Assessment/Plan ID Impression: Diarrhea persists despite Fidaxomicin, begun 3 days ago for C. difficile that did not appear to respond to 7 days of Vancomycin, and Cholestyramine, which was begun yesterday. She remains afebrile and her white blood cell count has normalized but am concerned about the persistent diarrhea. She remains on Moxifloxacin now Day 12 of treatment for Escherichia coli sepsis, presumably secondary to pneumonia, with her respiratory status stable. Suggestion: 1. GI input if her diarrhea persists 2. Continue Moxifloxacin for 2 more days 3. Continue Fidaxomicin and Cholestyramine
[2017-08-31 15:28] VITALS: BP 120/81
[2017-08-31 21:46] VITALS: BP 120/70
[2017-09-01 05:45] LABS: ABSOLUTE BASOPHIL COUNT 0.1 /CUMM (0.0-0.2); ABSOLUTE EOSINOPHIL COUNT 0.6 /CUMM (0.0-0.7); ABSOLUTE GRANULOCYTE CT 5.3 /CUMM (1.4-6.5); ABSOLUTE MONOCYTE COUNT 0.4 /CUMM (0.10-0.60); EOSINOPHIL % 8.6 % (0-5); MEAN PLATELET VOLUME 9.7 FL (7.4-10.4); PLATELET COUNT 163 /CUMM (130-400); RBC DISTRIBUTION WIDTH 23.3 % (11.5-14.5); WHITE BLOOD CELL COUNT 7.4 /CUMM (4.8-10.8)
[2017-09-01 06:31] LABS: MEAN CORPUSCULAR HGB 37.4 PG (27.0-31.0); MEAN CORPUSCULAR VOLUME 116.3 FL (81.0-99.0)
[2017-09-01 06:32] LABS: HEMATOCRIT 25.7 % (37-47); RED BLOOD CELL CT 2.21 /CUMM (4.20-5.40)
[2017-09-01 06:33] LABS: MEAN CORPUSCULAR HGB CONC 32.2 G/DL (33.0-37.0)
--- NOTE | 2017-09-01 07:15 | PN- Housestaff ---
Emerald INMAN,Azucena 09/01/17 0715: Subjective Follow-up For: Community-acquired pneumonia-E coli-improving C. difficile colitis-resolving Subjective: Patient seen and examined at bedside. No overnight events She is alert, awake, oriented 2 upon interview. She denies abdominal pain, nausea, vomiting, fever, chest pain, shortness of breath. Review of Systems Constitutional: Reports: see HPI. Objective Last 24 Hrs of Vital Signs/I&O Vital Signs Date Time Temp Pulse Resp B/P B/P Pulse O2 O2 Flow FiO2 Mean Ox Delivery Rate 09/01 0722 98.2 70 20 116/72 91 08/31 2146 99.4 68 20 120/70 97 08/31 1528 98.3 83 20 120/81 94 Room Air Intake & Output 09/01 1600 09/01 0800 09/01 0000 Intake Total 0 250 Output Total 300 Balance -300 250 Intake, IV 200 Intake, Oral 0 50 Number 1 Bowel Movements Output, Urine 300 Physical Exam General Appearance: Alert, Cooperative, No Acute Distress, ORIENTED X 2 AT TIMES SHE IS OEIENTED X3 Skin: ICTERUS Cardiovascular: Normal S1, Normal S2, No Murmurs Lungs: Clear to Auscultation Abdomen: Soft, No Tenderness, No Hepatospenomegaly Neurological: Normal Tone, Sensation Intact, Cranial Nerves 3-12 NL Current Medications: Current Medications Sig/Marcus Start time Last Medication Dose Route Stop Time Status Admin Albuterol Sulfate 3 ML BID PRN 08/26 1349 AC INH Chlorhexidine 10 ML TID 08/25 1000 AC 09/01 Gluconate PO 1024 Cholestyramine Resin 1 PAC Q6 08/30 1212 AC 09/01 PO 0555 Cyanocobalamin 1,000 MCG DAILY 08/28 1000 AC 09/01 PO 1027 Dextrose/Sodium 1,000 ML Q13H 08/28 1445 DC 08/31 Chloride IV 0115 Famotidine 20 MG BID 08/28 1429 AC 09/01 PO 1027 Fidaxomicin 200 MG Q12 08/28 2200 AC 09/01 PO 1026 Folic Acid 1 MG DAILY 08/28 1000 AC 09/01 PO 1027 Heparin Sodium 5,000 UNIT Q8 08/22 1400 AC 09/01 (Porcine) SC 0554 Levothyroxine Sodium 0.137 MG DAILY AC 08/29 0700 AC 09/01 PO 0554 Magnesium Chloride 64 MG TID 08/31 1000 DC 08/31 PO 1110 Magnesium Sulfate 1 GM ONCE ONE 09/01 0730 AC 09/01 Dextrose/Water 100 ML IV 09/01 1129 0852 Magnesium Sulfate 1 GM ONCE ONE 08/31 1145 DC 08/31 Dextrose/Water 100 ML IV 08/31 1544 1340 Moxifloxacin HCl 400 MG DAILY 08/29 1000 AC 09/01 PO 09/03 0600 1026 Multivitamins 1 TAB DAILY 08/28 1100 AC 09/01 PO 1027 Ondansetron HCl 4 MG Q6P PRN 08/15 1845 AC IV Potassium Chloride 40 MEQ ONCE ONE 09/01 0830 DC 09/01 PO 09/01 0831 1028 Potassium Chloride 20 MEQ Q13H 09/01 0800 AC 09/01 Dextrose/Sodium 1,000 ML IV 0748 Chloride Potassium Chloride 60 MEQ 0800 09/01 0800 DC PO 09/01 0801 Potassium Chloride 40 MEQ AT BEDTIME 08/31 2200 DC 08/31 PO 08/31 2201 2144 Potassium Chloride 20 MEQ Q20H 08/31 1200 DC 08/31 Dextrose/Sodium 1,000 ML IV 1334 Chloride Potassium Chloride 60 MEQ ONCE ONE 08/31 1145 DC 08/31 PO 08/31 1146 1334 Rifaximin 550 MG BID 08/31 2200 AC 09/01 PO 1027 Vitamin A/Vitamin D 1 ANGEL BID 08/22 1005 AC 09/01 TOP 1030 Zinc Oxide 1 ANGEL BID PRN 08/21 0615 AC 09/01 TOP 1024 Last 24 Hrs of Lab/Will Results Last 24 Hrs of Labs/Mics: Laboratory Tests 09/01/17 0533: Anion Gap 9, Estimated GFR > 60, BUN/Creatinine Ratio 5.0 L, Magnesium 1.6, CBC w Diff NO MAN DIFF REQ, RBC 2.21 L, MCV 116.3 H, MCH 37.4 H, MCHC 32.2 L, RDW 23.3 H, MPV 9.7, Gran % 71.0, Lymphocytes % 13.4 L, Monocytes % 6.0, Eosinophils % 8.6 H, Basophils % 1.0, Absolute Granulocytes 5.3, Absolute Lymphocytes 1.0 L, Absolute Monocytes 0.4, Absolute Eosinophils 0.6, Absolute Basophils 0.1 08/31/17 1118: Ammonia 18 Microbiology 08/31 1600 STOOL: Stool Culture - RES 08/31 1518 STOOL: Ova and Parasite Macroscopic Exam - COLB 08/31 1513 STOOL: Vibrio Culture - COLB 08/31 1513 STOOL: Yersinia Culture - COLB Assessment/Plan Assessment: 57 year old woman with multiple medical problems significant for etoh abuse seen for evaluation of progressively worsening altered mental status over several weeks found to have E coli septicemia/pneumonia, and C diff colitis. Problem List -Altered mental status, probable alcoholic/metabolic/infectious encephalopathy -Septic shock, improved -E. coli bacteremia, still growing E coli on LRC of 08/23/17 -Acute Hypoxic/Hypercarbic Respiratory failure, Extubaed -C. Diff colitis, on PO FIDAXOMICIN improving -Thrombocytopenia, improved. -Anion Gap Metabolic Acidosis, Resolved -Electrolyte abnormalities, repleting daily -History of EtOH, contemplating quitting -h/o Hypertension -Hypothyroidism -Anemia-1 unit of blood transfused. * Patient treated with po moxifloxacin for E coli pneumonia. Patient is able to tolerate oral feeds. We'll continue moxifloxacin [for 2 more days] and fidaxomicin. Seen by ID who suggested started cholestyrmin every 6. Patient has watery diarrhea. Patient had 22 bowel movements yesterday and today it is several bowel movements, though still watery. We will involve GI to guide as with the treatment. Patient at times has periods of confusion which can be secondary due to alcoholic cirrhotic liver disease/electrolytes/infection. Patient was seen by neurology who suggested EEG today. Initial CAT scan of the head was negative. Patient potassium is 3.3 today and this was replaced. Her magnesium was low replaced. Since admission patient has electrolyte abnormalities. * Patient had maculopapular rash in the back, belly and bilateral breast which can be secondary due to medication use-this has been resolved. * ornamental metal worker on board. Patient was seen by physical therapy was suggested short-term rehabilitation. * Novolin sliding scale insulin. Code-full code DVT prophylaxis-heparin Problem List: 1. C. difficile colitis 2. Pneumonia 3. Altered mental status 4. Encephalopathy 5. Alcohol abuse Pain Ratin Pain Location: NONE Pain Goal: Remain pain free Pain Plan: TYLENOL Tomorrow's Labs & Rationales: CBC,BEP,MG Dave,Ministerio 09/01/17 1124: Attending MD Review Statement Attending Statement Attending MD Statement: examined this patient, discuss w/resident/PA/SOFTWARE SALES CONSULTANT, agreed w/resident/PA/SOFTWARE SALES CONSULTANT, discussed with family, reviewed EMR data (avail), discussed with nursing, discussed with case mgmt, reviewed images, amended to note Attending Assessment/Plan: Patient came initally for altered mental status transferred from ICU requiring intubation for respiratroy failure 2/2 pneumonia E coli on fluoroquinolones and C diff for diarrhea on PO abx likely vancomycin failure. Patient is aaox2 oriented. Still c/o diarrhea with some improvement. She is eating PO as per s/s recs. No nausea, no vomiting. Off restraints. Sepsis resolved from E coli pneumonia and C diff colitis. Follow ID for duration of abx. (Moxi and fidaxomycin) Encephalopathy multifactorial initally thought to be hepatic USG shows no evidence of cirrhosis, alcohol mediated BRITTANY on admission <10. CT head on admisison negative for bleed. No focal deficit. Consulted neurolgoy for prognosis/work up of encephalopathy, EEG and neuro f/u. avoid all agents which are c diffogenic. If no improvement follow up GI.
[2017-09-01 07:22] VITALS: BP 116/72
--- NOTE | 2017-09-01 12:03 | ELECTROENCEPHALOGRAM REPORT ---
Electroencephalogram Report Electroencephalogram Results Date of service: 08/31/17 Attending MD: Ministerio Acosta MD Mental Health Worker: Alena Duran EEG Number: [id number] Test Utilizes: 10-20 system, 21 lead 18 channel digital recording Pertinent Hx/Physical/Neuro Findings/Clin Diagnosis: encephalopathy, rule out seizures Inpatient Medications: Current Medications Sig/Marcus Start time Last Medication Dose Route Stop Time Status Admin Albuterol Sulfate 3 ML BID PRN 08/26 1349 AC INH Chlorhexidine 10 ML TID 08/25 1000 AC 09/01 Gluconate PO 1024 Cholestyramine Resin 1 PAC Q6 08/30 1212 AC 09/01 PO 0555 Cyanocobalamin 1,000 MCG DAILY 08/28 1000 AC 09/01 PO 1027 Famotidine 20 MG BID 08/28 1429 AC 09/01 PO 1027 Fidaxomicin 200 MG Q12 08/28 2200 AC 09/01 PO 1026 Folic Acid 1 MG DAILY 08/28 1000 AC 09/01 PO 1027 Heparin Sodium 5,000 UNIT Q8 08/22 1400 AC 09/01 (Porcine) SC 0554 Levothyroxine Sodium 0.137 MG DAILY AC 08/29 0700 AC 09/01 PO 0554 Magnesium Chloride 64 MG TID 08/31 1000 DC 08/31 PO 1110 Magnesium Sulfate 1 GM ONCE ONE 09/01 0730 DC 09/01 Dextrose/Water 100 ML IV 09/01 1129 0852 Magnesium Sulfate 1 GM ONCE ONE 08/31 1145 DC 08/31 Dextrose/Water 100 ML IV 08/31 1544 1340 Moxifloxacin HCl 400 MG DAILY 08/29 1000 AC 09/01 PO 09/03 0600 1026 Multivitamins 1 TAB DAILY 08/28 1100 AC 09/01 PO 1027 Ondansetron HCl 4 MG Q6P PRN 08/15 1845 AC IV Potassium Chloride 40 MEQ ONCE ONE 09/01 0830 DC 09/01 PO 09/01 0831 1028 Potassium Chloride 20 MEQ Q13H 09/01 0800 AC 09/01 Dextrose/Sodium 1,000 ML IV 0748 Chloride Potassium Chloride 60 MEQ 0800 09/01 0800 DC PO 09/01 0801 Potassium Chloride 40 MEQ AT BEDTIME 08/31 2200 DC 08/31 PO 08/31 2201 2144 Potassium Chloride 20 MEQ Q20H 08/31 1200 DC 08/31 Dextrose/Sodium 1,000 ML IV 1334 Chloride Rifaximin 550 MG BID 08/31 2200 AC 09/01 PO 1027 Vitamin A/Vitamin D 1 ANGEL BID 08/22 1005 AC 09/01 TOP 1030 Zinc Oxide 1 ANGLE BID PRN 08/21 0615 AC 09/01 TOP 1024 Interpretation: The background in maximum wakefulness is composed of irregular low amplitude alpha and a mild excess of slower frequencies, as well as frontally dominant beta and fairly widespread muscle artifact. Much of the record is clearly in drowsiness with theta the dominant activity. Hyperventilation was deferred, photic unremarkable. Impression: Abnormal due to slowing of the backgrounds but no focal or epileptiform abnormalities.
[2017-09-01 15:06] VITALS: BP 96/58
[2017-09-01 18:12] VITALS: BP 90/60
--- NOTE | 2017-09-01 19:13 | PN- Gastroenterology ---
Assessment/Plan GI Assessment/Recommendations: (*Please refer to Dr. Leeanne Egan's GI consult of 08/16/17, his follow-up progress notes, & Dr. Mclain's last GI progress note of 08/22/17). *I was called by the hospitalist service 09/01/17 to return to see this patient regarding treatment of C. difficile, which is also being followed by ID. Her extensive records & hospital course were reviewed in detail. 57 y/o female with HTN, hypoT4, HLD, cigarette smoker, EtOH abuse, admitted to [facility] ICU 08/15/17 with altered mental status, somnolence, jaundice, elevated LFTs, initially felt to most likely be due to alcoholic hepatitis, without liver failure or synthetic dysfunction. She had cognitive impairment which possibly was from hepatic encephalopathy. Other contributing factors could have been toxic/metabolic, alcohol induced delirium, etc. She was also pancytopenic, probably from alcohol-induced bone marrow suppression, as well as macrocytic, with nl B12/folate/TSH. She had severe metabolic acidemia/EtOH ketoacidosis, that was corrected, as well as hypoK+, hypoMg, hypoPO4, hypoCa2+ with nl GFR. She had an elevated ammonia level on admission, with normal INR & a low discriminant function. On admission, Utox- neg, [EtOH] < 10. A limited history was available. Admission CXR- mild bibasilar opacities. 03/25: RUQ sono- cholelithiasis and sludge within the gallbladder, with no evidence of acute cholecystitis, and diffuse hepatic steatosis. (The gallstones on imaging studies were felt to be incidental in nature). 08/16/17: ECHO- nl LVEF 65-70%, no significant valvular abnl, wall moion abnl, or pulm HTN. 08/17/17: CT of the head- negative for any acute process. 08/17/17: CXR- right perihilar airspace opacity. 08/17/17: CT of the chest, abdomen and pelvis- patchy ground glass and reticular opacities in both upper lobes, with subtle patchy ground glass opacity within the right middle lobe and with small bilateral pleural effusions with compressive atelectasis; several old, healed bilateral rib fractures; hepatomegaly with diffusely hypodense liver parenchyma secondary to steatosis; mildly distended gallbladder with normal wall thickening , small calcified stones, with no evidence of biliary dilatation or choledocholithiasis; small amount of ascitic fluid; nonobstructing 0.6 cm calculus within the upper pole of the left kidney. She had required broad-spectrum antibiotics for sepsis of unclear source (? PNA) , with 08/16/17: BC x 2- GNR-> E. Coli. She had been intubated for hypoxia/hypercarbia. She had required pressors. She had been seen by ID in consultation 08/17/17, who switched Unasyn to Ceftriaxone, then to Moxifloxacin. She was given IV thiamine & required Ativan & Fentanyl drip for agitation. She intermittently had guaiac positive stools. She had 1u PRBC on 08/18/17. Her initial 08/17/17: stool for C. diff- negative. She had a short course of empiric Octreotide for treatment for diarrhea. She had previously been on tube feeds. 08/15/17: Hep A Ab, Hep Bs Ag, Hep B core Ab, & Hep C Ab- all neg; HIV- neg; [ Tylenol] < 10, [EtOH] < 10, salicylate 3.5, *Fe 133, TIBC 160, *Fe sat 83.1%,* ferritin 880, TSH 1.87, folate 15.2, troponin - neg x 4 sets, lactate 1.2 08/16/17: B12 > 1000. 08/17/17: amylase < 30, lipase 232. 08/20/17: *stool for C. difficile- positive. (*Vancomycin 125 mg po QID rxd, although Moxifloxacin was continued for E. Coli sepsis/PNA) 08/21/17: CXR- no change in reticular basilar opacities. The patient had 08/20/17: elevated d-dimer 1381, prompting 08/21/17: CTA chest- negative PE; small bilateral pleural effusions with associated bilateral lower lobe airspace disease, patchy groundglass opacifications bilaterally, more so RUL. 08/21/17: CT AP- persistent diffuse wall thickening and mucosal hyperenhancement of the colon, consistent with pancolitis, small volume abdominal free fluid. 08/22/17: CXR- mild RUL airspace disease. Prior to my review of 09/01/17, the patient was last seen by GI 08/22/17, with the caveat that we be contacted, if needed. She was extubated 08/24/17. She was followed by pulmonary/critical care. *On 08/28/17, po Vancomycin Day #7, was switched to Fidaxomicin 200 mg po BID The patient was seen by psychiatry 08/28/17, & later by neurology 08/29/17, & felt to have multifactorial encephalopathy (i.e.- metabolic, infx, ? DTs). *Questran 4g po 4x/day was rxd by ID as adjunctive tx 08/30/17, in addition to the Fidaxomicin. *Rifaximin 550 mg po BID was rxd per ID 08/31/17, both for encephalopathy & possibly for diarrhea. Regarding her diarrhea, she had been on Lactulose, which was stopped. 09/01/17: EEG- Abnormal due to slowing of the backgrounds but no focal or epileptiform abnormalities. 08/20/17: PT 14.9, INR 1.36 08/25/17: albumin 2.2, globulin 3.2, TBil 2.6/DBil 2.0, alk phos 329, AST 88, ALT 70 08/26/17: albumin 2.2, TBil 2.3, AST 85, ALT 68 08/31/17: NH3 18 08/31/17: stool C&S, Shiga toxin- neg. 09/01/17: WBC 7.4, H/H 8.4/25.7, MCV 116.3, RDW 23.3, PLT 163, BUN/Cr < 2/0.4, GFR > 60, Na 146, K 3.3, HCO3 21, AG 9, Mg 1.6. *As of 09/01/17, the patient's diarrhea was down to only 2x & non-bloody, on her regimen of Fidaxomicin 200 mg po BID, Questran 4g po QID, & Rifaximin. Her po intake was poor, mostly because she did not like the ground diet with nectar thickened liquids. Her BP was slightly low 90/60 (although stable compared to earlier readings this admission), P 100, R 20 , T 97.8 (Tm 99.4), O2 sat RA 95%. As per her RN, she previously denied any abdominal pain. There was no nausea, vomiting, hematemesis, BRBPR, or melena. The patient was mostly O x 3 earlier today, but was now sleepy at the time of my exam & could not answer questions. Numerous issues were reviewed on 09/01/17: + C. difficile, failing Vancomycin 125 mg po QID x 7 days, switched to Fidaxomicin 200 mg po BID, Questran 4g po QID, & Rifaximin. She was still on Moxifloxacin for her septic shock/E. coli sepsis/PNA. Her presumed alcoholic hepatitis was stabilizing, as did her DTs. She has underlying fatty liver. Her electrolytes were being repleted. Her mental status was somewhat better, regarding her toxic metabolic/ multifactorial encephalopathy. Her metabolic acidosis, pancytopenia, & respiratory failure had improved. She was still somewhat malnourished. Clinically & radiographically, she did not have toxic megacolon. *SUGGEST: *Continue Fidaxomicin 200 mg po BID for a total of at least 10 days (*if her other antibiotics, such as Moxifloxacin are continued for longer than this, would continue Fidaxomicin for the duration of the other antibiotics). *Continue Questran 4g po QID. *Consider adding probiotics- [Florastor] = Saccharomyces Boulardii 500 mg po BID x 2 weeks. *Continue Rifaximin 550 mg po BID. Avoid diarrheagenic medications, such as Lactulose or oral Mg2+, if possible. Advance diet as tolerated. Aspiration precautrions. Nutritional supplements. IVF ( currently D5 1/2 NS with 20 meq KCl/L @ 75 cc/hr. *Replete lytes. Consider adding Vitamin E 800 IU po daily for fatty liver. Cessation of EtOH urged. *As the patient's diarrhea is much improved on her current regimen, will defer flexible sigmoidoscopy for now (*the point of the flex sig would be to exclude other entities, such as ischemic colitis; doubt IBD or neoplasm, etc). I would only instrument her at present if it would change her management, and again, her diarrhea is improving. If the patient has not had a baseline screening colonoscopy, this should be done semi-electively, as an outpatient, once her other multiple issues hopefully continue to improve. I will follow the patient with ID, & if she continues to improve, GI will sign off in the near future. *If the patient breaks through Fidaxomicin, other options could include a protracted 2 month po Vancomycin taper or eventual referral for FMT. *Would continue MVI, folate, & B12. *Add thiamine 100 mg po daily. *The patient's elevated Fe sat & elevated ferritin are probably due to acute phase rx from EtOH hepatitis, but would consider getting genetic testing for HHC. *Also consider checking CHAVA, AMA , A1AT level. *Consider checking thiamine level. *Follow-up LFTs & INR. DVT prophylaxis. Physical therapy. Mobilize patient with assistance, The above was previously discussed with the medical house staff, Dr. Diaz of ID, & Dr. Acosta, of the hospitalist service. Further GI recommendations to follow, depending on clinical course. Problem List: 1. C. difficile colitis 2. Diarrhea 3. Alcoholic hepatitis 4. Fatty liver 5. Hepatic encephalopathy 6. Septic shock due to Escherichia coli 7. Pneumonia 8. Macrocytic anemia 9. Malnutrition 10. Abnormal LFTs (liver function tests) 11. Hypokalemia 12. Alcohol abuse Subjective Subjective: 08/20/17: PT 14.9, INR 1.36 08/25/17: albumin 2.2, globulin 3.2, TBil 2.6/DBil 2.0, alk phos 329, AST 88, ALT 70 08/26/17: albumin 2.2, TBil 2.3, AST 85, ALT 68 08/31/17: NH3 18 08/31/17: stool C&S, Shiga toxin- neg. 09/01/17: WBC 7.4, H/H 8.4/25.7, MCV 116.3, RDW 23.3, PLT 163, BUN/Cr < 2/0.4, GFR > 60, Na 146, K 3.3, HCO3 21, AG 9, Mg 1.6. *As of 09/01/17, the patient's diarrhea was down to only 2x & non-bloody, on her regimen of Fidaxomicin 200 mg po BID, Questran 4g po QID, & Rifaximin. Her po intake was poor, mostly because she did not like the ground diet with nectar thickened liquids. Her BP was slightly low 90/60 (although stable compared to earlier readings this admission), P 100, R 20 , T 97.8 (Tm 99.4), O2 sat RA 95%. As per her RN & 1:1 sitter, she previously denied any abdominal pain. There was no nausea, vomiting, hematemesis, BRBPR, or melena. The patient was mostly O x 3 earlier today, but was now sleepy at the time of my exam & could not answer questions. Review of Systems: Full 14 point ROS currently unobtainable from the patient, due to lethargy, but she was reportedly O 3 earlier today, as per her RN & 1:1 sitter. Objective Vital Signs and I&Os Vital Signs Date Time Temp Pulse Resp B/P B/P Pulse O2 O2 Flow FiO2 Mean Ox Delivery Rate 09/01 1812 100 90/60 09/01 1506 97.8 98 20 96/58 95 Room Air 09/01 0800 98 Room Air 09/01 0722 98.2 70 20 116/72 91 08/31 2146 99.4 68 20 120/70 97 Intake & Output 09/01 1600 09/01 0400 08/31 1600 08/31 0400 08/30 1600 08/30 0400 Intake Total 241 716 2935 200 1605 200 Output Total 250 50 360 300 Balance 230 200 680 -100 1605 200 Intake, IV 068 898 6208 Intake, Oral 480 50 290 200 350 200 Number 4 7 13 9 1 Bowel Movements Output, Urine 250 50 360 300 Physical Exam: Well-developed, chronically ill appearing, somewhat malnourished female, in no apparent distress. Sclera slightly muddy, but not icteric. Conjunctiva pink. Oropharynx clear. There is no adenopathy, thyromegaly, or JVD. No definite peripheral stigmata of inflammatory bowel disease or chronic liver disease on exam. No spiders on the anterior chest wall. Breast & pelvic exams: API. No CVA tenderness. Lungs: clear to A&P, with slightly decreased BS at the bases B/L. No wheezing, rales, or rhonchi. Heart exam: regular rate rhythm, S1 and S2, without any murmur. Abdominal exam: normal bowel sounds, soft belly, nontender, without guarding or rebound. No mass. Enlarged liver, approximately 19 cm by percussion. No palpable spleen tip. Negative Christian sign. No fluid shift. No pulsatile mass. No epigastric bruit. Digital rectal exam: deferred at present. Extremities: without C, C, or E. Mild DJD. No rash. No palpable cords. No palmar erythema. No Dupuytren's contractures. Distal pulses 1+ bilaterally. DTRs 1+ bilaterally. Reportedly was alert & oriented x 3 earlier today, now sleepy. Mild tremor. No asterixis. Currently not cooperative with detailed neurologic or CN testing. Current Medications: Current Medications Sig/Marcus Start time Last Medication Dose Route Stop Time Status Admin Albuterol Sulfate 3 ML BID PRN 08/26 1349 AC INH Chlorhexidine 10 ML TID 08/25 1000 AC 09/01 Gluconate PO 1653 Cholestyramine Resin 1 PAC Q6 08/30 1212 AC 09/01 PO 1253 Cyanocobalamin 1,000 MCG DAILY 08/28 1000 AC 09/01 PO 1027 Famotidine 20 MG BID 08/28 1429 AC 09/01 PO 1027 Fidaxomicin 200 MG Q12 08/28 2200 AC 09/01 PO 1026 Folic Acid 1 MG DAILY 08/28 1000 AC 09/01 PO 1027 Heparin Sodium 5,000 UNIT Q8 08/22 1400 AC 09/01 (Porcine) SC 1454 Lactated Ringer's 500 ML .Q1H 09/01 1845 DC 09/01 IV 09/01 1944 1900 Levothyroxine Sodium 0.137 MG DAILY AC 08/29 0700 AC 09/01 PO 0554 Magnesium Sulfate 1 GM ONCE ONE 09/01 0730 DC 09/01 Dextrose/Water 100 ML IV 09/01 1129 0852 Moxifloxacin HCl 400 MG DAILY 08/29 1000 AC 09/01 PO 09/03 0600 1026 Multivitamins 1 TAB DAILY 08/28 1100 AC 09/01 PO 1027 Ondansetron HCl 4 MG Q6P PRN 08/15 1845 AC IV Potassium Chloride 40 MEQ ONCE ONE 09/01 0830 DC 09/01 PO 09/01 0831 1028 Potassium Chloride 20 MEQ Q13H 09/01 0800 AC 09/01 Dextrose/Sodium 1,000 ML IV 0748 Chloride Potassium Chloride 60 MEQ 0800 09/01 0800 DC PO 09/01 0801 Potassium Chloride 40 MEQ AT BEDTIME 08/31 2200 DC 08/31 PO 08/31 2201 2144 Potassium Chloride 20 MEQ Q20H 08/31 1200 DC 08/31 Dextrose/Sodium 1,000 ML IV 1334 Chloride Rifaximin 550 MG BID 08/31 2200 09/01 PO 1027 Vitamin A/Vitamin D 1 ANGEL BID 08/22 1005 09/01 TOP 1030 Zinc Oxide 1 ANGEL BID PRN 08/21 0615 09/01 TOP 1024 Results Pertinent Lab Results: Laboratory Tests 09/01 08/31 08/31 0533 1600 1118 Chemistry Sodium (137 - 145 mmol/L) 146 H Potassium (3.5 - 5.1 mmol/L) 3.3 L Chloride (98 - 107 mmol/L) 115 H Carbon Dioxide (22 - 30 mmol/L) 21 L Anion Gap (5 - 16) 9 BUN (7 - 17 mg/dL) < 2 L Creatinine (0.5 - 1.0 mg/dL) 0.4 L Estimated GFR (>60 ml/min) > 60 BUN/Creatinine Ratio (7 - 25 %) 5.0 L Magnesium (1.6 - 2.3 mg/dL) 1.6 Ammonia (9 - 30 umol/L) 18 Hematology CBC w Diff NO MAN DIFF REQ WBC (4.8 - 10.8 /CUMM) 7.4 RBC (4.20 - 5.40 /CUMM) 2.21 L Hgb (12.0 - 16.0 G/DL) 8.4 L Hct (37 - 47 %) 25.7 L MCV (81.0 - 99.0 FL) 116.3 H MCH (27.0 - 31.0 PG) 37.4 H MCHC (33.0 - 37.0 G/DL) 32.2 L RDW (11.5 - 14.5 %) 23.3 H Plt Count (130 - 400 /CUMM) 163 MPV (7.4 - 10.4 FL) 9.7 Gran % (42.2 - 75.2 %) 71.0 Lymphocytes % (20.5 - 51.1 %) 13.4 L Monocytes % (1.7 - 9.3 %) 6.0 Eosinophils % (0 - 5 %) 8.6 H Basophils % (0.0 - 2.0 %) 1.0 Absolute Granulocytes (1.4 - 6.5 /CUMM) 5.3 Absolute Lymphocytes (1.2 - 3.4 /CUMM) 1.0 L Absolute Monocytes (0.10 - 0.60 /CUMM) 0.4 Absolute Eosinophils (0.0 - 0.7 /CUMM) 0.6 Absolute Basophils (0.0 - 0.2 /CUMM) 0.1 Miscellaneous Ref Lab Test Result Pending Other Body Source Stool Lactoferrin Pending 08/31 08/30 08/30 0830 1430 1419 Chemistry Sodium (137 - 145 mmol/L) 142 Potassium (3.5 - 5.1 mmol/L) 2.9 *L Cancelled 3.0 L Chloride (98 - 107 mmol/L) 111 H Carbon Dioxide (22 - 30 mmol/L) 23 Anion Gap (5 - 16) 7 BUN (7 - 17 mg/dL) 2 L Creatinine (0.5 - 1.0 mg/dL) 0.4 L Estimated GFR (>60 ml/min) > 60 BUN/Creatinine Ratio (7 - 25 %) 5.0 L Magnesium (1.6 - 2.3 mg/dL) 1.4 L Hematology CBC w Diff NO MAN DIFF REQ WBC (4.8 - 10.8 /CUMM) 6.6 RBC (4.20 - 5.40 /CUMM) 2.14 L Hgb (12.0 - 16.0 G/DL) 8.0 L Hct (37 - 47 %) 25.0 L MCV (81.0 - 99.0 FL) 117.1 H MCH (27.0 - 31.0 PG) 36.9 H MCHC (33.0 - 37.0 G/DL) 31.5 L RDW (11.5 - 14.5 %) 22.8 H Plt Count (130 - 400 /CUMM) 174 MPV (7.4 - 10.4 FL) 10.6 H Gran % (42.2 - 75.2 %) 74.9 Lymphocytes % (20.5 - 51.1 %) 11.4 L Monocytes % (1.7 - 9.3 %) 5.4 Eosinophils % (0 - 5 %) 7.3 H Basophils % (0.0 - 2.0 %) 1.0 Absolute Granulocytes (1.4 - 6.5 /CUMM) 5.0 Absolute Lymphocytes (1.2 - 3.4 /CUMM) 0.8 L Absolute Monocytes (0.10 - 0.60 /CUMM) 0.4 Absolute Eosinophils (0.0 - 0.7 /CUMM) 0.5 Absolute Basophils (0.0 - 0.2 /CUMM) 0.1 08/30 0517 Chemistry Sodium (137 - 145 mmol/L) 141 Potassium (3.5 - 5.1 mmol/L) 2.7 *L Chloride (98 - 107 mmol/L) 110 H Carbon Dioxide (22 - 30 mmol/L) 24 Anion Gap (5 - 16) 7 BUN (7 - 17 mg/dL) 3 L Creatinine (0.5 - 1.0 mg/dL) 0.5 Estimated GFR (>60 ml/min) > 60 BUN/Creatinine Ratio (7 - 25 %) 6.0 L Magnesium (1.6 - 2.3 mg/dL) 1.4 L Imaging/Other Studies: 08/30/17: EKG- read as "afib", but actually NSR @ 67 with baseline artifact, nl axis, RBBB/LPHB, NSST. *Multiple imaging studies from 08/15/17-09/01/17 essentially summarized in my detailed GI progress note of 09/01/17. 08/21/17: CT AP WITH IV CONTRAST- IMPRESSION: 1. Persistent diffuse wall thickening and mucosal hyperenhancement of the colon is seen with surrounding edema and mild mesenteric infiltration. There is also mild diffuse fluid distention and minimal marrow enhancement of the small bowel loops in the abdomen and pelvis. Small volume free fluid in the abdomen is seen. Findings are slightly more pronounced than on the previous study and are suspicious for a pancolitis (infectious, inflammatory) and enteritis, possibly reactive. Ischemic etiology to the pancreatitis is felt to be unlikely given normal enhancement of all the mesenteric vessels. However, close clinical correlation is requested to exclude hypoperfusion due to septic shock as a possible etiology for ischemic colitis. *No gross megacolon or pyelephlebitis seen. No obstruction or free air. 2. Small bilateral pleural effusions with bilateral lower lobe dependent atelectasis. Diffuse parenchymal groundglass and reticular opacities are also seen in the included mid and lower lungs, similar to prior studies, consistent with a diffuse viral or atypical pneumonitis. 3. Borderline enlarged liver with hepatic steatosis and focal area of fatty sparing near the gallbladder fossa. 4. Two nonobstructing left renal calculi are seen, unchanged.
[2017-09-01 22:18] VITALS: BP 98/66
[2017-09-02 07:10] VITALS: BP 132/80
--- NOTE | 2017-09-02 07:27 | PN- Housestaff ---
Emerald INMAN,Azucena 09/02/17 0727: Subjective Follow-up For: Community-acquired pneumonia-resolving C. difficile-resolving Encephalopathy possibly metabolic Complaints: no complaints Subjective: Patient seen and examined at bedside. She is alert awake oriented 2. She denies belly pain, cough, fever, chest pain. Patient appears mildly dehydrated. No overnight events Review of Systems Constitutional: Reports: see HPI. Objective Last 24 Hrs of Vital Signs/I&O Vital Signs Date Time Temp Pulse Resp B/P B/P Pulse O2 O2 Flow FiO2 Mean Ox Delivery Rate 09/02 0710 97.8 72 18 132/80 92 09/02 0000 Room Air 09/01 2218 97.9 101 19 98/66 95 Room Air 09/01 1812 100 90/60 09/01 1506 97.8 98 20 96/58 95 Room Air Intake & Output 09/02 1600 09/02 0800 09/02 0000 Intake Total Output Total 300 550 Balance -300 -550 Number 2 1 Bowel Movements Output, Urine 300 550 Physical Exam General Appearance: Alert, Oriented X3, Cooperative, No Acute Distress Cardiovascular: Regular Rate, Normal S1, Normal S2, No Murmurs Lungs: Clear to Auscultation, Normal Air Movement Abdomen: Normal Bowel Sounds, Soft, No Tenderness, No Hepatospenomegaly Neurological: Normal Speech, Normal Tone, Sensation Intact Extremities: No Cyanosis, No Edema, Normal Pulses Current Medications: Current Medications Sig/Marcus Start time Last Medication Dose Route Stop Time Status Admin Albuterol Sulfate 3 ML BID PRN 08/26 1349 AC INH Chlorhexidine 10 ML TID 08/25 1000 AC 09/02 Gluconate PO 0954 Cholestyramine Resin 1 PAC Q6 08/30 1212 AC 09/02 PO 0548 Cyanocobalamin 1,000 MCG DAILY 08/28 1000 AC 09/02 PO 0954 Famotidine 20 MG BID 08/28 1429 AC 09/02 PO 0954 Fidaxomicin 200 MG Q12 08/28 2200 AC 09/02 PO 0954 Folic Acid 1 MG DAILY 08/28 1000 AC 09/02 PO 0954 Heparin Sodium 5,000 UNIT Q8 08/22 1400 AC 09/02 (Porcine) SC 0548 Lactated Ringer's 500 ML .Q1H 09/01 1845 DC 09/01 IV 09/01 1944 1900 Lactobacillus 1 CAP BID 09/02 1000 AC 09/02 Acidophilus PO 0954 Levothyroxine Sodium 0.137 MG DAILY AC 08/29 0700 AC 09/02 PO 0615 Magnesium Sulfate 1 GM Q2H 09/02 0930 AC Dextrose/Water 100 ML IV 09/02 1329 Magnesium Sulfate 1 GM ONCE ONE 09/01 0730 DC 09/01 Dextrose/Water 100 ML IV 09/01 1129 0852 Moxifloxacin HCl 400 MG DAILY 08/29 1000 AC 09/02 PO 09/03 0600 0954 Multivitamins 1 TAB DAILY 08/28 1100 AC 09/02 PO 0954 Nystatin 1 ANGEL BID 09/02 0247 AC 09/02 TOP 0954 Ondansetron HCl 4 MG Q6P PRN 08/15 1845 AC IV Potassium Chloride 40 MEQ AT BEDTIME 09/02 2200 AC PO 09/02 2201 Potassium Chloride 60 MEQ ONCE ONE 09/02 0930 DC PO 09/02 0931 Potassium Chloride 20 MEQ Q13H 09/01 0800 AC 09/02 Dextrose/Sodium 1,000 ML IV 0459 Chloride Rifaximin 550 MG BID 08/31 2200 AC 09/02 PO 0954 Thiamine HCl 100 MG DAILY 09/02 1000 AC 09/02 PO 0954 Vitamin A/Vitamin D 1 ANGEL BID 08/22 1005 AC 09/02 TOP 0953 Zinc Oxide 1 ANGEL BID PRN 08/21 0615 AC 09/02 TOP 0954 Last 24 Hrs of Lab/Will Results Last 24 Hrs of Labs/Mics: Laboratory Tests 09/02/17 0604: Anion Gap 9, Estimated GFR > 60, BUN/Creatinine Ratio 7.5, Magnesium 1.6, Total Bilirubin 1.4 H, Direct Bilirubin 1.1 H, AST 21, ALT 29, Alkaline Phosphatase 162 H, Total Protein 5.7 L, Albumin 2.0 L, PT 16.2 H, INR 1.48 H, CBC w Diff NO MAN DIFF REQ, RBC 2.23 L, MCV 116.8 H, MCH 37.3 H, MCHC 32.0 L, RDW 23.1 H, MPV 10.8 H, Gran % 70.1, Lymphocytes % 12.2 L, Monocytes % 5.9, Eosinophils % 11.7 H, Basophils % 0.1, Absolute Granulocytes 6.8 H, Absolute Lymphocytes 1.2, Absolute Monocytes 0.6, Absolute Eosinophils 1.1, Absolute Basophils 0 Microbiology 09/01 1445 STOOL: Cryptosporidium Antigen - COMP 09/01 1445 STOOL: Giardia Antigen (WILL) - COMP Assessment/Plan Assessment: 57 year old woman with multiple medical problems significant for etoh abuse seen for evaluation of progressively worsening altered mental status over several weeks found to have E coli septicemia/pneumonia, and C diff colitis. Problem List -Altered mental status, probable alcoholic/metabolic/infectious encephalopathy -Septic shock, improved -E. coli bacteremia, still growing E coli on LRC of 08/23/17 -Acute Hypoxic/Hypercarbic Respiratory failure, Extubaed -C. Diff colitis, on PO FIDAXOMICIN improving -Thrombocytopenia, improved. -Anion Gap Metabolic Acidosis, Resolved -Electrolyte abnormalities, repleting daily -History of EtOH, contemplating quitting -h/o Hypertension -Hypothyroidism -Anemia-1 unit of blood transfused. * Patient treated with po moxifloxacin for E coli pneumonia [resolving]. Patient is able to tolerate oral feeds. We'll continue moxifloxacin [for 1 more day] and fidaxomicin. Patient is on cholecystectomy in every 6. Patient had 5 loose bowel movements in the last 24 hours. Patient was seen by gastroenterology yesterday who suggested to continue current management as her frequency of diarrhea is reducing. He suggested he would not do sigmoidoscopy for now. We added thiamine and probiotics aspect GI. Patient at times has periods of confusion which can be secondary due to alcoholic cirrhotic liver disease/electrolytes/infection. Patient was seen by neurology who suggested EEG . EEG showed abnormal slowing of the background but no focal or epileptic changes. Patient will be followed by neurologist today. Her initial CAT scan of the head was negative. Patient potassium is 3.3 today and this was replaced. Her magnesium was low replaced. Since admission patient has electrolyte abnormalities. * Patient had maculopapular rash in the back, belly and bilateral breast which can be secondary due to medication use-initially resolved. Today she has faint rash all over her abdomen and her back. This looks more like him drug rash. We will touch base with infectious disease today. * general foundry worker on board. Patient was seen by physical therapy was suggested short-term rehabilitation. * Novolin sliding scale insulin. Code-full code DVT prophylaxis-heparin Problem List: 1. Hypokalemia 2. Alcoholic hepatitis 3. Fatty liver 4. Encephalopathy 5. C. difficile colitis Pain Ratin Pain Location: None Pain Goal: Remain pain free Pain Plan: Tylenol Tomorrow's Labs & Rationales: CBC, BEP Ministerio Acosta 09/02/17 1137: Attending MD Review Statement Attending Statement Attending MD Statement: examined this patient, discuss w/resident/PA/PAPER REEL OPERATOR, agreed w/resident/PA/PAPER REEL OPERATOR, discussed with family, reviewed EMR data (avail), discussed with nursing, discussed with case mgmt, reviewed images, amended to note Attending Assessment/Plan: Patient came initally for altered mental status transferred from ICU requiring intubation for respiratroy failure 2/2 pneumonia E coli on fluoroquinolones and C diff for diarrhea on PO abx likely vancomycin failure. GI and ID following. Patient is aaox2 oriented. Still c/o diarrhea with some improvement. She is eating PO as per s/s recs. No nausea, no vomiting. IVF + Sepsis resolved from E coli pneumonia and C diff colitis. Follow ID for duration of abx. (Moxi and fidaxomycin) Encephalopathy multifactorial initally thought to be hepatic USG shows no evidence of cirrhosis, alcohol mediated BRITTANY on admission <10. CT head on admisison negative for bleed. No focal deficit. Consulted neurolgoy for prognosis/work up of encephalopathy, EEG abnormal and neuro f/u. Replace electrolyte prn. avoid all agents which are c diffogenic. If no improvement f/u GI.
[2017-09-02 08:09] LABS: ABSOLUTE BASOPHIL COUNT 0 /CUMM (0.0-0.2); ABSOLUTE EOSINOPHIL COUNT 1.1 /CUMM (0.0-0.7); ABSOLUTE GRANULOCYTE CT 6.8 /CUMM (1.4-6.5); ABSOLUTE LYMPH COUNT 1.2 /CUMM (1.2-3.4); ABSOLUTE MONOCYTE COUNT 0.6 /CUMM (0.10-0.60); BASOPHIL % 0.1 % (0.0-2.0); MEAN PLATELET VOLUME 10.8 FL (7.4-10.4); RBC DISTRIBUTION WIDTH 23.1 % (11.5-14.5); WHITE BLOOD CELL COUNT 9.7 /CUMM (4.8-10.8)
[2017-09-02 08:18] LABS: PT 16.2 SEC (9.4-12.5)
--- NOTE | 2017-09-02 09:02 | Discharge Summary ---
Visit Information Visit Dates Admission Date: 08/15/17 Discharge Date: 09/07/17 Hospital Course Course Attending Physician: Dr. Guadlaupe Au Primary Care Physician: Montserrat Pérez MD Consulting Request: 1 Consulting Specialty: Critical Care Consulting Physician: Lavelle Deleon MD Reason for Consult: septic shock Consulting Request: 2 Consulting Specialty: Gastroenterology Consulting Physician: Toribio Egan MD Reason for Consult: hyperbilirubinemia Consulting Request: 3 Consulting Specialty: Infectious Disease Consulting Physician: Christiano Diaz MD Reason for Consult: fever/sepsis and C. difficile colitis Consulting Request: 4 Consulting Specialty: Neurology Consulting Physician: Dr. Jain Reason for Consult: hepatic encephalopathy Hospital Course: The patient is a 57-year-old woman with a history of significant alcohol abuse, hypertension and hypothyroidism, who had apparently been unwell for the 6 weeks prior to presentation who presented with increased lethargy, confusion and episodes of fecal incontinence of 6 weeks duration, admitted on August 15 with a 3 to 4 day history of increasing somnolence, decreasing responsiveness and scleral icterus. On admission she was afebrile. Vital signs at presentation Temp :98.9 F, pulse 100 bpm, RR 18/min, BP 122/74 mmhg, PO2 99% on Room Air. Physical Exam at presentation: General Appearance Mild Distress, Initially A0X0 Skin HAS OLD PETECHIAE ON ABDOMEN AND IN LE. HAS BRUISE IN R. HIP Skin Temp/Moisture Exam: Warm/Dry Sepsis Skin Exam (color): Jaundiced HEENT Atraumatic, PERRLA, SCLERAL ICTERUS PRESENT, MUCOUS MEMBRANES DRY Neck Supple, NO EVIDENCE OF MENINGEAL SIGNS Cardiovascular 2/6 MURMUR AT RUSB Lungs Clear to Auscultation, Normal Air Movement Abdomen Normal Bowel Sounds, Soft, No Tenderness, NO GUARDING, RIGIDITY OR REBOUND., NEGATIVE MURPHYS Neurological PT MOVING HER EXTREMETIES SPONTANEOUSLY. Can respond to basic commands such as open mouth. Extremities 2+ edema bilat LE Laboratory data revealed a white blood cell count of 6000, with 57 segs and 30 bands, H&H 10 and 29, with an MCV of 122, platelets 126,000, BUN creatinine 9 and 1.4, potassium 3.1, lactic acid 1.2, lipase 320, bilirubin 4.5, alkaline phosphatase 327, AST/ALT 238 and 86, ammonia 76 elevated, alcohol level less than 10, coags normal, ABG 7.29/21/67 on room air. Urinalysis 1-3 RBCs/1-3 WBCs. Chest x-ray revealed mild bibasilar opacities. CT of the head was negative for any acute process. Right upper quadrant ultrasound revealed cholelithiasis and sludge within the gallbladder, with no evidence of acute cholecystitis, and diffuse hepatic steatosis. She was given 3 L of fluid in the emergency room, begun on Unasyn and admitted to the ICU. She initially remained afebrile but she spiked to 101.6 late on August 16. Her respiratory status deteriorated and she was intubated. She also developed hypotension and was started on pressors. His antibiotics were changed to IV ceftriaxone for suspected pneumonia. Her blood cultures 2 grew E Coli sensitive to moxifloxacin and her antibiotics were switched to IV moxifloxacin based on sensitivities. She improved enough to be taken off pressors and extubated and then transferred out of the ICU to the general medicine floor. She completed 14 days of moxifloxacin treatment for sepsis. However she did have some dysphagia after admission and she was assessed by speech and swallow therapist. She was recommended for mechanical soft diet consistency with nectar thick liquids. Her diet was eventually advanced to chopped consistency with nectar thick liquids. She was encepahalopathic on admission and this persisted despite treatment for alcohol withdrawal with IV [facility]AN [facility] PROTOCOL, and treatments with high dose thiamine, and lactulose and rifaximin for suspected hepatic encephalopathy. Her elevated Ammonia level trended down to normal. She developed diarrhea while on admission and tested positive for C-diff. Her diarrhea persisted despite po vancomycin and she was started on PO fidaxomycin. Her diarrhea slowly improved while on admission. She was discharged to complete one more dose of fidaxomycin on the night of discharge which would make her have completed a course of 10 days therapy. She had a drug rash while on fidaxomycin and she was managed with oral and topical benadryl with improvement. Allergies: Coded Allergies: Penicillins (UNKNOWN 08/17/17) Disposition Summary Disposition Principal Diagnosis: 1. Community-acquired pneumonia secondary to Escherichia coli 2. Septic shock 3. Hepatic encephalopathy and metabolic encephalopathy from sepsis 4. Dysphagia 5. C. difficile infection 6. EtOH abuse Additional Diagnosis: 7. Hypertension 8. Hypothyroidism Discharge Disposition: SNF Discharge Instructions General Discharge Information Code Status: Full Code Patient's Diet: Regular diet/chopped consistency with nectar thick liquids Patient's Activity: Self limited activity Follow-Up Instructions/Appts: 1. Please follow-up with your primary care provider within 1-2 weeks of discharge Medications at Discharge Discharge Medications: Continue taking these medications: Levothyroxine Sodium (Synthroid) 137 MCG TABLET 1 Tablet ORAL DAILY Qty = 30 Simvastatin (Simvastatin*) 80 MG TABLET 1 Tablet ORAL DAILY Qty = 30 Metoprolol Succinate (Metoprolol Succinate) 50 MG TAB.ER.24H 1 Tablet ORAL DAILY Qty = 30 Start taking the following new medications: Rifaximin (Xifaxan) 550 MG TABLET 550 Milligram ORAL TWICE DAILY Qty = 60 No Refills Famotidine (Famotidine) 20 MG TABLET 20 Milligram ORAL TWICE DAILY Qty = 60 No Refills Folic Acid (Folic Acid) 1 MG TABLET 1 Milligram ORAL DAILY Qty = 30 No Refills Fidaxomicin (Dificid) 200 MG TABLET 200 Milligram ORAL EVERY 12 HOURS Qty = 1 No Refills Lactobac Cmb #3/Fos/Pantethine (Probiotic & Acidophilus Cap) 300MM-250 CAPSULE 1 Capsule ORAL TWICE DAILY Qty = 60 No Refills Diphenhydramine HCl/Zinc Acet (Itch Relief Cream) 2 %-0.1 % CREAM..G. 1 Application On the skin TWICE DAILY Qty = 1 No Refills Vitamin A & D (Vitamin A & D Ointment) 56.7 GM OINT...G. 1 Application On the skin TWICE DAILY as needed for RASH Qty = 1 No Refills Thiamine HCl (Vitamin B-1) 100 MG TABLET 100 Milligram ORAL DAILY Qty = 30 No Refills Cholestyramine/Aspartame (Cholestyramine Light Packet) 4 GRAM POWD.PACK 1 Packet ORAL EVERY 12 HOURS Qty = 14 No Refills Copies To: Adrienne INMAN,Lavelle Maxwell; Joe INMAN,Christiano Carvajal; Jignesh INMAN,Toribio Brown; Cristobal INMAN,Elvi Johnson ; Beto INMAN,Montserrat Maxwell
[2017-09-02 09:03] LABS: MEAN CORPUSCULAR HGB 37.3 PG (27.0-31.0); MEAN CORPUSCULAR VOLUME 116.8 FL (81.0-99.0); RED BLOOD CELL CT 2.23 /CUMM (4.20-5.40)
[2017-09-02 09:23] LABS: EOSINOPHIL % 11.7 % (0-5); GRANULOCYTE % 70.1 % (42.2-75.2); PLATELET COUNT 143 /CUMM (130-400)
--- NOTE | 2017-09-02 12:01 | PN- Gastroenterology ---
Assessment/Plan GI Assessment/Recommendations: (*Please refer to Dr. Leeanne Egan's GI consult of 08/16/17, his follow-up progress notes, & Dr. Mclain's last GI progress note of 08/22/17). *I was called by the hospitalist service 09/01/17 to return to see this patient regarding treatment of C. difficile, which is also being followed by ID. Her extensive records & hospital course were reviewed in detail. 57 y/o female with HTN, hypoT4, HLD, cigarette smoker, EtOH abuse, admitted to [facility] ICU 08/15/17 with altered mental status, somnolence, jaundice, elevated LFTs, initially felt to most likely be due to alcoholic hepatitis, without liver failure or synthetic dysfunction. She had cognitive impairment which possibly was from hepatic encephalopathy. Other contributing factors could have been toxic/metabolic, alcohol induced delirium, etc. She was also pancytopenic, probably from alcohol-induced bone marrow suppression, as well as macrocytic, with nl B12/folate/TSH. She had severe metabolic acidemia/EtOH ketoacidosis, that was corrected, as well as hypoK+, hypoMg, hypoPO4, hypoCa2+ with nl GFR. She had an elevated ammonia level on admission, with normal INR & a low discriminant function. On admission, Utox- neg, [EtOH] < 10. A limited history was available. Admission CXR- mild bibasilar opacities. 03/25: RUQ sono- cholelithiasis and sludge within the gallbladder, with no evidence of acute cholecystitis, and diffuse hepatic steatosis. (The gallstones on imaging studies were felt to be incidental in nature). 08/16/17: ECHO- nl LVEF 65-70%, no significant valvular abnl, wall moion abnl, or pulm HTN. 08/17/17: CT of the head- negative for any acute process. 08/17/17: CXR- right perihilar airspace opacity. 08/17/17: CT of the chest, abdomen and pelvis- patchy ground glass and reticular opacities in both upper lobes, with subtle patchy ground glass opacity within the right middle lobe and with small bilateral pleural effusions with compressive atelectasis; several old, healed bilateral rib fractures; hepatomegaly with diffusely hypodense liver parenchyma secondary to steatosis; mildly distended gallbladder with normal wall thickening , small calcified stones, with no evidence of biliary dilatation or choledocholithiasis; small amount of ascitic fluid; nonobstructing 0.6 cm calculus within the upper pole of the left kidney. She had required broad-spectrum antibiotics for sepsis of unclear source (? PNA) , with 08/16/17: BC x 2- GNR-> E. Coli. She had been intubated for hypoxia/hypercarbia. She had required pressors. She had been seen by ID in consultation 08/17/17, who switched Unasyn to Ceftriaxone, then to Moxifloxacin. She was given IV thiamine & required Ativan & Fentanyl drip for agitation. She intermittently had guaiac positive stools. She had 1u PRBC on 08/18/17. Her initial 08/17/17: stool for C. diff- negative. She had a short course of empiric Octreotide for treatment for diarrhea. She had previously been on tube feeds. 08/15/17: Hep A Ab, Hep Bs Ag, Hep B core Ab, & Hep C Ab- all neg; HIV- neg; [ Tylenol] < 10, [EtOH] < 10, salicylate 3.5, *Fe 133, TIBC 160, *Fe sat 83.1%,* ferritin 880, TSH 1.87, folate 15.2, troponin - neg x 4 sets, lactate 1.2 08/16/17: B12 > 1000. 08/17/17: amylase < 30, lipase 232. 08/20/17: *stool for C. difficile- positive. (*Vancomycin 125 mg po QID rxd, although Moxifloxacin was continued for E. Coli sepsis/PNA) 08/21/17: CXR- no change in reticular basilar opacities. The patient had 08/20/17: elevated d-dimer 1381, prompting 08/21/17: CTA chest- negative PE; small bilateral pleural effusions with associated bilateral lower lobe airspace disease, patchy groundglass opacifications bilaterally, more so RUL. 08/21/17: CT AP- persistent diffuse wall thickening and mucosal hyperenhancement of the colon, consistent with pancolitis, small volume abdominal free fluid. 08/22/17: CXR- mild RUL airspace disease. Prior to my review of 09/01/17, the patient was last seen by GI 08/22/17, with the caveat that we be contacted, if needed. She was extubated 08/24/17. She was followed by pulmonary/critical care. *On 08/28/17, po Vancomycin Day #7, was switched to Fidaxomicin 200 mg po BID The patient was seen by psychiatry 08/28/17, & later by neurology 08/29/17, & felt to have multifactorial encephalopathy (i.e.- metabolic, infx, ? DTs). *Questran 4g po 4x/day was rxd by ID as adjunctive tx 08/30/17, in addition to the Fidaxomicin. *Rifaximin 550 mg po BID was rxd per ID 08/31/17, both for encephalopathy & possibly for diarrhea. Regarding her diarrhea, she had been on Lactulose, which was stopped. 09/01/17: EEG- Abnormal due to slowing of the backgrounds but no focal or epileptiform abnormalities. 08/20/17: PT 14.9, INR 1.36 08/25/17: albumin 2.2, globulin 3.2, TBil 2.6/DBil 2.0, alk phos 329, AST 88, ALT 70 08/26/17: albumin 2.2, TBil 2.3, AST 85, ALT 68 08/31/17: NH3 18 08/31/17: stool C&S, Shiga toxin- neg. 09/01/17: WBC 7.4, H/H 8.4/25.7, MCV 116.3, RDW 23.3, PLT 163, BUN/Cr < 2/0.4, GFR > 60, Na 146, K 3.3, HCO3 21, AG 9, Mg 1.6. *As of 09/01/17, the patient's diarrhea was down to only 2x & non-bloody, on her regimen of Fidaxomicin 200 mg po BID, Questran 4g po QID, & Rifaximin. Her po intake was poor, mostly because she did not like the ground diet with nectar thickened liquids. Her BP was slightly low 90/60 (although stable compared to earlier readings this admission), P 100, R 20 , T 97.8 (Tm 99.4), O2 sat RA 95%. As per her RN, she previously denied any abdominal pain. There was no nausea, vomiting, hematemesis, BRBPR, or melena. The patient was mostly O x 3 earlier today, but was now sleepy at the time of my exam & could not answer questions. Numerous issues were reviewed on 09/01/17: + C. difficile, failing Vancomycin 125 mg po QID x 7 days, switched to Fidaxomicin 200 mg po BID, Questran 4g po QID, & Rifaximin. She was still on Moxifloxacin for her septic shock/E. coli sepsis/PNA. Her presumed alcoholic hepatitis was stabilizing, as did her DTs. She has underlying fatty liver. Her electrolytes were being repleted. Her mental status was somewhat better, regarding her toxic metabolic/ multifactorial encephalopathy. Her metabolic acidosis, pancytopenia, & respiratory failure had improved. She was still somewhat malnourished. Clinically & radiographically, she did not have toxic megacolon. 08/31/17: stool Vibrio & Yersinia- both neg (? why rxd- inpt since 08/15/17) 09/01/17: stool Giardia Ag & Crypto Ag- both neg (? why rxd- inpt since 08/15/17 ) 09/02/17: PT 16.2, INR 1.48, WBC 9.7, H/H 8.5/26, MCV 116.8, RDW 23.1, PLT 143, BUN/Cr 3/0.4, GFR > 60, Na 141, K 3.3, HCO3 21, AG 9, Mg 1.6, albumin 2.0, globulin 3.7, TBil 1.4, DBil 1.1, alk phos 162, AST 21, ALT 29. *As of 09/02/17, the patient remained hemodynamically stable & afebrile, with BP 132/80, P 72, R 18, T 97.8 w/o spike, O2 sat RA 92%. She was previously borderline hypotensive. Her diarrhea was much improved on her current regimen. Lactobacillus was rxd on 09/02/17, as apparently Florastor 500 mg po BID was non -formulary (I called the [facility], & they do have some Florastor). Thiamine 100 mg po daily was added on 09/02/17. She only had 2 episodes of non- bloody diarrhea overnight. She had no abdominal pain. She was still intermittently lethargic, but somewhat more alert (O x 2, not to time- "2079"). Her po intake was fair. She would eat only with assistance, as per d/w her RN. *SUGGEST: *Continue Fidaxomicin 200 mg po BID for a total of at least 10 days (*if her other antibiotics, such as Moxifloxacin are continued for longer than this, would continue Fidaxomicin for the duration of the other antibiotics). *Continue Questran 4g po QID. *Switch the probiotic Lactobacillus to [Florastor] = Saccharomyces Boulardii 500 mg po BID x 2 weeks (*call the [facility] - they have this even though it is non-formulary). *Continue Rifaximin 550 mg po BID. Avoid diarrheagenic medications, such as Lactulose or oral Mg2+, if possible. Advance diet as tolerated. Aspiration precautrions. Nutritional supplements. IVF (currently D5 1/2 NS with 20 meq KCl/L @ 75 cc/hr. *Replete lytes (i.e.- K+). Consider adding Vitamin E 800 IU po daily for fatty liver. Cessation of EtOH urged. As the patient's diarrhea is much improved on her current regimen, will defer flexible sigmoidoscopy for now (*the point of the flex sig would be to exclude other entities, such as ischemic colitis; doubt IBD or neoplasm, etc). I would only instrument her at present if it would change her management, and again, her diarrhea is improving. If the patient has not had a baseline screening colonoscopy, this should be done semi-electively, as an outpatient, once her other multiple issues hopefully continue to improve. *If the patient breaks through Fidaxomicin, other options could include a protracted 2 month po Vancomycin taper or eventual referral for FMT. *Would continue MVI, folate, & B12. *Continue Thiamine 100 mg po daily. *The patient's elevated Fe sat & elevated ferritin were probably due to acute phase rx from EtOH hepatitis, but would consider getting genetic testing for HHC. *Also consider checking CHAVA, AMA, A1AT level. *Consider checking thiamine level. *Follow-up LFTs & INR. DVT prophylaxis. Physical therapy. Mobilize patient with assistance, The above was previously discussed with the medical house staff & Dr. Acosta, of the hospitalist service. I spoke with Dr. Diaz again on 09/02/17. Further [facility] GI follow- up as needed, but the patient's diarrhea is much improved & her C. diff is also being followed by ID & the hospitalist service. Again, at present, I see no definite indication for a flex sig. Problem List: 1. C. difficile colitis 2. Diarrhea 3. Alcoholic hepatitis 4. Fatty liver 5. Hepatic encephalopathy 6. Septic shock due to Escherichia coli 7. Pneumonia 8. Macrocytic anemia 9. Malnutrition 10. Abnormal LFTs (liver function tests) 11. Hypokalemia 12. Alcohol abuse Subjective Subjective: 08/31/17: stool Vibrio & Yersinia- both neg (? why rxd- inpt since 08/15/17) 09/01/17: stool Giardia Ag & Crypto Ag- both neg (? why rxd- inpt since 08/15/17 ) 09/02/17: PT 16.2, INR 1.48, WBC 9.7, H/H 8.5/26, MCV 116.8, RDW 23.1, PLT 143, BUN/Cr 3/0.4, GFR > 60, Na 141, K 3.3, HCO3 21, AG 9, Mg 1.6, albumin 2.0, globulin 3.7, TBil 1.4, DBil 1.1, alk phos 162, AST 21, ALT 29. *As of 09/02/17, the patient remained hemodynamically stable & afebrile, with BP 132/80, P 72, R 18, T 97.8 w/o spike, O2 sat RA 92%. She was previously borderline hypotensive. Her diarrhea was much improved on her current regimen. Lactobacillus was rxd on 09/02/17, as apparently Florastor 500 mg po BID was non -formulary (I called the [facility], & they do have some Florastor). Thiamine 100 mg po daily was added on 09/02/17. She only had 2 episodes of non- bloody diarrhea overnight. She had no abdominal pain. She was still intermittently lethargic, but somewhat more alert (O x 2, not to time- "2079"). Her po intake was fair. She would eat only with assistance, as per d/w her RN. Review of Systems: Review of Systems: Full 14 point ROS from the patient somewhat limited, due to lethargy, but she was currently O 2 (not to time). Review of Systems Constitutional: Reports: malaise, weakness. Denies: chills, diaphoresis, fever, unexplained weight loss. EENTM: Denies: blurred vision, double vision, visual changes, eye pain, eye drainage, eye tearing, icterus, ear discharge, ear pain, ear redness, hearing changes, nasal congestion, epistaxis, nasal pain, throat pain, throat swelling, mouth pain, tooth pain. Cardiovascular: Denies: chest pain, edema, orthopena, palpitations, peripheral edema, syncope. Respiratory: Denies: cough, hemoptysis, orthopnea, short of breath, sputum production, stridor, wheezing. Gastrointestinal: Reports: diarrhea (improving), bowel incontinence (vs. C. diff diarrhea- better) . Denies: abdominal pain, bloating, constipation, distention, melena, nausea, bloody stool, changes in stool, vomiting, steatorrhea. Genitourinary: Denies: discharge, dysuria, frequency, hematuria, hesitation, nocturia, pain, urgency. Musculoskeletal: Denies: back pain, gout, joint pain, joint swelling, muscle pain, muscle stiffness, neck pain. Skin: Reports: jaundice (resolved). Denies: cysts, change in skin color, change in hair/nails, dryness, erythema, lesions, lymphangitis, lumps, moles, rash. Neurological/Psychological: Reports: anxiety, cognitive dysfunction (EtOH/toxic metabolic), confusion, weakness. Denies: ataxia, depressed, dementia, emotional problems, headache, numbness, paresthesia, pre-existing deficit, petit mal seizures, tingling, tremors, tonic-clonic seizures, unable to move lower ext, unable to move upper ext. Hematologic/Endocrine: Denies: bruising, bleeding, polyuria, polydipsia. Immunologic/Allergic: Denies: splenectomy, HIV/AIDS, lymphadenopathy. All Other Systems: Reviewed and Negative Objective Vital Signs and I&Os Vital Signs Date Time Temp Pulse Resp B/P B/P Pulse O2 O2 Flow FiO2 Mean Ox Delivery Rate 09/02 0710 97.8 72 18 132/80 92 09/02 0000 Room Air 09/01 2218 97.9 101 19 98/66 95 Room Air 09/01 1812 100 90/60 09/01 1506 97.8 98 20 96/58 95 Room Air Intake & Output 09/02 1600 09/02 0400 09/01 1600 09/01 0400 08/31 1600 08/31 0400 Intake Total 086 945 7926 200 Output Total 300 550 250 50 360 300 Balance -300 -550 230 200 680 -100 Intake, IV 200 750 Intake, Oral 480 50 290 200 Number 2 1 4 7 13 Bowel Movements Output, Urine 300 550 250 50 360 300 Physical Exam: Well-developed, chronically ill appearing, somewhat malnourished female, in no apparent distress. Sclera slightly muddy, but not icteric. Conjunctiva pink. Oropharynx clear. There is no adenopathy, thyromegaly, or JVD. No definite peripheral stigmata of inflammatory bowel disease or chronic liver disease on exam. No spiders on the anterior chest wall. Breast & pelvic exams: API. No CVA tenderness. Lungs: clear to A&P, with slightly decreased BS at the bases B/L. No wheezing, rales, or rhonchi. Heart exam: regular rate rhythm, S1 and S2, without any murmur. Abdominal exam: normal bowel sounds, soft belly, nontender, without guarding or rebound. No mass. Enlarged liver, approximately 19 cm by percussion. No palpable spleen tip. Negative Christian sign. No fluid shift. No pulsatile mass. No epigastric bruit. Digital rectal exam: deferred at present. Extremities: without C, C, or E. Mild DJD. No rash. No palpable cords. No palmar erythema. No Dupuytren's contractures. Distal pulses 1+ bilaterally. DTRs 1+ bilaterally. Currently less lethargic, A & O x 2 (not to time- "2079"). Minimal tremor. No asterixis. Currently not fully cooperative with detailed neurologic or CN testing. Current Medications: Current Medications Sig/Marcus Start time Last Medication Dose Route Stop Time Status Admin Albuterol Sulfate 3 ML BID PRN 08/26 1349 AC INH Chlorhexidine 10 ML TID 08/25 1000 AC 09/02 Gluconate PO 0954 Cholestyramine Resin 1 PAC Q6 08/30 1212 AC 09/02 PO 0548 Cyanocobalamin 1,000 MCG DAILY 08/28 1000 AC 09/02 PO 0954 Famotidine 20 MG BID 08/28 1429 AC 09/02 PO 0954 Fidaxomicin 200 MG Q12 08/28 2200 AC 09/02 PO 0954 Folic Acid 1 MG DAILY 08/28 1000 AC 09/02 PO 0954 Heparin Sodium 5,000 UNIT Q8 08/22 1400 AC 09/02 (Porcine) SC 0548 Lactated Ringer's 500 ML .Q1H 09/01 1845 DC 09/01 IV 09/01 1944 1900 Lactobacillus 1 CAP BID 09/02 1000 AC 09/02 Acidophilus PO 0954 Levothyroxine Sodium 0.137 MG DAILY AC 08/29 0700 AC 09/02 PO 0615 Magnesium Sulfate 1 GM Q2H 09/02 0930 AC Dextrose/Water 100 ML IV 09/02 1329 Moxifloxacin HCl 400 MG DAILY 08/29 1000 AC 09/02 PO 09/03 0600 0954 Multivitamins 1 TAB DAILY 08/28 1100 AC 09/02 PO 0954 Nystatin 1 ANGEL BID 09/02 0247 AC 09/02 TOP 0954 Ondansetron HCl 4 MG Q6P PRN 08/15 1845 AC IV Potassium Chloride 40 MEQ AT BEDTIME 09/02 2200 AC PO 09/02 2201 Potassium Chloride 60 MEQ ONCE ONE 09/02 0930 DC PO 09/02 0931 Potassium Chloride 20 MEQ Q13H 09/01 0800 AC 09/02 Dextrose/Sodium 1,000 ML IV 0459 Chloride Rifaximin 550 MG BID 08/31 2200 AC 09/02 PO 0954 Thiamine HCl 100 MG DAILY 09/02 1000 AC 09/02 PO 0954 Vitamin A/Vitamin D 1 ANGEL BID PRN 09/02 1050 AC TOP Vitamin A/Vitamin D 1 ANGEL BID 08/22 1005 DC 09/02 TOP 0953 Zinc Oxide 1 ANGEL BID 09/02 2200 AC TOP Zinc Oxide 1 ANGEL BID PRN 08/21 0615 AC 09/02 TOP 09/02 2159 0954 Results Pertinent Lab Results: Laboratory Tests 09/02 09/01 0604 0533 Chemistry Sodium (137 - 145 mmol/L) 141 146 H Potassium (3.5 - 5.1 mmol/L) 3.3 L 3.3 L Chloride (98 - 107 mmol/L) 111 H 115 H Carbon Dioxide (22 - 30 mmol/L) 21 L 21 L Anion Gap (5 - 16) 9 9 BUN (7 - 17 mg/dL) 3 L < 2 L Creatinine (0.5 - 1.0 mg/dL) 0.4 L 0.4 L Estimated GFR (>60 ml/min) > 60 > 60 BUN/Creatinine Ratio (7 - 25 %) 7.5 5.0 L Magnesium (1.6 - 2.3 mg/dL) 1.6 1.6 Total Bilirubin (0.2 - 1.3 mg/dL) 1.4 H Direct Bilirubin (< 0.4 mg/dL) 1.1 H AST (14 - 36 U/L) 21 ALT (9 - 52 U/L) 29 Alkaline Phosphatase (<127 U/L) 162 H Total Protein (6.3 - 8.2 g/dL) 5.7 L Albumin (3.5 - 5.0 g/dL) 2.0 L Coagulation PT (9.4 - 12.5 SEC) 16.2 H INR (0.90 - 1.19) 1.48 H Hematology CBC w Diff NO MAN DIFF REQ NO MAN DIFF REQ WBC (4.8 - 10.8 /CUMM) 9.7 7.4 RBC (4.20 - 5.40 /CUMM) 2.23 L 2.21 L Hgb (12.0 - 16.0 G/DL) 8.5 L 8.4 L Hct (37 - 47 %) 26.0 L 25.7 L MCV (81.0 - 99.0 FL) 116.8 H 116.3 H MCH (27.0 - 31.0 PG) 37.3 H 37.4 H MCHC (33.0 - 37.0 G/DL) 32.0 L 32.2 L RDW (11.5 - 14.5 %) 23.1 H 23.3 H Plt Count (130 - 400 /CUMM) 143 163 MPV (7.4 - 10.4 FL) 10.8 H 9.7 Gran % (42.2 - 75.2 %) 70.1 71.0 Lymphocytes % (20.5 - 51.1 %) 12.2 L 13.4 L Monocytes % (1.7 - 9.3 %) 5.9 6.0 Eosinophils % (0 - 5 %) 11.7 H 8.6 H Basophils % (0.0 - 2.0 %) 0.1 1.0 Absolute Granulocytes (1.4 - 6.5 /CUMM) 6.8 H 5.3 Absolute Lymphocytes (1.2 - 3.4 /CUMM) 1.2 1.0 L Absolute Monocytes (0.10 - 0.60 /CUMM) 0.6 0.4 Absolute Eosinophils (0.0 - 0.7 /CUMM) 1.1 0.6 Absolute Basophils (0.0 - 0.2 /CUMM) 0 0.1 08/31 08/31 08/31 1600 1118 0830 Chemistry Sodium (137 - 145 mmol/L) 142 Potassium (3.5 - 5.1 mmol/L) 2.9 *L Chloride (98 - 107 mmol/L) 111 H Carbon Dioxide (22 - 30 mmol/L) 23 Anion Gap (5 - 16) 7 BUN (7 - 17 mg/dL) 2 L Creatinine (0.5 - 1.0 mg/dL) 0.4 L Estimated GFR (>60 ml/min) > 60 BUN/Creatinine Ratio (7 - 25 %) 5.0 L Magnesium (1.6 - 2.3 mg/dL) 1.4 L Ammonia (9 - 30 umol/L) 18 Hematology CBC w Diff NO MAN DIFF REQ WBC (4.8 - 10.8 /CUMM) 6.6 RBC (4.20 - 5.40 /CUMM) 2.14 L Hgb (12.0 - 16.0 G/DL) 8.0 L Hct (37 - 47 %) 25.0 L MCV (81.0 - 99.0 FL) 117.1 H MCH (27.0 - 31.0 PG) 36.9 H MCHC (33.0 - 37.0 G/DL) 31.5 L RDW (11.5 - 14.5 %) 22.8 H Plt Count (130 - 400 /CUMM) 174 MPV (7.4 - 10.4 FL) 10.6 H Gran % (42.2 - 75.2 %) 74.9 Lymphocytes % (20.5 - 51.1 %) 11.4 L Monocytes % (1.7 - 9.3 %) 5.4 Eosinophils % (0 - 5 %) 7.3 H Basophils % (0.0 - 2.0 %) 1.0 Absolute Granulocytes (1.4 - 6.5 /CUMM) 5.0 Absolute Lymphocytes (1.2 - 3.4 /CUMM) 0.8 L Absolute Monocytes (0.10 - 0.60 /CUMM) 0.4 Absolute Eosinophils (0.0 - 0.7 /CUMM) 0.5 Absolute Basophils (0.0 - 0.2 /CUMM) 0.1 Miscellaneous Ref Lab Test Result Pending Other Body Source Stool Lactoferrin Pending 08/30 08/30 1430 1419 Chemistry Potassium (3.5 - 5.1 mmol/L) Cancelled 3.0 L Imaging/Other Studies: 08/30/17: EKG- read as "afib", but actually NSR @ 67 with baseline artifact, nl axis, RBBB/LPHB, NSST. *Multiple imaging studies from 08/15/17-09/01/17 essentially summarized in my detailed GI progress note of 09/01/17. 08/21/17: CT AP WITH IV CONTRAST- IMPRESSION: 1. Persistent diffuse wall thickening and mucosal hyperenhancement of the colon is seen with surrounding edema and mild mesenteric infiltration. There is also mild diffuse fluid distention and minimal marrow enhancement of the small bowel loops in the abdomen and pelvis. Small volume free fluid in the abdomen is seen. Findings are slightly more pronounced than on the previous study and are suspicious for a pancolitis (infectious, inflammatory) and enteritis, possibly reactive. Ischemic etiology to the pancreatitis is felt to be unlikely given normal enhancement of all the mesenteric vessels. However, close clinical correlation is requested to exclude hypoperfusion due to septic shock as a possible etiology for ischemic colitis. *No gross megacolon or pyelephlebitis seen. No obstruction or free air. 2. Small bilateral pleural effusions with bilateral lower lobe dependent atelectasis. Diffuse parenchymal groundglass and reticular opacities are also seen in the included mid and lower lungs, similar to prior studies, consistent with a diffuse viral or atypical pneumonitis. 3. Borderline enlarged liver with hepatic steatosis and focal area of fatty sparing near the gallbladder fossa. 4. Two nonobstructing left renal calculi are seen, unchanged.
--- NOTE | 2017-09-02 12:59 | PN- Infect Dx ---
Subjective Subjective: Afebrile without complaints. Her stools are less frequent and more formed. Objective Last 24 Hrs of Vital Signs/I&O Vital Signs Date Time Temp Pulse Resp B/P B/P Pulse O2 O2 Flow FiO2 Mean Ox Delivery Rate 09/02 0710 97.8 72 18 132/80 92 09/02 0000 Room Air 09/01 2218 97.9 101 19 98/66 95 Room Air 09/01 1812 100 90/60 09/01 1506 97.8 98 20 96/58 95 Room Air Intake & Output 09/02 1600 09/02 0800 09/02 0000 Intake Total Output Total 300 550 Balance -300 -550 Number 2 1 Bowel Movements Output, Urine 300 550 Physical Exam Other Physical Findings: She is more awake and alert in no acute distress Skin maculopapular rash on her upper chest, lower abdomen and groin, unchanged Lungs decreased breath sounds bilaterally Heart regular rhythm with no murmur Abdomen is soft, nontender with positive bowel sounds Extremities no cyanosis, clubbing or edema; PICC in the right upper extremity with no inflammation at the site Results Last 24 Hours of Lab Results: Laboratory Tests 09/02 0604 Chemistry Sodium (137 - 145 mmol/L) 141 Potassium (3.5 - 5.1 mmol/L) 3.3 L Chloride (98 - 107 mmol/L) 111 H Carbon Dioxide (22 - 30 mmol/L) 21 L Anion Gap (5 - 16) 9 BUN (7 - 17 mg/dL) 3 L Creatinine (0.5 - 1.0 mg/dL) 0.4 L Estimated GFR (>60 ml/min) > 60 BUN/Creatinine Ratio (7 - 25 %) 7.5 Magnesium (1.6 - 2.3 mg/dL) 1.6 Total Bilirubin (0.2 - 1.3 mg/dL) 1.4 H Direct Bilirubin (< 0.4 mg/dL) 1.1 H AST (14 - 36 U/L) 21 ALT (9 - 52 U/L) 29 Alkaline Phosphatase (<127 U/L) 162 H Total Protein (6.3 - 8.2 g/dL) 5.7 L Albumin (3.5 - 5.0 g/dL) 2.0 L Coagulation PT (9.4 - 12.5 SEC) 16.2 H INR (0.90 - 1.19) 1.48 H Hematology CBC w Diff NO MAN DIFF REQ WBC (4.8 - 10.8 /CUMM) 9.7 RBC (4.20 - 5.40 /CUMM) 2.23 L Hgb (12.0 - 16.0 G/DL) 8.5 L Hct (37 - 47 %) 26.0 L MCV (81.0 - 99.0 FL) 116.8 H MCH (27.0 - 31.0 PG) 37.3 H MCHC (33.0 - 37.0 G/DL) 32.0 L RDW (11.5 - 14.5 %) 23.1 H Plt Count (130 - 400 /CUMM) 143 MPV (7.4 - 10.4 FL) 10.8 H Gran % (42.2 - 75.2 %) 70.1 Lymphocytes % (20.5 - 51.1 %) 12.2 L Monocytes % (1.7 - 9.3 %) 5.9 Eosinophils % (0 - 5 %) 11.7 H Basophils % (0.0 - 2.0 %) 0.1 Absolute Granulocytes (1.4 - 6.5 /CUMM) 6.8 H Absolute Lymphocytes (1.2 - 3.4 /CUMM) 1.2 Absolute Monocytes (0.10 - 0.60 /CUMM) 0.6 Absolute Eosinophils (0.0 - 0.7 /CUMM) 1.1 Absolute Basophils (0.0 - 0.2 /CUMM) 0 Last 24 Hours of Will Results: Stool O&P September 01 negative Stool culture August 31 moderate growth of yeast ; no Yersinia or vibrio Assessment/Plan ID Impression: Appears to be improving, with less frequent and more formed stools, now Day 5 of Fidaxomicin for C. difficile that did not appear to respond to 7 days of Vancomycin, with the addition of Cholestyramine 3 days ago and Rifaximin 2 days ago. She remains afebrile with a normal white blood cell count on Moxifloxacin now Day 14 of treatment for Escherichia coli sepsis, presumably secondary to pneumonia, with her respiratory status remaining stable. Her liver enzymes have decreased significantly. Suggestion: 1. Discontinue Moxifloxacin 2. Continue Fidaxomicin, Cholestyramine and Rifaximin
[2017-09-02 14:58] VITALS: BP 110/80
[2017-09-02 21:58] VITALS: BP 100/60
[2017-09-03 07:10] VITALS: BP 128/84
--- NOTE | 2017-09-03 07:11 | PN- Housestaff ---
See Addendum Subjective Follow-up For: Encephalopathy possibly metabolic Community-acquired pneumonia-Escherichia coli-resolved C. difficile colitis-resolving Complaints: no complaints Subjective: Patient seen and examined at bedside. Patient sitting in her bed comfortably. She is alert, awake, oriented 2. She is able to follow more verbal commands. She denies chest pain, chest pressure, nausea, vomiting, abdominal pain. Review of Systems Constitutional: Reports: see HPI. Objective Last 24 Hrs of Vital Signs/I&O Vital Signs Date Time Temp Pulse Resp B/P B/P Pulse O2 O2 Flow FiO2 Mean Ox Delivery Rate 09/03 0710 98.5 86 19 128/84 95 Room Air 09/02 2158 98.1 88 19 100/60 95 Room Air 09/02 1458 98.6 86 18 110/80 93 Room Air Intake & Output 09/03 1600 09/03 0800 09/03 0000 Intake Total 1080 Output Total 100 Balance 1080 -100 Intake, IV 600 Intake, Oral 480 Number 3 5 Bowel Movements Output, Urine 100 Physical Exam General Appearance: Alert, Oriented X3, Cooperative, No Acute Distress Cardiovascular: Regular Rate, Normal S1, Normal S2, No Murmurs Lungs: Clear to Auscultation Abdomen: Normal Bowel Sounds, Soft, No Tenderness, No Hepatospenomegaly Neurological: Normal Speech, Sensation Intact, Cranial Nerves 3-12 NL Extremities: No Cyanosis, No Edema, Normal Pulses Current Medications: Current Medications Sig/Marcus Start time Last Medication Dose Route Stop Time Status Admin Albuterol Sulfate 3 ML BID PRN 08/26 1349 AC INH Chlorhexidine 10 ML TID 08/25 1000 AC 09/02 Gluconate PO 2145 Cholestyramine Resin 1 PAC Q6 08/30 1212 AC 09/02 PO 1654 Cyanocobalamin 1,000 MCG DAILY 08/28 1000 AC 09/02 PO 0954 Diphenhydramine HCl 1 ANGEL BID 09/03 1000 AC TOP Famotidine 20 MG BID 08/28 1429 AC 09/02 PO 214 Fidaxomicin 200 MG Q12 08/28 2200 AC 09/02 PO 214 Folic Acid 1 MG DAILY 08/28 1000 AC 09/02 PO 0954 Heparin Sodium 5,000 UNIT Q8 08/22 1400 AC 09/03 (Porcine) SC 0533 Lactobacillus 1 CAP BID 09/02 1000 AC 09/02 Acidophilus PO 214 Levothyroxine Sodium 0.137 MG DAILY AC 08/29 0700 AC 09/03 PO 0533 Magnesium Sulfate 1 GM Q2H 09/02 0930 DC 09/02 Dextrose/Water 100 ML IV 09/02 1329 1426 Moxifloxacin HCl 400 MG DAILY 08/29 1000 DC 09/02 PO 09/03 0600 0954 Multivitamins 1 TAB DAILY 08/28 1100 AC 09/02 PO 0954 Nystatin 1 ANGEL BID 09/02 0247 AC 09/02 TOP 2146 Ondansetron HCl 4 MG Q6P PRN 08/15 1845 AC IV Potassium Chloride 40 MEQ AT BEDTIME 09/02 2200 CAN PO 09/02 2201 Potassium Chloride 10 MEQ Q1H 09/02 1500 DC 09/02 IV 09/02 1601 1804 Potassium Chloride 60 MEQ ONCE ONE 09/02 0930 DC 09/02 PO 09/02 0931 1205 Potassium Chloride 20 MEQ Q13H 09/01 0800 AC 09/03 Dextrose/Sodium 1,000 ML IV 0536 Chloride Rifaximin 550 MG BID 08/31 2200 AC 09/02 PO 2146 Thiamine HCl 100 MG DAILY 09/02 1000 AC 09/02 PO 0954 Vitamin A/Vitamin D 1 ANGEL BID PRN 09/02 1050 AC TOP Vitamin A/Vitamin D 1 ANGEL BID 08/22 1005 DC 09/02 TOP 0953 Vitamin E 800 IU DAILY 09/02 1630 AC 09/02 PO 1804 Zinc Oxide 1 ANGEL BID 09/02 2200 AC 09/02 TOP 2146 Zinc Oxide 1 ANGEL BID PRN 08/21 0615 DC 09/02 TOP 09/02 2159 0954 Last 24 Hrs of Lab/Will Results Last 24 Hrs of Labs/Mics: Laboratory Tests 09/03/17 0530: Sodium Pending, Potassium Pending, Chloride Pending, Carbon Dioxide Pending, Anion Gap Pending, BUN Pending, Creatinine Pending, BUN/Creatinine Ratio Pending , CBC w Diff Pending, WBC Pending, RBC Pending, Hgb Pending, Hct Pending, MCV Pending, MCH Pending, MCHC Pending, RDW Pending, Plt Count Pending, MPV Pending Assessment/Plan Assessment: 57 year old woman with multiple medical problems significant for etoh abuse seen for evaluation of progressively worsening altered mental status over several weeks found to have E coli septicemia/pneumonia, and C diff colitis. Problem List -Altered mental status, probable alcoholic/metabolic encephalopathy -Septic shock, improved -Community-acquired pneumonia-; hasn't resolved -Acute Hypoxic/Hypercarbic Respiratory failure, Extubaed -C. Diff colitis, on PO FIDAXOMICIN improving -Thrombocytopenia, improved. -Anion Gap Metabolic Acidosis, Resolved -Electrolyte abnormalities, repleting daily -History of EtOH, contemplating quitting -h/o Hypertension -Hypothyroidism -Anemia-1 unit of blood transfused. * Patient treated with po moxifloxacin for E coli pneumonia-resolved. Patient is off moxifloxacin. Patient is able to tolerate oral feeds. Continue fidaxomicin and cholestyramine for C. difficile colitis.. Patient had 13 loose bowel movements in the last 24 hours. Patient was seen by gastroenterology yesterday who suggested to continue current management as her frequency of diarrhea is reducing. He suggested he would not do sigmoidoscopy for now. We added thiamine and probiotics aspect GI. Patient at times has periods of confusion which can be secondary due to alcoholic cirrhotic liver disease/ electrolytes/infection. Patient was seen by neurology who suggested EEG . EEG showed abnormal slowing of the background but no focal or epileptic changes. Patient will be followed by neurologist today. Her initial CAT scan of the head was negative. Patient potassium is 3.3 today and this was replaced. Her magnesium was low replaced. Since admission patient has electrolyte abnormalities. * Patient had maculopapular rash in the back, belly and bilateral breast which can be secondary due to medication use-initially resolved. Again she has faint rash all over her abdomen and her back. This looks more like him drug rash. We add Benadryl cream for itching. Infectious disease doctor is on board. 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 Patient was seen by physical therapy was suggested short-term rehabilitation. * Novolin sliding scale insulin. Code-full code DVT prophylaxis-heparin Problem List: 1. Hypokalemia 2. Malnutrition 3. Alcoholic hepatitis 4. C. difficile colitis Pain Ratin Pain Location: none Pain Goal: Remain pain free Pain Plan: tylenol Tomorrow's Labs & Rationales: cbc,bep
[2017-09-03 08:23] LABS: ABSOLUTE BASOPHIL COUNT 0 /CUMM (0.0-0.2); ABSOLUTE GRANULOCYTE CT 6.8 /CUMM (1.4-6.5); ABSOLUTE MONOCYTE COUNT 0.4 /CUMM (0.10-0.60)
[2017-09-03 09:24] LABS: ABSOLUTE EOSINOPHIL COUNT 1.7 /CUMM (0.0-0.7); ABSOLUTE LYMPH COUNT 1.1 /CUMM (1.2-3.4); BASOPHIL % 0.2 % (0.0-2.0); EOSINOPHIL % 16.7 % (0-5); GRANULOCYTE % 68.5 % (42.2-75.2); HEMATOCRIT 27.3 % (37-47); MEAN CORPUSCULAR HGB CONC 31.8 G/DL (33.0-37.0); MEAN CORPUSCULAR VOLUME 116.4 FL (81.0-99.0); MEAN PLATELET VOLUME 11.1 FL (7.4-10.4); PLATELET COUNT 138 /CUMM (130-400); RBC DISTRIBUTION WIDTH 21.2 % (11.5-14.5)
[2017-09-03 09:38] LABS: RED BLOOD CELL CT 2.34 /CUMM (4.20-5.40)
[2017-09-03 14:16] VITALS: BP 110/60
--- NOTE | 2017-09-03 14:58 | PN- Infect Dx ---
Subjective Subjective: Afebrile. She continues to have diarrhea, with 13 bowel movements reported yesterday and 6 overnight. She does not report any complaints. Objective Last 24 Hrs of Vital Signs/I&O Vital Signs Date Time Temp Pulse Resp B/P B/P Pulse O2 O2 Flow FiO2 Mean Ox Delivery Rate 09/03 1416 99.8 85 18 110/60 94 Room Air 09/03 0710 98.5 86 19 128/84 95 Room Air 09/02 2158 98.1 88 19 100/60 95 Room Air 09/02 1458 98.6 86 18 110/80 93 Room Air Intake & Output 09/03 1600 09/03 0800 09/03 0000 Intake Total 960 1080 Output Total 100 Balance 960 1080 -100 Intake, IV 600 600 Intake, Oral 360 480 Number 3 3 5 Bowel Movements Output, Urine 100 Physical Exam Other Physical Findings: She appears comfortable in no acute distress Given macularpapular rash persists Lungs decreased breath sounds bilaterally Heart regular rhythm with no murmur Abdomen is soft, nontender with positive bowel sounds Extremities PICC in the right upper extremity with no inflammation at the site Results Last 24 Hours of Lab Results: Laboratory Tests 09/03 09/03 0850 0530 Chemistry Sodium (137 - 145 mmol/L) Cancelled 140 Potassium (3.5 - 5.1 mmol/L) Cancelled 3.7 Chloride (98 - 107 mmol/L) Cancelled 111 H Carbon Dioxide (22 - 30 mmol/L) Cancelled 22 Anion Gap (5 - 16) Cancelled 7 BUN (7 - 17 mg/dL) Cancelled 2 L Creatinine (0.5 - 1.0 mg/dL) Cancelled 0.4 L Estimated GFR (>60 ml/min) > 60 BUN/Creatinine Ratio (7 - 25 %) Cancelled 5.0 L Hematology CBC w Diff Cancelled NO MAN DIFF REQ WBC (4.8 - 10.8 /CUMM) Cancelled 10.0 RBC (4.20 - 5.40 /CUMM) Cancelled 2.34 L Hgb (12.0 - 16.0 G/DL) Cancelled 8.7 L Hct (37 - 47 %) Cancelled 27.3 L MCV (81.0 - 99.0 FL) Cancelled 116.4 H MCH (27.0 - 31.0 PG) Cancelled 37.0 H MCHC (33.0 - 37.0 G/DL) Cancelled 31.8 L RDW (11.5 - 14.5 %) Cancelled 21.2 H Plt Count (130 - 400 /CUMM) Cancelled 138 MPV (7.4 - 10.4 FL) Cancelled 11.1 H Gran % (42.2 - 75.2 %) 68.5 Lymphocytes % (20.5 - 51.1 %) 10.7 L Monocytes % (1.7 - 9.3 %) 3.9 Eosinophils % (0 - 5 %) 16.7 H Basophils % (0.0 - 2.0 %) 0.2 Absolute Granulocytes (1.4 - 6.5 /CUMM) 6.8 H Absolute Lymphocytes (1.2 - 3.4 /CUMM) 1.1 L Absolute Monocytes (0.10 - 0.60 /CUMM) 0.4 Absolute Eosinophils (0.0 - 0.7 /CUMM) 1.7 Absolute Basophils (0.0 - 0.2 /CUMM) 0 Last 24 Hours of Will Results: No new cultures Assessment/Plan ID Impression: Diarrhea persists, though it appears that it is improving, with perhaps less frequency though it remains quite liquidy, now Day 6 of Fidaxomicin for C. difficile that did not appear to respond to 7 days of Vancomycin, with the addition of Cholestyramine 4 days ago, with which she is not compliant, and Rifaximin 3 days ago. She remains afebrile, with a normal white blood cell count, now off Moxifloxacin after 2 weeks of treatment for Escherichia coli sepsis, presumably secondary to pneumonia. Her rash is likely drug related, with increasing eosinophils noted on her differential, and all of her medications should be reviewed. Suggestion: 1. Discontinue all nonessential medications 2. GI follow-up for possible sigmoidoscopy if her diarrhea persists 3. Continue Fidaxomicin, Cholestyramine and Rifaximin Victoria Ott MD will be covering until September 07
[2017-09-03 21:02] VITALS: BP 120/70
--- NOTE | 2017-09-04 07:11 | PN- Housestaff ---
Emerald INMAN,Azucena 09/04/17 0711: Subjective Follow-up For: Comminuted acquired pneumonia C. difficile pancolitis Metabolic encephalopathy Electrolyte abnormalities Subjective: Patient seen and examined at bedside. She was sitting in her bed comfortably. She appears more awake, alert, oriented 3. She appears well-hydrated. She denies pain in her belly, chest pain, nausea, vomiting Review of Systems Constitutional: Reports: see HPI. Objective Last 24 Hrs of Vital Signs/I&O Vital Signs Date Time Temp Pulse Resp B/P B/P Pulse O2 O2 Flow FiO2 Mean Ox Delivery Rate 09/04 0715 98.4 68 18 118/64 93 09/03 2102 99.0 70 15 120/70 95 Room Air 09/03 1416 99.8 85 18 110/60 94 Room Air Intake & Output 09/04 1600 09/04 0800 09/04 0000 Intake Total 460 600 Output Total 250 Balance 460 350 Intake, IV 400 600 Intake, Oral 60 Number 1 1 Bowel Movements Output, Urine 250 Physical Exam General Appearance: Alert, Oriented X3, Cooperative, No Acute Distress Cardiovascular: Regular Rate, Normal S1, Normal S2, No Murmurs Lungs: Clear to Auscultation Abdomen: Soft, No Tenderness, No Hepatospenomegaly Neurological: Strength at 5/5 X4 Ext, Normal Tone, Sensation Intact Extremities: No Cyanosis, No Edema, Normal Pulses Current Medications: Current Medications Sig/Marcus Start time Last Medication Dose Route Stop Time Status Admin Albuterol Sulfate 3 ML BID PRN 08/26 1349 AC INH Chlorhexidine 10 ML TID 08/25 1000 AC 09/04 Gluconate PO 1038 Cholestyramine Resin 1 PAC Q6 08/30 1212 AC 09/03 PO 2358 Cyanocobalamin 1,000 MCG DAILY 08/28 1000 AC 09/04 PO 1036 Diphenhydramine HCl 1 ANGEL BID 09/03 1000 AC 09/04 TOP 1039 Famotidine 20 MG BID 08/28 1429 AC 09/04 PO 1035 Fidaxomicin 200 MG Q12 08/28 2200 AC 09/03 PO 2129 Folic Acid 1 MG DAILY 08/28 1000 AC 09/04 PO 1035 Heparin Sodium 5,000 UNIT Q8 08/22 1400 AC 09/04 (Porcine) SC 0609 Lactobacillus 1 CAP BID 09/02 1000 AC 09/04 Acidophilus PO 1035 Levothyroxine Sodium 0.137 MG DAILY AC 08/29 0700 AC 09/04 PO 0609 Multivitamins 1 TAB DAILY 08/28 1100 AC 09/04 PO 1036 Nystatin 1 ANGEL BID 09/02 0247 AC 09/04 TOP 1042 Ondansetron HCl 4 MG Q6P PRN 08/15 1845 AC IV Potassium Chloride 20 MEQ Q13H 09/01 0800 AC 09/03 Dextrose/Sodium 1,000 ML IV 1746 Chloride Rifaximin 550 MG BID 08/31 2200 AC 09/04 PO 1037 Thiamine HCl 100 MG DAILY 09/02 1000 AC 09/04 PO 1036 Vitamin A/Vitamin D 1 ANGEL BID PRN 09/02 1050 AC 09/04 TOP 1038 Vitamin E 800 IU DAILY 09/02 1630 AC 09/04 PO 1036 Zinc Oxide 1 ANGEL BID 09/02 2199 AC 09/04 TOP 1041 Last 24 Hrs of Lab/Will Results Last 24 Hrs of Labs/Mics: Laboratory Tests 09/04/17 0620: Anion Gap 8, Estimated GFR > 60, BUN/Creatinine Ratio 7.5, CBC w Diff NO MAN DIFF REQ, RBC 2.43 L, MCV 115.9 H, MCH 36.6 H, MCHC 31.6 L, RDW 21.4 H, MPV 11.2 H, Gran % 60.7, Lymphocytes % 13.3 L, Monocytes % 3.7, Eosinophils % 21.7 H, Basophils % 0.6, Absolute Granulocytes 5.3, Absolute Lymphocytes 1.2, Absolute Monocytes 0.3, Absolute Eosinophils 1.9, Absolute Basophils 0.1 Assessment/Plan Assessment: 57 year old woman with multiple medical problems significant for etoh abuse seen for evaluation of progressively worsening altered mental status over several weeks found to have E coli septicemia/pneumonia, and C diff colitis. Problem List -Altered mental status, probable alcoholic/metabolic encephalopathy -Septic shock, improved -Community-acquired pneumonia-; hasn't resolved -Acute Hypoxic/Hypercarbic Respiratory failure, Extubaed -C. Diff colitis, on PO FIDAXOMICIN improving -Thrombocytopenia, improved. -Anion Gap Metabolic Acidosis, Resolved -Electrolyte abnormalities, repleting daily -History of EtOH, contemplating quitting -h/o Hypertension -Hypothyroidism -Anemia-1 unit of blood transfused. * Patient treated with po moxifloxacin for E coli pneumonia-resolved. Patient is off moxifloxacin. Patient is able to tolerate oral feeds. Continue fidaxomicin and cholestyramine for C. difficile colitis. Patient had 7 loose bowel movements in the last 24 hours. Patient was seen by gastroenterology, who suggested to continue current management as her frequency of diarrhea is reducing. He suggested he would not do sigmoidoscopy for now. We added thiamine and probiotics . Patient at times has periods of confusion which can be secondary due to alcoholic cirrhotic liver disease/electrolytes/infection. Patient was seen by neurology who suggested EEG . EEG showed abnormal slowing of the background but no focal or epileptic changes. Patient will be followed by neurologist . Her initial CAT scan of the head was negative. Patient potassium is 3.7 today and this was replaced. Her magnesium was low replaced. Since admission patient has electrolyte abnormalities. * Patient had maculopapular rash in the back, belly and bilateral breast which can be secondary due to medication use-initially resolved. Again she has faint rash all over her abdomen and her back. This looks more like drug rash. We'll add Benadryl cream for itching. Infectious disease doctor is on board. 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 Patient was seen by physical therapy was suggested short-term rehabilitation. * Novolin sliding scale insulin. Code-full code DVT prophylaxis-heparin Problem List: 1. Hypokalemia 2. Diarrhea 3. Encephalopathy 4. C. difficile colitis 5. Pneumonia 6. Altered mental status Pain Ratin Pain Location: none Pain Goal: Remain pain free Pain Plan: tylenol Tomorrow's Labs & Rationales: cbc,bep,mg Toby INMAN,Jimi 09/04/172: Attending MD Review Statement Attending Statement Attending MD Statement: examined this patient, discuss w/resident/PA/[employer]OS [employer] FINISHER HELPER, agreed w/resident/PA/[employer]BE[employer]OS [employer] FINISHER HELPER, discussed with family, reviewed EMR data (avail), discussed with nursing, discussed with case mgmt, amended to note Attending Assessment/Plan: The patient was seen and discussed with house staff. Agree with plan of care as outlined. Significant improvement today with only 2 BM's over last day. Appetite improved and patient OOB. Will continue current care.
[2017-09-04 07:15] VITALS: BP 118/64
[2017-09-04 08:00] LABS: ABSOLUTE MONOCYTE COUNT 0.3 /CUMM (0.10-0.60); WHITE BLOOD CELL COUNT 8.7 /CUMM (4.8-10.8)
[2017-09-04 09:47] LABS: ABSOLUTE BASOPHIL COUNT 0.1 /CUMM (0.0-0.2); ABSOLUTE EOSINOPHIL COUNT 1.9 /CUMM (0.0-0.7); ABSOLUTE GRANULOCYTE CT 5.3 /CUMM (1.4-6.5); ABSOLUTE LYMPH COUNT 1.2 /CUMM (1.2-3.4); BASOPHIL % 0.6 % (0.0-2.0); GRANULOCYTE % 60.7 % (42.2-75.2); HEMATOCRIT 28.2 % (37-47); MEAN CORPUSCULAR HGB 36.6 PG (27.0-31.0); MEAN CORPUSCULAR HGB CONC 31.6 G/DL (33.0-37.0); MEAN CORPUSCULAR VOLUME 115.9 FL (81.0-99.0); MEAN PLATELET VOLUME 11.2 FL (7.4-10.4); PLATELET COUNT 128 /CUMM (130-400); RBC DISTRIBUTION WIDTH 21.4 % (11.5-14.5); RED BLOOD CELL CT 2.43 /CUMM (4.20-5.40)
[2017-09-04 10:27] LABS: EOSINOPHIL % 21.7 % (0-5)
--- NOTE | 2017-09-04 12:18 | PN- Infect Dx ---
Subjective Subjective: No fever. Denies abd pain. Fewer loose stools. Review of Systems Comments: 12 points reviewed as noted, otherwise negative. Objective Last 24 Hrs of Vital Signs/I&O Vital Signs Date Time Temp Pulse Resp B/P B/P Pulse O2 O2 Flow FiO2 Mean Ox Delivery Rate 09/04 0715 98.4 68 18 118/64 93 09/03 2102 99.0 70 15 120/70 95 Room Air 09/03 1416 99.8 85 18 110/60 94 Room Air Intake & Output 09/04 1600 09/04 0800 09/04 0000 Intake Total 460 600 Output Total 250 Balance 460 350 Intake, IV 400 600 Intake, Oral 60 Number 1 1 Bowel Movements Output, Urine 250 Physical Exam Other Physical Findings: General Appearance: Alert, Oriented X3, Cooperative, No Acute Distress Cardiovascular: Regular Rate, Normal S1, Normal S2, No Murmurs Lungs: Clear to Auscultation Abdomen: Soft, No Tenderness, No Hepatospenomegaly Neurological: Strength at 5/5 X4 Ext, Normal Tone, Sensation Intact Extremities: No Cyanosis, No Edema, Normal Pulses Results Last 24 Hours of Lab Results: Laboratory Tests 09/04 0620 Chemistry Sodium (137 - 145 mmol/L) 136 L Potassium (3.5 - 5.1 mmol/L) 3.7 Chloride (98 - 107 mmol/L) 106 Carbon Dioxide (22 - 30 mmol/L) 22 Anion Gap (5 - 16) 8 BUN (7 - 17 mg/dL) 3 L Creatinine (0.5 - 1.0 mg/dL) 0.4 L Estimated GFR (>60 ml/min) > 60 BUN/Creatinine Ratio (7 - 25 %) 7.5 Hematology CBC w Diff NO MAN DIFF REQ WBC (4.8 - 10.8 /CUMM) 8.7 RBC (4.20 - 5.40 /CUMM) 2.43 L Hgb (12.0 - 16.0 G/DL) 8.9 L Hct (37 - 47 %) 28.2 L MCV (81.0 - 99.0 FL) 115.9 H MCH (27.0 - 31.0 PG) 36.6 H MCHC (33.0 - 37.0 G/DL) 31.6 L RDW (11.5 - 14.5 %) 21.4 H Plt Count (130 - 400 /CUMM) 128 L MPV (7.4 - 10.4 FL) 11.2 H Gran % (42.2 - 75.2 %) 60.7 Lymphocytes % (20.5 - 51.1 %) 13.3 L Monocytes % (1.7 - 9.3 %) 3.7 Eosinophils % (0 - 5 %) 21.7 H Basophils % (0.0 - 2.0 %) 0.6 Absolute Granulocytes (1.4 - 6.5 /CUMM) 5.3 Absolute Lymphocytes (1.2 - 3.4 /CUMM) 1.2 Absolute Monocytes (0.10 - 0.60 /CUMM) 0.3 Absolute Eosinophils (0.0 - 0.7 /CUMM) 1.9 Absolute Basophils (0.0 - 0.2 /CUMM) 0.1 Last 24 Hours of Will Results: Unknown ORDERED: C.DIFFICILE EIA COMMENT: Has pt had antimicrobial/antineoplastic rx in past 4-6wks? Y Has pt had abd pain, fever, or constipation? Y Procedure Result > C. DIFFICILE TOXIN A & B EIA Final 08/21/17-1338 -ATTENTION--ATTENTION--ATTENTION--ATTENTION--ATTENTION- POSITIVE FOR CLOSTRIDIUM DIFFICILE BY EIA FOR TOXINS A&B IF DIARRHEA IS PRESENT: PLACE PATIENT ON CONTACT PRECAUTIONS Called to/Readback by CT by [facility] 08/21/174 Recent Imaging Studies: MBS IMPRESSION: Aspiration with thin liquid, resolved following head done to the right. Please see the speech therapist report for further full details. DICTATED BY: Joanne Hagan MD DATE/TIME DICTATED:08/27/171144 MEDICAL BILL PROCESSOR:LAURO DATE/TIME TRANSCRIBED:08/27/171144 Assessment/Plan ID Impression: 57 year old woman with multiple medical problems significant for etoh abuse seen for evaluation of progressively worsening altered mental status over several weeks found to have E coli septicemia/pneumonia, and C diff colitis, alcoholic/ metabolic encephalopathy Diarrhea persists, though it appears that it is improving, with perhaps less frequency though it remains quite liquidy, now Day 7 of Fidaxomicin for C. difficile that did not appear to respond to 7 days of Vancomycin, with the addition of Cholestyramine 5 days ago, with which she is not compliant, and Rifaximin 4 days ago. She remains afebrile, with a normal white blood cell count, now off Moxifloxacin after 2 weeks of treatment for Escherichia coli sepsis, presumably secondary to pneumonia. Her rash is likely drug related, with increasing eosinophils noted on her differential, and all of her medications should be reviewed. Suggestion: 1. Trend CBC, BMP, prealbumin and lactic acid. 2. GI follow-up for possible sigmoidoscopy if her diarrhea persists 3. Continue Fidaxomicin, Cholestyramine (should be given few hours apart from the other antibiotics, avoid binding the fidaxomicin and Rifaximin).
[2017-09-04] MEDS ORDERED: FAMOTIDINE20 M1 PO (13:50)
[2017-09-04] MEDS ORDERED: XIFAXAN550 M1 PO (13:50)
[2017-09-04] MEDS ORDERED: FOLIC ACID1 M1 PO (13:51)
--- NOTE | 2017-09-04 13:55 | Patient Discharge Instructions ---
Discharge Instructions General Discharge Information You were seen/treated for: Community-acquired pneumonia-Escherichia coli-resolved Encephalopathy-metabolic C. difficile pancolitis Watch for these problems: In case of diarrhea, nausea, vomiting, altered mental status, cough, fever, seizures please go to nearest emergency room Special Instructions: Please follow-up with your primary care provider within 1-2 weeks of discharge Diet Continue normal diet: Yes Activity Full Activity/No Limits: No Acute Coronary Syndrome Inclusion Criteria At DC or during hospital stay patient has or had the following: ACS DIAGNOSIS No Discharge Core Measures Meds if any: Prescribed or Continued at Discharge Meds if any: NOT Prescribed or Continued at Discharge Congestive Heart Failure Inclusion Criteria At DC or during hospital stay patient has or had the following: CHF DIAGNOSIS No Discharge Core Measures Meds if any: Prescribed or Continued at Discharge Meds if any: NOT Prescribed or Continued at Discharge Cerebrovascular accident Inclusion Criteria At DC or during hospital stay patient has or had the following: CVA/TIA Diagnosis No Discharge Core Measures Meds if any: Prescribed or Continued at Discharge Meds if any: NOT Prescribed or Continued at Discharge Venous thromboembolism Inclusion Criteria VTE Diagnosis No VTE Type NONE VTE Confirmed by (Test) NONE Discharge Core Measures - Per Current guidelines, there needs to be overlap - treatment for the first 5 days of Warfarin therapy. - If discharged on Warfarin prior to 5 days of - overlap therapy, the patient will need to be - assessed for post discharge needs including - *Post discharge parental anticoagulation - *Warfarin and/or parental anticoagulation education - *Follow up date to check INR post discharge At least 5 days overlap therapy as Inpatient No Meds if any: Prescribed or Continued at Discharge Note: Overlap Therapy is Warfarin and Anticoagulant Meds if any: NOT Prescribed or Continued at Discharge
[2017-09-04 15:30] VITALS: BP 106/62
[2017-09-04 21:05] VITALS: BP 110/70
[2017-09-05 07:09] VITALS: BP 127/88
--- NOTE | 2017-09-05 09:26 | PN- Housestaff ---
See Addendum Subjective Follow-up For: C diff colitis Subjective: No overnight events. Patient continues to have nonbloody diarrhea but feels like she is improving. She does not a rash and some pruitis that she belives started on the . No CP, SOB, abd pain, or other complaints. Review of Systems Constitutional: Reports: no symptoms. EENTM: Reports: no symptoms. Cardiovascular: Reports: no symptoms. Respiratory: Reports: no symptoms. Gastrointestinal: Reports: see HPI. Genitourinary: Reports: no symptoms. Musculoskeletal: Reports: no symptoms. Skin: Reports: see HPI. Neurological/Psychological: Reports: no symptoms. Hematologic/Endocrine: Reports: no symptoms. Immunologic/Allergic: Reports: no symptoms. Objective Last 24 Hrs of Vital Signs/I&O Vital Signs Date Time Temp Pulse Resp B/P B/P Pulse O2 O2 Flow FiO2 Mean Ox Delivery Rate 09/05 0709 98.9 89 18 127/88 98 09/04 2105 99.0 78 17 110/70 96 Room Air 09/04 1530 98.6 79 18 106/62 98 Room Air 09/04 1243 Nasal 4.0L Cannula 09/04 1239 Nasal 4.0L Cannula Intake & Output 09/05 1600 09/05 0800 09/05 0000 Intake Total 225 Output Total 850 500 Balance -850 -275 Intake, IV 225 Output, Urine 850 500 Physical Exam General Appearance: Alert, Oriented X3, Cooperative, No Acute Distress Skin: blanching erythematous patches on shoulder, chest, arms Cardiovascular: Regular Rate, Normal S1, Normal S2 Lungs: Clear to Auscultation Abdomen: Normal Bowel Sounds, Soft, No Tenderness Current Medications: Current Medications Sig/Marcus Start time Last Medication Dose Route Stop Time Status Admin Albuterol Sulfate 3 ML BID PRN 08/26 1349 AC INH Chlorhexidine 10 ML TID 08/25 1000 AC 09/04 Gluconate PO 213 Cholestyramine Resin 1 PAC Q6 08/30 1212 AC 09/03 PO 2358 Cyanocobalamin 1,000 MCG DAILY 08/28 1000 AC 09/04 PO 1036 Diphenhydramine HCl 1 ANGEL BID 09/03 1000 AC 09/04 TOP 2136 Famotidine 20 MG BID 08/28 1429 AC 09/04 PO 2135 Fidaxomicin 200 MG Q12 08/28 2200 AC 09/04 PO 2135 Folic Acid 1 MG DAILY 08/28 1000 AC 09/04 PO 1035 Heparin Sodium 5,000 UNIT Q8 08/22 1400 AC 09/05 (Porcine) SC 0519 Lactobacillus 1 CAP BID 09/02 1000 AC 09/04 Acidophilus PO 2135 Levothyroxine Sodium 0.137 MG DAILY AC 08/29 0700 AC 09/05 PO 0519 Multivitamins 1 TAB DAILY 08/28 1100 AC 09/04 PO 1036 Nystatin 1 ANGEL BID 09/02 0247 AC 09/04 TOP 2136 Ondansetron HCl 4 MG Q6P PRN 08/15 1845 AC IV Potassium Chloride 10 MEQ Q1H 09/04 1130 DC 09/04 IV 09/04 1231 1529 Potassium Chloride 20 MEQ Q13H 09/01 0800 AC 09/04 Dextrose/Sodium 1,000 ML IV 2334 Chloride Rifaximin 550 MG BID 08/31 2200 AC 09/04 PO 2135 Thiamine HCl 100 MG DAILY 09/02 1000 AC 09/04 PO 1036 Vitamin A/Vitamin D 1 ANGEL BID PRN 09/02 1050 AC 09/04 TOP 1038 Vitamin E 800 IU DAILY 09/02 1630 AC 09/04 PO 1036 Zinc Oxide 1 ANGEL BID 09/02 2200 AC 09/04 TOP 2137 Last 24 Hrs of Lab/Will Results Last 24 Hrs of Labs/Mics: Laboratory Tests 09/05/17 0545: Anion Gap 7, Estimated GFR > 60, BUN/Creatinine Ratio 7.5, CBC w Diff Pending, WBC Pending, RBC Pending, Hgb Pending, Hct Pending, MCV Pending, MCH Pending, MCHC Pending, RDW Pending, Plt Count Pending, MPV Pending 09/04/17 1540: Lactic Acid 1.4, Prealbumin 3.9 L Assessment/Plan Assessment: 57 year old woman with multiple medical problems significant for etoh abuse seen for evaluation of progressively worsening altered mental status over several weeks found to have E coli septicemia/pneumonia, and C diff colitis. Problem List -Altered mental status, probable alcoholic/metabolic encephalopathy -Septic shock, improved -Community-acquired pneumonia-; hasn't resolved -Acute Hypoxic/Hypercarbic Respiratory failure, Extubaed -C. Diff colitis, on PO FIDAXOMICIN improving -Thrombocytopenia, improved. -Anion Gap Metabolic Acidosis, Resolved -Electrolyte abnormalities, repleting daily -History of EtOH, contemplating quitting -h/o Hypertension -Hypothyroidism -Anemia-1 unit of blood transfused. * Patient treated with po moxifloxacin for E coli pneumonia-resolved. Patient is off moxifloxacin. Patient is able to tolerate oral feeds. Continue fidaxomicin and cholestyramine for C. difficile colitis. Patient had 7 loose bowel movements in the last 24 hours. Patient was seen by gastroenterology, who suggested to continue current management as her frequency of diarrhea is reducing. He suggested he would not do sigmoidoscopy for now. We added thiamine and probiotics . Patient at times has periods of confusion which can be secondary due to alcoholic cirrhotic liver disease/electrolytes/infection. Patient was seen by neurology who suggested EEG . EEG showed abnormal slowing of the background but no focal or epileptic changes. Patient will be followed by neurologist . Her initial CAT scan of the head was negative. Patient potassium is 3.7 today and this was replaced. Her magnesium was low replaced. Since admission patient has electrolyte abnormalities. * Patient had maculopapular rash in the back, belly and bilateral breast which can be secondary due to medication use-initially resolved. Again she has faint rash all over her abdomen and her back. This looks more like drug rash. We'll add Benadryl cream for itching. Infectious disease doctor is on board. 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 Patient was seen by physical therapy was suggested short-term rehabilitation. * Novolin sliding scale insulin. Patient has developed a diffuse erythematous rash and has eosinophilia. She may have allergy to the antibiotic that she is receiving. We will continue to monitor and talked infectious disease about potentially alternative antibiotic choice. I will also give her some diphenhydramine. Code-full code DVT prophylaxis-heparin Problem List: 1. C. difficile colitis 2. Allergic drug rash Pain Ratin Pain Location: no pain Pain Goal: Remain pain free Pain Plan: see a/p Tomorrow's Labs & Rationales: cbc, bep
[2017-09-05 10:33] LABS: ABSOLUTE BASOPHIL COUNT 0 /CUMM (0.0-0.2); ABSOLUTE EOSINOPHIL COUNT 2.4 /CUMM (0.0-0.7); ABSOLUTE GRANULOCYTE CT 4.3 /CUMM (1.4-6.5); ABSOLUTE LYMPH COUNT 1.1 /CUMM (1.2-3.4); ABSOLUTE MONOCYTE COUNT 0.4 /CUMM (0.10-0.60); BASOPHIL % 0.2 % (0.0-2.0); EOSINOPHIL % 29.3 % (0-5); GRANULOCYTE % 52.7 % (42.2-75.2); HEMATOCRIT 25.5 % (37-47); MEAN CORPUSCULAR HGB 37.1 PG (27.0-31.0); MEAN CORPUSCULAR HGB CONC 32.4 G/DL (33.0-37.0); MEAN CORPUSCULAR VOLUME 114.6 FL (81.0-99.0); RBC DISTRIBUTION WIDTH 21.5 % (11.5-14.5)
[2017-09-05 10:36] LABS: MEAN PLATELET VOLUME 11.7 FL (7.4-10.4); PLATELET COUNT 122 /CUMM (130-400)
[2017-09-05 10:39] LABS: RED BLOOD CELL CT 2.23 /CUMM (4.20-5.40); WHITE BLOOD CELL COUNT 8.1 /CUMM (4.8-10.8)
--- NOTE | 2017-09-05 12:52 | PN- Infect Dx ---
Subjective Subjective: No fever. One loose BM today. Unsteady gait Review of Systems Comments: 12 points reviewed as noted, otherwise negative. Objective Last 24 Hrs of Vital Signs/I&O Vital Signs Date Time Temp Pulse Resp B/P B/P Pulse O2 O2 Flow FiO2 Mean Ox Delivery Rate 09/05 0709 98.9 89 18 127/88 98 09/04 2105 99.0 78 17 110/70 96 Room Air 09/04 1530 98.6 79 18 106/62 98 Room Air Intake & Output 09/05 1600 09/05 0800 09/05 0000 Intake Total 225 Output Total 850 500 Balance -850 -275 Intake, IV 225 Output, Urine 850 500 Physical Exam Other Physical Findings: General Appearance: Alert, Oriented X3, Cooperative, No Acute Distress HEENT AT/sclera anicteric Neck No RAZIA Cardiovascular: Regular Rate, Normal S1, Normal S2, No Murmurs Lungs: Clear to Auscultation, few B/L rhonchi ant chest Abdomen: Soft, Protuberant, No Tenderness, BS present Neurological: Strength at 5/5 X4 Ext, A&O x3 Extremities: No Cyanosis, Normal Pulses Results Last 24 Hours of Lab Results: Laboratory Tests 09/05 09/04 0545 1540 Chemistry Sodium (137 - 145 mmol/L) 135 L Potassium (3.5 - 5.1 mmol/L) 4.3 Chloride (98 - 107 mmol/L) 105 Carbon Dioxide (22 - 30 mmol/L) 23 Anion Gap (5 - 16) 7 BUN (7 - 17 mg/dL) 3 L Creatinine (0.5 - 1.0 mg/dL) 0.4 L Estimated GFR (>60 ml/min) > 60 BUN/Creatinine Ratio (7 - 25 %) 7.5 Lactic Acid (0.7 - 2.1 mmol/L) 1.4 Prealbumin (17.6 - 36.0 mg/dL) 3.9 L Hematology CBC w Diff NO MAN DIFF REQ WBC (4.8 - 10.8 /CUMM) 8.1 RBC (4.20 - 5.40 /CUMM) 2.23 L Hgb (12.0 - 16.0 G/DL) 8.3 L Hct (37 - 47 %) 25.5 L MCV (81.0 - 99.0 FL) 114.6 H MCH (27.0 - 31.0 PG) 37.1 H MCHC (33.0 - 37.0 G/DL) 32.4 L RDW (11.5 - 14.5 %) 21.5 H Plt Count (130 - 400 /CUMM) 122 L MPV (7.4 - 10.4 FL) 11.7 H Gran % (42.2 - 75.2 %) 52.7 Lymphocytes % (20.5 - 51.1 %) 13.2 L Monocytes % (1.7 - 9.3 %) 4.6 Eosinophils % (0 - 5 %) 29.3 H Basophils % (0.0 - 2.0 %) 0.2 Absolute Granulocytes (1.4 - 6.5 /CUMM) 4.3 Absolute Lymphocytes (1.2 - 3.4 /CUMM) 1.1 L Absolute Monocytes (0.10 - 0.60 /CUMM) 0.4 Absolute Eosinophils (0.0 - 0.7 /CUMM) 2.4 Absolute Basophils (0.0 - 0.2 /CUMM) 0 Last 24 Hours of Will Results: SPEC #: [id number] GISELLA: 09/01/17 STATUS: COMP RECD: 09/01/[address]: Emerald INMAN,Azucena SOURCE: STOOL ENTR: 09/01/17140 [facility] DR: Francisco Javier INMAN, Micheline SPDESC: Dave INMAN,Ministerio Unknown ORDERED: CRYPTO/GIARDIA Procedure Result > GIARDIA ANTIGEN Final 09/02/17 GIARDIA ANTIGEN NEGATIVE:IF TRAVEL OR OTHER RISK, CALL MICRO [id number] FOR O&P > CRYPTOSPORIDIUM ANTIGEN Final 09/02/17 CRYPTOSPORIDIUM ANTIGEN NEGATIVE:IF TRAVEL OR OTHER RISK, CALL MICRO [id number] FOR O&P Recent Imaging Studies: Abd US IMPRESSION: Trace free fluid in the perihepatic region adjacent to the right lobe. Otherwise unremarkable study. DICTATED BY: Mira Martell MD DATE/TIME DICTATED:08/24/171511 [employer]LECT[employer] BEAM OPERATOR:LAURO DATE/TIME TRANSCRIBED:08/24/171511 Assessment/Plan ID Impression: 57 year old woman with multiple medical problems significant for etoh abuse seen for evaluation of progressively worsening altered mental status over several weeks found to have E coli septicemia/pneumonia (treated w/ moxifloxacin), and C diff colitis, alcoholic/metabolic encephalopathy Diarrhea much improved, though it appears that it is improving, with perhaps less frequency though it remains quite liquidy, now Day 8 of Fidaxomicin for C. difficile that did not appear to respond to 7 days of Vancomycin, with the addition of Cholestyramine 6 days ago, with which she is not compliant, and Rifaximin 5 days ago. Suggestion: 1. Trend CBC, BMP. Albumin weekly 2. Continue Fidaxomicin/Rifaximin. 3. Change Cholestyramine to q 12 h.
[2017-09-05 14:00] VITALS: BP 110/68
[2017-09-05 22:54] VITALS: BP 107/80
[2017-09-06 07:06] VITALS: BP 111/73
--- NOTE | 2017-09-06 08:15 | PN- Housestaff ---
See Addendum Subjective Follow-up For: C. difficile colitis, drug rash Subjective: No overnight events. Patient says the diphenhydramine helped yesterday with the itching. She says it's not too bad. She only had one episode of soft stool last night. No other complaints. Review of Systems Constitutional: Reports: no symptoms. EENTM: Reports: no symptoms. Cardiovascular: Reports: no symptoms. Respiratory: Reports: no symptoms. Gastrointestinal: Reports: see HPI. Genitourinary: Reports: no symptoms. Musculoskeletal: Reports: no symptoms. Skin: Reports: no symptoms. Neurological/Psychological: Reports: no symptoms. Hematologic/Endocrine: Reports: no symptoms. Immunologic/Allergic: Reports: no symptoms. Objective Last 24 Hrs of Vital Signs/I&O Vital Signs Date Time Temp Pulse Resp B/P B/P Pulse O2 O2 Flow FiO2 Mean Ox Delivery Rate 09/06 0706 99.6 87 18 111/73 97 Room Air 09/05 2254 99.4 89 20 107/80 98 Room Air 09/05 1400 99.1 102 21 110/68 97 Room Air Intake & Output 09/06 1600 09/06 0800 09/06 0000 Intake Total 280 1130 Output Total 900 Balance 280 230 Intake, IV 40 630 Intake, Oral 240 500 Number 0 3 Bowel Movements Output, Urine 900 Physical Exam General Appearance: Alert, Oriented X3, Cooperative, No Acute Distress Cardiovascular: Regular Rate, Normal S1, Normal S2 Lungs: Clear to Auscultation Abdomen: Normal Bowel Sounds, Soft, No Tenderness Extremities: No Edema Current Medications: Current Medications Sig/Marcus Start time Last Medication Dose Route Stop Time Status Admin Albuterol Sulfate 3 ML BID PRN 08/26 1349 AC INH Chlorhexidine 10 ML TID 08/25 1000 AC 09/05 Gluconate PO 1625 Cholestyramine Resin 1 PAC Q12 09/05 2200 AC PO Cholestyramine Resin 1 PAC Q6 08/30 1212 DC 09/03 PO 2358 Cyanocobalamin 1,000 MCG DAILY 08/28 1000 AC 09/05 PO 0957 Diphenhydramine HCl 50 MG Q6-PRN PRN 09/05 1215 AC PO Diphenhydramine HCl 50 MG ONCE ONE 09/05 0930 DC 09/05 PO 09/05 0931 1220 Diphenhydramine HCl 1 ANGEL BID 09/03 1000 AC 09/05 TOP 2109 Famotidine 20 MG BID 08/28 1429 AC 09/05 PO 2110 Fidaxomicin 200 MG Q12 08/28 2200 AC 09/05 PO 2109 Folic Acid 1 MG DAILY 08/28 1000 AC 09/05 PO 0955 Heparin Sodium 5,000 UNIT Q8 08/22 1400 AC 09/06 (Porcine) SC 0647 Lactobacillus 1 CAP BID 09/02 1000 AC 09/05 Acidophilus PO 211 Levothyroxine Sodium 0.137 MG DAILY AC 08/29 0700 AC 09/06 PO 0647 Multivitamins 1 TAB DAILY 08/28 1100 AC 09/05 PO 0957 Nystatin 1 ANGEL BID 09/02 0247 DC 09/05 TOP 2110 Ondansetron HCl 4 MG Q6P PRN 08/15 1845 AC IV Potassium Chloride 20 MEQ Q13H 09/01 0800 AC 09/06 Dextrose/Sodium 1,000 ML IV 0155 Chloride Rifaximin 550 MG BID 08/31 2200 AC 09/05 PO 2111 Thiamine HCl 100 MG DAILY 09/02 1000 AC 09/05 PO 0957 Vitamin A/Vitamin D 1 ANGEL BID PRN 09/02 1050 AC 09/04 TOP 1038 Vitamin E 800 IU DAILY 09/02 1630 AC 09/05 PO 0957 Zinc Oxide 1 ANGEL BID 09/02 2200 AC 09/05 TOP 2108 Last 24 Hrs of Lab/Will Results Last 24 Hrs of Labs/Mics: Laboratory Tests 09/06/17 0640: Sodium Pending, Potassium Pending, Chloride Pending, Carbon Dioxide Pending, Anion Gap Pending, BUN Pending, Creatinine Pending, BUN/Creatinine Ratio Pending , CBC w Diff Pending, WBC Pending, RBC Pending, Hgb Pending, Hct Pending, MCV Pending, MCH Pending, MCHC Pending, RDW Pending, Plt Count Pending, MPV Pending Assessment/Plan Assessment: 57 year old woman with multiple medical problems significant for etoh abuse seen for evaluation of progressively worsening altered mental status over several weeks found to have E coli septicemia/pneumonia, and C diff colitis. Problem List -Altered mental status, probable alcoholic/metabolic encephalopathy -Septic shock, improved -Community-acquired pneumonia-; hasn't resolved -Acute Hypoxic/Hypercarbic Respiratory failure, Extubaed -C. Diff colitis, on PO FIDAXOMICIN improving -Thrombocytopenia, improved. -Anion Gap Metabolic Acidosis, Resolved -Electrolyte abnormalities, repleting daily -History of EtOH, contemplating quitting -h/o Hypertension -Hypothyroidism -Anemia-1 unit of blood transfused. * Patient treated with po moxifloxacin for E coli pneumonia-resolved. Patient is off moxifloxacin. Patient is able to tolerate oral feeds. Continue fidaxomicin and cholestyramine for C. difficile colitis. Patient had 7 loose bowel movements in the last 24 hours. Patient was seen by gastroenterology, who suggested to continue current management as her frequency of diarrhea is reducing. He suggested he would not do sigmoidoscopy for now. We added thiamine and probiotics . Patient at times has periods of confusion which can be secondary due to alcoholic cirrhotic liver disease/electrolytes/infection. Patient was seen by neurology who suggested EEG . EEG showed abnormal slowing of the background but no focal or epileptic changes. Patient will be followed by neurologist . Her initial CAT scan of the head was negative. Patient potassium is 3.7 today and this was replaced. Her magnesium was low replaced. Since admission patient has electrolyte abnormalities. * Patient had maculopapular rash in the back, belly and bilateral breast which can be secondary due to medication use-initially resolved. Again she has faint rash all over her abdomen and her back. This looks more like drug rash. We'll add Benadryl cream for itching. Infectious disease doctor is on board. * knockup worker on board. Patient was seen by physical therapy was suggested short-term rehabilitation. * Novolin sliding scale insulin. Patient has developed a diffuse erythematous rash and has eosinophilia. This is likely secondary to drug rash. We will continue to monitor. Appreciate ID recommendations. Diarrhea seems to be improving. Code-full code DVT prophylaxis-heparin Problem List: 1. C. difficile colitis Pain Ratin Pain Location: no Pain Goal: Remain pain free Pain Plan: see a/p Tomorrow's Labs & Rationales: cbc, bep
--- NOTE | 2017-09-06 08:51 | PN- Infect Dx ---
Subjective Subjective: No fever; low grade temp. Diarrhea subsiding. Ocas cough. Review of Systems Comments: 12 points reviewed as noted, otherwise negative. Objective Last 24 Hrs of Vital Signs/I&O Vital Signs Date Time Temp Pulse Resp B/P B/P Pulse O2 O2 Flow FiO2 Mean Ox Delivery Rate 09/06 705 99.6 87 18 111/73 97 Room Air 09/05 2254 99.4 89 20 107/80 98 Room Air 09/05 1400 99.1 102 21 110/68 97 Room Air Intake & Output 09/06 1600 09/06 0800 09/06 0000 Intake Total 280 1130 Output Total 900 Balance 280 230 Intake, IV 40 630 Intake, Oral 240 500 Number 0 3 Bowel Movements Output, Urine 900 Physical Exam Other Physical Findings: General Appearance: Alert, Oriented X3, Cooperative, No Acute Distress HEENT AT/sclera anicteric Neck No RAZIA Cardiovascular: Regular Rate, Normal S1, Normal S2, No Murmurs Lungs: Clear to Auscultation, few B/L rhonchi ant chest Abdomen: Soft, Protuberant, No Tenderness, BS present Neurological: Strength at 5/5 X4 Ext, A&O x3 Extremities: No Cyanosis, Normal Pulses Results Last 24 Hours of Lab Results: Laboratory Tests 09/06 0640 Chemistry Sodium (137 - 145 mmol/L) 136 L Potassium (3.5 - 5.1 mmol/L) 3.6 Chloride (98 - 107 mmol/L) 105 Carbon Dioxide (22 - 30 mmol/L) 25 Anion Gap (5 - 16) 6 BUN (7 - 17 mg/dL) 4 L Creatinine (0.5 - 1.0 mg/dL) 0.4 L Estimated GFR (>60 ml/min) > 60 BUN/Creatinine Ratio (7 - 25 %) 10.0 Hematology CBC w Diff Pending WBC Pending RBC Pending Hgb Pending Hct Pending MCV Pending MCH Pending MCHC Pending RDW Pending Plt Count Pending MPV Pending Last 24 Hours of Will Results: reviewed Recent Imaging Studies: reviewed Assessment/Plan ID Impression: 57 year old woman with multiple medical problems significant for etoh abuse seen for evaluation of progressively worsening altered mental status over several weeks found to have E coli septicemia/pneumonia (treated w/ moxifloxacin), and C diff colitis, alcoholic/metabolic encephalopathy Diarrhea much improved, though it appears that it is improving, with perhaps less frequency though it remains quite liquidy, now Day 9 of Fidaxomicin for C. difficile that did not appear to respond to oral Vancomycin, with the addition of Cholestyramine 7 days ago, and Rifaximin 6 days ago. Suggestion: 1. Trend CBC, BMP. Albumin weekly 2. Continue Fidaxomicin/Rifaximin/Cholestyramine to q 12 h. 3. Call if fever.
[2017-09-06 10:11] LABS: ABSOLUTE BASOPHIL COUNT 0 /CUMM (0.0-0.2); ABSOLUTE EOSINOPHIL COUNT 2.5 /CUMM (0.0-0.7); ABSOLUTE GRANULOCYTE CT 4.2 /CUMM (1.4-6.5); ABSOLUTE LYMPH COUNT 1.1 /CUMM (1.2-3.4); ABSOLUTE MONOCYTE COUNT 0.4 /CUMM (0.10-0.60); BASOPHIL % 0 % (0.0-2.0); EOSINOPHIL % 30.5 % (0-5); GRANULOCYTE % 50.8 % (42.2-75.2); HEMATOCRIT 26.3 % (37-47); MEAN CORPUSCULAR HGB 36.6 PG (27.0-31.0); MEAN CORPUSCULAR HGB CONC 32.3 G/DL (33.0-37.0); MEAN CORPUSCULAR VOLUME 113.2 FL (81.0-99.0)
[2017-09-06 10:13] LABS: MEAN PLATELET VOLUME 11.8 FL (7.4-10.4); PLATELET COUNT 123 /CUMM (130-400); RED BLOOD CELL CT 2.32 /CUMM (4.20-5.40)
[2017-09-06 10:18] LABS: WHITE BLOOD CELL COUNT 8.2 /CUMM (4.8-10.8)
[2017-09-06 14:37] VITALS: BP 110/72
[2017-09-06 21:14] VITALS: BP 102/66
--- NOTE | 2017-09-07 06:24 | PN- Housestaff ---
Emerald INMAN,Azucena 09/07/17 0623: Subjective Follow-up For: encephalopathy, c diff Complaints: no complaints Subjective: Patient seen and examined at bedside. No overnight events. Patient alert, oriented 3. Able to follow commands. She denies abdominal pain, cough, fever, chest pain, nausea, vomiting. Patient had 3 bowel movements since yesterday. Review of Systems Constitutional: Reports: no symptoms. Cardiovascular: Reports: no symptoms. Respiratory: Reports: no symptoms. Gastrointestinal: Reports: no symptoms. Genitourinary: Reports: no symptoms. Musculoskeletal: Reports: no symptoms. Objective Last 24 Hrs of Vital Signs/I&O Vital Signs Date Time Temp Pulse Resp B/P B/P Pulse O2 O2 Flow FiO2 Mean Ox Delivery Rate 09/07 0647 99.4 93 20 124/86 96 Room Air 09/06 2114 98.0 88 16 102/66 95 Room Air 09/06 1437 98.1 90 20 110/72 97 Room Air Intake & Output 09/07 1600 09/07 0800 09/07 0000 Intake Total 840 840 Output Total 300 Balance 540 840 Intake, IV 600 600 Intake, Oral 240 240 Number 1 Bowel Movements Output, Urine 300 Physical Exam General Appearance: Alert, Oriented X3, Cooperative, No Acute Distress Cardiovascular: Regular Rate, Normal S1, Normal S2, No Murmurs Lungs: Normal Air Movement Abdomen: Soft, No Tenderness, No Hepatospenomegaly Neurological: Strength at 5/5 X4 Ext, Normal Tone, Sensation Intact, Cranial Nerves 3-12 NL Extremities: No Cyanosis, No Edema, Normal Pulses Vascular: Normal Pulses Current Medications: Current Medications Sig/Marcus Start time Last Medication Dose Route Stop Time Status Admin Albuterol Sulfate 3 ML BID PRN 08/26 1349 AC INH Chlorhexidine 10 ML TID 08/25 1000 AC 09/07 Gluconate PO 0938 Cholestyramine Resin 1 PAC Q12 09/05 2200 AC PO Cyanocobalamin 1,000 MCG DAILY 08/28 1000 AC 09/07 PO 0937 Diphenhydramine HCl 50 MG Q6-PRN PRN 09/05 1215 AC PO Diphenhydramine HCl 1 ANGEL BID 09/03 1000 AC 09/07 TOP 0938 Famotidine 20 MG BID 08/28 1429 AC 09/07 PO 0937 Fidaxomicin 200 MG Q12 08/28 2200 AC 09/07 PO 0936 Folic Acid 1 MG DAILY 08/28 1000 AC 09/07 PO 0937 Heparin Sodium 5,000 UNIT Q8 08/22 1400 AC 09/07 (Porcine) SC 1318 Lactobacillus 1 CAP BID 09/02 1000 AC 09/07 Acidophilus PO 0937 Levothyroxine Sodium 0.137 MG DAILY AC 08/29 0700 AC 09/07 PO 0526 Multivitamins 1 TAB DAILY 08/28 1100 AC 09/07 PO 0937 Ondansetron HCl 4 MG Q6P PRN 08/15 1845 AC IV Potassium Chloride 40 MEQ ONCE ONE 09/07 1330 AC PO 09/07 1331 Potassium Chloride 60 MEQ ONCE ONE 09/07 1000 DC PO 09/07 1001 Potassium Chloride 20 MEQ Q13H 09/01 0800 DC 09/07 Dextrose/Sodium 1,000 ML IV 0527 Chloride Rifaximin 550 MG BID 08/31 2200 AC 09/07 PO 0937 Thiamine HCl 100 MG DAILY 09/02 1000 AC 09/07 PO 0937 Vitamin A/Vitamin D 1 ANGEL BID PRN 09/02 1050 AC 09/06 TOP 0841 Vitamin E 800 IU DAILY 09/02 1630 AC 09/07 PO 0937 Zinc Oxide 1 ANGEL BID 09/02 2200 AC 09/07 TOP 0938 Last 24 Hrs of Lab/Will Results Last 24 Hrs of Labs/Mics: Laboratory Tests 09/07/17 0600: Anion Gap 7, Estimated GFR > 60, BUN/Creatinine Ratio 7.5, CBC w Diff MAN DIFF ORDERED, RBC 2.20 L, MCV 113.8 H, MCH 36.1 H, MCHC 31.7 L, RDW 20.4 H, MPV 10.6 H, Segmented Neutrophils 52, Band Neutrophils 3, Lymphocytes 15 L, Monocytes 4, Eosinophils 25 H, Basophils 1, Platelet Estimate VERIFIED BY SMEAR Assessment/Plan Assessment: 57 year old woman with multiple medical problems significant for etoh abuse seen for evaluation of progressively worsening altered mental status over several weeks found to have E coli septicemia/pneumonia, and C diff colitis. Problem List -Altered mental status, possible alcoholic/metabolic encephalopathy -Septic shock, improved -Community-acquired pneumonia-; hasn't resolved -Acute Hypoxic/Hypercarbic Respiratory failure, Extubaed -C. Diff colitis, on PO FIDAXOMICIN improving -Thrombocytopenia, improved. -Anion Gap Metabolic Acidosis, Resolved -Electrolyte abnormalities, repleting daily -History of EtOH, contemplating quitting -h/o Hypertension -Hypothyroidism -Anemia-1 unit of blood transfused. * Patient treated with po moxifloxacin for E coli pneumonia-resolved. Patient is off moxifloxacin. Patient is able to tolerate oral feeds. Continue fidaxomicin [day 10] and cholestyramine for C. difficile colitis. Patient had 3 loose bowel movements in the last 24 hours. Patient was seen by gastroenterology, who suggested to continue current management as her frequency of diarrhea is reducing. He suggested he would not do sigmoidoscopy for now. We added thiamine and probiotics . Patient is alert, oriented 3. No more periods of Confusion/agitation. Patient was seen by neurology who suggested EEG EEG showed abnormal slowing of the background but no focal or epileptic changes. Patient will be followed by neurologist . Her initial CAT scan of the head was negative. Patient potassium is 3.7 today and this was replaced. Her magnesium was low replaced. Since admission patient has electrolyte abnormalities. * Patient had maculopapular rash in the back, belly and bilateral breast which can be secondary due to medication use-initially resolved. Again she started developing faint erythematous pruritic rash all over her abdomen and her back, which is much reduced today. This looks more like drug rash. Continue Benadryl cream for the same. 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 Patient was seen by physical therapy was suggested short-term rehabilitation. * Novolog sliding scale insulin. Code-full code DVT prophylaxis-heparin Plan-patient is going to short-term rehabilitation today. Problem List: 1. C. difficile colitis 2. Encephalopathy 3. Pneumonia 4. Altered mental status Pain Ratin Pain Location: none Pain Goal: Remain pain free Pain Plan: Tylenol Tomorrow's Labs & Rationales: CBC, BEP Roe INMAN,Guadalupe 09/07/17 1357: Attending MD Review Statement Attending Statement Attending MD Statement: examined this patient, discuss w/resident/PA/SENIOR CASE MANAGER, agreed w/resident/PA/SENIOR CASE MANAGER, reviewed EMR data (avail), discussed with nursing, discussed with case mgmt, reviewed images, amended to note Attending Assessment/Plan: Patient seen and examined, overall much more awake. Diarrhea has improved. Had one large loose BM. Otherwise abd benign, afebrile, wbc normal. Will observe till later today to see if she has more BMs. If she does then she will stay for one more so that we can watch her. If no further diarrhea, she can bve discharged. Will add Cholestyramine.
[2017-09-07 06:47] VITALS: BP 124/86
[2017-09-07 08:44] LABS: HEMATOCRIT 25.1 % (37-47); MEAN CORPUSCULAR HGB 36.1 PG (27.0-31.0); MEAN CORPUSCULAR HGB CONC 31.7 G/DL (33.0-37.0); MEAN CORPUSCULAR VOLUME 113.8 FL (81.0-99.0); MEAN PLATELET VOLUME 10.6 FL (7.4-10.4); PLATELET COUNT 130 /CUMM (130-400); RBC DISTRIBUTION WIDTH 20.4 % (11.5-14.5); WHITE BLOOD CELL COUNT 7.6 /CUMM (4.8-10.8)
[2017-09-07] MEDS ORDERED: DIFICID PO (10:25)
[2017-09-07] MEDS ORDERED: VITAMIN B-1100 MG PO (10:25)
[2017-09-07] MEDS ORDERED: PROBIOTIC & AC1 EACH PO (10:25)
[2017-09-07] MEDS ORDERED: ITCH RELIEF CRE28 GM TOP (10:25)
[2017-09-07] MEDS ORDERED: VITAMIN A & D56.7 GM TOP (10:25)
--- NOTE | 2017-09-07 14:04 | PN- Infect Dx ---
Subjective Subjective: Afebrile. Her diarrhea has improved but she did have 1 large, watery stool this afternoon. She does not complain of any pain. Objective Last 24 Hrs of Vital Signs/I&O Vital Signs Date Time Temp Pulse Resp B/P B/P Pulse O2 O2 Flow FiO2 Mean Ox Delivery Rate 09/07 0647 99.4 93 20 124/86 96 Room Air 09/06 2114 98.0 88 16 102/66 95 Room Air 09/06 1437 98.1 90 20 110/72 97 Room Air Intake & Output 09/07 1600 09/07 0800 04 0000 Intake Total 840 840 Output Total 300 Balance 540 840 Intake, IV 600 600 Intake, Oral 240 240 Number 1 Bowel Movements Output, Urine 300 Physical Exam Other Physical Findings: She is more alert and appropriate, oriented to place and in no acute distress Abdomen is soft, nontender with positive bowel sounds Extremities PICC in place in the right upper extremity with no inflammation at the site Results Last 24 Hours of Lab Results: Laboratory Tests 09/07 0600 Chemistry Sodium (137 - 145 mmol/L) 138 Potassium (3.5 - 5.1 mmol/L) 3.4 L Chloride (98 - 107 mmol/L) 105 Carbon Dioxide (22 - 30 mmol/L) 26 Anion Gap (5 - 16) 7 BUN (7 - 17 mg/dL) 3 L Creatinine (0.5 - 1.0 mg/dL) 0.4 L Estimated GFR (>60 ml/min) > 60 BUN/Creatinine Ratio (7 - 25 %) 7.5 Hematology CBC w Diff MAN DIFF ORDERED WBC (4.8 - 10.8 /CUMM) 7.6 RBC (4.20 - 5.40 /CUMM) 2.20 L Hgb (12.0 - 16.0 G/DL) 8.0 L Hct (37 - 47 %) 25.1 L MCV (81.0 - 99.0 FL) 113.8 H MCH (27.0 - 31.0 PG) 36.1 H MCHC (33.0 - 37.0 G/DL) 31.7 L RDW (11.5 - 14.5 %) 20.4 H Plt Count (130 - 400 /CUMM) 130 MPV (7.4 - 10.4 FL) 10.6 H Segmented Neutrophils (42.2 - 75.2 %) 52 Band Neutrophils (0.0 - 5.0 %) 3 Lymphocytes (20.5 - 51.1 %) 15 L Monocytes (1.7 - 9.3 %) 4 Eosinophils (0 - 5.0 %) 25 H Basophils (0.0 - 2.0 %) 1 Platelet Estimate (ADEQUATE) VERIFIED BY SMEAR Last 24 Hours of Will Results: No new cultures Assessment/Plan ID Impression: She has overall improved, with decreased diarrhea until this afternoon, now Day 10 of Fidaxomicin for C. difficile that did not appear to respond to 7 days of Vancomycin, with the addition of Cholestyramine 8 days ago, with which she is not compliant, and Rifaximin one week ago. She remains otherwise stable with temperatures and white blood cell count normal off systemic antibiotics. Suggestion: 1. Discontinue Fidaxomicin 2. Continue Cholestyramine (as she allows) and Rifaximin
[2017-09-07] MEDS ORDERED: CHOLESTYRAMINE L4 GM PO (15:49)
[2017-09-07 16:12] VITALS: BP 98/68
[2017-09-07 17:14] VITALS: BP 98/68
== END 2017-09-07 19:11 | DRG 870 ==
LOC: ERH 12:44 → CRI 16:28 → ERHI 16:28 → 2NB 16:28 → CANRESERV 17:37 → ENRESERV 17:37 → EDBEDREQ 18:41 → ENRESERV 18:52 → ENTRNSPT 20:12 → EDTRNSPTSTS 20:25 → EDTRNSPT 20:25 → CMPTRNSPT 20:44 → CRI 21:16 → ENTRNSPT 08-26 14:11 → EDTRNSPTSTS 08-26 14:47 → EDTRNSPT 08-26 14:47 → 2NB 08-26 15:10 → CMPTRNSPT 08-26 15:13 → 2NB 08-26 16:46
PROVIDERS: Dermatology; Internal Medicine; Internal Medicine Hematology & Oncology; Internal Medicine Interventional Cardiology; Physician Assistant; Student in an Organized Health Care Education/Training Program
PROC: 02HV33Z Insertion of Infusion Device into Superior Vena Cava, Percutaneous Approach (ICD-10-PCS; 2017-08-17)
PROC: 0DH63UZ Insertion of Feeding Device into Stomach, Percutaneous Approach (ICD-10-PCS; 2017-08-17)
PROC: 3E0G76Z Introduction of Nutritional Substance into Upper GI, Via Natural or Artificial Opening (ICD-10-PCS; 2017-08-17)
PROC: 5A1955Z Respiratory Ventilation, Greater than 96 Consecutive Hours (ICD-10-PCS; 2017-08-17)
PROC: 0BH17EZ Insertion of Endotracheal Airway into Trachea, Via Natural or Artificial Opening (ICD-10-PCS; 2017-08-17)
PROC: 30233N1 Transfusion of Nonautologous Red Blood Cells into Peripheral Vein, Percutaneous Approach (ICD-10-PCS; principal; 2017-08-18)
DX: A41.51 Sepsis due to Escherichia coli [E. coli] (principal); R65.21 Severe sepsis with septic shock; J15.5 Pneumonia due to Escherichia coli; D61.818 Other pancytopenia; J96.01 Acute respiratory failure with hypoxia; J96.02 Acute respiratory failure with hypercapnia; A04.72 Enterocolitis due to Clostridium difficile, not specified as recurrent; F10.231 Alcohol dependence with withdrawal delirium; A04.8 Other specified bacterial intestinal infections; G93.41 Metabolic encephalopathy; E87.2 Acidosis; N17.9 Acute kidney failure, unspecified; E46 Unspecified protein-calorie malnutrition; R13.10 Dysphagia, unspecified; K72.90 Hepatic failure, unspecified without coma; K76.0 Fatty (change of) liver, not elsewhere classified; I10 Essential (primary) hypertension; E03.9 Hypothyroidism, unspecified; F17.210 Nicotine dependence, cigarettes, uncomplicated; E87.6 Hypokalemia; E83.42 Hypomagnesemia; R74.0 Nonspecific elevation of levels of transaminase and lactic acid dehydrogenase [LDH]; I25.10 Atherosclerotic heart disease of native coronary artery without angina pectoris; K80.20 Calculus of gallbladder without cholecystitis without obstruction; E87.8 Other disorders of electrolyte and fluid balance, not elsewhere classified; K70.11 Alcoholic hepatitis with ascites; Z68.25 Body mass index [BMI] 25.0-25.9, adult; R26.81 Unsteadiness on feet; L29.9 Pruritus, unspecified; T36.95XA Adverse effect of unspecified systemic antibiotic, initial encounter; Y92.239 Unspecified place in hospital as the place of occurrence of the external cause; E83.51 Hypocalcemia
CPT/HCPCS: 2NBP; 84133; 84300; CCU; 36415; 36592; 71045; 74177; 74230; 80307; 81001; 82436; 82570; 83630; 86920; 87040; 87045; 87070; 87071; 87086; 87328; 87329; 87389; 87449; 87450; 87804; 87804-59; 93005; 93010; 93306; 93970; 94799; 95816; 96360; 97110-GO; 97112-GO; 97116-GO; 97161-GP; 97530-GO; C1769; G0480; J0131; J0696; J0713; J1644; J1650; J1815; J1940; J2060; J2280; J2354; J2405; J2997; J3010; J3490; J7040; J7042; J7060; P9016; S5012